=== PATIENT | male | born 1940 | race Caucasian/White ===

== ENCOUNTER 2018-07-01 02:29 | Outpatient (CLI) | payer MEDICARE, SELFPAY ==
[2018-07-01 10:45] LABS: BUN 18 mg/dL (7-18); CREATININE 1.24 mg/dL (0.70-1.30); Calcium 8.6 mg/dL (8.5-10.1); Chloride 108 mmol/L (98-107); Cholesterol 133 mg/dL (50-200); Estimated GFR 56.24 (mL/min/1.73m2); Glucose 90 mg/dL (70-100); HDL Cholesterol 38 mg/dL (40-60); LDL CHOLESTEROL 83 mg/dL (<100); Potassium 4.4 mmol/L (3.5-5.1); Sodium 144 mmol/L (136-145); Triglyceride 96 mg/dL (30-150)
== END 2018-07-01 02:49 ==
PROVIDERS: PCP Family Medicine; Visit Provider Family Medicine
DX: E78.5 Hyperlipidemia, unspecified (principal); I10 Essential (primary) hypertension
CPT/HCPCS: 36415; 80048; 80061; 83721

== ENCOUNTER 2018-12-18 17:07 | Emergency (ER) | payer MEDICARE, SELFPAY ==
--- NOTE | 2018-12-18 17:11 | W.ED.GENAD ---
Discharge Plan Disposition Patient Disposition: HOME Condition: Improving Discharge Details Chief Complaint: RespSymp Clinical Impression: Pneumonia, Influenza A, Constipation Primary Care Provider: Tashi Castillo ED Provider: Dipak Swift Home Meds and New Rx's Prescriptions: New doxycycline hyclate 100 mg capsule 100 mg PO BID 10 Days Qty: 20 RF: 0 docusate sodium [Colace] 100 mg capsule 200 mg PO QHS PRN (Reason: constipation) Qty: 20 RF: 0 Continued oxybutynin chloride 5 mg tablet extended release 24hr 5 mg PO BID Qty: 180 RF: 3 pramipexole [Mirapex] 0.5 mg tablet 0.5 mg PO HS Qty: 90 RF: 4 Colace 50 MG capsule 100 mg PO BID PRNRF: 0 multivitamin 1 EACH capsule 1 ea PO DAILY RF: 0 glucosam-chond [id number]-[id number] ac 1 EACH capsule 1 ea PO DAILY RF: 0 simvastatin 10 MG tablet 0.5 tab PO HS Qty: 45 RF: 4 nabumetone 500 MG tablet 500 mg PO BID Qty: 180 RF: 3 omeprazole 20 mg capsule,delayed release(DR/EC) 20 mg PO DAILY Qty: 90 RF: 3 methylphenidate HCl 10 mg tablet 20 mg PO BID MDD 40 mg Qty: 60 RF: 0 Discharge Instructions Instructions: Constipation (ED), Pneumonia (ED) Additional Instructions: Home to rest this evening. As we discussed to have evidence of a developing pneumonia and influenza. Please take antibiotics as prescribed. Colace at bedtime, as prescribed, as needed for constipation Followup with Dr Castillo if not improved in 3-5 days time. Medical Decision Making 78-year-old male presents from home complaining of 2 concerns. 1: he has had 5 days of constipation which is not unusual for him. 2: he has day5 of cough with mild congestion. No significant fever. has been sick with a respiratory illness. He is afebrile and well-appearing. His exam is benign. He has normal oxygenation, is in no distress, with a soft abdomen. Influenza testing obtained and patient referred for chest x-ray with abdominal flat plate. Patient has positive influenza A. Abdominal x-ray reveals moderate fecal load without evidence of obstruction. Chest x-ray with opacity in the retrocardiac area, concerning for pneumonia. Discussed with the patient that I do not feel Tamiflu is indicated given the length of time since the onset. He does likely have influenza associated pneumonia and I will treat him with a course of doxycycline given strong allergy to penicillins. Additionally, we will treat with Colace for constipation. He stable and appropriate discharged home. He will follow-up with Dr. Castillo if not improving in 3-5 days time. HPI General Mode of arrival: ambulatory. Date/Time Provider Initiated Documentation: 12/18/18 17:07. Limitations to Documentation: no limitations. Information obtained by: patient. History of Present Illness 78 year old M presents to the emergency department with the chief complaint of 78-year-old male complains of cough 4days and constipation x4 days, described as mild and moderate, Quality is described as dull, and is localized to the chest and abdomen. Patient reports no radiation. Patient started experiencing this day(s) and it has been constant. No relieving factors improve symptom(s), No exacerbating factors reported . Patient notes cough; denies fever/chills and nausea/vomiting. Patient did receive the following treatments prior to arrival, none Related Data Home Medications Medication Instructions Recorded Confirmed Colace 100 mg PO BID PRN tab-cap 12/09/12 12/18/18 glucosam-chond [id number] ac 1 ea PO DAILY 12/09/12 12/18/18 multivitamin 1 ea PO DAILY 12/09/12 12/18/18 nabumetone 500 mg PO BID #180 tab-cap 04/10/18 12/18/18 simvastatin 0.5 tab PO HS #45 tab-cap 04/10/18 12/18/18 oxybutynin chloride ER 5 mg 5 mg PO BID #180 tab 06/25/18 12/18/18 tablet,extended release 24 hr pramipexole 0.5 mg tablet 0.5 mg PO HS #90 tab-cap 06/25/18 12/18/18 omeprazole 20 mg capsule,delayed 20 mg PO DAILY #90 tab-cap 10/05/18 12/18/18 release methylphenidate 10 mg tablet 20 mg PO BID #60 tab-cap MDD 40 mg 10/27/18 12/18/18 docusate sodium [Colace] 200 mg PO QHS PRN #20 cap 12/18/18 doxycycline hyclate 100 mg PO BID 10 Days #20 cap 12/18/18 Previous Rx's Medication Instructions Recorded nabumetone 500 mg PO BID #180 tab-cap 04/10/18 simvastatin 0.5 tab PO HS #45 tab-cap 04/10/18 oxybutynin chloride ER 5 mg 5 mg PO BID #180 tab 06/25/18 tablet,extended release 24 hr pramipexole 0.5 mg tablet 0.5 mg PO HS #90 tab-cap 06/25/18 omeprazole 20 mg capsule,delayed 20 mg PO DAILY #90 tab-cap 10/05/18 release methylphenidate 10 mg tablet 20 mg PO BID #60 tab-cap MDD 40 mg 10/27/18 docusate sodium [Colace] 200 mg PO QHS PRN #20 cap 12/18/18 doxycycline hyclate 100 mg PO BID 10 Days #20 cap 12/18/18 Allergies Allergy/AdvReac Type Severity Reaction Status Date / Time celecoxib Allergy GI Bleeding Unverified 12/18/18 18:21 Penicillins Allergy Skin Rash Unverified 12/18/18 18:21 Review of Systems Review of Systems Denies fever, chills. States his has been sick with a viral type illness. He often has constipation. Last normal bowel movement was Friday. No chest pain or shortness of breath. 6 systems reviewed and otherwise negative [facility] Surgical History HERNIA REPAIR (~05/2009) KNEE REPAIR Laminectomy? 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 Paternal Grandmother No problems noted. Son No problems noted. Son Diabetes Social History Smoking/Tobacco Use Status: Never Alcohol Intake: never Drug use: Never Substance use type: does not use Household members: spouse Pets and animals: Yes Pets and animals: dog(s) Duration: 60-90 minutes/day Frequency: 3-4 times per week Rafaela/Yazidi: Amish Special rafaela needs: No Do you feel safe at home: Yes Do you feel safe in your relationship?: Yes Exam Narrative Exam Narrative: GEN: awake, alert, oriented 3. Pleasant, well groomed, interactive. HEAD: Normocephalic, atraumatic ENT: Mucous membranes moist, oropharynx unremarkable, External ear exam unremarkable EYES: PERRL, EOMI NECK: Full ROM, no LAKESHA, no menigismus CHEST/RESP: Nontender, clear to auscultation bilateral, left base rhonchi CARDIOVASCULAR: RRR, no murmur, rub moises. 2+ Rad pulse bilateral ABDOMEN: Soft, nontender, no mass. +Bowel sounds EXT: Full ROM, no edema, no rash Neuro: Grossly normal neurologic exam, conversant, interactive. Psych: Speech fluent, thoughts congruent, affect normal
[2018-12-18 17:14] VITALS: BP 154/85; PULSE 76; RESP 15; TEMP 37; O2SAT 94
--- NOTE | 2018-12-18 17:28 | ED.GENADUL_ITS ---
Discharge Plan Disposition Patient Disposition: HOME Condition: Improving Discharge Details Chief Complaint: RespSymp Clinical Impression: Pneumonia, Influenza A, Constipation Primary Care Provider: Tashi Castillo ED Provider: Dipak Swift Home Meds and New Rx's Prescriptions: New doxycycline hyclate 100 mg capsule 100 mg PO BID 10 Days Qty: 20 RF: 0 docusate sodium [Colace] 100 mg capsule 200 mg PO QHS PRN (Reason: constipation) Qty: 20 RF: 0 Continued oxybutynin chloride 5 mg tablet extended release 24hr 5 mg PO BID Qty: 180 RF: 3 pramipexole [Mirapex] 0.5 mg tablet 0.5 mg PO HS Qty: 90 RF: 4 Colace 50 MG capsule 100 mg PO BID PRNRF: 0 multivitamin 1 EACH capsule 1 ea PO DAILY RF: 0 glucosam-chond [id number]-[id number] ac 1 EACH capsule 1 ea PO DAILY RF: 0 simvastatin 10 MG tablet 0.5 tab PO HS Qty: 45 RF: 4 nabumetone 500 MG tablet 500 mg PO BID Qty: 180 RF: 3 omeprazole 20 mg capsule,delayed release(DR/EC) 20 mg PO DAILY Qty: 90 RF: 3 methylphenidate HCl 10 mg tablet 20 mg PO BID MDD 40 mg Qty: 60 RF: 0 Discharge Instructions Instructions: Constipation (ED), Pneumonia (ED) Additional Instructions: Home to rest this evening. As we discussed to have evidence of a developing pneumonia and influenza. Please take antibiotics as prescribed. Colace at bedtime, as prescribed, as needed for constipation Followup with Dr Castillo if not improved in 3-5 days time. Medical Decision Making 78-year-old male presents from home complaining of 2 concerns. 1: he has had 5 days of constipation which is not unusual for him. 2: he has day5 of cough with mild congestion. No significant fever. has been sick with a respiratory illness. He is afebrile and well-appearing. His exam is benign. He has normal oxygenation, is in no distress, with a soft abdomen. Influenza testing obtained and patient referred for chest x-ray with abdominal flat plate. Patient has positive influenza A. Abdominal x-ray reveals moderate fecal load without evidence of obstruction. Chest x-ray with opacity in the retrocardiac area, concerning for pneumonia. Discussed with the patient that I do not feel Tamiflu is indicated given the length of time since the onset. He does likely have influenza associated pneumonia and I will treat him with a course of doxycycline given strong allergy to penicillins. Additionally, we will treat with Colace for constipation. He stable and appropriate discharged home. He will follow-up with Dr. Castillo if not improving in 3-5 days time. HPI General Mode of arrival: ambulatory . Date/Time Provider Initiated Documentation: 12/18/18 17:07 . Limitations to Documentation: no limitations . Information obtained by: patient . History of Present Illness 78 year old M presents to the emergency department with the chief complaint of 78-year-old male complains of cough 4days and constipation x4 days, described as mild and moderate, Quality is described as dull, and is localized to the chest and abdomen. Patient reports no radiation. Patient started experiencing this day(s) and it has been constant. No relieving factors improve symptom(s), No exacerbating factors reported . Patient notes cough; denies fever/chills and nausea/vomiting. Patient did receive the following treatments prior to arrival, none Related Data Home Medications Medication Instructions Recorded Confirmed Colace 100 mg PO BID PRN tab-cap 12/09/12 12/18/18 glucosam-chond [id number]-[id number] ac 1 ea PO DAILY 12/09/12 12/18/18 multivitamin 1 ea PO DAILY 12/09/12 12/18/18 nabumetone 500 mg PO BID #180 tab-cap 04/10/18 12/18/18 simvastatin 0.5 tab PO HS #45 tab-cap 04/10/18 12/18/18 oxybutynin chloride ER 5 mg 5 mg PO BID #180 tab 06/25/18 12/18/18 tablet,extended release 24 hr pramipexole 0.5 mg tablet 0.5 mg PO HS #90 tab-cap 06/25/18 12/18/18 omeprazole 20 mg capsule,delayed 20 mg PO DAILY #90 tab-cap 10/05/18 12/18/18 release methylphenidate 10 mg tablet 20 mg PO BID #60 tab-cap MDD 40 mg 10/27/18 12/18/18 docusate sodium [Colace] 200 mg PO QHS PRN #20 cap 12/18/18 doxycycline hyclate 100 mg PO BID 10 Days #20 cap 12/18/18 Previous Rx's Medication Instructions Recorded nabumetone 500 mg PO BID #180 tab-cap 04/10/18 simvastatin 0.5 tab PO HS #45 tab-cap 04/10/18 oxybutynin chloride ER 5 mg 5 mg PO BID #180 tab 06/25/18 tablet,extended release 24 hr pramipexole 0.5 mg tablet 0.5 mg PO HS #90 tab-cap 06/25/18 omeprazole 20 mg capsule,delayed 20 mg PO DAILY #90 tab-cap 10/05/18 release methylphenidate 10 mg tablet 20 mg PO BID #60 tab-cap MDD 40 mg 10/27/18 docusate sodium [Colace] 200 mg PO QHS PRN #20 cap 12/18/18 doxycycline hyclate 100 mg PO BID 10 Days #20 cap 12/18/18 Allergies Allergy/AdvReac Type Severity Reaction Status Date / Time celecoxib Allergy GI Bleeding Unverified 12/18/18 18:21 Penicillins Allergy Skin Rash Unverified 12/18/18 18:21 Review of Systems Review of Systems Denies fever, chills. States his has been sick with a viral type illness. He often has constipation. Last normal bowel movement was Friday. No chest pain or shortness of breath. 6 systems reviewed and otherwise negative [facility] Surgical History HERNIA REPAIR (~05/2009) KNEE REPAIR Laminectomy? 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 Paternal Grandmother No problems noted. Son No problems noted. Son Diabetes Social History Smoking/Tobacco Use Status: Never Alcohol Intake: never Drug use: Never Substance use type: does not use Household members: spouse Pets and animals: Yes Pets and animals: dog(s) Duration: 60-90 minutes/day Frequency: 3-4 times per week Rafaela/Zoroastrianism: Yarsanism Special rafaela needs: No Do you feel safe at home: Yes Do you feel safe in your relationship?: Yes Exam Narrative Exam Narrative: GEN: awake, alert, oriented 3. Pleasant, well groomed, interactive. HEAD: Normocephalic, atraumatic ENT: Mucous membranes moist, oropharynx unremarkable, External ear exam unremarkable EYES: PERRL, EOMI NECK: Full ROM, no LAKESHA, no menigismus CHEST/RESP: Nontender, clear to auscultation bilateral, left base rhonchi CARDIOVASCULAR: RRR, no murmur, rub moises. 2+ Rad pulse bilateral ABDOMEN: Soft, nontender, no mass. +Bowel sounds EXT: Full ROM, no edema, no rash Neuro: Grossly normal neurologic exam, conversant, interactive. Psych: Speech fluent, thoughts congruent, affect normal
[2018-12-18 17:36] VITALS: BP 149/87; PULSE 70; RESP 14; O2SAT 93
--- NOTE | 2018-12-18 17:52 | DI.RAD_ITS ---
SYMPTOM/DIAGNOSIS: CONSTIPATION, COUGH, LT BASE RHONCHI FRONTAL AND LATERAL CHEST: Comparison is made with 07/06/12. Heart size and pulmonary vasculature appear stable and within normal limits. The lungs appear hyperinflated with flattened diaphragms suggesting underlying COPD. There are increased lung markings in the retrocardiac region of the lung, probably on the left. No effusions or pneumothoraces are identified. The bones appear intact. IMPRESSION: Retrocardiac opacity/infiltrate. This may represent atelectasis or pneumonia. FPA: There is a large amount of stool seen in the colon involving the ascending, transverse descending colon consistent with constipation. No evidence of bowel obstruction is seen. No organomegaly is present. Moderately severe degenerative changes are seen in the spine. IMPRESSION: Findings consistent with constipation.
--- NOTE | 2018-12-18 18:08 | NUR.NOTE ---
Mr. Givens return to ER from Radiology; chest and abdominal films obtained.Nursing Note:
[2018-12-18 18:22] VITALS: BP 138/73; PULSE 68; RESP 15; TEMP 37.3; O2SAT 94
--- NOTE | 2018-12-18 18:29 | DI.VRAD_ITS ---
EXAM: XR Chest, 2 Views EXAM DATE/TIME: 12/18/2018 5:26 PM CLINICAL HISTORY: 78 years old, male; Signs and symptoms; Cough; Patient HX: Cough, l base rhonchi TECHNIQUE: XR of the chest, 2 views. COMPARISON: CR CHEST 2 VIEWS PA,LAT 07/06/2012 12:34 PM FINDINGS: Lungs: Hyperexpanded lung larry consistent with COPD . Increasing opacity in the retrocardiac area Pleural space: Unremarkable. No pleural effusion. No pneumothorax. Heart/Mediastinum: Stable cardiac silhouette Bones/joints: Unremarkable. IMPRESSION: Increasing opacity in the retrocardiac area may represent mild atelectasis or pneumonia. Dictated and Authenticated by: Hema Ko MD. Ordering:XIMENA Quesada MD
--- NOTE | 2018-12-18 18:31 | DI.VRAD_ITS ---
EXAM: XR Abdomen, 1 View EXAM DATE/TIME: 12/18/2018 5:26 PM CLINICAL HISTORY: 78 years old, male; Signs and symptoms; Constipation TECHNIQUE: Frontal supine view of the abdomen/pelvis. COMPARISON: No relevant prior studies available. FINDINGS: Gastrointestinal tract: Findings consistent with constipation in the right colon and left colon. Bones/joints: Degenerative changes in the lumbar spine IMPRESSION: Findings consistent with constipation in the right colon and left colon. Dictated and Authenticated by: Hema Ko MD. Ordering:XIMENA Quesada MD
[2018-12-18] MEDS: Docusate Sodium 100 MG CAP 200 MG PO (18:51)
[2018-12-18] MEDS: Doxycycline Hyclate 100 MG CAP PO ×2 (18:52)
[2018-12-18 19:07] VITALS: BP 147/80; PULSE 73; RESP 16; TEMP 37.1; O2SAT 94
== END 2018-12-18 19:05 | disposition home or self-care (01) ==
PROVIDERS: Emergency Provider Emergency Medicine; PCP Family Medicine
DX: J10.00 Influenza due to other identified influenza virus with unspecified type of pneumonia (principal); J18.9 Pneumonia, unspecified organism; K59.00 Constipation, unspecified
CPT/HCPCS: 87449; 99283; 71046; 74018

== ENCOUNTER 2019-04-26 09:58 | Outpatient (CLI) | payer MEDICARE, SELFPAY ==
[2019-04-26 10:59] LABS: Abs Immature Grans 0.01 k/cumm (0.0-0.09); Absolute Basophil Count 0.03 k/cumm (0.0-0.2); Absolute Eosinophil Count 0.16 k/cumm (0.0-0.7); Absolute Lymphocyte Count 0.96 k/cumm (1.2-3.4); Absolute Monocyte Count 0.85 k/cumm (0.11-0.7); Absolute Neutrophil Count 4.07 k/cumm (1.2-6.7); Basophils % 0.5; Eosinophils % 2.6; HCT 39.8 % (40.0-50.0); Immature Grans % 0.2; Lymphocytes % 15.8; Mean Corp. HGB Concentration 32.7 g/dL (32.0-36.0); Mean Corpuscular Hemoglobin 31.3 pg (27.0-33.0); Mean Corpuscular Volume 95.7 fL (80-95); Mean Platelet Volume 9.7 fL (8.0-11.0); Neutrophils % 66.9; Platelet Count 248 x1000/uL (130-400); RBC 4.16 m/cumm (4.50-6.00); RBC Distribution Width 13.4 % (11.8-14.1); White Blood Cell Count 6.08 k/cumm (4.4-10.8)
[2019-04-26 11:30] LABS: ALT 39 U/L (12-78); AST 28 U/L (15-37); Albumin 3.6 g/dL (3.4-5.0); Alkaline Phosphatase 93 U/L (46-116); Anion Gap 10.1 mmol/L (3-11); BUN 24 mg/dL (7-18); Bilirubin, Total 0.7 mg/dL (0.2-1.0); CO2 24.9 mmol/L (21.0-32.0); CREATININE 1.22 mg/dL (0.70-1.30); Calcium 9.2 mg/dL (8.5-10.1); Chloride 107 mmol/L (98-107); Estimated GFR 57.15 (mL/min/1.73m2); Glucose 107 mg/dL (70-100); Potassium 4.2 mmol/L (3.5-5.1); Sodium 142 mmol/L (136-145); TSH (W/Ref FT4) 2.12 uIU/mL (0.36-3.74); Total Protein 7.1 g/dL (6.4-8.2)
== END 2019-04-26 10:18 ==
PROVIDERS: Internal Medicine; PCP Family Medicine; Visit Provider Family Medicine
DX: R00.1 Bradycardia, unspecified (principal); Z01.818 Encounter for other preprocedural examination; I49.1 Atrial premature depolarization; I47.1 Supraventricular tachycardia
CPT/HCPCS: 36415; 80053; 84443; 85025; 93225

== ENCOUNTER 2019-04-28 11:12 | Outpatient (CLI) | payer MEDICARE, SELFPAY ==
--- NOTE | 2019-04-29 07:20 | HOLTER_ITS ---
HOLTER MONITOR DATE OF DICTATION April 28, 2019 STUDY INDICATIONS Bradycardia. REQUESTING PROVIDER Not available. FINDINGS The patient was monitored for two days. The baseline rhythm was sinus rhythm. The average heart rate was 71 beats per minute, range 44 to 127 beats per minute. Very frequent PACs,, 16%. 11 episodes of supraventricular tachycardia, longest 12 beats, fastest 153 beats per minute. Rare PVCs, less than 1%. Four episodes of ventricular tachycardia, longest 12 beats, fastest 160 beats per minute. These runs most likely resemble SVT with aberrancy. There were blocked PACs. There were no pauses greater than 3 seconds. There was no high degree heart block. There were no patient events. FINAL INTERPRETATION Very frequent PACs and bursts of supraventricular tachycardia, asymptomatic. Robert Schultz M.D. PALOMO/oumar T - 04/29/2019
== END 2019-04-28 11:32 ==
PROVIDERS: PCP Family Medicine; Visit Provider Family Medicine
DX: R00.1 Bradycardia, unspecified (principal); I49.1 Atrial premature depolarization; I47.1 Supraventricular tachycardia
CPT/HCPCS: 93227; 93226

== ENCOUNTER 2019-05-29 16:41 | Emergency (ER) | payer MEDICARE, SELFPAY ==
[2019-05-29 16:44] VITALS: BP 136/79; PULSE 77; RESP 18; TEMP 36.7; O2SAT 96
--- NOTE | 2019-05-29 16:47 | W.ED.GENAD ---
Discharge Plan Disposition Patient Disposition: HOME Condition: Stable Discharge Details Chief Complaint: EyeProblem Clinical Impression: Corneal irritation of left eye Primary Care Provider: Tashi Castillo ED Provider: Maura Herrera Home Meds and New Rx's Prescriptions: Continued pramipexole [Mirapex] 0.5 mg tablet 0.5 mg PO HS Qty: 90 RF: 4 methylphenidate HCl 20 mg tablet 20 mg PO BID MDD 40 mg Qty: 60 RF: 0 oxybutynin chloride 10 mg tablet extended release 24hr 10 mg PO BID RF: 0 multivitamin 1 EACH capsule 1 ea PO DAILY RF: 0 glucosam-chond cl-caqsrd-ws ac 1 EACH capsule 1 ea PO DAILY RF: 0 simvastatin 10 MG tablet 0.5 tab PO HS Qty: 45 RF: 4 omeprazole 20 mg capsule,delayed release(DR/EC) 20 mg PO DAILY Qty: 90 RF: 3 nabumetone 500 mg tablet 500 mg PO BID Qty: 180 RF: 4 docusate sodium [Colace] 100 mg capsule 200 mg PO QHS PRN (Reason: constipation) Qty: 20 RF: 0 Discharge Instructions Additional Instructions: You are leaving against medical advice. There remains concern about the finding in your eye, still awaiting [facility] from [facility]. Please continue with drops as previously prescribed, please call Friday to schedule follow up as soon as possible with [facility]. If you develop fevers/chills, pain in the eye, visual changes or other new/worsneing symptoms please seek care urgently once again. You may return at any time for continued care. Referrals: Anthony Wilhelm MD [ [facility] STAFF PHYSICIAN] - Medical Decision Making Patient presents today postop day 3 for evaluation of injection area on the inferior border of the left eye. On exam, is a 3 mm circular area of injection with a central mildly raised area that appears to be 1 mm blister. Patient is not having any pain. No visual changes. No fevers. No discharge. This has not been spreading. Most consistent with rubbing from the retractor or injection from the time of surgery. However, we will contacted Dr. Wilhelm in consult. Attempted to page Dr. Wilhelm x 3 with 20 minute intervals in between, unable to reach provider. Patient and his are getting very upset and are requesting discharge. At this time, I see no evidence of acute eye threatening pathology. He has what appears to be ulcerative change to the inferior aspect of the eye, he is already on steroid and abx drops in the postoperative period. Patient is leaving AMA. Understands the risks, I will continue to attempt to reach them. While the patient was being discharged, Dr. Wilhelm to called back. Reported that this is typical in a postoperative patient from the injection site. They do not feel that intervention at this time is warranted. They will see patient this week for reassessment. I discussed these recommendations with the patient. As they are wanting to leave at this time and will not wait further, the same paperwork indicating AMA status was given. Patient truly is not AMA at this point as they are feeling much improved after being reassured by their press tender smoke signal. They will call Friday morning for appointment. They were given return precautions. Will continue with drops as previously prescribed. All of their quesitons and concerns were addressed, they are in agreement with this plan. HPI General Mode of arrival: ambulatory. Date/Time Provider Initiated Documentation: 05/29/19 16:46. Limitations to Documentation: no limitations. Information obtained by: patient and RN notes reviewed. HPI Narrative: Patient is 78 year old male, accompanied by , with c/c of small raised area to left eye. Patient underwent cataract surgery 3 days ago. Had been doing well postop day 1 but reports that she noted the raised area along the inferior aspect of the eye last night. He denies any pain but does have a very mild FB sensation to the inferior aspect of the eye. No fevers/chills. No tearing or discharge. Related Data Home Medications Medication Instructions Recorded Confirmed glucosam-chond fl-noepsd-kl ac 1 ea PO DAILY 12/09/12 05/29/19 multivitamin 1 ea PO DAILY 12/09/12 05/29/19 simvastatin 0.5 tab PO HS #45 tab-cap 04/10/18 05/29/19 pramipexole 0.5 mg tablet 0.5 mg PO HS #90 tab-cap 06/25/18 05/29/19 omeprazole 20 mg capsule,delayed 20 mg PO DAILY #90 tab-cap 10/05/18 05/29/19 release docusate sodium [Colace] 200 mg PO QHS PRN #20 cap 12/18/18 05/29/19 methylphenidate HCl 20 mg tablet 20 mg PO BID #60 tab-cap MDD 40 mg 04/01/19 05/29/19 oxybutynin chloride 10 mg 10 mg PO BID tab 04/30/19 05/29/19 tablet,extended release 24 hr nabumetone 500 mg tablet 500 mg PO BID #180 tab-cap 05/08/19 05/29/19 Previous Rx's Medication Instructions Recorded simvastatin 0.5 tab PO HS #45 tab-cap 04/10/18 pramipexole 0.5 mg tablet 0.5 mg PO HS #90 tab-cap 06/25/18 omeprazole 20 mg capsule,delayed 20 mg PO DAILY #90 tab-cap 10/05/18 release docusate sodium [Colace] 200 mg PO QHS PRN #20 cap 12/18/18 methylphenidate HCl 20 mg tablet 20 mg PO BID #60 tab-cap MDD 40 mg 04/01/19 nabumetone 500 mg tablet 500 mg PO BID #180 tab-cap 05/08/19 Allergies Allergy/AdvReac Type Severity Reaction Status Date / Time celecoxib Allergy GI Bleeding Unverified 05/29/19 16:50 Penicillins Allergy Skin Rash Unverified 05/29/19 16:50 General ASH: 3 Review of Systems Constitutional Reports as per HPI, Denies chills, Denies fatigue, Denies fever(s) and Denies headache(s) Eyes Reports as per HPI ENT Denies headache(s) Cardiovascular Reports as per HPI, Denies chest pain and Denies lightheadedness Respiratory Denies cough Integumentary/Breasts Reports as per HPI, Denies rash, Denies skin pain and Denies skin swelling Neurologic Denies headache(s) and Denies radicular pain Endocrine Denies fatigue [facility] Surgical History HERNIA REPAIR (~05/2009) KNEE REPAIR Laminectomy? 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) Social History (Reviewed 05/29/19 @ 17:03 by SERGIO Hutchinson Smoking/Tobacco Use Status: Never Alcohol Intake: never Drug use: Never Substance use type: does not use Household members: spouse Pets and animals: Yes Pets and animals: dog(s) What type of physical activity do you participate in: walking Duration: 60-90 minutes/day Frequency: 3-4 times per week Rafaela/Samaritan: Taoist Special rafaela needs: No Do you feel safe at home: Yes Do you feel safe in your relationship?: Yes Exam Const General: cooperative, healthy appearing, comfortable, no acute distress, well developed and well groomed Nutritional Appearance: average body habitus and well nourished Orientation: alert, awake and oriented x3 HENMT Head: normal to inspection, normocephalic and atraumatic Ears: hearing grossly normal bilaterally and external ears normal General nose exam: external nose normal and nares normal Face and sinus: normal facial exam and face symmetric Mouth: oral mucosae normal, lip normal and moist mucous membranes Eyes Visual Santos: normal visual santos by confrontation Alignment and Position: alignment normal and position normal Periorbital: periorbital findings normal Eyelids: eyelids normal Conjunctivae: conjunctival abnormality left conjunctival injection (3mm with 1mm raised clear blister); without discharge Pupils: PERRL EOM: EOM intact bilaterally Direct ophthalmoscopy: normal light reflex Resp Effort & Inspection: normal respiratory effort, able to speak in complete sentences and no respiratory distress Skin General skin exam: no rashes or lesions noted Neuro General: alert, awake and oriented x3 Cranial Nerves: CN's II-XI intact bilaterally Cognition: normal cognition Speech: speech normal Gait: normal gait Psych Appearance: grossly normal and well kempt Mental Status: mental status grossly normal Speech and Movement: speech and movement normal
== END 2019-05-29 18:25 | disposition home or self-care (01) ==
PROVIDERS: Emergency Provider Physician Assistant; PCP Family Medicine
DX: H57.89 Other specified disorders of eye and adnexa (principal); Z98.42 Cataract extraction status, left eye; Z53.29 Procedure and treatment not carried out because of patient's decision for other reasons; I10 Essential (primary) hypertension
CPT/HCPCS: 99282

== ENCOUNTER 2019-07-16 11:07 | Outpatient (CLI) | payer MEDICARE, SELFPAY ==
--- NOTE | 2019-07-16 10:45 | DI.RAD_ITS ---
EXAM: XR LUMBAR SPINE COMPLETE INDICATION: Low back pain, M54.5. COMPARISON: No exams were available for comparison TECHNIQUE: 2D digital imaging was performed. FINDINGS: Severe degenerative changes are demonstrated in the lumbar spine. There is multilevel disc space shyam rowing and a vacuum phenomenon is noted at L3-4. Endplate sclerosis and hypertrophic spurring identi fied throughout. Severe facet joint DJD is noted throughout the lumbar spine. The pedicles, spinous and transverse processes as visualized appear unremarkable. The sacrum and sacroiliac joints appear intact. 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 Please see the above discussi on.
== END 2019-07-16 11:27 ==
PROVIDERS: PCP Family Medicine; Visit Provider Family Medicine
DX: M54.5 Low back pain (principal); M51.36 Other intervertebral disc degeneration, lumbar region; M47.816 Spondylosis without myelopathy or radiculopathy, lumbar region
CPT/HCPCS: 72110

== ENCOUNTER 2019-08-23 14:53 | Outpatient (CLI) | payer MEDICARE, SELFPAY ==
[2019-08-23 16:19] LABS: ALT 39 U/L (16-63); AST 36 U/L (15-37); Albumin 3.4 g/dL (3.4-5.0); Alkaline Phosphatase 92 U/L (46-116); Anion Gap 10.7 mmol/L (3-11); BUN 20 mg/dL (7-18); Bilirubin, Total 0.7 mg/dL (0.2-1.0); CO2 23.3 mmol/L (21.0-32.0); CREATININE 1.57 mg/dL (0.70-1.30); Calcium 8.7 mg/dL (8.5-10.1); Chloride 109 mmol/L (98-107); Estimated GFR 42.72 (mL/min/1.73m2); Glucose 109 mg/dL (70-100); NT-proBNP 1986 pg/mL; Sodium 143 mmol/L (136-145); Total Protein 6.8 g/dL (6.4-8.2)
== END 2019-08-23 15:13 ==
PROVIDERS: PCP Family Medicine; Visit Provider Internal Medicine
DX: R00.1 Bradycardia, unspecified (principal); R06.02 Shortness of breath; M25.473 Effusion, unspecified ankle; M79.673 Pain in unspecified foot
CPT/HCPCS: 36415; 80053; 83880

== ENCOUNTER 2019-09-08 01:15 | Outpatient (CLI) | payer MEDICARE, SELFPAY ==
--- NOTE | 2019-09-08 10:10 | DI.US_ITS ---
APPROVED REPORT EXAM: Comprehensive 2D, Doppler, and color-flow Echocardiogram Patient Location: Out-Patient [employer] Teacher: ABIGAIL Raman (AE) Rhythm: NSR Indications: CHF COPELAND R06.09 Conclusion Left Ventricle : The left ventricle is normal size. Moderate concentric left ventricular hypertrophy. Left ventricular systolic function is borderline. There is normal LV segmental wall motion. LVEF is estimated to be 50-55%. There is grade 2 diastolic dysfunction Right Ventricle : The right ventricle is normal in size. The right ventricular systolic function appe ars normal. Atria : Left atrium is severely dilated. Right atrium is moderately dilated. Aortic Valve : Aortic valve is trileaflet. Mild aortic regurgitation. There is no aortic valvular jin nosis. Mitral Valve : Mitral valve leaflets appear myxomatous. The mitral valve is moderately thickened. No evidence of mitral valve stenosis. Moderate mitral regurgitation (RF 49%, Rvol 54ml) Tricuspid Valve : Tricuspid valve is not well visualized. Mild tricuspid regurgitation. Great Vessels : IVC is normal in size and collapses >50% with inspiration. Mid RVSP is 32-35 mmHg. Given the degree of left ventricular hypertrophy, I would consider an infiltrative process such as am yloidosis versus long-standing hypertension as the patient does not have any evidence of aortic steno sis. There is no prior echocardiogram available for comparison. Wall motion Left Ventricle The left ventricle is normal size. Left ventricular systolic function is borderline. Moderate concent tonja left ventricular hypertrophy. There is normal LV segmental wall motion. There is grade 2 diastoli c dysfunction LVEF is estimated to be 50-55%. Right Ventricle The right ventricle is normal in size The right ventricular systolic function appears normal. Atria Left atrium is severely dilated. Right atrium is moderately dilated. Aortic Valve Aortic valve is trileaflet. There is no aortic valvular stenosis. Mild aortic regurgitation. Mitral Valve Mitral valve leaflets appear myxomatous. The mitral valve is moderately thickened. No evidence of karlos ral valve stenosis. Moderate mitral regurgitation (RF 49%, Rvol 54ml) Tricuspid Valve Tricuspid valve is not well visualized. Mild tricuspid regurgitation. Pulmonic Valve Pulmonic valve is not well visualized. Great Vessels The aortic root is normal in size. IVC is normal in size and collapses >50% with inspiration. Mid RVS P is 32-35 mmHg. Pericardium There is no pericardial effusion. 2D Dimensions IVSd 1.65 cm M: 0.6-1.2 LV EDV A2C 64.60 mL PWd 1.35 cm M: 0.6 - 1.2 LV EDV A4C 80.90 mL LVDd 4.45 cm M: 4.2 - 5.8 LA Volume Index A2C 34.57 mL/m2 LVDs 3.00 cm M: 2.5 - 4.0 LA Volume Index A4C 59.30 mL/m2 Aortic Root 3.24 cm M: 3.1 - 3.7 LA Volume Index Biplane 47.48 mL/m2 RVID Base (AP4) 3.70 cm (M/F) 2.5-4.1 LA Area A4C 28.34 cm2 RA Area A4C 18.67 cm2 LA Area A2C 20.63 cm2 LVOT 1.90 cm (M/F) 1.5-2.5 EF AP4 53.77 % Ascending Aorta 3.48 cm M: 2.6 - 3.4 EF AP2 49.23 % LVEF (Teich) 60.76 % EF BP 52.60 % LVEF (Pimentel's) 52.60 % M: 52 - 72 LV Volume 58.03 mL M: 62 - 150 LV Volume Index 29.60 mL/m2 M: 34 - 74 FS 32.30 % LV Diastology E/A Ratio 1.0 MED E' 0.04 (>0.07 m/s) LV E/e MED 18.60 (<14) LAT E' 0.04 (>0.1 m/s) LV E/e LAT 20.85 (<14) Aortic Valve LVOT Area 2.84 cm2 LVOT Peak Robin. 0.95 m/s LVOT Mean Robin. 0.73 m/s LVOT Peak Gr. 3.95 mmHg DEEPIKA Vmax Index 1.14 cm2/m2 LVOT Mean Gr. 2.35 mmHg LVOT VTI 0.15 m DEEPIKA Mean Robin. Index 1.13 cm2/m2 AoV Peak Robin. 1.27 (0.5-1.3 m/s) AoV Mean Robin. 0.93 m/s AO Peak GR. 6.46 mmHg AO Mean GR. 3.71 (<5 mmHg) AO VTI 0.23 (0.18-0.25 m) VTI Ratio 0.85 DEEPIKA (VTI) 2.40 (2.5-4.5 cm2) DEEPIKA (VTI) Index 1.22 cm/m2 Mitral Valve MV E Max Robin. 0.76 (0.4-1.3 m/s) MV A Velocity 0.75 (0.4-1.3 m/s) E/A Ratio 0.99 MV Decel. Time 231.95 (160-240 msec) MV Regurg Volume 54.01 mL MV PHT 67.27 msec MV RF 49.79 % MVA PHT 3.25 cm2 Pulmonary Valve PV Peak Velocity 1.07 (0.5-1.5 m/s) Tricuspid Valve TR P. Velocity 2.84 m/s TV Regurg Vmax 2.84 m/s TR P. Gradient 32.15 mmHg
[2019-09-08 11:53] LABS: Abs Immature Grans 0.03 k/cumm (0.0-0.09); Absolute Basophil Count 0.03 k/cumm (0.0-0.2); Absolute Eosinophil Count 0.15 k/cumm (0.0-0.7); Absolute Lymphocyte Count 1.32 k/cumm (1.2-3.4); Absolute Monocyte Count 0.84 k/cumm (0.11-0.7); Absolute Neutrophil Count 6.49 k/cumm (1.2-6.7); Basophils % 0.3; Eosinophils % 1.7; HGB 14.5 g/dL (13.5-17.5); Immature Grans % 0.3; Lymphocytes % 14.9; Mean Corpuscular Hemoglobin 30.8 pg (27.0-33.0); Mean Corpuscular Volume 93.4 fL (80-95); Mean Platelet Volume 8.6 fL (8.0-11.0); Monocytes % 9.5; Neutrophils % 73.3; Platelet Count 376 x1000/uL (130-400); RBC 4.71 m/cumm (4.50-6.00); RBC Distribution Width 13.5 % (11.8-14.1); White Blood Cell Count 8.86 k/cumm (4.4-10.8)
[2019-09-08 12:28] LABS: ALT 39 U/L (16-63); AST 43 U/L (15-37); Albumin 3.8 g/dL (3.4-5.0); Alkaline Phosphatase 104 U/L (46-116); Anion Gap 9.7 mmol/L (3-11); BUN 22 mg/dL (7-18); Bilirubin, Total 0.7 mg/dL (0.2-1.0); CO2 26.3 mmol/L (21.0-32.0); CREATININE 1.26 mg/dL (0.70-1.30); Calcium 9.5 mg/dL (8.5-10.1); Chloride 106 mmol/L (98-107); Estimated GFR 55.07 (mL/min/1.73m2); Glucose 92 mg/dL (74-106); NT-proBNP 735 pg/mL (<300); Potassium 4.2 mmol/L (3.5-5.1); Sodium 142 mmol/L (136-145); Total Protein 7.5 g/dL (6.4-8.2)
== END 2019-09-08 01:35 ==
PROVIDERS: PCP Family Medicine; Visit Provider Internal Medicine
DX: R06.09 Other forms of dyspnea (principal); I50.9 Heart failure, unspecified; R50.9 Fever, unspecified; I51.7 Cardiomegaly; I10 Essential (primary) hypertension
CPT/HCPCS: 36415; 80053; 93306; 83880; 85025

== ENCOUNTER 2019-11-05 08:07 | Outpatient (CLI) | payer MEDICARE, SELFPAY | END 2019-11-05 08:27 | PROVIDERS: PCP Family Medicine; Visit Provider Internal Medicine Cardiovascular Disease | DX: I47.1 Supraventricular tachycardia (principal); I50.32 Chronic diastolic (congestive) heart failure; E78.5 Hyperlipidemia, unspecified; I11.0 Hypertensive heart disease with heart failure; I49.8 Other specified cardiac arrhythmias | CPT/HCPCS: 36415; 99204; 99215; 83883; 84153; 84165; 93005; 93010 ==

== ENCOUNTER 2019-11-05 12:15 | Outpatient (CLI) | payer MEDICARE, SELFPAY ==
[2019-11-08 10:28] LABS: PSA, Diagnostic 7.4 ng/mL (0.0-6.5)
[2019-11-08 12:02] LABS: Kappa Free Light Chain 4.72 mg/dL (0.33-1.94); Lambda Free Light Chain 2.76 mg/dL (0.57-2.63)
[2019-11-08 14:20] LABS: Albumin 52.1 % (55.8-66.1); Total Protein 6.7 g/dL (6.3-8.2)
== END 2019-11-05 12:35 ==
PROVIDERS: PCP Family Medicine; Visit Provider Internal Medicine Cardiovascular Disease
DX: I50.32 Chronic diastolic (congestive) heart failure; I43 Cardiomyopathy in diseases classified elsewhere; C61 Malignant neoplasm of prostate; E85.3 Secondary systemic amyloidosis; G56.23 Lesion of ulnar nerve, bilateral upper limbs; I10 Essential (primary) hypertension
CPT/HCPCS: 36415; 83883; 84153; 84165

== ENCOUNTER → 2019-11-08 09:32 | Outpatient (BNVA) | payer MEDICARE, SELFPAY | PROVIDERS: PCP Family Medicine; Referring Provider Family Medicine; Visit Provider Nurse Practitioner Adult Health | DX: G56.03 Carpal tunnel syndrome, bilateral upper limbs (principal); G56.23 Lesion of ulnar nerve, bilateral upper limbs | CPT/HCPCS: 95911; 99203; 99214 ==

== ENCOUNTER 2019-11-16 08:00 | Outpatient (REF) | payer MEDICARE, SELFPAY ==
[2019-11-18 09:40] LABS: Total Protein Urine 14 mg/dL
[2019-11-18 09:42] LABS: Total Protein, Urine 24hrs 270 mg/24hrs (<150)
[2019-11-18 09:46] LABS: Urine Volume 1925 mL
== END 2019-11-16 08:20 ==
LOC: LBN 08:00
PROVIDERS: PCP Family Medicine; Visit Provider Internal Medicine Cardiovascular Disease
DX: E78.5 Hyperlipidemia, unspecified; I10 Essential (primary) hypertension; I50.9 Heart failure, unspecified
CPT/HCPCS: 84156; 84166; 86335; 81050

== ENCOUNTER → 2019-11-22 10:37 | Outpatient (BNVA) | payer MEDICARE, SELFPAY | PROVIDERS: PCP Family Medicine; Referring Provider Family Medicine; Visit Provider Nurse Practitioner Gerontology | DX: N40.1 Benign prostatic hyperplasia with lower urinary tract symptoms (principal); R35.0 Frequency of micturition; N32.81 Overactive bladder; I11.0 Hypertensive heart disease with heart failure; I50.9 Heart failure, unspecified | CPT/HCPCS: 81003; 99204; 99215 ==

== ENCOUNTER → 2019-12-02 08:14 | Outpatient (BNVA) | payer MEDICARE, SELFPAY | PROVIDERS: PCP Family Medicine; Referring Provider Family Medicine; Visit Provider Student in an Organized Health Care Education/Training Program | DX: G56.21 Lesion of ulnar nerve, right upper limb (principal); G56.22 Lesion of ulnar nerve, left upper limb; G56.01 Carpal tunnel syndrome, right upper limb; G56.02 Carpal tunnel syndrome, left upper limb; I10 Essential (primary) hypertension | CPT/HCPCS: 99203; 99214; L3908 ==

== ENCOUNTER → 2020-02-07 13:54 | Outpatient (BNVA) | payer MEDICARE, SELFPAY | PROVIDERS: PCP Family Medicine; Referring Provider Family Medicine; Visit Provider Nurse Practitioner Gerontology | DX: N32.81 Overactive bladder (principal); N40.0 Benign prostatic hyperplasia without lower urinary tract symptoms; I10 Essential (primary) hypertension | CPT/HCPCS: 99213; 99442 ==

== ENCOUNTER → 2020-03-20 10:49 | Outpatient (BNVA) | payer MEDICARE, SELFPAY | PROVIDERS: PCP Family Medicine; Referring Provider Family Medicine; Visit Provider Internal Medicine Cardiovascular Disease | DX: I50.32 Chronic diastolic (congestive) heart failure (principal); R00.1 Bradycardia, unspecified; I11.0 Hypertensive heart disease with heart failure | CPT/HCPCS: 99214 ==

== ENCOUNTER → 2020-05-10 10:09 | Outpatient (BNVA) | payer MEDICARE, SELFPAY | PROVIDERS: PCP Family Medicine; Referring Provider Family Medicine; Visit Provider Nurse Practitioner Gerontology | DX: N32.81 Overactive bladder (principal); I11.0 Hypertensive heart disease with heart failure; I50.89 Other heart failure | CPT/HCPCS: 99213 ==

== ENCOUNTER → 2020-07-27 12:49 | Outpatient (BNVA) | payer MEDICARE, SELFPAY | PROVIDERS: PCP Family Medicine; Referring Provider Family Medicine; Visit Provider Internal Medicine Cardiovascular Disease | DX: I50.32 Chronic diastolic (congestive) heart failure (principal); E85.4 Organ-limited amyloidosis; I43 Cardiomyopathy in diseases classified elsewhere; R00.1 Bradycardia, unspecified; I10 Essential (primary) hypertension | CPT/HCPCS: 99214 ==

== ENCOUNTER 2020-07-27 13:36 | Outpatient (REF) | payer MEDICARE, SELFPAY ==
[2020-07-27 16:29] LABS: Anion Gap 10.7 mmol/L (3-11); BUN 27 mg/dL (7-18); CO2 22.3 mmol/L (21.0-32.0); CREATININE 1.55 mg/dL (0.70-1.30); Calcium 8.7 mg/dL (8.5-10.1); Chloride 107 mmol/L (98-107); Estimated GFR 43.25 (mL/min/1.73m2); Glucose 156 mg/dL (74-106); Magnesium 1.9 mg/dL (1.8-2.4); NT-proBNP 2260 pg/mL (<300); Potassium 3.9 mmol/L (3.5-5.1); Sodium 140 mmol/L (136-145)
== END 2020-07-27 13:56 ==
LOC: LBN 13:36
PROVIDERS: PCP Family Medicine; Visit Provider Internal Medicine Cardiovascular Disease
DX: I50.32 Chronic diastolic (congestive) heart failure (principal); I43 Cardiomyopathy in diseases classified elsewhere; E85.4 Organ-limited amyloidosis
CPT/HCPCS: 80048; 83735; 83880

== ENCOUNTER → 2020-08-07 08:52 | Outpatient (BNVA) | payer MEDICARE, SELFPAY | PROVIDERS: PCP Family Medicine; Referring Provider Family Medicine; Visit Provider Nurse Practitioner Gerontology | DX: N32.81 Overactive bladder (principal); I10 Essential (primary) hypertension | CPT/HCPCS: 99213 ==

== ENCOUNTER → 2020-11-02 13:48 | Outpatient (BNVA) | payer MEDICARE, SELFPAY | PROVIDERS: PCP Family Medicine; Referring Provider Family Medicine; Visit Provider Internal Medicine Cardiovascular Disease | DX: E85.4 Organ-limited amyloidosis (principal); I43 Cardiomyopathy in diseases classified elsewhere; I10 Essential (primary) hypertension; I50.32 Chronic diastolic (congestive) heart failure | CPT/HCPCS: 99214; 99442 ==

== ENCOUNTER 2020-11-09 04:00 | Outpatient (CLI) | payer MEDICARE, SELFPAY ==
[2020-11-09 18:58] LABS: PSA, Screening 7.1 ng/mL (0.0-6.5)
== END 2020-11-09 04:01 | disposition home or self-care (01) ==
LOC: LBO 04:00
PROVIDERS: PCP Family Medicine; Visit Provider Nurse Practitioner Gerontology
DX: R97.20 Elevated prostate specific antigen [PSA] (principal); Z12.5 Encounter for screening for malignant neoplasm of prostate
CPT/HCPCS: 36415; 84153

== ENCOUNTER → 2020-11-16 14:02 | Outpatient (BNVA) | payer MEDICARE, SELFPAY | PROVIDERS: PCP Family Medicine; Referring Provider Family Medicine; Visit Provider Nurse Practitioner Gerontology | DX: N40.0 Benign prostatic hyperplasia without lower urinary tract symptoms (principal) | CPT/HCPCS: 99215 ==

== ENCOUNTER 2021-01-05 09:35 | Outpatient (CLI) | payer MEDICARE, SELFPAY ==
--- NOTE | 2021-01-05 09:21 | DI.RAD_ITS ---
EXAM: XR SHOULDER RT COMPLETE 2+V CLINICAL HISTORY: r shoulder pain TECHNIQUE: COMPARISON: CR RIGHT SHOULDER COMPLETE from 03/19/2010 FINDINGS: Three views were obtained. The cartilaginous joint space of the glenohumeral joint appears fairly we ll maintained. The humeral head is superiorly subluxed and appears to abut the inferior surface of t he acromion, suggestive significant superior rotator cuff thinning or tear. There are moderate jesús nal osteophytes of the glenohumeral joint and acromioclavicular joint. IMPRESSION: Degenerative changes as described above. Presumed superior rotator cuff thinning or tear. RADIATION DOSE DELIVERED: Total DLP
== END 2021-01-05 09:36 | disposition home or self-care (01) ==
LOC: DIORS 09:35
PROVIDERS: PCP Family Medicine; Referring Provider Family Medicine; Visit Provider Student in an Organized Health Care Education/Training Program
DX: M25.511 Pain in right shoulder (principal); M19.011 Primary osteoarthritis, right shoulder; S46.011A Strain of muscle(s) and tendon(s) of the rotator cuff of right shoulder, initial encounter; W19.XXXA Unspecified fall, initial encounter; G89.29 Other chronic pain
CPT/HCPCS: 99213; 73030

== ENCOUNTER 2021-01-18 02:06 | Outpatient (CLI) | payer MEDICARE, SELFPAY ==
--- NOTE | 2021-01-18 08:45 | DI.MRI_ITS ---
EXAM: MR UPPER JOINT RT WO CLINICAL HISTORY: RT ROTATOR CUFF TEAR, RT SHOULDER PAIN, M25.511,G89.29,M75.101 TECHNIQUE: Multiplanar multisequence MRI of the shoulder was performed. COMPARISON: Recent x-rays 01/05/2021 were reviewed FINDINGS: MARROW:There is no evidence of fracture, Hill-Sachs deformity, nor ominous osseous lesions. ROTATOR CUFF MECHANISM: AC JOINT/ACROMIUM: There is significant degenerative changes at the AC joint including hypertrophy ti ssue + down pointing osteophyte on the clavicular side of this joint causing significant impingement. . There is laxity of the coracoacromial ligament which appears partially torn. There is no evidence of os acromiale. As seen on the recent plain films, this MRI also reveals significant upriding of the humeral head in the glenoid fossa with almost complete elimination of the subacromial space; this plain film finding usually implying chronic full-thickness rotator cuff tear. Indeed this is the case here. MRI reveal s... Supraspinatus: Complete high-grade tear with retraction musculotendinous junction to the osseous adam oid level. There is significant supraspinatus fatty atrophy. Infraspinatus: Also complete high-grade tear with is advanced retraction musculotendinous junction. Also atrophy of the muscle belly. Teres Minor: Intact. No evidence of tear nor muscle atrophy. Subscapularis/anterior cuff: Partial tearing. Redundant appearance on the axial images which is tamara rectly related to the full-thickness tear of the remainder of the rotator cuff mechanism. Neverthele ss, the multi pen 8 insertional fibers are not completely detached from the lesser tuberosity. BICEPS TENDON: Biceps tendon is torn-attenuated. Also medially displaced. LABRUM: There is tearing of the superior labrum. Posterior labrum appears intact. Inferior labrum e xhibits some abnormal signal. Anterior labrum exhibits tearing. There is no evidence of paralabral cyst. GLENOHUMERAL JOINT: There is a moderate-sized glenohumeral joint effusion and this is continuous with the subacromial space. There is thinning of the [place] cartilage of the glenohumeral joint. Ther e is a degenerative subarticular cyst in the superior aspect of the osseous glenoid, posteriorly. Th is subarticular cyst measures 7 x 6 by 8 millimeters. There are smaller degenerative subarticular cy sts seen in the most anterior aspect of the osseous glenoid. There are no degenerative subarticular cysts in the humeral head. There is no prominent osteophyte on the inferior articular surface of the humeral head. The inferior glenohumeral ligament is intact. QUADRILATERAL SPACE: No evidence of mass in the region of the axillary nerve and dorsal circumflex hu meral vessels. Visualized triceps muscle at this level appears unremarkable. IMPRESSION: 1. 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 Musculotendinous junctions of these structures are retracted to the osseous glenoid level. The teres minor remains intact. There is some irregularity partial tearing but no full thic kness tear of the multpennate insertional fibers of the anterior cuff-subscapularis. 2. Labral tearing as described above. Biceps tendon is also attenuated-torn and displaced medially. 3. 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 No large osteophytes. No significant bone edema in the humeral head. Degenerative subarticular cysts are noted in the osseou s glenoid. 4. Significant degenerative changes in the AC joint and fluid in the subacromial space due to the co ntinuity between the glenohumeral joint space and the subacromial-subdeltoid bursa space. DATA REPOSITORY:
== END 2021-01-18 02:26 ==
PROVIDERS: PCP Family Medicine; Visit Provider Student in an Organized Health Care Education/Training Program
DX: M25.511 Pain in right shoulder (principal); M75.101 Unspecified rotator cuff tear or rupture of right shoulder, not specified as traumatic; M19.011 Primary osteoarthritis, right shoulder; S46.211A Strain of muscle, fascia and tendon of other parts of biceps, right arm, initial encounter
CPT/HCPCS: 73221

== ENCOUNTER → 2021-01-29 13:39 | Outpatient (BNVA) | payer MEDICARE, SELFPAY | PROVIDERS: PCP Family Medicine; Referring Provider Family Medicine; Visit Provider Internal Medicine Cardiovascular Disease | DX: I50.32 Chronic diastolic (congestive) heart failure (principal); I47.1 Supraventricular tachycardia; I11.0 Hypertensive heart disease with heart failure; Z79.899 Other long term (current) drug therapy | CPT/HCPCS: 99214; 99213 ==

== ENCOUNTER 2021-01-31 03:36 | Outpatient (CLI) | payer MEDICARE, SELFPAY ==
[2021-01-31 09:51] LABS: Anion Gap 5.9 mmol/L (3-11); BUN 23 mg/dL (7-18); CO2 30.1 mmol/L (21.0-32.0); CREATININE 1.5 mg/dL (0.70-1.30); Chloride 95 mmol/L (98-107); Estimated GFR 44.81 (mL/min/1.73m2); Glucose 90 mg/dL (74-106); NT-proBNP 3000 pg/mL (<300); Potassium 4.5 mmol/L (3.5-5.1); Sodium 131 mmol/L (136-145)
[2021-01-31 10:04] LABS: Calculated LDL 59 mg/dL (<100); Cholesterol 122 mg/dL (<200); HDL Cholesterol 50 mg/dL (40-60); Triglyceride 66 mg/dL (<150)
[2021-02-01 14:51] LABS: Free PSA/PSA Ratio 0.39 ratio
== END 2021-01-31 03:37 | disposition home or self-care (01) ==
LOC: LBO 03:36
PROVIDERS: Internal Medicine Cardiovascular Disease; PCP Family Medicine; Visit Provider Nurse Practitioner Gerontology
DX: E78.2 Mixed hyperlipidemia (principal); I50.32 Chronic diastolic (congestive) heart failure; N40.0 Benign prostatic hyperplasia without lower urinary tract symptoms
CPT/HCPCS: 36415; 80048; 80061; 83880; 84154

== ENCOUNTER → 2021-02-21 14:00 | Outpatient (BNVA) | payer MEDICARE, SELFPAY | PROVIDERS: PCP Nurse Practitioner Family; Visit Provider Nurse Practitioner Gerontology | DX: N40.0 Benign prostatic hyperplasia without lower urinary tract symptoms (principal); I50.30 Unspecified diastolic (congestive) heart failure | CPT/HCPCS: 99215 ==

== ENCOUNTER → 2021-02-27 12:06 | Outpatient (BNVA) | payer MEDICARE, SELFPAY | PROVIDERS: PCP Nurse Practitioner Family; Referring Provider Nurse Practitioner Family; Visit Provider Nurse Practitioner Gerontology | DX: N40.1 Benign prostatic hyperplasia with lower urinary tract symptoms (principal); R33.8 Other retention of urine | CPT/HCPCS: 99213; 99214 ==

== ENCOUNTER → 2021-02-27 12:37 | Outpatient (BNVA) | payer MEDICARE, SELFPAY | PROVIDERS: PCP Nurse Practitioner Family; Referring Provider Family Medicine; Visit Provider Internal Medicine Cardiovascular Disease | DX: R00.1 Bradycardia, unspecified (principal); I10 Essential (primary) hypertension; E85.4 Organ-limited amyloidosis; I43 Cardiomyopathy in diseases classified elsewhere | CPT/HCPCS: 99214; 99213 ==

== ENCOUNTER → 2021-02-28 08:42 | Outpatient (BNVA) | payer MEDICARE, SELFPAY | PROVIDERS: PCP Nurse Practitioner Family; Referring Provider Family Medicine; Visit Provider Student in an Organized Health Care Education/Training Program | DX: S46.011A Strain of muscle(s) and tendon(s) of the rotator cuff of right shoulder, initial encounter (principal); X58.XXXA Exposure to other specified factors, initial encounter; G56.03 Carpal tunnel syndrome, bilateral upper limbs; G56.23 Lesion of ulnar nerve, bilateral upper limbs; M12.811 Other specific arthropathies, not elsewhere classified, right shoulder; I11.0 Hypertensive heart disease with heart failure; I50.9 Heart failure, unspecified | CPT/HCPCS: 99214 ==

== ENCOUNTER 2021-03-11 09:08 | Emergency (ER) | payer MEDICARE, SELFPAY ==
[2021-03-11 09:18] VITALS: BP 147/80; PULSE 63; RESP 18; TEMP 36.1; O2SAT 97
--- NOTE | 2021-03-11 09:22 | ED.GENADUL_ITS ---
Discharge Plan Disposition Patient Disposition: HOME Condition: Stable Discharge Details Clinical Impression: Hand swelling, Wrist swelling, Arthralgia, Arthritis Primary Care Provider: Benny Torrez ED Provider: Marge Ambrose Home Meds and New Rx's Prescriptions: New clindamycin HCl 150 mg capsule 450 mg PO TID 7 Days Qty: 63 RF: 0 prednisone 20 mg tablet See Rx Instructions .ROUTE .COMPLEX Qty: 12 RF: 0 Continued allopurinol 100 mg tablet 100 mg PO DAILY Qty: 90 RF: 4 pramipexole 1 mg tablet 1 mg PO HS Qty: 90 RF: 4 metoprolol succinate 25 mg tablet extended release 24 hr 25 mg PO DAILY Qty: 90 RF: 6 methylphenidate HCl 20 mg tablet 20 mg PO BID MDD 40 mg Qty: 60 RF: 0 furosemide 40 mg tablet 40 mg PO DAILY Qty: 60 RF: 2 spironolactone 25 mg tablet 12.5 mg PO DAILY Qty: 60 RF: 2 flaxseed oil 1,000 mg capsule 1,000 mg PO DAILY RF: 0 Metamucil (sugar) Powder 2 tsp PO ONCE PRNRF: 0 tamsulosin [Flomax] 0.4 mg capsule 0.4 mg PO DAILY Qty: 90 RF: 3 multivitamin 1 EACH capsule 1 ea PO DAILY RF: 0 glucosam-chond [id number] ac 1 EACH capsule 1 ea PO DAILY RF: 0 simvastatin 10 mg tablet 5 mg PO HS Qty: 45 RF: 4 omeprazole 20 mg capsule,delayed release(DR/EC) 20 mg PO DAILY Qty: 90 RF: 3 Vyndaqel 20 mg capsule 80 mg PO DAILY Qty: 240 RF: 6 nabumetone 500 mg tablet 500 mg PO BID Qty: 180 RF: 4 docusate sodium [Colace] 100 mg capsule 200 mg PO QHS PRN (Reason: constipation) Qty: 20 RF: 0 Discharge Instructions Instructions: Cellulitis (ED), Swollen Joint (ED) Additional Instructions: The pain and swelling in your hands is possibly due to gout, carpal tunnel, arthritis, or potentially a developing infection. The results of your tick and Lyme titer are still pending and you should follow- up with your primary care doctor later this week for reevaluation of your hand and wrist swelling and for results of the tick and Lyme panel test. Apply ice to the affected area several times daily for 20 minutes at a time. Continue to take your regular medications as directed. Take the oxycodone for pain not relieved with Tylenol or your nabumetone. Your prescriptions have been sent electronically to your pharmacy. Call the pharmacy to make sure your prescriptions are ready before pickup. Take the prescriptions as directed. Return immediately to the emergency department if you develop any worsening or new concerning symptoms such as fever, increased pain, redness or swelling. Discharge Data Discharge Date/Time-TO BE ENTERED AT DEPARTURE: 03/11/21 12:14 Discharge Physician: Marge Ambrose Medical Decision Making 80-year-old male with a history of anxiety, hypertension, hyperlipidemia, CHF, gout presents for right hand and wrist swelling and pain since last night, worse this morning. He has chronic bilateral carpal tunnel syndrome which he states was treated with carpal tunnel release several years ago but pain has been returning for several months. He admits to pain more significant overnight but swelling more significant this morning. Denies fever and he appears nontoxic. He has moderate edema to the right dorsal and volar hand as well as third fourth and fifth fingers. It is minimally pitting. He is otherwise neurovascularly intact without deformity, cellulitis or trauma. Do not suspect acute infection or gout as it is not warm or hot to touch and without erythema. Suspect most likely joint swelling related to arthralgia. Considering patient's age and complaints of chronic fatigue, will obtain CBC, CMP, CRP, ESR, uric acid and tick and Lyme panel and hand and wrist xrays and give a dose of prednisone and tramadol. He does admit to fatigue that has been chronic for months. He takes Ritalin for a history of daytime sleepiness and possible narcolepsy. He states chronically he does not sleep well throughout the night. Labs and imaging reviewed. Normal white blood cell count. Hemoglobin 11. Uric acid minimally elevated at 7.3. ESR minimally elevated at 26. CRP significan tly elevated at 2.48. Wrist and hand x-rays no degenerative changes but no other acute findings. Patient reassessed and he denies any significant change in pain. Will give a dose of oxycodone. He otherwise feels good to go home. Will cover with antibiotics due to elevated CRP. He has an allergy to penicillin. A dose of clindamycin given here. Prescriptions for oral steroids for potential joint swelling, and antibiotics for potential developing cellulitis sent electronically to his pharmacy. Patient placed on care management list to help arrange for follow-up appoint with his primary care doctor this week for reevaluation. Insert return Medical Records Medical records reviewed: Yes I reviewed the patient's medical records. Imaging Data Radiologic Study: Radiologist's impression: XR Right Wrist Exam date and time: 03/11/2021 9:46 AM Age: 80 years old Clinical indication: Patient HX: Right wrist/hand pain, no known injury. Limited range of motion TECHNIQUE: Imaging protocol: XR Right wrist. Views: 3 or more views. COMPARISON: CR XR HAND RT COMPLETE 03/11/2021 10:43 AM FINDINGS: Bones/joints: There is a benign bone cyst in the radial styloid. No fracture or other acute abnormalities are seen. Chronic degenerative changes are present in the radiocarpal and ulnar carpal joints with joint space narrowing and sclerosis. There is no bony destruction. Soft tissues: Normal. Vasculature: Prominent atherosclerotic calcifications are present in the wrist. IMPRESSION: Chronic degenerative changes in the radiocarpal and ulnar carpal joints. No acute abnormality. XR Right Hand Exam date and time: 03/11/2021 10:44 AM Age: 80 years old Clinical indication: Patient HX: Right hand/wrist pain, limited range of motion. No known injury TECHNIQUE: Imaging protocol: XR Right hand. Views: 3 or more views. COMPARISON: No relevant prior studies available. FINDINGS: Bones/joints: There is an 8 mm benign bone cyst in the radial styloid. No fracture or other acute bony abnormalities are seen. Chronic degenerative changes are present with joint space narrowing sclerosis and osteophyte formation most prominently in the 1st metacarpophalangeal joint. Milder degenerative changes are present in the interphalangeal joint of the thumb and the DIP joints. There are no destructive changes. Soft tissues: Normal. Vasculature: Prominent atherosclerotic calcifications are present in the wrist. IMPRESSION: 1. No acute bony abnormality. 2. 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 Lab Data Lab results reviewed: Yes I reviewed the patient's lab results. Labs: Laboratory Tests Range/Units 03/11/21 03/11/21 03/11/21 09:50 09:50 09:50 WBC (4.4-10.8) 10^3/uL 9.34 RBC (4.36-5.78) 10^6/uL 3.42 L Hgb (13.5-17.5) g/dL 11.2 L Hct (40.0-50.0) % 32.9 L MCV (80-95) fL 96.2 H MCH (27.0-33.0) pg 32.7 MCHC (32.0-36.0) % 34.0 RDW (11.8-14.1) % 12.8 Plt Count (130-400) 10^3/uL 242 MPV (8.0-11.0) fL 9.1 Immature Gran % 0.6 Neutrophils % 76.5 Lymphocytes % 9.0 Monocytes % 11.7 Eosinophils % 1.8 Basophils % 0.4 Nucleated RBC % % 0 Absolute Neutrophils (1.2-6.7) 10^3/uL 7.14 H Absolute Lymphocytes (1.2-3.4) 10^3/uL 0.84 L Absolute Monocytes (0.1-0.8) 10^3/uL 1.09 H Absolute Eosinophils (0.0-0.7) 10^3/uL 0.17 Absolute Basophils (0.0-0.2) 10^3/uL 0.04 ESR (0-20) mm/hr 26 H Sodium (136-145) mmol/L 135 L Potassium (3.5-5.1) mmol/L 3.7 Chloride (98-107) mmol/L 101 Carbon Dioxide (21.0-32.0) mmol/L 24.0 Anion Gap (3-11) mmol/L 10.0 BUN (7-18) mg/dL 24 H Creatinine (0.70-1.30) mg/dL 1.7 H Estimated GFR/1.73 m2 (mL/min/1.73m2) 38.78 Glucose (74-106) mg/dL 177 H Uric Acid (3.5-7.2) mg/dL 7.3 H Calcium (8.5-10.1) mg/dL 8.5 Total Bilirubin (0.2-1.0) mg/dL 0.7 AST (15-37) U/L 40 H ALT (16-63) U/L 46 Alkaline Phosphatase (46-116) U/L 175 H C-Reactive Protein (0.0-0.3) mg/dL 2.49 H Total Protein (6.4-8.2) g/dL 6.9 Albumin (3.4-5.0) g/dL 2.8 L HPI General Mode of arrival: ambulatory . Date/Time Provider Initiated Documentation: 03/11/21 09:09 . Limitations to Documentation: no limitations . Information obtained by: patient . HPI Narrative: Patient is an 80-year-old male with a history of anxiety, hyperlipidemia, hypertension, CHF, gout who presents with right hand and wrist swelling since this morning. Patient states he has carpal tunnel in both wrists and hands and had increased pain in his right wrist and hand last night before sleep which kept him up through the night. He states he took a Tylenol and nabumetone this morning for his pain without relief. Patient denies any known injury, fever or fall. Related Data Home Medications Medication Instructions Recorded Confirmed glucosam-chond [id number] ac 1 ea PO DAILY 12/09/12 03/11/21 multivitamin 1 ea PO DAILY 12/09/12 03/11/21 docusate sodium [Colace] 200 mg PO QHS PRN #20 cap 12/18/18 03/11/21 simvastatin 10 mg tablet 5 mg PO HS #45 tab-cap 07/25/20 03/11/21 omeprazole 20 mg capsule,delayed 20 mg PO DAILY #90 tab-cap 09/04/20 03/11/21 release tafamidis meglumine 20 mg capsule 80 mg PO DAILY #240 cap 10/12/20 03/11/21 nabumetone 500 mg tablet 500 mg PO BID #180 tab-cap 12/07/20 03/11/21 allopurinol 100 mg tablet 100 mg PO DAILY #90 tab 01/22/21 03/11/21 methylphenidate HCl 20 mg tablet 20 mg PO BID #60 tab-cap MDD 40 mg 01/22/21 03/11/21 metoprolol succinate 25 mg 25 mg PO DAILY #90 tab 01/22/21 03/11/21 tablet,extended release 24 hr pramipexole 1 mg tablet 1 mg PO HS #90 tab-cap 01/22/21 03/11/21 furosemide 40 mg tablet 40 mg PO DAILY #60 tab 01/29/21 03/11/21 spironolactone 25 mg tablet 12.5 mg PO DAILY #60 tab 01/29/21 03/11/21 flaxseed oil 1,000 mg capsule 1,000 mg PO DAILY 02/27/21 03/11/21 psyllium seed (sugar) oral powder 2 tsp PO ONCE PRN 02/27/21 03/11/21 tamsulosin 0.4 mg capsule 0.4 mg PO DAILY #90 cap 02/27/21 03/11/21 clindamycin HCl 450 mg PO TID 7 Days #63 cap 03/11/21 prednisone See Rx Instructions .ROUTE 03/11/21 .COMPLEX #12 tab Previous Rx's Medication Instructions Recorded docusate sodium [Colace] 200 mg PO QHS PRN #20 cap 12/18/18 simvastatin 10 mg tablet 5 mg PO HS #45 tab-cap 07/25/20 omeprazole 20 mg capsule,delayed 20 mg PO DAILY #90 tab-cap 09/04/20 release tafamidis meglumine 20 mg capsule 80 mg PO DAILY #240 cap 10/12/20 nabumetone 500 mg tablet 500 mg PO BID #180 tab-cap 12/07/20 allopurinol 100 mg tablet 100 mg PO DAILY #90 tab 01/22/21 methylphenidate HCl 20 mg tablet 20 mg PO BID #60 tab-cap MDD 40 mg 01/22/21 metoprolol succinate 25 mg 25 mg PO DAILY #90 tab 01/22/21 tablet,extended release 24 hr pramipexole 1 mg tablet 1 mg PO HS #90 tab-cap 01/22/21 furosemide 40 mg tablet 40 mg PO DAILY #60 tab 01/29/21 spironolactone 25 mg tablet 12.5 mg PO DAILY #60 tab 01/29/21 tamsulosin 0.4 mg capsule 0.4 mg PO DAILY #90 cap 02/27/21 clindamycin HCl 450 mg PO TID 7 Days #63 cap 03/11/21 prednisone See Rx Instructions .ROUTE 03/11/21 .COMPLEX #12 tab Allergies Allergy/AdvReac Type Severity Reaction Status Date / Time Penicillins Allergy Skin Rash Verified 03/11/21 09:21 celecoxib AdvReac GI Bleeding Verified 03/11/21 09:21 General Stated Complaint: Orthopedic ASH: 4 Review of Systems All systems reviewed & are unremarkable except as noted in HPI and below Constitutional Constitutional: Reports as per HPI, Denies chills and Denies fever(s) Eyes Eyes: Denies blurry vision ENT Ears, Nose, Mouth, and Throat: Denies dizziness, Denies sore throat and Denies throat swelling Cardiovascular Cardiovascular: Denies chest pain and Denies dyspnea Respiratory Respiratory: Denies cough and Denies dyspnea Gastrointestinal Gastrointestinal: Denies abdominal pain, Denies diarrhea and Denies vomiting Genitourinary Genitourinary: Denies hematuria and Denies dysuria Musculoskeletal Musculoskeletal: Denies back pain and Denies numbness Integumentary/Breasts Skin/Breast: Denies lesions and Denies rash Neurologic Neurologic: Denies dizziness, Denies localized weakness and Denies numbness Allergic/Immunologic Allergic/Immunologic: Denies throat swelling FOR[facility], [facility] Medical History Anxiety Benign prostatic hyperplasia (06/03/13) Elevated PSA; bx neg. in 1992; bx neg. in 1998; neg. bx 2006; neg bx 2008 Bilateral carpal tunnel syndrome Chronic pain syndrome (05/21/12) Cubital tunnel syndrome, bilateral Diastolic heart failure Essential hypertension Hyperlipidemia (06/22/13) Ingrown toenail Memory impairment Narcolepsy Spinal stenosis at L4-L5 level (08/24/15) Surgical History HERNIA REPAIR (~05/2009) KNEE REPAIR torn knee cartiledge 03/1971 /fuision Laminectomy? 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 Paternal Grandmother No problems noted. Son No problems noted. Son Diabetes Father , age 94 No problems noted. Sister No problems noted. Social History Smoking/Tobacco Use Status: Never Second Hand Exposure: Yes Smoking risk assessment performed?: Yes Alcohol Intake: former Counseling given: No Drug use: Never Substance use type: does not use Caregiver/Support person: No Household members: spouse Housing: house Communication Needs: Hard of Hearing and Corrective Lenses Do you need help understanding health information?: Rarely Pets and animals: Yes Pets and animals: dog(s) Sexually active: No Do you think of yourself as: straight/heterosexual Current gender identity: male What is your relationship status?: How often do you talk on the phone with friends or family?: twice per week How often do you get together with friends or relatives?: once per week How often do you attend jainism or congregational services?: decline to answer Do you belong to any clubs or organized social groups?: no Panel score (0-1 are the most socially isolated patients): 2 What type of physical activity do you participate in: additional Details: Home work ([employer], garden, etc.); doing PT for shoulder Rafaela/Holiness: Voodoo Special rafaela needs: No Seatbelt use: always Helmet use: No Drive intox or ride w/intox race car driver: No Do you feel safe at home: Yes Do you feel safe in your relationship?: Yes Exam Const General: cooperative and no acute distress HENMT Head: normal to inspection Face and sinus: normal facial exam Eyes General: appearance normal, both eyes and all related structures Pupils: PERRL EOM: EOM intact bilaterally Neck Neck: normal visual inspection and No submandibular swelling Lymphatic: no lymphadenopathy noted Chest Chest: normal inspection of the chest and no tenderness Resp Effort & Inspection: normal respiratory effort and able to speak in complete sentences Auscultation: clear to auscultation bilaterally Cardio Rate: regular rate Rhythm: regular rhythm GI Inspection: normal to inspection Palpation: soft, not firm, not rigid and nontender Auscultation: normal bowel sounds Skin General skin exam: no rashes or lesions noted Neuro General: patient alert, patient awake and patient oriented x3 Cognition: normal cognition Speech: speech normal Motor: muscle tone normal throughout Sensory Exam: no sensory deficits noted Extrem Other: Right upper extremity: Moderate edema of right dorsal and volar hand extending into third, some of fourth and fifth fingers. There is no obvious erythema, ecchymosis, crepitus, abrasions or lacerations. There is no area of induration or fluctuance. Right radial and ulnar pulses intact. Normal range of motion at right shoulder and elbow without deformity or significant pain. No significant pain in right wrist or hand with range of motion. Motor/sensory grossly intact. Psych Appearance: grossly normal Mental Status: mental status grossly normal Speech and Movement: speech and movement normal Affect: normal affect Course Vital Signs Vital signs: Vital Signs Temperature 97.0 F L 03/11/21 09:18 Pulse 63 03/11/21 09:18 Respiratory Rate 18 03/11/21 09:18 Blood Pressure 147/80 H 03/11/21 09:18 Pulse Oximetry 97 03/11/21 09:18 Temperature 97.0 F L 03/11/21 09:18 Temperature Source Skin 03/11/21 09:18 Pulse 63 03/11/21 09:18 Respiratory Rate 18 03/11/21 09:18 Respiratory Effort Non-Labored 03/11/21 09:20 Blood Pressure 147/80 H 03/11/21 09:18 Blood Pressure Position Sitting 03/11/21 09:18 Pulse Oximetry 97 03/11/21 09:18 Oxygen Delivery Method Room Air 03/11/21 09:18 Oxygen Flow Rate 0 03/11/21 09:18 Pain Level 3 03/11/21 09:18
--- NOTE | 2021-03-11 09:30 | DI.RAD_ITS ---
Exam(s) XR HAND RT COMPLETE XR WRIST RT COMPLETE EXAM: XR HAND RT COMPLETE CLINICAL HISTORY: R hand swelling, r/o fx TECHNIQUE: COMPARISON: CR,XR XR WRIST RT COMPLETE from 03/11/2021 FINDINGS: Three views of the wrist and four views of the hand were obtained. There are very prominent degenera tive changes involving the 1st MCP joint. There are degenerative changes of multiple carpal joints. There is wide separation at the navicular lunate joint consistent with chronic ligamentous tear. Th ere is an apparent degenerative cyst of the radial styloid. There are moderate degenerative changes of the IP joints. There is no evidence of acute fracture of the hand or wrist. IMPRESSION: RADIATION DOSE DELIVERED: Total DLP
[2021-03-11 10:04] LABS: Abs Immature Grans 0.06 10^3/uL (0.0-0.06); Absolute Basophil Count 0.04 10^3/uL (0.0-0.2); Absolute Eosinophil Count 0.17 10^3/uL (0.0-0.7); Absolute Lymphocyte Count 0.84 10^3/uL (1.2-3.4); Absolute Monocyte Count 1.09 10^3/uL (0.1-0.8); Absolute Neutrophil Count 7.14 10^3/uL (1.2-6.7); Basophils % 0.4; Eosinophils % 1.8; HCT 32.9 % (40.0-50.0); HGB 11.2 g/dL (13.5-17.5); Immature Grans % 0.6; MCH 32.7 pg (27.0-33.0); MCV 96.2 fL (80-95); MPV 9.1 fL (8.0-11.0); Monocytes % 11.7; Neutrophils % 76.5; Nucleated RBC 0 %; Platelet Count 242 10^3/uL (130-400); RBC 3.42 10^6/uL (4.36-5.78); RDW 12.8 % (11.8-14.1); RDW-SD 44.9 fL; WBC 9.34 10^3/uL (4.4-10.8)
[2021-03-11 10:06] LABS: ESR 26 mm/hr (0-20)
[2021-03-11] MEDS: traMADol 50 MG TAB PO (10:15)
[2021-03-11] MEDS: predniSONE 20 MG TAB 60 MG PO (10:15)
[2021-03-11 10:21] LABS: ALT 46 U/L (16-63); AST 40 U/L (15-37); Albumin 2.8 g/dL (3.4-5.0); Alkaline Phosphatase 175 U/L (46-116); BUN 24 mg/dL (7-18); Bilirubin, Total 0.7 mg/dL (0.2-1.0); C-Reactive Protein 2.49 mg/dL (0.0-0.3); CREATININE 1.7 mg/dL (0.70-1.30); Calcium 8.5 mg/dL (8.5-10.1); Chloride 101 mmol/L (98-107); Estimated GFR 38.78 (mL/min/1.73m2); Glucose 177 mg/dL (74-106); Potassium 3.7 mmol/L (3.5-5.1); Sodium 135 mmol/L (136-145); Total Protein 6.9 g/dL (6.4-8.2); Uric Acid 7.3 mg/dL (3.5-7.2)
--- NOTE | 2021-03-11 11:25 | DI.VRAD_ITS ---
PROCEDURE INFORMATION: Exam: XR Right Hand Exam date and time: 03/11/2021 10:44 AM Age: 80 years old Clinical indication: Patient HX: Right hand/wrist pain, limited range of motion. No known injury TECHNIQUE: Imaging protocol: XR Right hand. Views: 3 or more views. COMPARISON: No relevant prior studies available. FINDINGS: Bones/joints: There is an 8 mm benign bone cyst in the radial styloid. No fracture or other acute bony abnormalities are seen. Chronic degenerative changes are present with joint space narrowing sclerosis and osteophyte formation most prominently in the 1st metacarpophalangeal joint. Milder degenerative changes are present in the interphalangeal joint of the thumb and the DIP joints. There are no destructive changes. Soft tissues: Normal. Vasculature: Prominent atherosclerotic calcifications are present in the wrist. IMPRESSION: 1. No acute bony abnormality. 2. 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 Dictated and Authenticated by: Temo Reina MD. Ordering:YARA Bird MD
--- NOTE | 2021-03-11 11:26 | DI.VRAD_ITS ---
PROCEDURE INFORMATION: Exam: XR Right Wrist Exam date and time: 03/11/2021 9:46 AM Age: 80 years old Clinical indication: Patient HX: Right wrist/hand pain, no known injury. Limited range of motion TECHNIQUE: Imaging protocol: XR Right wrist. Views: 3 or more views. COMPARISON: CR XR HAND RT COMPLETE 03/11/2021 10:43 AM FINDINGS: Bones/joints: There is a benign bone cyst in the radial styloid. No fracture or other acute abnormalities are seen. Chronic degenerative changes are present in the radiocarpal and ulnar carpal joints with joint space narrowing and sclerosis. There is no bony destruction. Soft tissues: Normal. Vasculature: Prominent atherosclerotic calcifications are present in the wrist. IMPRESSION: Chronic degenerative changes in the radiocarpal and ulnar carpal joints. No acute abnormality. Dictated and Authenticated by: Temo Reina MD. Ordering:YARA Bird MD
--- NOTE | 2021-03-11 12:00 | NUR.NOTE ---
Nursing Note: Referral faxed to PCP for follow up this week for hand and wrist swelling. Ashley Aguilar
[2021-03-11] MEDS: Clindamycin 150 MG CAP 450 MG PO (12:01)
[2021-03-11] MEDS: oxyCODONE 5 MG TAB PO (12:01)
[2021-03-11 12:15] VITALS: BP 124/74; PULSE 90; TEMP 36.6; O2SAT 96
[2021-03-13 11:09] LABS: Lyme Ab w Rflx to Lyme Confirm Negative (Negative)
[2021-03-14 03:22] LABS: Anaplasma phagocytophilum Negative (Negative); B. miyamotoi PCR Negative (Negative); Babesia divergens/MO-1 Negative (Negative); Babesia duncani Negative (Negative); Babesia microti Negative (Negative); Ehrlichia chaffeensis Negative (Negative); Ehrlichia ewingii/canis Negative (Negative); Ehrlichia muris eauclairensis Negative (Negative)
== END 2021-03-11 12:14 | disposition home or self-care (01) ==
PROVIDERS: Emergency Provider Physician Assistant; PCP Nurse Practitioner Family
DX: M79.89 Other specified soft tissue disorders (principal); M25.431 Effusion, right wrist; M25.432 Effusion, left wrist; R79.82 Elevated C-reactive protein (CRP); M19.031 Primary osteoarthritis, right wrist; M19.032 Primary osteoarthritis, left wrist
CPT/HCPCS: 36415; 36416; 80053; 82962; 85652; 87798; 99284; 73110; 73130; 84550; 85025; 86140; 86618; J7512

== ENCOUNTER 2021-04-01 03:23 | Emergency (ER) | payer MEDICARE, SELFPAY ==
[2021-04-01 03:27] VITALS: BP 137/72; PULSE 95; RESP 16; TEMP 37.3; O2SAT 95
--- NOTE | 2021-04-01 03:30 | DI.CT_ITS ---
Exam(s) CT ABDOMEN PELVIS W EXAM: CT ABDOMEN PELVIS W CLINICAL HISTORY: sharp mid abdomen pain. TECHNIQUE: Imaging Protocol: Axial computed tomography images with coronal and sagittal reformatted images were created and reviewed CONTRAST MATERIAL: Intravenous: Omnipaque 100cc Oral: None COMPARISON: No exams were available for comparison FINDINGS: VISUALIZED LUNG BASES: No nodules nor pleural effusions evident. ABDOMEN: There is no ascites. LIVER: There are no focal hepatic lesions evident . GALLBLADDER/BILIARY: Gallbladder wall appears mildly edematous. There appear to be layering small ga llstones or hyperdense sludge in the fundus and a few subtle densities in the gallbladder neck region . Suspect possible acute cholecystitis. The CBD is not dilated. PANCREAS: No evidence of pancreatic mass nor dilatation of the pancreatic duct. SPLEEN: Spleen is not enlarged. No obvious intrasplenic lesions. Splenic and portal veins are paten t. ADRENALS: There are no significant adrenal masses. KIDNEYS:There is a benign cyst in the posterior cortex of the left kidney which measures 1.5 x 1.5 cm . A tiny 4 millimeter cyst in the most inferior pole of the left kidney is noted. There is a small 1 cm cyst in the lower pole of the right kidney. No calculi nor hydronephrosis. No hydroureter. No solid renal masses. No calculi nor hydronephrosis.. ABDOMINAL AORTA: Abdominal aorta is not enlarged. LYMPH NODES:There is no retroperitineal nor paraaortic adenopathy. ABDOMINAL WALL: Has anterior wall fat containing umbilical hernia. Does not contain bowel loops. GI: There is no evidence of bowel obstruction, free air, nor abscess. PELVIS: GI: No evidence of appendicitis.Redundant sigmoid. There are sigmoid diverticuli but no evidence of obvious acute diverticulitis. LYMPH NODES: There is no intrapelvic nor inguinal adenopathy. REPRODUCTIVE: The prostate gland is grossly enlarged and lobulated extends into the bladder significa nt distance URINARY BLADDER: No calculi nor obvious masses evident OSSEOUS: Multilevel degenerative changes. No lytic lesions identified. IMPRESSION: 1. No gallbladder appears abnormal, suspicious for acute cholecystitis. Gallbladder ultrasound recom mended. The CBD is not dilated. 2. Small benign cysts in both kidneys. No solid renal masses seen. 3. Fat containing anterior abdominal wall umbilical hernia. No bowel loops contained within the francisca ia sac. There is no bowel obstruction. 4. Grossly enlarged prostate gland which significantly involves urinary bladder. Urology consultatio n is recommended. Sigmoid diverticuli but no obvious acute diverticulitis. RADIATION DOSE DELIVERED: 664.79mGy.cm Total DLP DATA REPOSITORY: All CT scans at this facility are submitted to the National Radiology Data Registry (NRDR) Dose Index Registry (DIR) with the [employer] (A[employer]). RADIATION OPTIMIZATION: All CT scans at this facility use at least one of these dose optimization te chniques: automated exposure control; mA and/or kV adjustment per patient size (includes targeted exa ms where dose is matched to clinical indication); or iterative reconstruction.
--- NOTE | 2021-04-01 03:42 | ED.GENADUL_ITS ---
Discharge Plan Disposition Patient Disposition: [facility] Condition: Stable Discharge Details Chief Complaint: Abd Prob Clinical Impression: Cholecystitis Primary Care Provider: Benny Torrez ED Provider: Desmond Cutler Morrill Meds and New Rx's Prescriptions: No Action allopurinol 100 mg tablet 100 mg PO DAILY Qty: 90 RF: 4 pramipexole 1 mg tablet 1 mg PO HS Qty: 90 RF: 4 metoprolol succinate 25 mg tablet extended release 24 hr 25 mg PO DAILY Qty: 90 RF: 6 sennosides 15 mg tablet 15 mg PO DAILY PRN (Reason: constipation) Qty: 30 RF: 0 methylphenidate HCl 20 mg tablet 20 mg PO BID MDD 40 mg Qty: 60 RF: 0 furosemide 40 mg tablet 40 mg PO DAILY Qty: 60 RF: 2 spironolactone 25 mg tablet 12.5 mg PO DAILY Qty: 60 RF: 2 flaxseed oil 1,000 mg capsule 1,000 mg PO DAILY RF: 0 Metamucil (sugar) Powder 2 tsp PO ONCE PRNRF: 0 tamsulosin [Flomax] 0.4 mg capsule 0.4 mg PO DAILY Qty: 90 RF: 3 meloxicam 15 mg tablet 15 mg PO DAILY Qty: 90 RF: 4 multivitamin 1 EACH capsule 1 ea PO DAILY RF: 0 glucosam-chond dj-ieodqt-qj ac 1 EACH capsule 1 ea PO DAILY RF: 0 simvastatin 10 mg tablet 5 mg PO HS Qty: 45 RF: 4 omeprazole 20 mg capsule,delayed release(DR/EC) 20 mg PO DAILY Qty: 90 RF: 3 Vyndaqel 20 mg capsule 80 mg PO DAILY Qty: 240 RF: 6 nabumetone 500 mg tablet 500 mg PO BID Qty: 180 RF: 4 docusate sodium [Colace] 100 mg capsule 200 mg PO QHS PRN (Reason: constipation) Qty: 20 RF: 0 prednisone 20 mg tablet See Rx Instructions .ROUTE .COMPLEX Qty: 12 RF: 0 Vyndaqel 20 mg Capsule 80 mg PO RF: 0 Medical Decision Making 80 yo male with hx of HFpEF, gout, htn, hld, who comes in with complaints of abdomen pain that started aroud 2pm while at work at [employer]. Denies any trauma and has never had pain like this before. He has had a prior h ernia surgery otherwise no abdomen surgeries per patient. He denies chest pain, dyspnea, nausea/vomit. He localizes the pain to the right upper and mid abdomen and is tender in both areas, no distention or guarding. Concern for cholecystitis vs pancreatitis, will obtain labs and ct and reassess. ct shows likely cholecystitis which fits with his exam, he remains stable. Will start antibiotics. We do not have beds here so will reach out to outside hospitals about transfer. spoke with Dr. hernandez surgeon at [facility] who accepts to his service, pt updated and agrees with plan Differential Diagnosis Differential Diagnosis: cholecystitis, appendicitis, pancreatitis Medical Records Medical records reviewed: Yes I reviewed the patient's medical records. Imaging Data Radiologic Study: Attestation: I personally reviewed and interpreted this imaging study as follows: Imaging: CT Scan Radiologist's impression: Cholelithiasis with trace pericholecystic stranding, recommend clinical exclusion of cholecystitis with sonogram for further evaluation as clinically warranted. Lab Data Lab results reviewed: Yes I reviewed the patient's lab results. HPI General Date/Time Provider Initiated Documentation: 04/01/21 03:25 . Limitations to Documentation: no limitations . Information obtained by: patient . History of Present Illness 80 year old M presents to the emergency department with the chief complaint of abdomen pain, described as moderate, Patient abdomen. Patient started experiencing this hour(s) (12) and it has been constant. No relieving factors improve symptom(s), No exacerbating factors reported . Patient notes no other symptoms.. Patient did receive the following treatments prior to arrival, none Related Data Home Medications Medication Instructions Recorded Confirmed glucosam-chond is-zwqxhs-yo ac 1 ea PO DAILY 12/09/12 04/01/21 multivitamin 1 ea PO DAILY 12/09/12 04/01/21 docusate sodium [Colace] 200 mg PO QHS PRN #20 cap 12/18/18 03/28/21 simvastatin 10 mg tablet 5 mg PO HS #45 tab-cap 07/25/20 04/01/21 omeprazole 20 mg capsule,delayed 20 mg PO DAILY #90 tab-cap 09/04/20 04/01/21 release tafamidis meglumine 20 mg capsule 80 mg PO DAILY #240 cap 10/12/20 04/01/21 nabumetone 500 mg tablet 500 mg PO BID #180 tab-cap 12/07/20 04/01/21 allopurinol 100 mg tablet 100 mg PO DAILY #90 tab 01/22/21 04/01/21 metoprolol succinate 25 mg 25 mg PO DAILY #90 tab 01/22/21 04/01/21 tablet,extended release 24 hr pramipexole 1 mg tablet 1 mg PO HS #90 tab-cap 01/22/21 04/01/21 furosemide 40 mg tablet 40 mg PO DAILY #60 tab 01/29/21 04/01/21 spironolactone 25 mg tablet 12.5 mg PO DAILY #60 tab 01/29/21 04/01/21 flaxseed oil 1,000 mg capsule 1,000 mg PO DAILY 02/27/21 04/01/21 psyllium seed (sugar) oral powder 2 tsp PO ONCE PRN 02/27/21 04/01/21 tamsulosin 0.4 mg capsule 0.4 mg PO DAILY #90 cap 02/27/21 04/01/21 prednisone See Rx Instructions .ROUTE 03/11/21 03/28/21 .COMPLEX #12 tab meloxicam 15 mg tablet 15 mg PO DAILY #90 tab 03/14/21 04/01/21 sennosides 15 mg tablet 15 mg PO DAILY PRN #30 tab 03/21/21 03/28/21 methylphenidate HCl 20 mg tablet 20 mg PO BID #60 tab-cap MDD 40 mg 03/28/21 tafamidis meglumine [Vyndaqel] 80 mg PO 04/01/21 Previous Rx's Medication Instructions Recorded docusate sodium [Colace] 200 mg PO QHS PRN #20 cap 12/18/18 simvastatin 10 mg tablet 5 mg PO HS #45 tab-cap 07/25/20 omeprazole 20 mg capsule,delayed 20 mg PO DAILY #90 tab-cap 09/04/20 release tafamidis meglumine 20 mg capsule 80 mg PO DAILY #240 cap 10/12/20 nabumetone 500 mg tablet 500 mg PO BID #180 tab-cap 12/07/20 allopurinol 100 mg tablet 100 mg PO DAILY #90 tab 01/22/21 metoprolol succinate 25 mg 25 mg PO DAILY #90 tab 01/22/21 tablet,extended release 24 hr pramipexole 1 mg tablet 1 mg PO HS #90 tab-cap 01/22/21 furosemide 40 mg tablet 40 mg PO DAILY #60 tab 01/29/21 spironolactone 25 mg tablet 12.5 mg PO DAILY #60 tab 01/29/21 tamsulosin 0.4 mg capsule 0.4 mg PO DAILY #90 cap 02/27/21 prednisone See Rx Instructions .ROUTE 03/11/21 .COMPLEX #12 tab meloxicam 15 mg tablet 15 mg PO DAILY #90 tab 03/14/21 sennosides 15 mg tablet 15 mg PO DAILY PRN #30 tab 03/21/21 methylphenidate HCl 20 mg tablet 20 mg PO BID #60 tab-cap MDD 40 mg 03/28/21 Allergies Allergy/AdvReac Type Severity Reaction Status Date / Time Penicillins Allergy Skin Rash Verified 04/01/21 03:33 celecoxib AdvReac GI Bleeding Verified 04/01/21 03:33 General Stated Complaint: Abd Prob ASH: 3 Review of Systems All systems reviewed & are unremarkable except as noted in HPI and below Constitutional Constitutional: Denies chills, Denies fever(s) and Denies weakness Cardiovascular Cardiovascular: Denies chest pain and Denies dyspnea Respiratory Respiratory: Denies cough and Denies dyspnea Gastrointestinal Gastrointestinal: Denies nausea and Denies vomiting Neurologic Neurologic: Denies weakness [facility] Medical History Anxiety Benign prostatic hyperplasia (06/03/13) Elevated PSA; bx neg. in 1992; bx neg. in 1998; neg. bx 2006; neg bx 2008 Bilateral carpal tunnel syndrome Chronic pain syndrome (05/21/12) Cubital tunnel syndrome, bilateral Diastolic heart failure Essential hypertension Hyperlipidemia (06/22/13) Ingrown toenail Memory impairment Narcolepsy Spinal stenosis at L4-L5 level (08/24/15) Surgical History HERNIA REPAIR (~05/2009) KNEE REPAIR torn knee cartiledge 03/1971 /fuision Laminectomy? 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 Paternal Grandmother No problems noted. Son No problems noted. Son Diabetes Father , age 94 No problems noted. Sister No problems noted. Social History Smoking/Tobacco Use Status: Never Second Hand Exposure: Yes Smoking risk assessment performed?: Yes Alcohol Intake: former Counseling given: No Drug use: Never Substance use type: does not use Caregiver/Support person: No Household members: spouse Housing: house Communication Needs: Hard of Hearing and Corrective Lenses Do you need help understanding health information?: Rarely Pets and animals: Yes Pets and animals: dog(s) Sexually active: No Do you think of yourself as: straight/heterosexual Current gender identity: male What is your relationship status?: How often do you talk on the phone with friends or family?: twice per week How often do you get together with friends or relatives?: once per week How often do you attend sikhism or sabianist services?: decline to answer Do you belong to any clubs or organized social groups?: no Panel score (0-1 are the most socially isolated patients): 2 What type of physical activity do you participate in: additional Details: Home work ([employer], garden, etc.); doing PT for shoulder Rafaela/Denominational: Orthodox Special rafaela needs: No Seatbelt use: always Helmet use: No Drive intox or ride w/intox helper/driver: No Do you feel safe at home: Yes Do you feel safe in your relationship?: Yes Exam Const General: no acute distress Orientation: alert HENMT Head: normal to inspection Ears: external ears normal General nose exam: external nose normal Mouth: moist mucous membranes Eyes General: appearance normal, both eyes and all related structures Neck Neck: normal visual inspection Resp Effort & Inspection: normal respiratory effort and able to speak in complete sentences Cardio Rate: regular rate GI Palpation: soft and tender Skin General skin exam: no rashes or lesions noted Neuro General: patient alert and patient oriented x3 Extrem General: normal to inspection Psych Mental Status: mental status grossly normal Course Vital Signs Vital signs: Vital Signs Temperature 37.3 C 04/01/21 03:27 Pulse 95 H 04/01/21 03:27 Respiratory Rate 16 04/01/21 03:27 Blood Pressure 137/72 04/01/21 03:27 Pulse Oximetry 95 04/01/21 03:27 Temperature 37.3 C 04/01/21 03:27 Temperature Source Temporal Artery Scan 04/01/21 03:27 Pulse 95 H 04/01/21 03:27 Respiratory Rate 16 04/01/21 03:27 Respiratory Effort Non-Labored 04/01/21 03:30 Blood Pressure 137/72 04/01/21 03:27 Pulse Oximetry 95 04/01/21 03:27 Oxygen Delivery Method Room Air 04/01/21 03:27 Oxygen Flow Rate 0 04/01/21 03:27 Pain Level 6 04/01/21 03:31
[2021-04-01 03:44] LABS: Abs Immature Grans 0.06 10^3/uL (0.0-0.06); Absolute Basophil Count 0.04 10^3/uL (0.0-0.2); Absolute Monocyte Count 1.11 10^3/uL (0.1-0.8); Absolute Neutrophil Count 9.95 10^3/uL (1.2-6.7); Basophils % 0.3; Eosinophils % 0.3; HCT 37.2 % (40.0-50.0); HGB 12.3 g/dL (13.5-17.5); Immature Grans % 0.5; Lymphocytes % 4.3; MCH 32.7 pg (27.0-33.0); MCHC 33.1 % (32.0-36.0); MCV 98.9 fL (80-95); Monocytes % 9.5; Neutrophils % 85.1; Nucleated RBC 0 %; Platelet Count 236 10^3/uL (130-400); RBC 3.76 10^6/uL (4.36-5.78); RDW 13.5 % (11.8-14.1); RDW-SD 49.6 fL; WBC 11.69 10^3/uL (4.4-10.8)
[2021-04-01] MEDS: fentaNYL 100 MCG/2 ML VIAL 50 MCG IVP (03:45)
[2021-04-01 03:55] LABS: Absolute Eosinophil Count 0.04 10^3/uL (0.0-0.7)
[2021-04-01 03:57] LABS: ALT 41 U/L (16-63); AST 44 U/L (15-37); Albumin 3.2 g/dL (3.4-5.0); Alkaline Phosphatase 173 U/L (46-116); Anion Gap 10.8 mmol/L (3-11); BUN 28 mg/dL (7-18); Bilirubin, Direct 0.4 mg/dL (0.0-0.2); Bilirubin, Total 1.4 mg/dL (0.2-1.0); CO2 25.2 mmol/L (21.0-32.0); CREATININE 1.3 mg/dL (0.70-1.30); Calcium 9.2 mg/dL (8.5-10.1); Chloride 106 mmol/L (98-107); Estimated GFR 52.85 (mL/min/1.73m2); Glucose 99 mg/dL (74-106); Lipase 94 U/L (73-393); Potassium 4.7 mmol/L (3.5-5.1); Sodium 142 mmol/L (136-145); Total Protein 7.5 g/dL (6.4-8.2)
[2021-04-01] MEDS: Omnipaque 350 MG/ML 100 ML BTL IJ (04:10)
[2021-04-01] MEDS: Normal Saline - Diluent 50 ML VIAL IV (04:11)
[2021-04-01 04:15] VITALS: BP 94/57; PULSE 76; RESP 19; O2SAT 93
--- NOTE | 2021-04-01 04:29 | DI.VRAD_ITS ---
PROCEDURE INFORMATION: Exam: CT Abdomen And Pelvis With Contrast Exam date and time: 04/01/2021 3:39 AM Age: 80 years old Clinical indication: Abdominal pain; Localized; Other: Middle; Patient HX: Sharp mid abdomen pain TECHNIQUE: Imaging protocol: Computed tomography of the abdomen and pelvis with contrast. COMPARISON: CR XR ABDOMEN FLAT PLATE 12/18/2018 5:47 PM FINDINGS: Liver: Hepatic steatosis. Gallbladder and bile ducts: Cholelithiasis with trace pericholecystic stranding, recommend clinical exclusion of cholecystitis with sonogram for further evaluation as clinically warranted. Pancreas: Normal. No ductal dilation. Spleen: Normal. No splenomegaly. Adrenal glands: Normal. No mass. Kidneys and ureters: Normal. No hydronephrosis. Stomach and bowel: Colonic diverticula. Appendix: No evidence of appendicitis. Intraperitoneal space: Unremarkable. No free air. No significant fluid collection. Vasculature: Unremarkable. No abdominal aortic aneurysm. Lymph nodes: Unremarkable. No enlarged lymph nodes. Urinary bladder: Unremarkable as visualized. Reproductive: Prostate hypertrophy. Bones/joints: Unremarkable. No acute fracture. Soft tissues: Unremarkable. IMPRESSION: Cholelithiasis with trace pericholecystic stranding, recommend clinical exclusion of cholecystitis with sonogram for further evaluation as clinically warranted. Dictated and Authenticated by: Desmond Valladares MD. Ordering:TIMOTHY Logan MD
[2021-04-01] MEDS: CIPROFLOXACIN 400 MG/200 ML BAG 200 MG IVPB (04:49)
[2021-04-01 05:00] VITALS: BP 101/47; PULSE 65; RESP 18
[2021-04-01] MEDS: Normal Saline 1,000 ML 75 ML IV (05:17)
[2021-04-01] MEDS: metroNIDAZOLE 500 MG/100 ML BAG 100 MG IVPB (05:45)
[2021-04-01 05:46] LABS: Bilirubin Negative (Negative); Blood Negative (Negative); Clarity Clear (Clear); Glucose Negative (Negative); Ketones 15 mg/dL (Negative); Leukocyte Esterase Negative (Negative); Nitrite Negative (Negative); Urobilinogen 0.2 EU/dL (Up TO 0.2); pH 6.5 (5-8)
== END 2021-04-01 05:40 | disposition short-term general hospital (02) ==
PROVIDERS: Emergency Provider Emergency Medicine; PCP Nurse Practitioner Family
DX: K81.0 Acute cholecystitis (principal); R10.11 Right upper quadrant pain
CPT/HCPCS: 36415; 80053; 83690; 96365; 96375; 99285; 74177; 81003; 82248; 83735; 85025; 99284; J0744; J3010; J3490

== ENCOUNTER → 2021-04-30 13:09 | Outpatient (BNVA) | payer MEDICARE, SELFPAY | PROVIDERS: PCP Nurse Practitioner Family; Referring Provider Nurse Practitioner Family; Visit Provider Student in an Organized Health Care Education/Training Program | DX: G56.23 Lesion of ulnar nerve, bilateral upper limbs (principal); G56.03 Carpal tunnel syndrome, bilateral upper limbs; M79.89 Other specified soft tissue disorders ==

== ENCOUNTER 2021-04-30 16:06 | Outpatient (CLI) | payer MEDICARE, SELFPAY ==
[2021-04-30 15:54] LABS: ALT 38 U/L (16-63); AST 35 U/L (15-37); Albumin 3.1 g/dL (3.4-5.0); Alkaline Phosphatase 203 U/L (46-116); Anion Gap 10.2 mmol/L (3-11); BUN 34 mg/dL (7-18); Bilirubin, Total 0.5 mg/dL (0.2-1.0); CO2 24.8 mmol/L (21.0-32.0); CREATININE 1.4 mg/dL (0.70-1.30); Calcium 8.8 mg/dL (8.5-10.1); Chloride 103 mmol/L (98-107); Estimated GFR 48.52 (mL/min/1.73m2); Glucose 135 mg/dL (74-106); NT-proBNP 2549 pg/mL (<300); Potassium 4.5 mmol/L (3.5-5.1); Sodium 138 mmol/L (136-145); Total Protein 6.8 g/dL (6.4-8.2)
== END 2021-04-30 16:07 | disposition home or self-care (01) ==
LOC: LBO 16:07
PROVIDERS: Physician Assistant Surgical; PCP Nurse Practitioner Family; Visit Provider Student in an Organized Health Care Education/Training Program
DX: I50.32 Chronic diastolic (congestive) heart failure (principal); E85.4 Organ-limited amyloidosis; I43 Cardiomyopathy in diseases classified elsewhere; G56.23 Lesion of ulnar nerve, bilateral upper limbs; G56.03 Carpal tunnel syndrome, bilateral upper limbs; M79.89 Other specified soft tissue disorders
CPT/HCPCS: 36415; 80053; 99214; 83880

== ENCOUNTER → 2021-05-03 11:15 | Outpatient (BNVA) | payer MEDICARE, SELFPAY | PROVIDERS: PCP Nurse Practitioner Family; Referring Provider Family Medicine; Visit Provider Internal Medicine Cardiovascular Disease | DX: M79.89 Other specified soft tissue disorders (principal); R00.1 Bradycardia, unspecified; E85.4 Organ-limited amyloidosis; I43 Cardiomyopathy in diseases classified elsewhere; I11.0 Hypertensive heart disease with heart failure; I50.32 Chronic diastolic (congestive) heart failure; Z79.899 Other long term (current) drug therapy | CPT/HCPCS: 99214 ==

== ENCOUNTER 2021-05-04 07:58 | Emergency (ER) | payer MEDICARE, SELFPAY ==
[2021-05-04 08:03] VITALS: BP 118/72; PULSE 65; RESP 14; TEMP 36.4; O2SAT 98
--- NOTE | 2021-05-04 08:20 | ED.GENADUL_ITS ---
Discharge Plan Disposition Patient Disposition: HOME Condition: Stable Discharge Details Clinical Impression: Edema, peripheral, Bilateral hand swelling Primary Care Provider: Benny Torrez ED Provider: Marianela Key Home Meds and New Rx's Prescriptions: Continued allopurinol 100 mg tablet 100 mg PO DAILY Qty: 90 RF: 4 pramipexole 1 mg tablet 1 mg PO HS Qty: 90 RF: 4 metoprolol succinate 25 mg tablet extended release 24 hr 25 mg PO DAILY Qty: 90 RF: 6 Vyndaqel 20 mg capsule 80 mg PO DAILY RF: 0 methylphenidate HCl 20 mg tablet 20 mg PO BID MDD 40 mg Qty: 60 RF: 0 furosemide 40 mg tablet 40 mg PO DAILY Qty: 60 RF: 2 spironolactone 25 mg tablet 12.5 mg PO DAILY Qty: 60 RF: 2 flaxseed oil 1,000 mg capsule 1,000 mg PO DAILY RF: 0 Metamucil (sugar) Powder 2 tsp PO ONCE PRNRF: 0 tamsulosin [Flomax] 0.4 mg capsule 0.4 mg PO DAILY Qty: 90 RF: 3 multivitamin 1 EACH capsule 1 ea PO DAILY RF: 0 glucosam-chond as-qmlpow-le ac 1 EACH capsule 1 ea PO DAILY RF: 0 simvastatin 10 mg tablet 5 mg PO HS Qty: 45 RF: 4 omeprazole 20 mg capsule,delayed release(DR/EC) 20 mg PO DAILY Qty: 90 RF: 3 nabumetone 500 mg tablet 500 mg PO BID Qty: 180 RF: 4 sennosides 8.6 mg tablet 8.6 mg PO DAILY PRN (Reason: constipation) Qty: 90 RF: 0 docusate sodium [Colace] 100 mg capsule 200 mg PO QHS PRN (Reason: constipation) Qty: 20 RF: 0 Discharge Instructions Additional Instructions: The ring has been removed from your hand, please do not replace it Follow-up with your doctors as scheduled Please return earlier should you have new or worsening complaints including shortness of breath, redness or worsening pain to the affected area Medical Decision Making Patient appears well, feeling symptomatically improved after having his a ring removed No evidence of cellulitis, no overt additional evidence of CHF patient appears to be relatively well controlled Have scheduled follow-up with primary care physician Neurovascularly intact Ring was appropriately removed from left hand by MIKA Cruz without incident We'll follow tomorrow Return precautions discussed and patient expressed understanding, all discussions have been with patient and his , all questions answered to the best my ability Ambulatory with steady gait, stable vitals Medical Records Medical records reviewed: Yes I reviewed the patient's medical records. HPI General Mode of arrival: ambulatory . Date/Time Provider Initiated Documentation: 05/04/21 08:13 . Limitations to Documentation: no limitations . Information obtained by: patient . HPI Narrative: This 80-year-old gentleman with history of ambulatory status, peripheral edema, arthritis, hypertension, hyperlipidemia, CHF presents with bilateral hand swelling for the past several months. Specifically the reason he came to the emergency room after being evaluated yesterday by his PCP was to remove his left ring. He states this unable to remove the ring secondary to the edema in his hands. He states this is not new or necessarily worsening and he has outpatient scheduled intervention He denies chest pain, shortness of breath, fever, chills, or any additional complaints at this time Related Data Home Medications Medication Instructions Recorded Confirmed glucosam-chond ur-oxmvea-vb ac 1 ea PO DAILY 12/09/12 05/03/21 multivitamin 1 ea PO DAILY 12/09/12 05/03/21 docusate sodium [Colace] 200 mg PO QHS PRN #20 cap 12/18/18 05/03/21 simvastatin 10 mg tablet 5 mg PO HS #45 tab-cap 07/25/20 05/03/21 omeprazole 20 mg capsule,delayed 20 mg PO DAILY #90 tab-cap 09/04/20 05/03/21 release nabumetone 500 mg tablet 500 mg PO BID #180 tab-cap 12/07/20 05/03/21 allopurinol 100 mg tablet 100 mg PO DAILY #90 tab 01/22/21 05/03/21 metoprolol succinate 25 mg 25 mg PO DAILY #90 tab 01/22/21 05/03/21 tablet,extended release 24 hr pramipexole 1 mg tablet 1 mg PO HS #90 tab-cap 01/22/21 05/03/21 furosemide 40 mg tablet 40 mg PO DAILY #60 tab 01/29/21 05/03/21 spironolactone 25 mg tablet 12.5 mg PO DAILY #60 tab 01/29/21 05/03/21 flaxseed oil 1,000 mg capsule 1,000 mg PO DAILY 02/27/21 05/03/21 psyllium seed (sugar) oral powder 2 tsp PO ONCE PRN 02/27/21 05/03/21 tamsulosin 0.4 mg capsule 0.4 mg PO DAILY #90 cap 02/27/21 05/03/21 methylphenidate HCl 20 mg tablet 20 mg PO BID #60 tab-cap MDD 40 mg 03/28/21 05/03/21 sennosides 8.6 mg tablet 8.6 mg PO DAILY PRN #90 tab 04/04/21 05/03/21 tafamidis meglumine 20 mg capsule 80 mg PO DAILY cap 05/03/21 05/03/21 Previous Rx's Medication Instructions Recorded docusate sodium [Colace] 200 mg PO QHS PRN #20 cap 12/18/18 simvastatin 10 mg tablet 5 mg PO HS #45 tab-cap 07/25/ omeprazole 20 mg capsule,delayed 20 mg PO DAILY #90 tab-cap 09/04/20 release nabumetone 500 mg tablet 500 mg PO BID #180 tab-cap 12/07/20 allopurinol 100 mg tablet 100 mg PO DAILY #90 tab 01/22/21 metoprolol succinate 25 mg 25 mg PO DAILY #90 tab 01/22/21 tablet,extended release 24 hr pramipexole 1 mg tablet 1 mg PO HS #90 tab-cap 01/22/21 furosemide 40 mg tablet 40 mg PO DAILY #60 tab 01/29/21 spironolactone 25 mg tablet 12.5 mg PO DAILY #60 tab 01/29/21 tamsulosin 0.4 mg capsule 0.4 mg PO DAILY #90 cap 02/27/21 methylphenidate HCl 20 mg tablet 20 mg PO BID #60 tab-cap MDD 40 mg 03/28/21 sennosides 8.6 mg tablet 8.6 mg PO DAILY PRN #90 tab 04/04/21 Allergies Allergy/AdvReac Type Severity Reaction Status Date / Time Penicillins Allergy Skin Rash Verified 05/04/21 08:07 celecoxib AdvReac GI Bleeding Verified 05/04/21 08:07 General Stated Complaint: GenMedical ASH: 4 Review of Systems All systems reviewed & are unremarkable except as noted in HPI and below PFSH Medical History Anxiety Benign prostatic hyperplasia (06/03/13) Elevated PSA; bx neg. in 1992; bx neg. in 1998; neg. bx 2006; neg bx 2008 Bilateral carpal tunnel syndrome Chronic pain syndrome (05/21/12) Cubital tunnel syndrome, bilateral Diastolic heart failure Essential hypertension Hyperlipidemia (06/22/13) Ingrown toenail Memory impairment Narcolepsy Spinal stenosis at L4-L5 level (08/24/15) Surgical History HERNIA REPAIR (~05/2009) KNEE REPAIR torn knee cartiledge 03/1971 /fuision Laminectomy? 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 Paternal Grandmother No problems noted. Son No problems noted. Son Diabetes Father , age 94 No problems noted. Sister No problems noted. Social History Smoking/Tobacco Use Status: Never Second Hand Exposure: Yes Smoking risk assessment performed?: Yes Alcohol Intake: former Counseling given: No Drug use: Never Substance use type: does not use Caregiver/Support person: No Household members: spouse Housing: house Communication Needs: Hard of Hearing and Corrective Lenses Do you need help understanding health information?: Rarely Pets and animals: Yes Pets and animals: dog(s) Sexually active: No Do you think of yourself as: straight/heterosexual Current gender identity: male What is your relationship status?: How often do you talk on the phone with friends or family?: twice per week How often do you get together with friends or relatives?: once per week How often do you attend synagogue or baptist services?: decline to answer Do you belong to any clubs or organized social groups?: no Panel score (0-1 are the most socially isolated patients): 2 What type of physical activity do you participate in: additional Details: Home work ([employer] wood, garden, etc.); doing PT for shoulder Rafaela/Cheondoism: Jewish Special rafaela needs: No Seatbelt use: always Helmet use: No Drive intox or ride w/intox food service driver: No Do you feel safe at home: Yes Do you feel safe in your relationship?: Yes Exam Const General: cooperative and comfortable Resp Effort & Inspection: normal respiratory effort Cardio Rate: regular rate Skin General skin exam: no rashes or lesions noted Neuro General: patient alert and patient oriented x3 Extrem Other: Bilateral hand swelling, nontender, left ring finger with ring in place neurovascularly intact No cellulitis, no crepitus, no tenderness, brisk capillary refill Course Vital Signs Vital signs: Vital Signs Temperature 36.4 C L 05/04/21 08:03 Pulse 65 05/04/21 08:03 Respiratory Rate 14 05/04/21 08:03 Blood Pressure 118/72 05/04/21 08:03 Pulse Oximetry 98 05/04/21 08:03 Temperature 36.4 C L 05/04/21 08:03 Temperature Source Skin 05/04/21 08:03 Pulse 65 05/04/21 08:03 Respiratory Rate 14 05/04/21 08:03 Respiratory Effort Non-Labored 05/04/21 08:17 Respiratory Depth Normal 05/04/21 08:17 Respiratory Pattern Normal 05/04/21 08:17 Blood Pressure 118/72 05/04/21 08:03 Blood Pressure Position Sitting 05/04/21 08:03 Pulse Oximetry 98 05/04/21 08:03 Oxygen Delivery Method Room Air 05/04/21 08:03 Oxygen Flow Rate 0 05/04/21 08:03 Pain Level 2 05/04/21 08:03
--- NOTE | 2021-05-04 08:20 | NUR.NOTE ---
Ring removed from left ring finger with gentle manipulation and surgi-lube. Ring placed in specimen bag and given to pt.s . Nursing Note:
== END 2021-05-04 08:31 | disposition home or self-care (01) ==
PROVIDERS: Emergency Provider Physician Assistant; PCP Nurse Practitioner Family
DX: M79.89 Other specified soft tissue disorders (principal); R60.0 Localized edema; W49.04XA Ring or other jewelry causing external constriction, initial encounter
CPT/HCPCS: 99281; 99282

== ENCOUNTER 2021-05-23 11:44 | Day surgery (SDC) | payer MEDICARE, SELFPAY ==
[2021-05-23] VITALS (8 sets, daily range): BP systolic 77–153; BP diastolic 44–87; PULSE 61–86; RESP 13–20; TEMP 36–36.5; O2SAT 95–98; BMI 25.1
[2021-05-23] MEDS: Lactated Ringers 1,000 ML 80 ML IV (12:30)
--- NOTE | 2021-05-23 12:54 | ANES.PREOP_ITS ---
General Info Date of Service Date Performed: 05/23/21 Height: 5 ft 10 in Weight: 79.379 kg Body Mass Index (BMI): 25.1 Surgical Procedure: Operation Date: 05/23/21 12:40 Proposed Procedures Side Surgeon p Wrist ECTR/ CUBITAL TUNNEL RELEASE (R) Right Mahendra Mcgowan MD s cubital tunnel release Right Mahendra Mcgowan MD Meds Allergies and Home Medications Allergies Allergy/AdvReac Type Severity Reaction Status Date / Time Penicillins Allergy Skin Rash Verified 05/23/21 12:05 celecoxib AdvReac GI Bleeding Verified 05/23/21 12:05 Home Medication Medication Instructions Recorded glucosam-chond pb-[id number]-cb ac 1 ea PO DAILY 12/09/12 multivitamin 1 ea PO DAILY 12/09/12 docusate sodium [Colace] 200 mg PO QHS PRN #20 cap 12/18/18 simvastatin 10 mg tablet 5 mg PO HS #45 tab-cap 07/25/20 omeprazole 20 mg capsule,delayed 20 mg PO DAILY #90 tab-cap 09/04/20 release nabumetone 500 mg tablet 500 mg PO BID #180 tab-cap 12/07/20 allopurinol 100 mg tablet 100 mg PO DAILY #90 tab 01/22/21 metoprolol succinate 25 mg 25 mg PO DAILY #90 tab 01/22/21 tablet,extended release 24 hr pramipexole 1 mg tablet 1 mg PO HS #90 tab-cap 01/22/21 furosemide 40 mg tablet 40 mg PO DAILY #60 tab 01/29/21 spironolactone 25 mg tablet 12.5 mg PO DAILY #60 tab 01/29/21 flaxseed oil 1,000 mg capsule 1,000 mg PO DAILY 02/27/21 psyllium seed (sugar) oral powder 2 tsp PO ONCE PRN 02/27/21 tamsulosin 0.4 mg capsule 0.4 mg PO DAILY #90 cap 02/27/21 methylphenidate HCl 20 mg tablet 20 mg PO BID #60 tab-cap MDD 40 mg 03/28/21 sennosides 8.6 mg tablet 8.6 mg PO DAILY PRN #90 tab 04/04/21 tafamidis meglumine 20 mg capsule 80 mg PO DAILY cap 05/03/21 acetaminophen 500 mg PO Q4H PRN #30 cap 05/23/21 hydrocodone-acetaminophen 1 tab PO Q6H PRN #6 tab 05/23/21 Current Visit Medications: Current Medications Generic Name Dose Route Start Last Admin Trade Name Romaine PRN Reason Stop Dose Admin Ringer's Solution 1,000 mls @ 80 mls/hr 05/23/21 06:00 05/23/21 12:30 IV 06/21/21 23:59 80 mls/hr INFUSION THEO Administration Cefazolin Sodium 2,000 mg/ 100 mls @ 200 mls/hr 05/23/21 06:00 Sodium Chloride IVPB 05/23/21 16:00 PREOP THEO IV Miscellaneous Supplies 1 each 05/23/21 06:00 Iv Access IV 06/21/21 23:59 DIRECTED THEO Sodium Chloride 0 ml 05/23/21 06:00 Normal Saline Flush 10 Ml Syr IV 06/21/21 23:59 PRN PRN Sodium Chloride 0 ml 05/23/21 06:00 Normal Saline 10 Ml Vial IJ 06/21/21 23:59 DIRECTED PRN Sterile Water 0 ml 05/23/21 06:00 Water,Injection,Sterile 10 Ml Vial IJ 06/21/21 23:59 DIRECTED PRN PFSH Active Problems Active Problems: Problem Status Onset Code Edema, peripheral R60.9 Bilateral hand swelling M79.89 Cholecystitis K81.9 Constipation K59.00 Hand swelling M79.89 Wrist swelling M25.439 Arthralgia M25.50 Arthritis M19.90 Rotator cuff tear arthropathy of right shoulder M75.101, M12.811 Gout M10.9 Low back pain M54.5 Complete tear of right rotator cuff M75.121 Right shoulder pain M25.511 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, 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 OAB (overactive bladder) N32.81 Cubital tunnel syndrome, bilateral G56.23 Bilateral carpal tunnel syndrome G56.03 Memory impairment R41.3 Spinal stenosis at L4-L5 level 08/24/15 M48.061 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 Benign prostatic hyperplasia 06/03/13 N40.0 Anxiety F41.9 Hyperlipidemia 06/22/13 E78.5 Essential hypertension I10 Diastolic heart failure I50.30 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 Edema R60.9 Bradycardia R00.1 History of prostate surgery Z98.890 History of spinal fusion Z98.1 Indigestion K30 Urgency of urination 06/17/12 R39.15 Retention of urine 06/17/12 R33.9 Restless legs G25.81 Low back pain M54.5 Knee pain 02/11/13 M25.569 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 in 1992; bx neg. in 1998; neg. bx 2006; neg bx 2008 Bilateral carpal tunnel syndrome Chronic pain syndrome (05/21/12) Cubital tunnel syndrome, bilateral Diastolic heart failure Essential hypertension Hyperlipidemia (06/22/13) Ingrown toenail Memory impairment Narcolepsy Spinal stenosis at L4-L5 level (08/24/15) Surgical History Surgical History (Updated 05/23/21 @ 13:05 by PATRICIA Tineo) Cubital tunnel syndrome on right S/P Release: 05/23/2021 HERNIA REPAIR (~05/2009) KNEE REPAIR torn knee cartiledge 03/1971 /fuision Laminectomy? 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) Tobacco Smoking/Tobacco Use Status: Never Passive smoking exposure: Yes Second hand exposure: Yes Alcohol Alcohol Intake: former Counseling given: No Substance Use Substance use: Never Substance use type: does not use Vital Signs and Lab Results Vital Signs Most Recent Vital Signs in EMR: Most Recent Vital Signs Temp Pulse Resp BP Pulse Ox 36.5 C 84 16 134/67 96 05/23/21 12:11 08/18/21 12:11 05/23/21 12:11 05/23/21 12:11 05/23/21 12:11 Lab Results Blood Type / Crossmatch: No Data to Display Complete Blood Count: No Data to Display Complete Metabolic Panel: Sodium Level 138 mmol/L (136-145) 04/30/21 14:28 04/30/21 Potassium Level 4.5 mmol/L (3.5-5.1) 04/30/21 14:28 04/30/21 Chloride Level 103 mmol/L (98-107) 04/30/21 14:28 04/30/21 Carbon Dioxide Level 24.8 mmol/L (21.0-32.0) 04/30/21 14:28 04/30/21 Blood Urea Nitrogen 34 mg/dL (7-18) H 04/30/21 14:28 04/30/21 Creatinine 1.4 mg/dL (0.70-1.30) H 04/30/21 14:28 04/30/21 Estimated GFR/1.73 m2 48.52 (mL/min/1.73m2) 04/30/21 14:28 04/30/21 Calcium Level 8.8 mg/dL (8.5-10.1) 04/30/21 14:28 04/30/21 Albumin 3.1 g/dL (3.4-5.0) L 04/30/21 14:28 04/30/21 Glucose Level 135 mg/dL (74-106) H 04/30/21 14:28 04/30/21 Liver Function Panel: Alanine Aminotransferase (ALT/SGPT) 38 U/L (16-63) 04/30/21 14:28 04/30/21 Aspartate Amino Transf (AST/SGOT) 35 U/L (15-37) 04/30/21 14:28 04/30/21 Coagulation Panel: No Data to Display Cardiac Panel: UR-Joj-S-Type Natriuretic Peptide 2549 pg/mL (<300) H 04/30/21 14:28 04/30/21 Arterial Blood Gas: No Data to Display Venous Blood Gas: No Data to Display Pancreas Panel: No Data to Display Thyroid Panel: No Data to Display Infectious Disease: No Data to Display Blood Cultures: No Data to Display Toxicology Panel: No Data to Display Imaging and Studies Imaging and Studies Echocardiogram Summary: 09/2019: LVEF 50-55%, grade 2 diastolic failure. severe dilation LA, moderate dilation RA. mild AR, Moderate MR. Mild TR. LV hypertrophy ? amyloidosis. Anesthesia Assessment and Plan Anesthesia History Personal History: No History of Anesthesia Complications Family History: No Family History of Anesthesia Complications Exercise Tolerance Exercise Tolerance: Metabolic Equivalents>4 Cardiac & Pulmonary Exam Cardiac Exam: Normal S1/S2 Heart Sounds Pulmonary Exam: Clear Bilateral Breath Sounds Airway Exam Known Difficult Airway: No Mallampati Class: 2 Mouth Opening: Normal (> 3cm) Thyromental Distance: Greater than 3 cm Neck Range of Motion: Limited ROM Neck Circumference: Normal Teeth Condition: Normal Dentition ASA Classification ASA Score: ASA 3 Emergency Case?: No NPO Status NPO Status: NPO Clears >2 hours, Solids >8 hours Anesthesia Plan Resuscitation Status: Full Code Anesthesia Technique: General Anesthesia Airway Planned: Natural Airway Monitors Used: Standard Monitors Preoperative Comments:: `80 yo male for ECTR. PMHx of TTR amyloid (tafamadis), HTN (HCTZ), anxiety. [place] [facility] [place], tristan 2 grade 1.
--- NOTE | 2021-05-23 13:02 | PDOC.DSDIS_ITS ---
Discharge Plan Disposition Patient Disposition: HOME Condition: Good Discharge Details Reason For Visit: R ECTR, R cubital tunnel release Attending Provider: Mahendra Mcgowan Primary Care Provider: Benny Torrez Home Meds and New Rx's Prescriptions: New acetaminophen 500 mg capsule 500 mg PO Q4H PRN (Reason: pain) Qty: 30 RF: 0 hydrocodone-acetaminophen 5-325 mg tablet 1 tab PO Q6H PRN (Reason: pain) Qty: 6 RF: 0 Continued allopurinol 100 mg tablet 100 mg PO DAILY Qty: 90 RF: 4 pramipexole 1 mg tablet 1 mg PO HS Qty: 90 RF: 4 metoprolol succinate 25 mg tablet extended release 24 hr 25 mg PO DAILY Qty: 90 RF: 6 Vyndaqel 20 mg capsule 80 mg PO DAILY RF: 0 methylphenidate HCl 20 mg tablet 20 mg PO BID MDD 40 mg Qty: 60 RF: 0 furosemide 40 mg tablet 40 mg PO DAILY Qty: 60 RF: 2 spironolactone 25 mg tablet 12.5 mg PO DAILY Qty: 60 RF: 2 flaxseed oil 1,000 mg capsule 1,000 mg PO DAILY RF: 0 Metamucil (sugar) Powder 2 tsp PO ONCE PRNRF: 0 tamsulosin [Flomax] 0.4 mg capsule 0.4 mg PO DAILY Qty: 90 RF: 3 multivitamin 1 EACH capsule 1 ea PO DAILY RF: 0 glucosam-chond yn-mzgpfh-yz ac 1 EACH capsule 1 ea PO DAILY RF: 0 simvastatin 10 mg tablet 5 mg PO HS Qty: 45 RF: 4 omeprazole 20 mg capsule,delayed release(DR/EC) 20 mg PO DAILY Qty: 90 RF: 3 nabumetone 500 mg tablet 500 mg PO BID Qty: 180 RF: 4 sennosides 8.6 mg tablet 8.6 mg PO DAILY PRN (Reason: constipation) Qty: 90 RF: 0 docusate sodium [Colace] 100 mg capsule 200 mg PO QHS PRN (Reason: constipation) Qty: 20 RF: 0 Discharge Instructions Additional Instructions: Cubital Tunnel Decompression Discharge Instructions Activity: You should stay in the sling for the first 2 weeks. You may come out of the sling for gentle motion and hygiene but should largely remain in the sling to allow the incision site to heal. Gentle motion of the elbow, hand, wrist, and fingers is okay and encouraged after the first few days, but no repetitive activites nor heavy lifting. You may apply ice. Medications: - You should take Tylenol around the clock. - You have been prescribed Hydrocodone for breakthrough pain. Dressings: - The initial surgical dressing should stay in place for 3 days. It may then be removed and kept clean and dry. You should cover with a light gauze dressing. - You may shower after 3 days and get the wound wet. Follow-up: 10 days Stand Alone Forms: Juan M Masters Tunnel Release Referrals: Mahendra Mcgowan MD [ [facility] STAFF PHYSICIAN] - Equipment/Supplies: Sling Activity:: Elevate Remove Dressings/Wound Care:: 72 hours Shower/Bathe:: 72 hours Diet:: As Tolerated Discharge Orders Discharge Orders: Discharge Order (Routine); Ordered 05/23/21 Ordered By: Albaro Moore DS: Diagnosis Discharge Diagnosis (1) Cubital tunnel syndrome on right: Status: Acute (2) Right carpal tunnel syndrome: Status: Acute
[2021-05-23] MEDS: ceFAZolin 2,000 MG in Normal Saline 100 ML 200 MG IVPB (14:15)
[2021-05-23] MEDS: Sodium Bicarbonate 50 MEQ/50 ML VIAL (14:46)
--- NOTE | 2021-05-23 15:17 | ROE_ITS ---
Date of service: 05/23/21 Time of Service: 15:03 Operative Note Operative Note DATE OF PROCEDURE: 05/23/21 PRE-OP DIAGNOSIS: Right Carpal Tunnel and Right Cubital Tunnel Syndrome POST-OP DIAGNOSIS: same PROCEDURE: Right Endoscopic Carpal Tunnel Release and Right Cubital Tunnel Decompression SURGEON: Mahendra Mcgowan PROCESS IMPROVEMENT MANAGER: Nieves Low ANESTHESIA TYPE: General:No Airway Refer to Anesthesia Record ESTIMATED BLOOD LOSS: 0 PATHOLOGY: none sent TOURNIQUET TIME: 14 COMPLICATIONS: None Patient was transported to: PACU Patient's condition: stable Indications: Temo is a 80 year old who has had symptoms of carpal and cubital tunnel syndrome. Nonoperative treatment options had been trialed. Nerve conduction studies identified the carpal and cubital tunnel as the point of compression. Given failure of nonoperative treatments and persistent symptoms, I offered operative intervention. I reviewed the technical details of a carpal tunnel release and cubital tunnel decompression with possible anterior subcutaneous transposition. I reviewed the risk of the procedure to include bleeding, infection, pain, stiffness, tendon instability, damage to the superficial radial nerve, and complete release. Despite these risks, the patient elected to proceed. Findings: The carpal tunnel was release with a standard endoscopic technique without difficulty and excellent visualization. There was a tightened cubital tunnel. The ulnar nerve was release from the first motor branch distally through the [place] of [place] proximally. Procedure Description: Temo was greeted in the preoperative holding area where the correct side was identified and marked. The consent was reviewed with the patient and signed. The history and physical was updated. All questions were answered. He was taken back to the operating room. The patient was placed into the supine position on the operating room table with the right arm on an arm board. A nonsterile tourniquet was placed high onto the arm, into the axilla. All bony prominences were well padded. Prophylactic antibiotics in the form of Cefazolin were administered. The right arm was then prepped with Chloraprep and draped in a standard fashion with stockinette and extremity drape. A timeout to confirm correct identity, side and site, procedure, allergies, anesthesia, and medical concerns was performed. The surgical site was marked in the volar wrist creases in line with the radial border of the fourth ray. This area was anesthetized with approximately 6cc of 1% Lidocaine. The limb was then exsanguinated with an Esmarch. The skin was incised with a 15 blade, approximately 1cm. The skin only was cut and the deeper tissue was dissected bluntly with a tenotomy scissor, avoiding passing nerve and venous structures. The fascia was penetrated and opened bluntly. A two-prong skin hook was placed under this proximal fascial edge. A series of hamate finders were used to identify and dilate the carpal tunnel. Synovial ronn vator was used to free synovial attachments to the underside of the transverse carpal ligament. My thumb was kept in the palm to sabra the distal extent of the carpal tunnel and correctly position the hand. The Microaire endoscope was inserted without difficulty and without resistance. Excellent visualization showed horizontally running fibers of the transverse carpal ligament (TCL). The distal extent of the TCL was visualized and the end of the scope palpated with the thumb. The blade was elevated and withdrawn from distal to proximal. The TCL was split into two flaps. The endoscope was reinserted to confirm complete release and any remnant ligament was incised. The scope was withdrawn and the proximal aspect of the carpal tunnel was grossly inspected and appeared release with the median nerve visible. The antebrachial fascia at the level of the wrist was then freed from the overlying skin and then the underlying median nerve with blunt dissection. This was transected longitudinally for about 3cm proximal to the wrist incision. The wound was then irrigated with easy flow of irrigant distally and proximally. The incision was closed with a single 4-0 Nylon suture. The wound was dressed with Xeroform, Gauze, Kerlix. Attention was then turned to the elbow. The surgical site was drawn on the skin as was the medial epicondyle borders. The planned surgical field was anesthetized with 1% Lidocaine with epinephrine. The skin was incised only. The deep tissue and subcutaneous fat was dissected with a tenotomy scissors trying to protect any branches of the medial antebrachial cutaneous nerve. Any branches that were identified were retracted out of the way. The ulnar nerve was palpated and identified. A small window into the cubital tunnel, sheath overlying the nerve, was created and the nerve was able to be palpated with the [place]. A Metzenbaum scissor was then used to open up the sheath starting with Baeza's ligament. I then worked distal over the ulnar nerve releasing any constraints against the nerve all the way to the fascia of the FCU muscle belly. This muscle belly was bluntly all the way down to the first motor branch of the ulnar nerve and the overlying fascia was incised. Likewise starting there at the medial epicondyle, I proceeded to work proximally to release any constraints over the ulnar nerve. This was taken all the way to the arcade of [place]. The medial intermuscular septum was also palpated and any sharp edges against the ulnar nerve were resected and released. After fully releasing the nerve it was inspected visually. I was also able to palpate the nerve fully and reach one finger up into the proximal and distal aspects to make sure there were no constraints against the nerve. A freer elevator was also used to slide easily against the ulnar nerve without any points of constriction. The arm was then taken through range of motion. The ulnar nerve did not sublux/dislocate out of its groove behind the lateral epicondyle. Therefore, no transposition was performed. The tourniquet was then deflated. Any areas of bleeding were cauterized with bipolar electrocautery. The wound was thoroughly irrigated. The deep tissue was closed with a 3-0 Vicryl. The skin was closed with a 4-0 nylon. The wound was dressed with Xeroform, 4 x 4's, ABD, Kerlix and an Tal wrap. Temo was placed into a sling. He was transferred back to the PACU in a stable condition.
--- NOTE | 2021-05-23 15:29 | W.ANESPOSTOP ---
Postoperative Evaluation Date, Time and Location Date Performed: 05/23/21 Time Performed: 15:29 Patient Location: PACU Vital Signs Most Recent Imported Vital Signs: Most Recent Vital Signs Temp Pulse Resp BP Pulse Ox 36.2 C L 71 13 108/67 95 05/23/21 15:22 05/23/21 15:22 05/23/21 15:22 05/23/21 15:22 05/23/21 15:22 Pain Score Most Recent Pain Score: Most Recent Pain Score Pain Level 0 05/23/21 15:22 Assessment Mental Status: Awake (Alert & Oriented to Patient Baseline) Airway and Respiratory Function: Patent airway with normal (patient baseline) respiratory exam Cardiovascular Function: Hemodynamically Stable Hydration Status: Adequately Hydrated Nausea & Vomiting: No Nausea or Vomiting Pain: Pt. Denies Any Pain Peripheral Nerve Block: Patient did not receive a nerve block
== END 2021-05-23 17:15 | disposition home or self-care (01) ==
PROVIDERS: PCP Nurse Practitioner Family; Visit Provider Student in an Organized Health Care Education/Training Program
PROC: 01N54ZZ Release Median Nerve, Percutaneous Endoscopic Approach (ICD-10-PCS; CPT 29848; principal; 2021-05-23 12:30)
PROC: (CPT 64718; 2021-05-23 12:30)
DX: G56.21 Lesion of ulnar nerve, right upper limb (principal); G56.01 Carpal tunnel syndrome, right upper limb; I11.0 Hypertensive heart disease with heart failure; E85.4 Organ-limited amyloidosis; I43 Cardiomyopathy in diseases classified elsewhere; I50.30 Unspecified diastolic (congestive) heart failure
CPT/HCPCS: 64718; 29848; 97110; 97162; 97530; J0690; J2001; J2405

== ENCOUNTER → 2021-05-29 09:43 | Outpatient (BNVA) | payer MEDICARE, SELFPAY | PROVIDERS: PCP Nurse Practitioner Family; Referring Provider Nurse Practitioner Family; Visit Provider Nurse Practitioner Gerontology | DX: N32.81 Overactive bladder (principal); N40.0 Benign prostatic hyperplasia without lower urinary tract symptoms; Z79.899 Other long term (current) drug therapy | CPT/HCPCS: 81003; 99214 ==

== ENCOUNTER → 2021-06-01 08:46 | Outpatient (BNVA) | payer MEDICARE, SELFPAY | PROVIDERS: PCP Nurse Practitioner Family; Referring Provider Nurse Practitioner Family | DX: Z47.89 Encounter for other orthopedic aftercare (principal); G56.21 Lesion of ulnar nerve, right upper limb; G56.01 Carpal tunnel syndrome, right upper limb ==

== ENCOUNTER → 2021-06-29 09:01 | Outpatient (BNVA) | payer MEDICARE, SELFPAY | PROVIDERS: PCP Nurse Practitioner Family; Referring Provider Nurse Practitioner Family; Visit Provider Student in an Organized Health Care Education/Training Program | DX: Z47.89 Encounter for other orthopedic aftercare (principal); G56.21 Lesion of ulnar nerve, right upper limb ==

== ENCOUNTER → 2021-08-24 10:14 | Outpatient (BNVA) | payer MEDICARE, SELFPAY | PROVIDERS: PCP Nurse Practitioner Family; Referring Provider Nurse Practitioner Family; Visit Provider Student in an Organized Health Care Education/Training Program | DX: Z47.89 Encounter for other orthopedic aftercare (principal); M62.81 Muscle weakness (generalized) | CPT/HCPCS: 99213 ==

== ENCOUNTER → 2021-09-04 10:18 | Outpatient (BNVA) | payer MEDICARE, SELFPAY | PROVIDERS: PCP Nurse Practitioner Family; Referring Provider Nurse Practitioner Family; Visit Provider Nurse Practitioner Gerontology | DX: N32.81 Overactive bladder (principal); N40.0 Benign prostatic hyperplasia without lower urinary tract symptoms; R33.8 Other retention of urine; Z79.899 Other long term (current) drug therapy | CPT/HCPCS: 99214 ==

== ENCOUNTER 2021-09-12 09:16 | Outpatient (CLI) | payer MEDICARE, SELFPAY ==
[2021-09-12 11:57] LABS: Anion Gap 8.9 mmol/L (3-11); BUN 38 mg/dL (7-18); CO2 29.1 mmol/L (21.0-32.0); CREATININE 1.7 mg/dL (0.70-1.30); Chloride 103 mmol/L (98-107); Estimated GFR 38.78 (mL/min/1.73m2); Glucose 87 mg/dL (74-106); Potassium 4.4 mmol/L (3.5-5.1); Sodium 141 mmol/L (136-145)
== END 2021-09-12 09:17 | disposition home or self-care (01) ==
PROVIDERS: PCP Nurse Practitioner Family
DX: I50.32 Chronic diastolic (congestive) heart failure (principal)
CPT/HCPCS: 36415; 80048

== ENCOUNTER → 2021-12-27 10:16 | Outpatient (BNVA) | payer MEDICARE, SELFPAY | PROVIDERS: PCP Nurse Practitioner Family; Referring Provider Nurse Practitioner Family; Visit Provider Nurse Practitioner Gerontology | DX: N32.81 Overactive bladder (principal); R33.8 Other retention of urine; N40.0 Benign prostatic hyperplasia without lower urinary tract symptoms | CPT/HCPCS: 99214 ==

== ENCOUNTER 2022-01-02 09:54 | Emergency (ER) | payer MEDICARE, SELFPAY ==
[2022-01-02 10:15] VITALS: BP 130/74; PULSE 71; RESP 12; TEMP 36.2; O2SAT 96
--- NOTE | 2022-01-02 10:52 | W.ED.GENAD ---
Discharge Plan Disposition Patient Disposition: HOME Condition: Stable Discharge Details Clinical Impression: Sacroiliac joint pain Primary Care Provider: Benny Torrez ED Provider: Marianela Key Home Meds and New Rx's Prescriptions: New methylprednisolone [Medrol (Darin)] 4 mg tablets,dose pack See Rx Instructions .ROUTE .COMPLEX Qty: 21 0RF Rx Instructions: orally per package directions cyclobenzaprine 5 mg tablet 5 mg PO BID PRNQty: 6 0RF lidocaine [Lidoderm] 5 % adhesive patch,medicated 1 patch topical DAILY Qty: 15 0RF Rx Instructions: leave on most painful area for up to 12 hrs Continued allopurinol 100 mg tablet 100 mg PO DAILY Qty: 90 4RF pramipexole 1 mg tablet 1 mg PO HS Qty: 90 4RF metoprolol succinate 25 mg tablet extended release 24 hr 25 mg PO DAILY Qty: 90 6RF Vyndaqel 20 mg capsule 80 mg PO DAILY 0RF Label Comments: 05/03/21 rx by [facility] [place], tamsulosin [Flomax] 0.4 mg capsule 0.8 mg PO DAILY Qty: 180 3RF spironolactone 25 mg tablet 12.5 mg PO DAILY Qty: 60 2RF flaxseed oil 1,000 mg capsule 1,000 mg PO DAILY 0RF Rx Instructions: administer with a meal Metamucil (sugar) Powder 2 tsp PO ONCE PRN0RF multivitamin 1 EACH capsule 1 ea PO DAILY 0RF glucosam-chond [id number] ac 1 EACH capsule 1 ea PO DAILY 0RF sennosides 8.6 mg tablet 8.6 mg PO DAILY PRN (Reason: constipation) Qty: 90 0RF furosemide 40 mg tablet 40 mg PO DAILY Qty: 90 3RF omeprazole 20 mg capsule,delayed release(DR/EC) 20 mg PO DAILY Qty: 90 3RF simvastatin 10 mg tablet 5 mg PO HS Qty: 45 4RF methylphenidate HCl 20 mg tablet 20 mg PO BID MDD 40 mg Qty: 56 0RF docusate sodium [Colace] 100 mg capsule 200 mg PO QHS PRN (Reason: constipation) Qty: 20 0RF acetaminophen 500 mg capsule 500 mg PO Q4H PRN (Reason: pain) Qty: 30 0RF Discharge Instructions Additional Instructions: He had Lidoderm patch over the area of tenderness, 1-2 patches, 12 hours on, 12 hours off Take Medrol as prescribed, next dose of tomorrow Take Flexeril sparingly, this medication may make you feel unsteady and lightheaded Recommend following up with physical therapy, I have given you a referral Use your walker with any sort of ambulation Return earlier should you have abdominal pain, fever, chills, or with any new or worsening complaints Call to schedule appointment outpatient with your primary care physician tomorrow Stand Alone Forms: Physical Therapy Referral Referrals: Benny Torrez NP [Primary Care Provider] - Discharge Data Discharge Date/Time-TO BE ENTERED AT DEPARTURE: 01/02/22 12:16 Medical Decision Making xray shows evidence of degenerative changes Patient is ambulatory with antalgic gait feels comfortable discharge home Patient placed on Medrol Dosepak, Flexeril, Lidoderm patches We will use his walker Physical therapy referral supplied Return precautions discussed and patient expressed understanding Urinalysis does not show evidence of acute abnormality, no clinical evidence of cauda equina syndrome Medical Records Medical records reviewed: Yes I reviewed the patient's medical records. Lab Data Lab results reviewed: Yes I reviewed the patient's lab results. HPI General Date/Time Provider Initiated Documentation: 01/02/22 10:18. HPI Narrative: This 81-year-old male presents for report of left hip pain. He states that he had the pain for approximately a week and was worsening. He has no pain in the supine position states predominantly when he is ambulatory that the pain is exacerbated. He does have a history of ankylosing spondylolisthesis he states that this pain is different. He denies any radiation of discomfort and states it is predominantly localized in his left sacroiliac region. He denies discomfort, changes in bowel or bladder, history of illicit drug use, fever or chills, he denies any paresthesias. He denies any trauma to the affected area. Denies any associated flank discomfort or hematuria. Related Data Home Medications Medication Instructions Recorded Confirmed [id number]-[id number]-tpcszjon-hyalur 1 ea PO DAILY 12/09/12 01/02/22 ac 375 mg-300 mg-175 mg-2 mg cap multivitamin 1 ea PO DAILY 12/09/12 01/02/22 docusate sodium 100 mg capsule 200 mg PO QHS PRN #20 cap 12/18/18 01/02/22 (Colace) allopurinol 100 mg tablet 100 mg PO DAILY #90 tab 01/22/21 01/02/22 metoprolol succinate 25 mg 25 mg PO DAILY #90 tab 01/22/21 01/02/22 tablet,extended release 24 hr pramipexole 1 mg tablet 1 mg PO HS #90 tab-cap 01/22/21 01/02/22 spironolactone 25 mg tablet 12.5 mg PO DAILY #60 tab 01/29/21 01/02/22 flaxseed oil 1,000 mg capsule 1,000 mg PO DAILY 02/27/21 01/02/22 psyllium seed (sugar) oral powder 2 tsp PO ONCE PRN 02/27/21 01/02/22 (Metamucil (sugar)) sennosides 8.6 mg tablet 8.6 mg PO DAILY PRN #90 tab 04/04/21 01/02/22 tafamidis meglumine 20 mg capsule 80 mg PO DAILY cap 05/03/21 01/02/22 (Vyndaqel) acetaminophen 500 mg capsule 500 mg PO Q4H PRN #30 cap 05/23/21 01/02/22 tamsulosin 0.4 mg capsule (Flomax) 0.8 mg PO DAILY #180 cap 05/29/21 01/02/22 furosemide 40 mg tablet 40 mg PO DAILY #90 tab 07/10/21 01/02/22 omeprazole 20 mg capsule,delayed 20 mg PO DAILY #90 tab-cap 08/27/21 01/02/22 release simvastatin 10 mg tablet 5 mg PO HS #45 tab-cap 10/09/21 01/02/22 methylphenidate HCl 20 mg tablet 20 mg PO BID #56 tab-cap MDD 40 mg 11/26/21 01/02/22 cyclobenzaprine 5 mg tablet 5 mg PO BID PRN #6 tab 01/02/22 lidocaine 5 % topical patch 1 patch TOPICAL DAILY #15 ea 01/02/22 (Lidoderm) methylprednisolone 4 mg tablets in See Rx Instructions .ROUTE 01/02/22 a dose pack (Medrol (Darin)) .COMPLEX #21 dose pk Previous Rx's Medication Instructions Recorded docusate sodium 100 mg capsule 200 mg PO QHS PRN #20 cap 12/18/18 (Colace) allopurinol 100 mg tablet 100 mg PO DAILY #90 tab 01/22/21 metoprolol succinate 25 mg 25 mg PO DAILY #90 tab 01/22/21 tablet,extended release 24 hr pramipexole 1 mg tablet 1 mg PO HS #90 tab-cap 01/22/21 spironolactone 25 mg tablet 12.5 mg PO DAILY #60 tab 01/29/21 sennosides 8.6 mg tablet 8.6 mg PO DAILY PRN #90 tab 04/04/21 acetaminophen 500 mg capsule 500 mg PO Q4H PRN #30 cap 05/23/21 tamsulosin 0.4 mg capsule (Flomax) 0.8 mg PO DAILY #180 cap 05/29/21 furosemide 40 mg tablet 40 mg PO DAILY #90 tab 07/10/21 omeprazole 20 mg capsule,delayed 20 mg PO DAILY #90 tab-cap 08/27/21 release simvastatin 10 mg tablet 5 mg PO HS #45 tab-cap 10/09/21 methylphenidate HCl 20 mg tablet 20 mg PO BID #56 tab-cap MDD 40 mg 11/26/21 cyclobenzaprine 5 mg tablet 5 mg PO BID PRN #6 tab 01/02/22 lidocaine 5 % topical patch 1 patch TOPICAL DAILY #15 ea 01/02/22 (Lidoderm) methylprednisolone 4 mg tablets in See Rx Instructions .ROUTE 01/02/22 a dose pack (Medrol (Darin)) .COMPLEX #21 dose pk Allergies Allergy/AdvReac Type Severity Reaction Status Date / Time Penicillins Allergy Skin Rash Verified 01/02/22 10:19 celecoxib AdvReac GI Bleeding Verified 01/02/22 10:19 General Stated Complaint: Orthopedic ASH: 4 Review of Systems All systems reviewed & are unremarkable except as noted in HPI and below PFSH All Active Problems (Updated 01/02/22 @ 12:12 by PATRICIA Morrissey) Sacroiliac joint pain (Acute) Heart murmur (Acute) 12/2021-consistent with known mitral regurgitation by echo Chronic kidney disease (Chronic) stage 3 Edema, peripheral (Acute) Bilateral hand swelling (Acute) Cholecystitis (Acute) Constipation (Acute) Hand swelling (Acute) Wrist swelling (Acute) Arthralgia (Acute) Arthritis (Acute) Rotator cuff tear arthropathy of right shoulder (Acute) Gout (Chronic) Low back pain (Acute) Complete tear of right rotator cuff (Acute) Right shoulder pain (Acute) Cardiac amyloidosis (Acute) OAB (overactive bladder) (Acute) Cubital tunnel syndrome, bilateral (Acute) Bilateral carpal tunnel syndrome (Acute) Memory impairment (Acute) Spinal stenosis at L4-L5 level (Chronic 08/24/15) Narcolepsy (Chronic) Benign prostatic hyperplasia (Chronic 06/03/13) Elevated PSA; bx neg. in 1992; bx neg. in 1998; neg. bx 2006; neg bx 2008 Anxiety (Chronic) Hyperlipidemia (Chronic 06/22/13) Essential hypertension (Chronic) Diastolic heart failure (Acute) Atrial bigeminy (Acute) Edema (Acute) Bradycardia (Acute) Will need Holter monitor to assess heart irregularity and bradycardia prior to surgery. Will try to get done this week and he sees Dr. Castillo this Friday who can then hopefully clear him for surgery or put it on hold. Lab also done. History of prostate surgery (Acute) TURP 2012 History of spinal fusion (Acute) Indigestion (Acute) Urgency of urination (Chronic 06/17/12) Retention of urine (Chronic 06/17/12) Restless legs (Chronic) Low back pain (Chronic) DJD; disc and fusion 1964; repeat surgery- 1994; recurrent sxs 07/10 and04/13 Knee pain (Chronic 02/11/13) left; S/P cartilage resection Impotence due to erectile dysfunction (Chronic 03/18/05) History of reactive hypoglycemia (Chronic 06/21/16) Hiatal hernia (Chronic 10/05/08) Diverticulosis of colon without diverticulitis (Chronic) Constipation by delayed colonic transit (Chronic) Bursitis of right shoulder (Chronic 08/24/15) Medical History (Updated 01/02/22 @ 12:12 by PATRICIA Morrissey) Chronic pain syndrome (05/21/12) Ingrown toenail Surgical History (Updated 07/23/21 @ 09:56 by Benny Torrez NP) Cubital tunnel syndrome on right S/P Release: 05/23/2021 HERNIA REPAIR (~05/2009) KNEE REPAIR torn knee cartiledge 03/1971 /fuision Laminectomy? lower spine 10/1995 Open Carpal Tunnel release (~05/2006) B/L PROSTATE SURGERY (~10/2012) [facility] B/L 04/01/16 Right carpal tunnel syndrome S/P ECTR: 05/23/2021 Spinal Fusion 02/14 Status post carpal tunnel release Status post hernia repair Status post total knee replacement, bilateral (06/21/16) Family History Mother , AGE 65 Cancer Brother Diabetes Maternal Grandfather , age 78 Heart disease Stroke Hyperlipidemia Paternal Grandfather Essential hypertension Heart disease Stroke Maternal Grandmother No problems noted. Paternal Grandmother No problems noted. Son No problems noted. Son Diabetes Father , age 94 No problems noted. Sister No problems noted. Social History Smoking/Tobacco Use Status: Never Second Hand Exposure: Yes Smoking risk assessment performed?: Yes Alcohol Intake: former Counseling given: No Drug use: Never Substance use type: does not use Caregiver/Support person: No Household members: spouse Housing: house Communication Needs: Hard of Hearing and Corrective Lenses Do you need help understanding health information?: Rarely Pets and animals: Yes Pets and animals: dog(s) Sexually active: No Do you think of yourself as: straight/heterosexual Current gender identity: male What is your relationship status?: How often do you talk on the phone with friends or family?: twice per week How often do you get together with friends or relatives?: once per week How often do you attend confucianist or latter day services?: decline to answer Do you belong to any clubs or organized social groups?: no Panel score (0-1 are the most socially isolated patients): 2 What type of physical activity do you participate in: additional Details: Home work ([employer] wood, garden, etc.); doing PT for shoulder Duration: 45-60 minutes/day Frequency: 3-4 times per week Rafaela/Restorationist: Spiritism Special rafaela needs: No Seatbelt use: always Helmet use: No Drive intox or ride w/intox funeral car driver: No Do you feel safe at home: Yes Do you feel safe in your relationship?: Yes Exam Const General: cooperative, comfortable and no acute distress Eyes Sclera: sclerae normal Resp Effort & Inspection: normal respiratory effort Auscultation: clear to auscultation bilaterally Cardio Rate: regular rate Rhythm: regular rhythm GI Other: No abdominal bruit or pulsatile mass, no CVA tenderness Back/Spine/Pelvis Other: No midline lumbar or thoracic spine tenderness Back/spine/pelvis image: 1. Tenderness palpation, no rashes or lesions Skin General skin exam: no rashes or lesions noted Neuro General: patient alert and patient oriented x3 Other: DTRs intact bilateral upper and lower extremities, strength and sensation intact distally, negative straight leg raise, negative, ambulatory with antalgic gait Extrem Other: Distal pulses intact bilateral lower extremity Course Vital Signs Vital signs: Vital Signs Temperature 36.2 C L 01/02/22 10:15 Pulse 71 01/02/22 10:15 Respiratory Rate 12 01/02/22 10:15 Blood Pressure 130/74 01/02/22 10:15 Pulse Oximetry 96 01/02/22 10:15 Temperature 36.2 C L 01/02/22 10:15 Temperature Source Temporal Artery Scan 01/02/22 10:15 Pulse 71 01/02/22 10:15 Respiratory Rate 12 01/02/22 10:15 Respiratory Effort Non-Labored 01/02/22 10:18 Blood Pressure 130/74 01/02/22 10:15 Blood Pressure Position Sitting 01/02/22 10:15 Pulse Oximetry 96 01/02/22 10:15 Oxygen Delivery Method Room Air 01/02/22 10:15 Oxygen Flow Rate 0 01/02/22 10:15 Pain Level 4 01/02/22 10:15
--- NOTE | 2022-01-02 11:03 | DI.RAD_ITS ---
Exam(s) XR HIP LT COMPLETE AP PELVIS EXAM: XR HIP LT COMPLETE AP PELVIS CLINICAL HISTORY: left si pain TECHNIQUE: COMPARISON: CR XR LUMBAR SPINE COMPLETE from 07/16/2019 FINDINGS: Two views were obtained. Be the SI joints show mild degenerative changes. There are mild degenerati ve changes of both hips as well. No evidence of fracture or dislocation. IMPRESSION: RADIATION DOSE DELIVERED: Total DLP
[2022-01-02] MEDS: Cyclobenzaprine 10 MG TAB 5 MG PO (11:10)
[2022-01-02] MEDS: Dexamethasone 4 MG TAB PO (11:10)
[2022-01-02] MEDS: Lidocaine 5% Patch 1 PATCH TP (11:15)
[2022-01-02 11:18] LABS: Bilirubin Negative (Negative); Blood Negative (Negative); Clarity Clear (Clear); Glucose Negative (Negative); Ketones Negative (Negative); Leukocyte Esterase Negative (Negative); Nitrite Negative (Negative); Urobilinogen 0.2 EU/dL (Up TO 0.2); pH 5.5 (5-8)
== END 2022-01-02 12:16 | disposition home or self-care (01) ==
PROVIDERS: Emergency Provider Physician Assistant; PCP Nurse Practitioner Family
DX: M25.552 Pain in left hip (principal); M53.3 Sacrococcygeal disorders, not elsewhere classified
CPT/HCPCS: 99283; 73502; 81003; 85025; J8540

== ENCOUNTER 2022-01-15 08:36 | Inpatient (IN) | payer MEDICARE, SELFPAY ==
[2022-01-15] VITALS (42 sets, daily range): BP systolic 102–138; BP diastolic 59–83; PULSE 51–97; RESP 9–72; TEMP 36.1–36.8; O2SAT 93–99
--- NOTE | 2022-01-15 | DI.US_ITS ---
APPROVED REPORT EXAM: Comprehensive 2D, Doppler, and color-flow Echocardiogram Patient Location: In-Patient Room/Bed: 209 Electroencephalograph Technologist: Libby Schroeder RDCS (AE) Indications: CHF Other Information Study Quality: Adequate Conclusion Normal left ventricular chamber size. Mild concentric left ventricular hypertrophy. Ejection fracti on is 55 to 60%. There are no segmental wall motion abnormalities Normal right ventricular size and systolic function The left atrium is moderately dilated. The right atrium is mildly dilated Mildly sclerotic trileaflet aortic valve without stenosis or regurgitation Normal tricuspid valve with mild regurgitation. Estimated right ventricular systolic pressure is 49 mmHg Normal mitral valve with moderate eccentric regurgitation Normal pulmonic valve with trace regurgitation Wall motion Left Ventricle The left ventricle is normal size. The left ventricular systolic function is normal. The left ventric ular ejection fraction is within the normal range. Mild concentric left ventricular hypertrophy. Ther e is normal LV segmental wall motion. There is no ventricular septal defect visualized. LVEF is 55-60 %. Right Ventricle The right ventricle is normal size. The right ventricular systolic function is normal. The RVSP is 49 .4 mmHg. Atria Left atrium is moderately dilated. Right atrium is mildly dilated. The interatrial septum is intact w ith no evidence for an atrial septal defect. Aortic Valve The Aortic valve is mildly sclerotic. Aortic valve is trileaflet. There is no aortic valvular stenosi s. No aortic regurgitation is present. Mitral Valve The mitral valve is normal in structure. No evidence of mitral valve stenosis. Moderate mitral regurg itation. Mitral regurgitation jet is eccentrically directed. Tricuspid Valve The tricuspid valve is normal in structure. There is no tricuspid valve stenosis. Mild tricuspid regu rgitation. Pulmonic Valve The pulmonary valve is normal in structure. There is no pulmonic valvular stenosis. Trace pulmonic re gurgitation. Great Vessels The aortic root is normal in size. The ascending aorta is normal in size. Aortic arch is not well vis ualized. IVC is normal in size and collapses >50% with inspiration. Pericardium There is no pericardial effusion. 2D Dimensions IVSD d PLAX 1.30 cm M: 0.6-1.2 LV Vol A2C d MOD 118.4 mL LVPW d PLAX 1.30 cm M: 0.6 - 1.2 LV Vol A4C d MOD 115.7 mL LVID d PLAX 5.14 cm M: 4.2 - 5.8 LA vol/ BSA A2C s A-L 52.2 mL/m2 LVDs 3.60 cm M: 2.5 - 4.0 LA vol/ BSA A4C s A-L 46.3 mL/m2 Ao Root d 3.00 cm M: 3.1 - 3.7 LA Vol/ BSA Biplane s A-L 49.8 mL/m2 RA Area A4C 26.08 cm2 LA Area A4C s MOD 27.53 cm2 RA Vol/ BSA A4C s A-L 43.9 mL/m2 LA Area A2C s MOD 28.84 cm2 Ao Asc Diam d 3.37 cm M: 2.6 - 3.4 LV EF A4C MOD 55.3 % LV EF Teichholz 56.0 % LV EF A2C MOD 55.1 % LVEF (Pimentel's) 55.21 % M: 52 - 72 LV EF Biplane MOD 55.2 % LV Volume 86.57 mL M: 62 - 150 SV 64.76 mL LV Volume Index 41.22 mL/m2 M: 34 - 74 SV Index 30.83 mL/m2 LV Vol Biplane MOD 117.3 mL FS 29.35 % LV Diastology MV E' medial 0.086 (>0.07 m/s) E/A Ratio 4.2 LV E/e MED 12.10 (<14) MV E Vmax 1.05 (0.4-1.3 m/s) MV E' lateral 0.093 (>0.1 m/s) MV A Vmax 0.25 (0.4-1.3 m/s) LV E/e LAT 11.25 (<14) MV E/A Ratio 3.57 MV E/E' medial 12.13 MV E/E' lateral 11.28 Aortic Valve LVOT Area 3.22 cm2 AoV Area Vmax 2.87 cm2 LVOT Vmax 1.39 m/s AoV Area/ BSA (Vmax) 1.37 cm2/m2 LVOT Mean Robin. 0.93 m/s DEEPIKA Mean Robin. 2.69 cm2 LVOT Peak Grad 7.8 mmHg DEEPIKA Mean Robin. Index 1.28 cm2/m2 LVOT Mean Grad 4.1 mmHg LVOT VTI 0.257 m LVOT Diam s 2.00 cm AoV Vmax 1.56 m/s Velocity Ratio 0.89 AoV Mean Robin. 1.12 m/s AoV Peak Grad 9.8 mmHg LVOT SV 82.74 mL AoV Mean Grad 5.6 mmHg AoV VTI 0.281 m AoV Area VTI 2.95 cm2 AoV Area/ BSA (VTI) 1.40 cm/m2 Mitral Valve MV DT 251 (160-240 msec) MR Vmax 4.95 m/s MV PHT 73 msec MR VTI 1.282 m MV Area PHT 3.03 cm2 MR Peak Grad 98.2 mmHg MV VTI 0.328 m MR Mean Grad 74.7 mmHg MV Area VTI 2.53 (4.0-6.0 cm2) MR PISA Radius 0.79 cm MR EROA 0.28 cm2 MR Aliasing Velocity 0.35 m/s MR PISA 3.94 cm2 Pulmonary Valve PV Vmax 1.08 (0.5-1.5 m/s) RVOT Peak Gr. 2.63 mmHg PV Peak Grad 4.6 mmHg RVOT Mean Gr. 1.40 mmHg PV Mean Grad 2.4 mmHg RVOT VTI 0.174 m PV VTI 0.222 m RVOT Vmax 0.81 m/s Tricuspid Valve TR Peak Grad 46.4 mmHg TR Vmax 3.41 m/s RA Pressure 3.00 mmHg RVSP (TR) 49.4 mmHg
--- NOTE | 2022-01-15 08:50 | W.ED.GENAD ---
Discharge Plan Disposition Patient Disposition: [facility] INPATIENT Condition: Improving Discharge Details Clinical Impression: Acute exacerbation of congestive heart failure, Pain in right shoulder, Elevated troponin Admit Date/Time: 01/15/22 11:10 Admit Provider: Anthony Mendez Attending Provider: Anthony Mendez Primary Care Provider: Benny Torrez ED Provider: Agustin Guillory Discharge Data Discharge Date/Time-TO BE ENTERED AT DEPARTURE: 01/15/22 11:55 Medical Decision Making This is an 81-year-old gentleman with multiple comorbidities, has presented to the ER for pain related issues as well as seen by his primary care provider and referred to physical therapy after being taken off in his Relafen on 12-24-21. He reports acute on chronic right shoulder pain. This clinically appears to be musculoskeletal. No trauma, low suspicion for fracture or dislocation. Of note, he does have history of diastolic heart failure, reports potentially slightly worse swelling of bilateral lower extremities and worsening exertional dyspnea. Will initiate a cardiac work-up including a single troponin and BNP. Reviewing past medical notes, there was concern for potential polypharmacy. I plan to speak with his primary care provider regarding his ongoing pain and need for better control. I was able to speak with Laura Triplett APRN covering for his primary care provider. She feels as though initiating another Medrol Dosepak is reasonable and she will have him follow in the next week through his PCP for medication assessment and pain control. This plan was discussed with both patient and family, he did not like the way the steroids made him feel and declines additional steroids. Laboratory values reveal mild nonspecific leukocytosis of 11.67, chronic and what appears to be near stable anemia of hemoglobin 10.0 hematocrit 30.50, platelet count 203. Electrolytes unremarkable, creatinine 1.5 with a GFR of 44.69 which appears near his baseline. Initial troponin is 85. BNP 5521 which is nearly double his baseline. X-ray of chest unremarkable, x-ray of right shoulder reveals degenerative changes Plan is to provide a full dose aspirin as well as a single sublingual nitro to see if any of the symptoms improved. Case was discussed with Dr. Matrinez who personally evaluated the patient, please see his note. Plan is to contact our hospitalist team to discuss his presentation and need for admission. Likely right sided shoulder pain musculoskeletal in nature; however, appears to have an acute CHF exacerbation with a mildly elevated troponin. Case discussed with Dr. Mendez it was a who is agreeable for admission. Will hold Plavix and heparin until he has evaluated the patient and potentially has a cardiology consultation. 40 IV Lasix to be given. This documentation was generated using [employer] system, please disregard any oddities of phrase or misspellings. Medical Records Medical records reviewed: Yes I reviewed the patient's medical records. Imaging Data Radiologic Study: Attestation: I personally reviewed and interpreted this imaging study as follows: Imaging: X-Ray Radiologist's impression: Exam(s) XR CHEST 2V PA LATERAL EXAM: XR CHEST 2V PA LATERAL CLINICAL HISTORY: bilat leg swelling TECHNIQUE: 2D digital imaging was performed of the chest. Two images were obtained. PA and lateral views were obtained. COMPARISON: CR XR CHEST 2V PA LATERAL from 12/18/2018 FINDINGS: MEDIASTINUM: Normal. HEART: Normal. PULMONARY VASCULATURE: Normal. LUNGS: No focal consolidating infiltrates. Scarring is seen in the lung bases. The lungs are hyperinflated suggesting underlying COPD. PLEURAL SPACE: No pleural effusion or pneumothorax. BONE:Within normal limits for the patient's age. OTHER FINDINGS:Normal. IMPRESSION: No acute pulmonary findings. Radiologic Study #2: Attestation: I personally reviewed and interpreted this imaging study as follows: Imaging: X-Ray Radiologist's impression: Exam(s) XR SHOULDER RT COMPLETE 2+V EXAM: XR SHOULDER RT COMPLETE 2+V CLINICAL HISTORY: pain. TECHNIQUE: 2D digital imaging was performed of the right shoulder. Five images were obtained. AP, Grashey, Y-view and axillary views were obtained. COMPARISON: CR XR SHOULDER RT COMPLETE 2+V from 01/05/2021 FINDINGS: BONES: No acute fracture is present. No bony destructive lesion is seen. JOINTS: No dislocation present. Degenerative changes are seen at the acromioclavicular joint. There is superior subluxation of the humeral head which is unchanged and is consistent with the patient's known chronic rotator cuff tear. Degenerative changes are seen along the undersurface of the acromion and the superior humeral head. SOFT TISSUE: Normal. IMPRESSION: 1. Degenerative changes seen in the right shoulder as described. Findings consistent with a chronic rotator cuff tear. Lab Data Lab results reviewed: Yes I reviewed the patient's lab results. Labs: Laboratory Tests Range/Units 01/15/22 01/15/22 01/15/22 09:25 09:25 09:25 WBC (4.4-10.8) 10^3/uL 11.67 H RBC (4.36-5.78) 10^6/uL 2.93 L Hgb (13.5-17.5) g/dL 10.0 L Hct (40.0-50.0) % 30.5 L MCV (80-95) fL 104.1 H MCH (27.0-33.0) pg 34.1 H MCHC (32.0-36.0) % 32.8 RDW (11.8-14.1) % 14.6 H Plt Count (130-400) 10^3/uL 203 MPV (8.0-11.0) fL 9.4 Immature Gran % 0.6 Neutrophils % 77.8 Lymphocytes % 7.0 Monocytes % 11.0 Eosinophils % 3.3 Basophils % 0.3 Nucleated RBC % % 0 Absolute Neutrophils (1.2-6.7) 10^3/uL 9.08 H Absolute Lymphocytes (1.2-3.4) 10^3/uL 0.82 L Absolute Monocytes (0.1-0.8) 10^3/uL 1.28 H Absolute Eosinophils (0.0-0.7) 10^3/uL 0.39 Absolute Basophils (0.0-0.2) 10^3/uL 0.04 Sodium Cancelled Potassium Cancelled Chloride Cancelled Carbon Dioxide Cancelled Anion Gap Cancelled BUN Cancelled Creatinine Cancelled Estimated GFR/1.73 m2 Cancelled Glucose Cancelled Calcium Cancelled Total Bilirubin Cancelled AST Cancelled ALT Cancelled Alkaline Phosphatase Cancelled Troponin I Cancelled NT-Pro-B Natriuret Pep Cancelled Total Protein Cancelled Albumin Cancelled Range/Units 01/15/22 09:40 WBC (4.4-10.8) 10^3/uL RBC (4.36-5.78) 10^6/uL Hgb (13.5-17.5) g/dL Hct (40.0-50.0) % MCV (80-95) fL MCH (27.0-33.0) pg MCHC (32.0-36.0) % RDW (11.8-14.1) % Plt Count (130-400) 10^3/uL MPV (8.0-11.0) fL Immature Gran % Neutrophils % Lymphocytes % Monocytes % Eosinophils % Basophils % Nucleated RBC % % Absolute Neutrophils (1.2-6.7) 10^3/uL Absolute Lymphocytes (1.2-3.4) 10^3/uL Absolute Monocytes (0.1-0.8) 10^3/uL Absolute Eosinophils (0.0-0.7) 10^3/uL Absolute Basophils (0.0-0.2) 10^3/uL Sodium 139 Potassium 4.5 Chloride 106 Carbon Dioxide 25.3 Anion Gap 7.7 BUN 37 H Creatinine 1.5 H Estimated GFR/1.73 m2 44.69 Glucose 121 H Calcium 8.0 L Total Bilirubin 1.0 AST 42 H ALT 38 Alkaline Phosphatase 191 H Troponin I 85 H* NT-Pro-B Natriuret Pep 5521 H Total Protein 6.6 Albumin 2.7 L ECG Data Attestation: I personally reviewed and interpreted this ECG (s) as follows: Interpretation: Please see official report by Dr. Martinez. Sinus bradycardia, ventricular rate of 59, no STEMI Date: 01/15/22 Time: 11:28 Note: Patient seen, examined, and discussed with PATRICIA Guillory. EKG reviewed and interpreted by me: Please see report, no STEMI, T wave inversions noted inferior lateral, old compared to EKG 2019. I agree with treatment plan as discussed/documented. Suspect musculoskeletal right shoulder pain but worsening dyspnea on exertion over the past few months as well as now bilateral lower extremity edema worsening over the past 10 days despite increase furosemide dosing is concerning for worsening CHF. BNP elevated from baseline with slight elevation opponent. Plan to admit for further diagnostic work-up and treatment. PATRICIA Guillory to speak with hospitalist regarding admission. HPI General Mode of arrival: ambulatory. Date/Time Provider Initiated Documentation: 01/15/22 08:41. Limitations to Documentation: no limitations. Information obtained by: patient and family. HPI Narrative: This is an 81-year-old gentleman, past medical history that includes chronic pain syndrome, diastolic heart failure, hypertension, anxiety, BPH, presenting to the ER reporting that his chronic pain, specifically in his right shoulder is worsening ever since being taken off of his Relafen on 12-24-21 and he also wonders if his bilateral lower extremity peripheral edema is slightly worse than baseline. Patient states that he has been dealing with ongoing low back and hip pain and that has forced him to use a walker and he wonders if this is now exacerbated his right shoulder discomfort. He denies any recent illness or trauma. Denies any numbness, tingling, weakness, radiation of the pain from his right shoulder. Denies fever, headache, chest pain, shortness of breath abdominal pain. Reports the pain is moderate at rest worse with movement. He has been taking [id number] Tylenol with little relief of his symptoms. He states that today his low back-hip pain actually seems to be slightly improved after going to physical therapy. He is right-hand dominant Related Data Home Medications Medication Instructions Recorded Confirmed drrgevzcyg-zbxkerozju-rqspeety-hyalur 1 ea PO DAILY 12/09/12 01/15/22 ac 375 mg-300 mg-175 mg-2 mg cap multivitamin 1 ea PO DAILY 12/09/12 01/15/22 docusate sodium 100 mg capsule 200 mg PO QHS PRN #20 cap 12/18/18 01/15/22 (Colace) allopurinol 100 mg tablet 100 mg PO DAILY #90 tab 01/22/21 01/15/22 metoprolol succinate 25 mg 25 mg PO DAILY #90 tab 01/22/21 01/15/22 tablet,extended release 24 hr pramipexole 1 mg tablet 1 mg PO HS #90 tab-cap 01/22/21 01/15/22 spironolactone 25 mg tablet 12.5 mg PO DAILY #60 tab 01/29/21 01/15/22 flaxseed oil 1,000 mg capsule 1,000 mg PO DAILY 02/27/21 01/15/22 psyllium seed (sugar) oral powder 2 tsp PO ONCE PRN 02/27/21 01/15/22 (Metamucil (sugar)) sennosides 8.6 mg tablet 8.6 mg PO DAILY PRN #90 tab 04/04/21 01/15/22 tafamidis meglumine 20 mg capsule 80 mg PO DAILY cap 05/03/21 01/15/22 (Vyndaqel) acetaminophen 500 mg capsule 500 mg PO Q4H PRN #30 cap 05/23/21 01/15/22 tamsulosin 0.4 mg capsule (Flomax) 0.8 mg PO DAILY #180 cap 05/29/21 01/15/22 furosemide 40 mg tablet 40 mg PO DAILY #90 tab 07/10/21 01/15/22 omeprazole 20 mg capsule,delayed 20 mg PO DAILY #90 tab-cap 08/27/21 01/15/22 release simvastatin 10 mg tablet 5 mg PO HS #45 tab-cap 10/09/21 01/15/22 cyclobenzaprine 5 mg tablet 5 mg PO BID PRN #6 tab 01/02/22 01/15/22 lidocaine 5 % topical patch 1 patch TOPICAL DAILY #15 ea 01/02/22 01/15/22 (Lidoderm) Previous Rx's Medication Instructions Recorded docusate sodium 100 mg capsule 200 mg PO QHS PRN #20 cap 12/18/18 (Colace) allopurinol 100 mg tablet 100 mg PO DAILY #90 tab 01/22/21 metoprolol succinate 25 mg 25 mg PO DAILY #90 tab 01/22/21 tablet,extended release 24 hr pramipexole 1 mg tablet 1 mg PO HS #90 tab-cap 01/22/21 spironolactone 25 mg tablet 12.5 mg PO DAILY #60 tab 01/29/21 sennosides 8.6 mg tablet 8.6 mg PO DAILY PRN #90 tab 04/04/21 acetaminophen 500 mg capsule 500 mg PO Q4H PRN #30 cap 05/23/21 tamsulosin 0.4 mg capsule (Flomax) 0.8 mg PO DAILY #180 cap 05/29/21 furosemide 40 mg tablet 40 mg PO DAILY #90 tab 07/10/21 omeprazole 20 mg capsule,delayed 20 mg PO DAILY #90 tab-cap 08/27/21 release simvastatin 10 mg tablet 5 mg PO HS #45 tab-cap 10/09/21 cyclobenzaprine 5 mg tablet 5 mg PO BID PRN #6 tab 01/02/22 lidocaine 5 % topical patch 1 patch TOPICAL DAILY #15 ea 01/02/22 (Lidoderm) Allergies Allergy/AdvReac Type Severity Reaction Status Date / Time Penicillins Allergy Skin Rash Verified 01/15/22 08:48 celecoxib AdvReac GI Bleeding Verified 01/15/22 08:48 General Stated Complaint: GenMedical ASH: 3 Review of Systems Constitutional Constitutional: Denies fever(s), Denies headache(s) and Denies weakness ENT Ears, Nose, Mouth, and Throat: Denies headache(s) and Denies neck pain Cardiovascular Cardiovascular: Denies chest pain and Denies dyspnea Respiratory Respiratory: Denies cough and Denies dyspnea Gastrointestinal Gastrointestinal: Denies abdominal pain, Denies nausea and Denies vomiting Musculoskeletal Musculoskeletal: Reports back pain, Denies neck pain, Denies numbness and Denies tingling Integumentary/Breasts Skin/Breast: Denies rash Neurologic Neurologic: Denies headache(s), Denies numbness, Denies tingling and Denies weakness PFS All Active Problems (Updated 01/17/22 @ 00:06 by HARLEY MEJIA) Ventricular tachycardia (Chronic) Pain in right shoulder (Acute) Sacroiliac joint pain (Acute) Heart murmur (Acute) 12/2021-consistent with known mitral regurgitation by echo Chronic kidney disease (Chronic) stage 3 Edema, peripheral (Acute) Bilateral hand swelling (Acute) Cholecystitis (Acute) Constipation (Acute) Hand swelling (Acute) Wrist swelling (Acute) Arthralgia (Acute) Arthritis (Acute) Rotator cuff tear arthropathy of right shoulder (Acute) Gout (Chronic) Low back pain (Acute) Complete tear of right rotator cuff (Acute) Right shoulder pain (Acute) Cardiac amyloidosis (Acute) OAB (overactive bladder) (Acute) Cubital tunnel syndrome, bilateral (Acute) Bilateral carpal tunnel syndrome (Acute) Memory impairment (Acute) Spinal stenosis at L4-L5 level (Chronic 08/24/15) Narcolepsy (Chronic) Benign prostatic hyperplasia (Chronic 06/03/13) Elevated PSA; bx neg. in 1992; bx neg. in 1998; neg. bx 2006; neg bx 2008 Anxiety (Chronic) Hyperlipidemia (Chronic 06/22/13) Essential hypertension (Chronic) Diastolic heart failure (Acute) Atrial bigeminy (Acute) Edema (Acute) Bradycardia (Acute) Will need Holter monitor to assess heart irregularity and bradycardia prior to surgery. Will try to get done this week and he sees Dr. Castillo this Friday who can then hopefully clear him for surgery or put it on hold. Lab also done. 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; repeat surgery- 1994; recurrent sxs 07/10 and04/13 Knee pain (Chronic 02/11/13) left; S/P cartilage resection Impotence due to erectile dysfunction (Chronic 03/18/05) History of reactive hypoglycemia (Chronic 06/21/16) Hiatal hernia (Chronic 10/05/08) Diverticulosis of colon without diverticulitis (Chronic) Constipation by delayed colonic transit (Chronic) Bursitis of right shoulder (Chronic 08/24/15) Medical History Chronic pain syndrome (05/21/12) Ingrown toenail Surgical History Cubital tunnel syndrome on right S/P Release: 05/23/2021 HERNIA REPAIR (~05/2009) KNEE REPAIR torn knee cartiledge 03/1971 /fuision Laminectomy? lower spine 10/1995 Open Carpal Tunnel release (~05/2006) B/L PROSTATE SURGERY (~10/2012) TURP 2012 - [place] Replacement of total knee joint B/L 04/01/16 Right carpal tunnel syndrome S/P ECTR: 05/23/2021 Spinal Fusion 02/14 Status post carpal tunnel release Status post hernia repair Status post total knee replacement, bilateral (06/21/16) Family History Mother , AGE 65 Cancer Brother Diabetes Maternal Grandfather , age 78 Heart disease Stroke Hyperlipidemia Paternal Grandfather Essential hypertension Heart disease Stroke Maternal Grandmother No problems noted. Paternal Grandmother No problems noted. Son No problems noted. Son Diabetes Father , age 94 No problems noted. Sister No problems noted. Social History Smoking/Tobacco Use Status: Never Second Hand Exposure: Yes Smoking risk assessment performed?: Yes Alcohol Intake: former Counseling given: No Drug use: Never Substance use type: does not use Caregiver/Support person: No Household members: spouse Housing: house Communication Needs: Hard of Hearing and Corrective Lenses Do you need help understanding health information?: Rarely Pets and animals: Yes Pets and animals: dog(s) Sexually active: No Do you think of yourself as: straight/heterosexual Current gender identity: male What is your relationship status?: How often do you talk on the phone with friends or family?: twice per week How often do you get together with friends or relatives?: once per week How often do you attend roman catholic or jehovah's witness services?: decline to answer Do you belong to any clubs or organized social groups?: no Panel score (0-1 are the most socially isolated patients): 2 What type of physical activity do you participate in: additional Details: Home work ([employer], garden, etc.); doing PT for shoulder Duration: 45-60 minutes/day Frequency: 3-4 times per week Rafaela/Roman Catholic: Baptism Special rafaela needs: No Seatbelt use: always Helmet use: No Drive intox or ride w/intox paratransit driver: No Do you feel safe at home: Yes Do you feel safe in your relationship?: Yes Exam Const General: cooperative, healthy appearing, comfortable and no acute distress Orientation: alert, awake and oriented x3 HENMT Head: normal to inspection, normocephalic and atraumatic Face and sinus: normal facial exam Mouth: moist mucous membranes Eyes General: appearance normal, both eyes and all related structures Conjunctivae: conjunctivae normal Neck Neck: normal visual inspection, full ROM, trachea midline, supple and nontender Chest Chest: normal inspection of the chest and normal palpation of entire chest wall Resp Effort & Inspection: normal respiratory effort and able to speak in complete sentences Auscultation: clear to auscultation bilaterally Cardio Rate: regular rate Rhythm: regular rhythm GI Palpation: soft and nontender Back/Spine/Pelvis Back: back tenderness (Diffuse mild lumbar) Skin General skin exam: no rashes or lesions noted Neuro General: patient alert, patient awake, patient oriented x3, moves all extremities and no focal motor deficits Cognition: normal cognition Speech: speech normal Gait: normal gait Sensory Exam: no sensory deficits noted Extrem General: pedal edema bilaterally pitting and 1+ Other: Right shoulder with limited range of motion, patient reports baseline from a previous injury. There is no obvious deformity. Neuro, vascular, tendon intact. There is no bony point tenderness. Radial pulse normal. Capillary refill normal. Diffuse mild discomfort throughout the shoulder. Psych Appearance: grossly normal Mental Status: mental status grossly normal Course Vital Signs Vital signs: Vital Signs Temperature 36.1 C L 01/15/22 08:43 Pulse 71 01/15/22 08:43 Respiratory Rate 16 01/15/22 08:43 Blood Pressure 134/80 01/15/22 08:43 Pulse Oximetry 96 01/15/22 08:43 Temperature 36.1 C L 01/15/22 08:43 Temperature Source Temporal Artery Scan 01/15/22 08:43 Pulse 71 01/15/22 08:43 Respiratory Rate 16 01/15/22 08:43 Respiratory Effort 01/15/22 08:43 Blood Pressure 134/80 01/15/22 08:43 Pulse Oximetry 96 01/15/22 08:43 Pain Level 2 01/15/22 08:43 Critical Care Time Critical Care Time Critical Care Time: Yes Total Critical Care Time: 35 Attestation: Upon my evaluation, this patient had a high probability of clinically significant, life-threatening deterioration due to their current medical conditions, which required my direct attention, intervention, and personal management. I have personally provided greater than 30 minutes of critical care time exclusive of the time spend on separately billable procedures. Time includes obtaining a history, examining the patient, pulse oximetry, review of laboratory data, radiology results, discussion with consultants, arranging urgent treatment with development of a management plan, evaluation of patient's response to treatment, and monitoring for potential decompensation. Interventions were performed as documented above.
--- NOTE | 2022-01-15 09:00 | DI.RAD_ITS ---
Exam(s) XR CHEST 2V PA LATERAL EXAM: XR CHEST 2V PA LATERAL CLINICAL HISTORY: bilat leg swelling TECHNIQUE: 2D digital imaging was performed of the chest. Two images were obtained. PA and lateral views were obtained. COMPARISON: CR XR CHEST 2V PA LATERAL from 12/18/2018 FINDINGS: MEDIASTINUM: Normal. HEART: Normal. PULMONARY VASCULATURE: Normal. LUNGS: No focal consolidating infiltrates. Scarring is seen in the lung bases. The lungs are hyperi nflated suggesting underlying COPD. PLEURAL SPACE: No pleural effusion or pneumothorax. BONE:Within normal limits for the patient's age. OTHER FINDINGS:Normal. IMPRESSION: No acute pulmonary findings. DATA REPOSITORY: RADIATION DOSE DELIVERED:
--- NOTE | 2022-01-15 09:00 | DI.RAD_ITS ---
Exam(s) XR SHOULDER RT COMPLETE 2+V EXAM: XR SHOULDER RT COMPLETE 2+V CLINICAL HISTORY: pain. TECHNIQUE: 2D digital imaging was performed of the right shoulder. Five images were obtained. AP, Grashey, Y-view and axillary views were obtained. COMPARISON: CR XR SHOULDER RT COMPLETE 2+V from 01/05/2021 FINDINGS: BONES: No acute fracture is present. No bony destructive lesion is seen. JOINTS: No dislocation present. Degenerative changes are seen at the acromioclavicular joint. There is superior subluxation of the humeral head which is unchanged and is consistent with the patient's k nown chronic rotator cuff tear. Degenerative changes are seen along the undersurface of the acromion and the superior humeral head. SOFT TISSUE: Normal. IMPRESSION: 1. Degenerative changes seen in the right shoulder as described. Findings consistent with a chronic rotator cuff tear. DATA REPOSITORY: RADIATION DOSE DELIVERED:
--- NOTE | 2022-01-15 09:00 | RT.EKG_ITS ---
APPROVED REPORT Exam: Resting ECG Reason for Exam: bilat leg swelling Patient Location: E HR:59 bpm ECG Measurements Heart Rate 59 AXIS MA 205 P 76 QRSd 99 QRS 100 QT 438 T -78 QTc 416 Conclusion Sinus bradycardia...rate< 60 Atrial premature complexes...SV complexes w/ short R-R intvls Right axis deviation...QRS axis ( 91,269) Consider anterolateral infarct...Q >30mS, I aVL V3-V6,I,aVL twave inversions present on prior ekg
[2022-01-15 09:33] LABS: Abs Immature Grans 0.07 10^3/uL (0.0-0.06); Absolute Eosinophil Count 0.39 10^3/uL (0.0-0.7); Absolute Lymphocyte Count 0.82 10^3/uL (1.2-3.4); Absolute Monocyte Count 1.28 10^3/uL (0.1-0.8); Absolute Neutrophil Count 9.08 10^3/uL (1.2-6.7); Basophils % 0.3; Eosinophils % 3.3; HCT 30.5 % (40.0-50.0); Immature Grans % 0.6; MCH 34.1 pg (27.0-33.0); MCHC 32.8 % (32.0-36.0); MCV 104.1 fL (80-95); MPV 9.4 fL (8.0-11.0); Neutrophils % 77.8; Nucleated RBC 0 %; Platelet Count 203 10^3/uL (130-400); RBC 2.93 10^6/uL (4.36-5.78); RDW 14.6 % (11.8-14.1); RDW-SD 54.6 fL; WBC 11.67 10^3/uL (4.4-10.8)
[2022-01-15 09:35] LABS: Absolute Basophil Count 0.04 10^3/uL (0.0-0.2)
[2022-01-15 10:21] LABS: ALT 38 U/L (16-63); AST 42 U/L (15-37); Albumin 2.7 g/dL (3.4-5.0); Alkaline Phosphatase 191 U/L (46-116); Anion Gap 7.7 mmol/L (3-11); BUN 37 mg/dL (7-18); CO2 25.3 mmol/L (21.0-32.0); CREATININE 1.5 mg/dL (0.70-1.30); Chloride 106 mmol/L (98-107); Estimated GFR 44.69 (mL/min/1.73m2); Glucose 121 mg/dL (74-106); NT-proBNP 5521 pg/mL (<300); Potassium 4.5 mmol/L (3.5-5.1); Sodium 139 mmol/L (136-145); Total Protein 6.6 g/dL (6.4-8.2)
[2022-01-15 10:29] LABS: Troponin I 85 ng/L (<or=60)
[2022-01-15] MEDS: Aspirin 81 MG CHEW 324 MG CH (11:03)
[2022-01-15] MEDS: Furosemide 40 MG/4 ML VIAL IVP (11:32)
--- NOTE | 2022-01-15 11:35 | NUR.NOTE ---
Nursing Note:Pt resting on stretcher, denies pain, Request & receive crackers d/t needing to eat every few hours after provider agreed. Medicated IV lasix as ordered, bp 112/69, urinal at bedside, cont. to monitor.
[2022-01-15 11:47] LABS: Source Nasal/Nares
[2022-01-15] MEDS: Heparin 5,000 UNITS/ML VIAL 5000 UNITS SC ×2 (12:38→20:25)
[2022-01-15 13:01] LABS: COVID-19 PCR Negative (Negative)
[2022-01-15 13:38] LABS: Troponin I 91 ng/L (<or=60)
--- NOTE | 2022-01-15 15:23 | NUR.NOTE ---
Talked to Franchesca BRENNAN, Med/Sug coordinator about pt having a run of 4 beat V-tach at 1403 and a 7 run beat at 1511. Strips printed and brought to her.
--- NOTE | 2022-01-15 16:10 | NUR.NOTE ---
Patient transferred to ICU room #220 at 1558. ENMANUEL Wright
--- NOTE | 2022-01-15 16:51 | HPE_ITS ---
Date of service: 01/15/22 Time of Service: 16:52 Assessment and Plan Assessment and plan (1) Acute exacerbation of congestive heart failure: Status: Acute Assessment and plan: Echocardiogram: Normal left ventricular chamber size.? Mild concentric left ventricular hypertrophy.? Ejection fraction is 55 to 60%.? There are no segmental wall motion abnormalities. Pedal edema may or may not be related to diastolic CHF. Edema could be related, as well, to the recent steroid use and venous insufficiency. Given Lasix 40mg IV in ED. Eval and consider further lasix in AM. Cont spironolactone. Low Na diet. Has first cardiology appt with Dr Mathur next week. (2) Elevated troponin: Status: Acute Assessment and plan: No wall motion abnormalities on Echo. Trop 85 > 91 > pending. No CP. (3) Chronic kidney disease: Status: Chronic Assessment and plan: Creatinine of 1.5; baseline. (4) Edema, peripheral: Status: Acute Assessment and plan: See above (5) Rotator cuff tear arthropathy of right shoulder: Status: Acute Assessment and plan: Cont prn acetaminophen. Initiate Voltaren gel to R shoulder. (6) Ventricular tachycardia: Status: Chronic Assessment and plan: On telemetry noted to have several short (4-5 beat) runs of asymptomatic V tach. Cont metoprolol; home dose. Cont telemetry. History of Present Illness History of Present Illness Chief Complaint: Right shoulder pain, pedal edema. Narrative: This is an 81 yo male with a PMH of Chronic shoulder and sacroiliac pain / arthritis/rotator cuff tear, spinal stenosis, diastolic CHF, CKD, gout, atrial bigeminy, urinary retention, RLS, constipation. He presented to the ED with main c/o increased right shoulder pain on chronic pain. He was taken off Relafen on 12/24/21 and since that time has been using acetaminophen 500mg tabs 2-8 tabs daily with some reliief. He has also recently completed a medrol dose darin for his arthritis and shoulder pain. No recent trauma. He did also mention to the ED physician that he has noted increased pedal edema and dyspnea on exertion (mild) recently. No CP/palpitations. No F/C, cough, N/V/diarrhea. Of note, he has his first appt with Dr Mathur, Cardiology, scheduled for next week. In the ED his CXR was negative, WBC count of 11.67, Hgb 10.0, platelets 203. Creatinine 1.5. initial torponin was 85. BNP 5521. R shoulder xray showed degenerative changes consistent with chronic rotator cuff tear. Lasix 20mg IV given. Admitted for further evaluation / monitoring. Review of Systems All systems reviewed & are unremarkable except as noted in HPI and below PFSH All Active Problems (Updated 01/15/22 @ 17:18 by Anthony Mendez MD) Ventricular tachycardia (Chronic) Acute exacerbation of congestive heart failure (Acute) Pain in right shoulder (Acute) Elevated troponin (Acute) Sacroiliac joint pain (Acute) Heart murmur (Acute) 12/2021-consistent with known mitral regurgitation by echo Chronic kidney disease (Chronic) stage 3 Edema, peripheral (Acute) Bilateral hand swelling (Acute) Cholecystitis (Acute) Constipation (Acute) Hand swelling (Acute) Wrist swelling (Acute) Arthralgia (Acute) Arthritis (Acute) Rotator cuff tear arthropathy of right shoulder (Acute) Gout (Chronic) Low back pain (Acute) Complete tear of right rotator cuff (Acute) Right shoulder pain (Acute) Cardiac amyloidosis (Acute) OAB (overactive bladder) (Acute) Cubital tunnel syndrome, bilateral (Acute) Bilateral carpal tunnel syndrome (Acute) Memory impairment (Acute) Spinal stenosis at L4-L5 level (Chronic 08/24/15) Narcolepsy (Chronic) Benign prostatic hyperplasia (Chronic 06/03/13) Elevated PSA; bx neg. in 1992; bx neg. in 1998; neg. bx 2006; neg bx 2008 Anxiety (Chronic) Hyperlipidemia (Chronic 06/22/13) Essential hypertension (Chronic) Diastolic heart failure (Acute) Atrial bigeminy (Acute) Edema (Acute) Bradycardia (Acute) Will need Holter monitor to assess heart irregularity and bradycardia prior to surgery. Will try to get done this week and he sees Dr. Castillo this Friday who can then hopefully clear him for surgery or put it on hold. Lab also done. History of prostate surgery (Acute) TURP 2012 History of spinal fusion (Acute) Indigestion (Acute) Urgency of urination (Chronic 06/17/12) Retention of urine (Chronic 06/17/12) Restless legs (Chronic) Low back pain (Chronic) DJD; disc and fusion 1964; repeat surgery- 1994; recurrent sxs 07/10 and04/13 Knee pain (Chronic 02/11/13) left; S/P cartilage resection Impotence due to erectile dysfunction (Chronic 03/18/05) History of reactive hypoglycemia (Chronic 06/21/16) Hiatal hernia (Chronic 10/05/08) Diverticulosis of colon without diverticulitis (Chronic) Constipation by delayed colonic transit (Chronic) Bursitis of right shoulder (Chronic 08/24/15) Medical History Chronic pain syndrome (05/21/12) Ingrown toenail Surgical History Cubital tunnel syndrome on right S/P Release: 05/23/2021 HERNIA REPAIR (~05/2009) KNEE REPAIR torn knee cartiledge 03/1971 /fuision Laminectomy? 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) Family History Mother , AGE 65 Cancer Brother Diabetes Maternal Grandfather , age 78 Heart disease Stroke Hyperlipidemia Paternal Grandfather Essential hypertension Heart disease Stroke Maternal Grandmother No problems noted. Paternal Grandmother No problems noted. Son No problems noted. Son Diabetes Father , age 94 No problems noted. Sister No problems noted. Social History Smoking/Tobacco Use Status: Never Second Hand Exposure: Yes Smoking risk assessment performed?: Yes Alcohol Intake: former Counseling given: No Drug use: Never Substance use type: does not use Caregiver/Support person: No Household members: spouse Housing: house Communication Needs: Hard of Hearing and Corrective Lenses Do you need help understanding health information?: Rarely Pets and animals: Yes Pets and animals: dog(s) Sexually active: No Do you think of yourself as: straight/heterosexual Current gender identity: male What is your relationship status?: How often do you talk on the phone with friends or family?: twice per week How often do you get together with friends or relatives?: once per week How often do you attend denominational or gnosticism services?: decline to answer Do you belong to any clubs or organized social groups?: no Panel score (0-1 are the most socially isolated patients): 2 What type of physical activity do you participate in: additional Details: Home work ([employer], [employer], etc.); doing PT for shoulder Duration: 45-60 minutes/day Frequency: 3-4 times per week Rafaela/Mu-Ism: Mandaen Special rafaela needs: No Seatbelt use: always Helmet use: No Drive intox or ride w/intox reach lift truck 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: No Do you feel safe at home: Yes Do you feel safe in your relationship?: Yes Meds Allergies and Home Medications Allergies Allergy/AdvReac Type Severity Reaction Status Date / Time Penicillins Allergy Skin Rash Verified 01/15/22 08:48 celecoxib AdvReac GI Bleeding Verified 01/15/22 08:48 Home Medications Medication Instructions Recorded Confirmed Type [id number] 1 ea PO DAILY 12/09/12 01/15/22 History ac 375 mg-300 mg-175 mg-2 mg cap multivitamin 1 ea PO DAILY 12/09/12 01/15/22 History docusate sodium 100 mg capsule 200 mg PO QHS PRN #20 cap 12/18/18 01/15/22 Rx (Colace) allopurinol 100 mg tablet 100 mg PO DAILY #90 tab 01/22/21 01/15/22 Rx metoprolol succinate 25 mg 25 mg PO DAILY #90 tab 01/22/21 01/15/22 Rx tablet,extended release 24 hr pramipexole 1 mg tablet 1 mg PO HS #90 tab-cap 01/22/21 01/15/22 Rx spironolactone 25 mg tablet 12.5 mg PO DAILY #60 tab 01/29/21 01/15/22 Rx flaxseed oil 1,000 mg capsule 1,000 mg PO DAILY 02/27/21 01/15/22 History psyllium seed (sugar) oral powder 2 tsp PO ONCE PRN 02/27/21 01/15/22 History (Metamucil (sugar)) sennosides 8.6 mg tablet 8.6 mg PO DAILY PRN #90 tab 04/04/21 01/15/22 Rx tafamidis meglumine 20 mg capsule 80 mg PO DAILY cap 05/03/21 01/15/22 History (Vyndaqel) acetaminophen 500 mg capsule 500 mg PO Q4H PRN #30 cap 05/23/21 01/15/22 Rx tamsulosin 0.4 mg capsule (Flomax) 0.8 mg PO DAILY #180 cap 05/29/21 01/15/22 Rx furosemide 40 mg tablet 40 mg PO DAILY #90 tab 07/10/21 01/15/22 Rx omeprazole 20 mg capsule,delayed 20 mg PO DAILY #90 tab-cap 08/27/21 01/15/22 Rx release simvastatin 10 mg tablet 5 mg PO HS #45 tab-cap 10/09/21 01/15/22 Rx cyclobenzaprine 5 mg tablet 5 mg PO BID PRN #6 tab 01/02/22 01/15/22 Rx lidocaine 5 % topical patch 1 patch TOPICAL DAILY #15 ea 01/02/22 01/15/22 Rx (Lidoderm) methylprednisolone 4 mg tablets in See Rx Instructions .ROUTE 01/02/22 01/15/22 Rx a dose pack (Medrol (Darin)) .COMPLEX #21 dose pk Exam Narrative Exam Narrative: Pleasant conversant male lying nearly supine in bed. Const General: cooperative Nutritional Appearance: average body habitus HENMN Head: atraumatic Mouth: oral mucosae normal Eyes General: appearance normal, both eyes and all related structures Sclera: sclerae normal Neck Neck: normal visual inspection and no JVD Resp Effort & Inspection: normal respiratory effort Auscultation: clear to auscultation bilaterally Cardio Rate: regular rate Rhythm: regular rhythm Heart Sounds: S1 normal and S2 normal GI Palpation: soft and nontender Auscultation: normal bowel sounds Skin General skin exam: no rashes or lesions noted Extrem General: no calf tenderness and edema Laterality: bilateral (1-2 +) Psych Appearance: grossly normal Speech and Movement: speech and movement normal Affect: normal affect Results Labs Result diagrams: 01/15/22 09:25 01/15/22 09:40 Labs: Laboratory Results - last 24 hr 01/15/22 01/15/22 01/15/22 09:25 09:25 09:25 WBC 11.67 H RBC 2.93 L Hgb 10.0 L Hct 30.5 L MCV 104.1 H MCH 34.1 H MCHC 32.8 RDW 14.6 H Plt Count 203 MPV 9.4 Immature Gran % 0.6 Neutrophils % 77.8 Lymphocytes % 7.0 Monocytes % 11.0 Eosinophils % 3.3 Basophils % 0.3 Nucleated RBC % 0 Absolute Neutrophils 9.08 H Absolute Lymphocytes 0.82 L Absolute Monocytes 1.28 H Absolute Eosinophils 0.39 Absolute Basophils 0.04 Sodium Cancelled Potassium Cancelled Chloride Cancelled Carbon Dioxide Cancelled Anion Gap Cancelled BUN Cancelled Creatinine Cancelled Estimated GFR/1.73 m2 Cancelled Glucose Cancelled Calcium Cancelled Total Bilirubin Cancelled AST Cancelled ALT Cancelled Alkaline Phosphatase Cancelled Troponin I Cancelled NT-Pro-B Natriuret Pep Cancelled Total Protein Cancelled Albumin Cancelled COVID-19 Source SARS-CoV-2 (PCR) 01/15/22 01/15/22 01/15/22 09:40 11:35 13:07 WBC RBC Hgb Hct MCV MCH MCHC RDW Plt Count MPV Immature Gran % Neutrophils % Lymphocytes % Monocytes % Eosinophils % Basophils % Nucleated RBC % Absolute Neutrophils Absolute Lymphocytes Absolute Monocytes Absolute Eosinophils Absolute Basophils Sodium 139 Potassium 4.5 Chloride 106 Carbon Dioxide 25.3 Anion Gap 7.7 BUN 37 H Creatinine 1.5 H Estimated GFR/1.73 m2 44.69 Glucose 121 H Calcium 8.0 L Total Bilirubin 1.0 AST 42 H ALT 38 Alkaline Phosphatase 191 H Troponin I 85 H* 91 H* NT-Pro-B Natriuret Pep 5521 H Total Protein 6.6 Albumin 2.7 L COVID-19 Source Nasal/Nares SARS-CoV-2 (PCR) Negative Last Vital Signs Temp 36.8 C 01/15/22 15:55 Pulse 51 L 01/15/22 16:03 Resp 9 L 01/15/22 16:03 BP 118/64 01/15/22 16:03 Pulse Ox 99 01/15/22 15:55
[2022-01-15 18:07] LABS: Troponin I 100 ng/L (<or=60)
[2022-01-15] MEDS: Metoprolol CR 25 MG TABCR PO (20:25)
[2022-01-15] MEDS: Simvastatin 10 MG TAB 5 MG PO (20:54)
[2022-01-15] MEDS: Pramipexole 0.5 MG TAB 1 MG PO (21:00)
[2022-01-15 21:24] LABS: Troponin I 89 ng/L (<or=60)
[2022-01-16] VITALS (14 sets, daily range): BP systolic 106–118; BP diastolic 53–65; PULSE 52–75; RESP 15–27; TEMP 36.2–36.6; O2SAT 93–97
[2022-01-16] MEDS: Acetaminophen 325 MG TAB PO ×2 (00:02→07:25)
[2022-01-16 05:52] LABS: Abs Immature Grans 0.04 10^3/uL (0.0-0.06); Absolute Basophil Count 0.05 10^3/uL (0.0-0.2); Absolute Lymphocyte Count 1.04 10^3/uL (1.2-3.4); Absolute Monocyte Count 1.16 10^3/uL (0.1-0.8); Absolute Neutrophil Count 8.01 10^3/uL (1.2-6.7); Basophils % 0.5; Eosinophils % 4.6; HCT 31.6 % (40.0-50.0); HGB 10.1 g/dL (13.5-17.5); Immature Grans % 0.4; Lymphocytes % 9.6; MCH 32.6 pg (27.0-33.0); MCV 101.9 fL (80-95); MPV 9.3 fL (8.0-11.0); Monocytes % 10.7; Neutrophils % 74.2; Nucleated RBC 0 %; Platelet Count 222 10^3/uL (130-400); RDW-SD 51.8 fL
[2022-01-16 05:58] LABS: Anion Gap 9.7 mmol/L (3-11); BUN 38 mg/dL (7-18); CO2 26.3 mmol/L (21.0-32.0); CREATININE 1.5 mg/dL (0.70-1.30); Calcium 8.5 mg/dL (8.5-10.1); Chloride 103 mmol/L (98-107); Estimated GFR 44.69 (mL/min/1.73m2); Glucose 104 mg/dL (74-106); Magnesium 1.9 mg/dL (1.8-2.4); Potassium 3.2 mmol/L (3.5-5.1); Sodium 139 mmol/L (136-145)
[2022-01-16] MEDS: Heparin 5,000 UNITS/ML VIAL 5000 UNITS SC (06:01)
[2022-01-16] MEDS: Lidocaine 5% Patch 1 PATCH TP (07:52)
[2022-01-16] MEDS: Omeprazole 20 MG CAPCR PO (07:52)
[2022-01-16] MEDS: Tamsulosin 0.4 MG CAPCR 0.8 MG PO (07:53)
[2022-01-16] MEDS: Spironolactone 25 MG TAB 12.5 MG PO (07:53)
[2022-01-16] MEDS: Multivitamin TAB 1 TAB PO (07:53)
[2022-01-16] MEDS: Allopurinol 100 MG TAB PO (07:54)
[2022-01-16] MEDS: Metoprolol CR 25 MG TABCR PO (07:57)
--- NOTE | 2022-01-16 08:34 | DSE_ITS ---
Date of service: 01/16/22 Time of Service: 08:39 DS: Diagnosis Discharge Diagnosis (1) Acute exacerbation of congestive heart failure: Status: Acute (2) Elevated troponin: Status: Acute (3) Chronic kidney disease: Status: Chronic (4) Edema, peripheral: Status: Acute (5) Rotator cuff tear arthropathy of right shoulder: Status: Acute (6) Ventricular tachycardia: Status: Chronic Discharge Plan Disposition Patient Disposition: HOME Condition: Improving Discharge Details Reason For Visit: Acute on Chronic Diastolic CHF Admit Date/Time: 01/15/22 11:10 Admit Provider: Anthony Mendez Attending Provider: Anthony Mendez Primary Care Provider: Benny Torrez Hospital Course Hospital Course: This is an 81 yo male with a PMH of Chronic shoulder and sacroiliac pain / arthritis/rotator cuff tear,? spinal stenosis, diastolic CHF,? CKD, gout, atrial bigeminy, urinary retention, RLS, constipation.? He presented to the ED with main c/o increased right shoulder pain on chronic pain.? He was taken off Relafen on 12/24/21 and since that time has been using acetaminophen 500mg tabs 2-8 tabs daily with some relief.? He has also recently completed a medrol dose darin for his arthritis and shoulder pain. No recent trauma.? He did also mention to the ED physician that he has noted increased pedal edema and dyspnea on exertion (mild) recently. No CP/palpitations.? No F/C, cough, N/V/diarrhea.? Of note, he has his first appt with Dr Mathur, Cardiology, scheduled for next week. In the ED his CXR was negative, WBC count of 11.67, Hgb 10.0, platelets 203.? Creatinine 1.5.? initial torponin was 85.? BNP 5521.? R shoulder xray showed degenerative changes consistent with chronic rotator cuff tear. Lasix 20mg IV given. Admitted for further evaluation / monitoring. Overnight he diuresed 2+ liters of urine. His pedal improved but did not resolve. He was noted to have premature atrial contractions and several short runs of asy mptomatic vtach on monitoring. Echocardiogram results: Normal left ventricular chamber size.? Mild concentric left ventricular hypertrophy.? Ejection fraction is 55 to 60%.? There are no seg mental wall motion abnormalities Normal right ventricular size and systolic function The left atrium is moderately dilated.? The right atrium is mildly dilated Mildly sclerotic trileaflet aortic valve without stenosis or regurgitation Normal tricuspid valve with mild regurgitation.? Estimated right ventricular systolic pressure is 49 mmHg Normal mitral valve with moderate eccentric regurgitation Normal pulmonic valve with trace regurgitation Regarding his chronic shoulder pain, he did not want to repeat a medrol dose darin but will start using a lidoderm patch on the right shoulder. He will keep his cardiology appt with Dr Mathur next week. Low Na diet encouraged. Elevation of feet above heart level when at rest / frequently throughout the day. PCP f/u in 1-2 weeks. Home Meds and New Rx's Prescriptions: Continued allopurinol 100 mg tablet 100 mg PO DAILY Qty: 90 4RF pramipexole 1 mg tablet 1 mg PO HS Qty: 90 4RF metoprolol succinate 25 mg tablet extended release 24 hr 25 mg PO DAILY Qty: 90 6RF Vyndaqel 20 mg capsule 80 mg PO DAILY 0RF Label Comments: 05/03/21 [place] by [facility] [place] [facility] [place], tamsulosin [Flomax] 0.4 mg capsule 0.8 mg PO DAILY Qty: 180 3RF spironolactone 25 mg tablet 12.5 mg PO DAILY Qty: 60 2RF flaxseed oil 1,000 mg capsule 1,000 mg PO DAILY 0RF Rx Instructions: administer with a meal Metamucil (sugar) Powder 2 tsp PO ONCE PRN0RF multivitamin 1 EACH capsule 1 ea PO DAILY 0RF glucosam-chond zi-ggfmyq-dr ac 1 EACH capsule 1 ea PO DAILY 0RF sennosides 8.6 mg tablet 8.6 mg PO DAILY PRN (Reason: constipation) Qty: 90 0RF furosemide 40 mg tablet 40 mg PO DAILY Qty: 90 3RF simvastatin 10 mg tablet 5 mg PO HS Qty: 45 4RF docusate sodium [Colace] 100 mg capsule 200 mg PO QHS PRN (Reason: constipation) Qty: 20 0RF acetaminophen 500 mg capsule 500 mg PO Q4H PRN (Reason: pain) Qty: 30 0RF cyclobenzaprine 5 mg tablet 5 mg PO BID PRNQty: 6 0RF lidocaine [Lidoderm] 5 % adhesive patch,medicated 1 patch topical DAILY Qty: 15 0RF Rx Instructions: leave on most painful area for up to 12 hrs Discontinued methylprednisolone [Medrol (Darin)] 4 mg tablets,dose pack See Rx Instructions .ROUTE .COMPLEX Qty: 21 0RF Rx Instructions: orally per package directions No Action omeprazole 20 mg capsule,delayed release(DR/EC) 20 mg PO DAILY Qty: 90 3RF Discharge Instructions Instructions: Hypokalemia (DC) Activity:: Activity as Tolerated Equipment/Supplies:: No Equipment Needed Diet:: Resume usual diet Discharge Orders Discharge Orders: Discharge Order (Routine); Ordered 01/16/22 Ordered By: Anthony Mendez Discharge Data Discharge Date/Time-TO BE ENTERED AT DEPARTURE: 01/16/22 10:10 DS: Summary Time Spent with Patient providing and/or coordinating discharge services: Greater than 30 minutes Status at Discharge Functional status at discharge: independent ambulation Overall status at discharge: patient is progressing back to baseline Mental Status: mental status grossly normal Speech and Movement: speech and movement normal Mood: congruent mood Affect: normal affect Exam Narrative Exam Narrative: Pleasant conversant male lying nearly supine in bed. Const General: cooperative Nutritional Appearance: average body habitus HENMT Head: atraumatic Mouth: oral mucosae normal Eyes General: appearance normal, both eyes and all related structures Sclera: sclerae normal Neck Neck: normal visual inspection and no JVD Resp Effort & Inspection: normal respiratory effort Auscultation: clear to auscultation bilaterally Cardio Rate: regular rate Rhythm: regular rhythm Heart Sounds: S1 normal and S2 normal GI Palpation: soft and nontender Auscultation: normal bowel sounds Skin General skin exam: no rashes or lesions noted Extrem General: no calf tenderness and edema Laterality: bilateral (Improved; 1+) Psych Appearance: grossly normal Mental Status: mental status grossly normal Speech and Movement: speech and movement normal Mood: congruent mood Affect: normal affect DS: Data Vitals/I&O Vitals and I&O: Vital Signs Temperature 36.6 C 01/16/22 04:01 Temperature Source Temporal Artery Scan 01/16/22 04:01 Pulse 58 L 01/16/22 04:01 Pulse Rhythm Regular 01/15/22 12:10 Pulse 56 L 01/16/22 06:00 Respiratory Rate 17 01/16/22 06:00 Respiratory Effort 01/16/22 04:01 Respiratory Depth Normal 01/16/22 04:01 Respiratory Pattern Normal 01/16/22 04:01 Blood Pressure 106/56 L 01/16/22 04:01 Blood Pressure Mean 72 01/16/22 04:01 Blood Pressure Position Left Lateral 01/16/22 04:01 Pulse Oximetry 95 01/16/22 04:01 Oxygen Delivery Method Room Air 01/16/22 04:01 Oxygen Flow Rate 0 01/16/22 04:01 Pain Level 4 01/16/22 07:27 Intake & Output 01/15/22 01/15/22 01/16/22 11:59 23:59 11:59 Intake Total 240 / 240 Output Total 2175 / 2175 500 / 500 Balance -2175 / -2175 -260 / -260 Weight 92.1 kg 88.4 kg 87.8 kg Intake: Oral 240 / 240 Output: Urine 2175 / 2175 500 / 500 Other: Urine Color Yellow Light Clara Urine Appearance Clear Clear Urine Odor None None Comment vds in urinal without problems Voiding Methods Urinal Urinal Data Completed and Pending Labs on day of discharge: Labs from last 24 hours 01/16/22 01/16/22 01/15/22 05:20 05:20 21:00 WBC 10.80 RBC 3.10 L Hgb 10.1 L Hct 31.6 L MCV 101.9 H MCH 32.6 MCHC 32.0 RDW 14.0 Plt Count 222 MPV 9.3 Immature Gran % 0.4 Neutrophils % 74.2 Lymphocytes % 9.6 Monocytes % 10.7 Eosinophils % 4.6 Basophils % 0.5 Nucleated RBC % 0 Absolute Neutrophils 8.01 H Absolute Lymphocytes 1.04 L Absolute Monocytes 1.16 H Absolute Eosinophils 0.50 Absolute Basophils 0.05 Sodium 139 Potassium 3.2 L D Chloride 103 Carbon Dioxide 26.3 Anion Gap 9.7 BUN 38 H Creatinine 1.5 H Estimated GFR/1.73 m2 44.69 Glucose 104 Calcium 8.5 Magnesium 1.9 Total Bilirubin AST ALT Alkaline Phosphatase Troponin I 89 H* NT-Pro-B Natriuret Pep Total Protein Albumin COVID-19 Source SARS-CoV-2 (PCR) 01/15/22 01/15/22 01/15/22 17:28 13:07 11:35 WBC RBC Hgb Hct MCV MCH MCHC RDW Plt Count MPV Immature Gran % Neutrophils % Lymphocytes % Monocytes % Eosinophils % Basophils % Nucleated RBC % Absolute Neutrophils Absolute Lymphocytes Absolute Monocytes Absolute Eosinophils Absolute Basophils Sodium Potassium Chloride Carbon Dioxide Anion Gap BUN Creatinine Estimated GFR/1.73 m2 Glucose Calcium Magnesium Total Bilirubin AST ALT Alkaline Phosphatase Troponin I 100 H* 91 H* NT-Pro-B Natriuret Pep Total Protein Albumin COVID-19 Source Nasal/Nares SARS-CoV-2 (PCR) Negative 01/15/22 01/15/22 01/15/22 09:40 09:25 09:25 WBC 11.67 H RBC 2.93 L Hgb 10.0 L Hct 30.5 L MCV 104.1 H MCH 34.1 H MCHC 32.8 RDW 14.6 H Plt Count 203 MPV 9.4 Immature Gran % 0.6 Neutrophils % 77.8 Lymphocytes % 7.0 Monocytes % 11.0 Eosinophils % 3.3 Basophils % 0.3 Nucleated RBC % 0 Absolute Neutrophils 9.08 H Absolute Lymphocytes 0.82 L Absolute Monocytes 1.28 H Absolute Eosinophils 0.39 Absolute Basophils 0.04 Sodium 139 Cancelled Potassium 4.5 Cancelled Chloride 106 Cancelled Carbon Dioxide 25.3 Cancelled Anion Gap 7.7 Cancelled BUN 37 H Cancelled Creatinine 1.5 H Cancelled Estimated GFR/1.73 m2 44.69 Cancelled Glucose 121 H Cancelled Calcium 8.0 L Cancelled Magnesium Total Bilirubin 1.0 Cancelled AST 42 H Cancelled ALT 38 Cancelled Alkaline Phosphatase 191 H Cancelled Troponin I 85 H* NT-Pro-B Natriuret Pep 5521 H Total Protein 6.6 Cancelled Albumin 2.7 L Cancelled COVID-19 Source SARS-CoV-2 (PCR) 01/15/22 09:25 WBC RBC Hgb Hct MCV MCH MCHC RDW Plt Count MPV Immature Gran % Neutrophils % Lymphocytes % Monocytes % Eosinophils % Basophils % Nucleated RBC % Absolute Neutrophils Absolute Lymphocytes Absolute Monocytes Absolute Eosinophils Absolute Basophils Sodium Potassium Chloride Carbon Dioxide Anion Gap BUN Creatinine Estimated GFR/1.73 m2 Glucose Calcium Magnesium Total Bilirubin AST ALT Alkaline Phosphatase Troponin I Cancelled NT-Pro-B Natriuret Pep Cancelled Total Protein Albumin COVID-19 Source SARS-CoV-2 (PCR) PFSH All Active Problems Ventricular tachycardia (Chronic) Acute exacerbation of congestive heart failure (Acute) Pain in right shoulder (Acute) Elevated troponin (Acute) Sacroiliac joint pain (Acute) Heart murmur (Acute) 12/2021-consistent with known mitral regurgitation by echo Chronic kidney disease (Chronic) stage 3 Edema, peripheral (Acute) Bilateral hand swelling (Acute) Cholecystitis (Acute) Constipation (Acute) Hand swelling (Acute) Wrist swelling (Acute) Arthralgia (Acute) Arthritis (Acute) Rotator cuff tear arthropathy of right shoulder (Acute) Gout (Chronic) Low back pain (Acute) Complete tear of right rotator cuff (Acute) Right shoulder pain (Acute) Cardiac amyloidosis (Acute) OAB (overactive bladder) (Acute) Cubital tunnel syndrome, bilateral (Acute) Bilateral carpal tunnel syndrome (Acute) Memory impairment (Acute) Spinal stenosis at L4-L5 level (Chronic 08/24/15) Narcolepsy (Chronic) Benign prostatic hyperplasia (Chronic 06/03/13) Elevated PSA; bx neg. in 1992; bx neg. in 1998; neg. bx 2006; neg bx 2008 Anxiety (Chronic) Hyperlipidemia (Chronic 06/22/13) Essential hypertension (Chronic) Diastolic heart failure (Acute) Atrial bigeminy (Acute) Edema (Acute) Bradycardia (Acute) Will need Holter monitor to assess heart irregularity and bradycardia prior to surgery. Will try to get done this week and he sees Dr. Castillo this Friday who can then hopefully clear him for surgery or put it on hold. Lab also done. History of prostate surgery (Acute) TURP 2012 History of spinal fusion (Acute) Indigestion (Acute) Urgency of urination (Chronic 06/17/12) Retention of urine (Chronic 06/17/12) Restless legs (Chronic) Low back pain (Chronic) DJD; disc and fusion 1964; repeat surgery- 1994; recurrent sxs 07/10 and04/13 Knee pain (Chronic 02/11/13) left; S/P cartilage resection Impotence due to erectile dysfunction (Chronic 03/18/05) History of reactive hypoglycemia (Chronic 06/21/16) Hiatal hernia (Chronic 10/05/08) Diverticulosis of colon without diverticulitis (Chronic) Constipation by delayed colonic transit (Chronic) Bursitis of right shoulder (Chronic 08/24/15) Medical History Chronic pain syndrome (05/21/12) Ingrown toenail Surgical History Cubital tunnel syndrome on right S/P Release: 05/23/2021 HERNIA REPAIR (~05/2009) KNEE REPAIR torn knee cartiledge 03/1971 /fuision Laminectomy? lower spine 10/1995 Open Carpal Tunnel release (~05/2006) B/L PROSTATE SURGERY (~10/2012) TURP 2012 - [place] Replacement of total knee joint B/L 04/01/16 Right carpal tunnel syndrome S/P ECTR: 05/23/2021 Spinal Fusion 02/14 Status post carpal tunnel release Status post hernia repair Status post total knee replacement, bilateral (06/21/16) Family History Mother , AGE 65 Cancer Brother Diabetes Maternal Grandfather , age 78 Heart disease Stroke Hyperlipidemia Paternal Grandfather Essential hypertension Heart disease Stroke Maternal Grandmother No problems noted. Paternal Grandmother No problems noted. Son No problems noted. Son Diabetes Father , age 94 No problems noted. Sister No problems noted. Social History Smoking/Tobacco Use Status: Never Second Hand Exposure: Yes Smoking risk assessment performed?: Yes Alcohol Intake: former Counseling given: No Drug use: Never Substance use type: does not use Caregiver/Support person: No Household members: spouse Housing: house Communication Needs: Hard of Hearing and Corrective Lenses Do you need help understanding health information?: Rarely Pets and animals: Yes Pets and animals: dog(s) Sexually active: No Do you think of yourself as: straight/heterosexual Current gender identity: male What is your relationship status?: How often do you talk on the phone with friends or family?: twice per week How often do you get together with friends or relatives?: once per week How often do you attend nondenominational or restoration services?: decline to answer Do you belong to any clubs or organized social groups?: no Panel score (0-1 are the most socially isolated patients): 2 What type of physical activity do you participate in: additional Details: Home work (fire wood, garden, etc.); doing PT for shoulder Duration: 45-60 minutes/day Frequency: 3-4 times per week Rafaela/Muslim: Church Special rafaela needs: No Seatbelt use: always Helmet use: No Drive intox or ride w/intox 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
--- NOTE | 2022-01-16 09:07 | NUR.NOTE ---
Offered patient AM care. Patient refused at this time as he stated he will shower when he gets home. We are anticipating discharge either this morning or early afternoon. Nursing Note:
[2022-01-16] MEDS: Potassium Chloride 20 MEQ TABCR 40 MEQ PO (09:52)
== END 2022-01-16 10:10 | disposition home or self-care (01) | DRG 291 ==
LOC: ER 12:01 → MS 12:07 → ICU 15:42
PROVIDERS: Admitting Provider Family Medicine; Emergency Provider Physician Assistant; PCP Nurse Practitioner Family; Visit Provider Family Medicine
DX: I13.0 Hypertensive heart and chronic kidney disease with heart failure and stage 1 through stage 4 chronic kidney disease, or unspecified chronic kidney disease (principal); I50.33 Acute on chronic diastolic (congestive) heart failure; I47.2 Ventricular tachycardia; E85.4 Organ-limited amyloidosis; N18.30 Chronic kidney disease, stage 3 unspecified; M75.101 Unspecified rotator cuff tear or rupture of right shoulder, not specified as traumatic; R60.0 Localized edema; M1A.9XX0 Chronic gout, unspecified, without tophus (tophi); M54.50 Low back pain, unspecified; I43 Cardiomyopathy in diseases classified elsewhere; N32.81 Overactive bladder; G47.419 Narcolepsy without cataplexy; F41.9 Anxiety disorder, unspecified; E78.5 Hyperlipidemia, unspecified; Z98.1 Arthrodesis status; R33.9 Retention of urine, unspecified; K44.9 Diaphragmatic hernia without obstruction or gangrene; K57.30 Diverticulosis of large intestine without perforation or abscess without bleeding; K59.01 Slow transit constipation; M75.51 Bursitis of right shoulder; G89.4 Chronic pain syndrome; Z96.653 Presence of artificial knee joint, bilateral; R74.8 Abnormal levels of other serum enzymes; M48.00 Spinal stenosis, site unspecified; G25.81 Restless legs syndrome; R00.8 Other abnormalities of heart beat; I49.1 Atrial premature depolarization
CPT/HCPCS: 36415; 80048; 80053; 87635; 93005; 93306; 96374; 99291; 71046; 73030; 83735; 83880; 84484; 85025; 93010; 99223; 99239; J1644; J1940

== ENCOUNTER → 2022-01-21 11:23 | Outpatient (BNVA) | payer MEDICARE, SELFPAY | PROVIDERS: PCP Nurse Practitioner Family; Referring Provider Nurse Practitioner Family; Visit Provider Internal Medicine Cardiovascular Disease | DX: E85.4 Organ-limited amyloidosis (principal); I43 Cardiomyopathy in diseases classified elsewhere; I10 Essential (primary) hypertension; I50.32 Chronic diastolic (congestive) heart failure | CPT/HCPCS: 99214; 99213 ==

== ENCOUNTER 2022-02-27 04:20 | Outpatient (CLI) | payer MEDICARE, SELFPAY ==
[2022-02-27 22:42] LABS: PSA, Screening 4.9 ng/mL (<=6.5)
== END 2022-02-27 04:21 | disposition home or self-care (01) ==
LOC: LBO 04:20
PROVIDERS: PCP Nurse Practitioner Family; Visit Provider Nurse Practitioner Gerontology
DX: R97.20 Elevated prostate specific antigen [PSA] (principal); Z12.5 Encounter for screening for malignant neoplasm of prostate
CPT/HCPCS: 36415; 84153

== ENCOUNTER → 2022-03-06 09:49 | Outpatient (BNVA) | payer MEDICARE, SELFPAY | PROVIDERS: PCP Nurse Practitioner Family; Referring Provider Nurse Practitioner Family; Visit Provider Nurse Practitioner Gerontology | DX: N32.81 Overactive bladder (principal); N40.0 Benign prostatic hyperplasia without lower urinary tract symptoms | CPT/HCPCS: 51798; 99214 ==

== ENCOUNTER 2022-04-25 01:33 | Outpatient (CLI) | payer MEDICARE, SELFPAY ==
[2022-04-25 09:00] LABS: HCT 33.2 % (40.0-50.0); HGB 10.9 g/dL (13.5-17.5); MCH 32.9 pg (27.0-33.0); MCHC 32.8 % (32.0-36.0); MCV 100 fL (80-95); Platelet Count 168 10^3/uL (130-400); RBC 3.31 10^6/uL (4.36-5.78); RDW 14.8 % (11.8-14.1); RDW-SD 54.4 fL; WBC 6.39 10^3/uL (4.4-10.8)
[2022-04-25 09:34] LABS: TSH 1.16 uIU/mL (0.36-3.74)
== END 2022-04-25 01:34 | disposition home or self-care (01) ==
LOC: LBO 01:33
PROVIDERS: PCP Nurse Practitioner Family; Visit Provider Nurse Practitioner Family
DX: R53.83 Other fatigue (principal)
CPT/HCPCS: 36415; 85027; 84443

== ENCOUNTER 2022-05-10 15:10 | Outpatient (REF) | payer MEDICARE, SELFPAY ==
[2022-05-10 21:32] LABS: Anion Gap 10.9 mmol/L (3-11); BUN 42 mg/dL (7-18); CO2 25.1 mmol/L (21.0-32.0); CREATININE 1.7 mg/dL (0.70-1.30); Calcium 8.7 mg/dL (8.5-10.1); Chloride 106 mmol/L (98-107); Estimated GFR 38.68 (mL/min/1.73m2); Glucose 138 mg/dL (74-106); Potassium 3.6 mmol/L (3.5-5.1); Sodium 142 mmol/L (136-145)
== END 2022-05-10 15:11 | disposition home or self-care (01) ==
LOC: NCHCN 15:10
PROVIDERS: PCP Nurse Practitioner Family; Visit Provider Nurse Practitioner Family
DX: R53.83 Other fatigue (principal)
CPT/HCPCS: 80048

== ENCOUNTER 2022-07-13 06:51 | Emergency (ER) | payer MEDICARE, SELFPAY ==
[2022-07-13 06:56] VITALS: BP 138/85; PULSE 65; RESP 20; TEMP 36.5; O2SAT 95
--- NOTE | 2022-07-13 07:07 | ED.GENADUL_ITS ---
Discharge Plan Disposition Patient Disposition: STILL A PATIENT Condition: Stable Discharge Details Clinical Impression: Abdominal pain, Diarrhea Primary Care Provider: Benny Torrez ED Provider: Bartolome Martinez Home Meds and New Rx's Prescriptions: No Action Vyndaqel 20 mg capsule 80 mg PO DAILY Label Comments: 05/03/21 rx by [facility] [place], [place] flaxseed oil 1,000 mg capsule 1,000 mg PO DAILY Rx Instructions: administer with a meal Metamucil (sugar) Powder 2 tsp PO ONCE PRN Label Comments: 01/21/22 pt states he takes a sugar free metamucil RH metoprolol succinate 25 mg tablet extended release 24 hr 25 mg PO BID furosemide 40 mg tablet 40 mg PO BID Qty: 180 3RF gabapentin 100 mg capsule 100 mg PO BID Qty: 180 3RF Rx Instructions: May take 2 twice daily if needed. multivitamin 1 EACH capsule 1 ea PO DAILY glucosam-chond be-ejclfk-qs ac 1 EACH capsule 1 ea PO DAILY sennosides 8.6 mg tablet 8.6 mg PO DAILY PRN (Reason: constipation) Qty: 90 0RF omeprazole 20 mg capsule,delayed release(DR/EC) 20 mg PO DAILY Qty: 90 3RF simvastatin 10 mg tablet 5 mg PO HS Qty: 45 4RF spironolactone 25 mg tablet 12.5 mg PO DAILY Qty: 45 3RF allopurinol 100 mg tablet 100 mg PO DAILY Qty: 90 3RF diclofenac sodium [Voltaren Arthritis Pain] 1 % gel 4 g topical QID Qty: 100 0RF Rx Instructions: apply to neck, back tamsulosin [Flomax] 0.4 mg capsule 0.8 mg PO DAILY Qty: 180 3RF tramadol 50 mg tablet 50 mg PO BID PRN (Reason: pain) Qty: 60 0RF docusate sodium [Colace] 100 mg capsule 200 mg PO QHS PRN (Reason: constipation) Qty: 20 0RF acetaminophen 500 mg capsule 500 mg PO Q4H PRN (Reason: pain) Qty: 30 0RF lidocaine [Lidoderm] 5 % adhesive patch,medicated 1 patch topical DAILY Qty: 15 0RF Rx Instructions: leave on most painful area for up to 12 hrs Medical Decision Making 0730 -- 81-year-old male with a history of cholecystectomy 1 year ago, hernia repair, spinal fusion who presents for diarrhea last week followed by diffuse abdominal pain since then. Vitals within normal limits. Abdomen is soft but mildly distended. He is diffusely tender with no significant localizing tenderness in the right lower quadrant or left lower quadrant. No CVA tenderness. Bedside ultrasound limited and obscured by bowel gas but no obvious abnormalities. Differential diagnosis includes gastroenteritis, colitis, kidney stone, appendicitis, diverticulitis, AAA. We will place an IV, bolus IV fluids, screening labs, urinalysis, CTA abdomen and pelvis and give a dose of IV Tylenol and fluids and reassess. 0800 -- Case endorsed to oncoming provider to follow-up on labs and imaging and final disposition. Medical Records Medical records reviewed: Yes I reviewed the patient's medical records. ECG Data Attestation: I personally reviewed and interpreted this ECG (s) as follows: Interpretation: rate of 52, sinus, no stemi. HPI General Mode of arrival: ambulatory . Date/Time Provider Initiated Documentation: 07/13/22 07:04 . Limitations to Documentation: no limitations . Information obtained by: patient . HPI Narrative: Patient is an 80-year-old male presents with 1 week of diffuse abdominal pain. Patient states he had an episode of diarrhea 1 week ago which was watery and brown but this resolved and he has had formed stool since then. He states his last bowel movement was yesterday and small and formed. He denies any rectal bleeding. He states since his diarrhea he has had diffuse aching and pressure- like abdominal pain. He states he feels the pain often in the upper abdomen with radiation straight through and around to his back. He states he had his gallbladder removed 1 year ago. He states he was able to eat last night and denies any worsening of pain with food. He took Soumya-[place] for his symptoms several days ago without relief. He denies any fever, chest pain, difficulty breathing, nausea, vomiting or urinary symptoms. He denies any recent sick contacts, antibiotic use or recent travel. Related Data Home Medications Medication Instructions Recorded Confirmed cbireoqipy-kdexxkwabl-olulqlxb-hyalur 1 ea PO DAILY 12/09/12 07/13/22 ac 375 mg-300 mg-175 mg-2 mg cap multivitamin 1 ea PO DAILY 12/09/12 07/13/22 docusate sodium 100 mg capsule 200 mg PO QHS PRN constipation #20 12/18/18 07/13/22 (Colace) caps flaxseed oil 1,000 mg capsule 1,000 mg PO DAILY 02/27/21 07/13/22 sennosides 8.6 mg tablet 8.6 mg PO DAILY PRN constipation 04/04/21 07/13/22 #90 tabs tafamidis meglumine 20 mg capsule 80 mg PO DAILY 05/03/21 07/13/22 (Vyndaqel) acetaminophen 500 mg capsule 500 mg PO Q4H PRN pain #30 caps 05/23/21 07/13/22 omeprazole 20 mg capsule,delayed 20 mg PO DAILY #90 tab-caps 08/27/21 07/13/22 release simvastatin 10 mg tablet 5 mg PO HS #45 tab-caps 10/09/21 07/13/22 lidocaine 5 % topical patch 1 patch topical DAILY #15 ea 01/02/22 07/13/22 (Lidoderm) metoprolol succinate 25 mg 25 mg PO BID 01/21/22 07/13/22 tablet,extended release 24 hr psyllium seed (sugar) oral powder 2 tsp PO ONCE PRN 01/21/22 07/13/22 (Metamucil (sugar) oral powder) spironolactone 25 mg tablet 12.5 mg PO DAILY #45 tabs 01/22/22 07/13/22 allopurinol 100 mg tablet 100 mg PO DAILY #90 tabs 01/28/22 07/13/22 gabapentin 100 mg capsule 100 mg PO BID #180 caps 02/13/22 07/13/22 furosemide 40 mg tablet 40 mg PO BID #180 tabs 03/07/22 07/13/22 diclofenac sodium 1 % topical gel 4 g topical QID #100 grams 05/17/22 07/13/22 (Voltaren Arthritis Pain) tamsulosin 0.4 mg capsule (Flomax) 0.8 mg PO DAILY #180 caps 06/03/22 07/13/22 tramadol 50 mg tablet 50 mg PO BID PRN pain #60 tabs 06/17/22 07/13/22 Previous Rx's Medication Instructions Recorded docusate sodium 100 mg capsule 200 mg PO QHS PRN constipation #20 12/18/18 (Colace) caps sennosides 8.6 mg tablet 8.6 mg PO DAILY PRN constipation 04/04/21 #90 tabs acetaminophen 500 mg capsule 500 mg PO Q4H PRN pain #30 caps 05/23/21 omeprazole 20 mg capsule,delayed 20 mg PO DAILY #90 tab-caps 08/27/21 release simvastatin 10 mg tablet 5 mg PO HS #45 tab-caps 10/09/21 lidocaine 5 % topical patch 1 patch topical DAILY #15 ea 01/02/22 (Lidoderm) spironolactone 25 mg tablet 12.5 mg PO DAILY #45 tabs 01/22/22 allopurinol 100 mg tablet 100 mg PO DAILY #90 tabs 01/28/22 gabapentin 100 mg capsule 100 mg PO BID #180 caps 02/13/22 furosemide 40 mg tablet 40 mg PO BID #180 tabs 03/07/22 diclofenac sodium 1 % topical gel 4 g topical QID #100 grams 05/17/22 (Voltaren Arthritis Pain) tamsulosin 0.4 mg capsule (Flomax) 0.8 mg PO DAILY #180 caps 06/03/22 tramadol 50 mg tablet 50 mg PO BID PRN pain #60 tabs 06/17/22 Allergies Allergy/AdvReac Type Severity Reaction Status Date / Time Penicillins Allergy Skin Rash Verified 05/10/22 11:21 celecoxib AdvReac GI Bleeding Verified 05/10/22 11:21 General Stated Complaint: Abd Prob ASH: 3 Review of Systems All systems reviewed & are unremarkable except as noted in HPI and below Constitutional Constitutional: Reports as per HPI, Denies chills and Denies fever(s) Eyes Eyes: Denies blurry vision ENT Ears, Nose, Mouth, and Throat: Denies dizziness, Denies sore throat and Denies throat swelling Cardiovascular Cardiovascular: Denies chest pain and Denies dyspnea Respiratory Respiratory: Denies cough and Denies dyspnea Gastrointestinal Gastrointestinal: Reports abdominal pain, Reports diarrhea and Denies vomiting Genitourinary Genitourinary: Denies hematuria and Denies dysuria Musculoskeletal Musculoskeletal: Denies back pain and Denies numbness Integumentary/Breasts Skin/Breast: Denies lesions and Denies rash Neurologic Neurologic: Denies dizziness, Denies localized weakness and Denies numbness Allergic/Immunologic Allergic/Immunologic: Denies throat swelling PFSH All Active Problems (Updated 07/13/22 @ 07:51 by Marge Ambrose DO) Abdominal pain (Acute) Diarrhea (Acute) Bilateral hearing loss (Acute) Blepharoptosis, bilateral (Acute) Droopy eyelid (Acute) Ventricular tachycardia (Chronic) Heart murmur (Acute) 12/2021-consistent with known mitral regurgitation by echo Chronic kidney disease (Chronic) stage 3 Edema, peripheral (Acute) Bilateral hand swelling (Acute) Cholecystitis (Acute) Constipation (Acute) Wrist swelling (Acute) Arthralgia (Acute) Arthritis (Acute) Gout (Chronic) Low back pain (Acute) Cardiac amyloidosis (Acute) OAB (overactive bladder) (Acute) Cubital tunnel syndrome, bilateral (Acute) Bilateral carpal tunnel syndrome (Acute) Memory impairment (Acute) Spinal stenosis at L4-L5 level (Chronic 08/24/15) Narcolepsy (Chronic) Benign prostatic hyperplasia (Chronic 06/03/13) Elevated PSA; bx neg. in 1992; bx neg. in 1998; neg. bx 2006; neg bx 2008 Anxiety (Chronic) Hyperlipidemia (Chronic 06/22/13) Essential hypertension (Chronic) Diastolic heart failure (Acute) Atrial bigeminy (Acute) Edema (Acute) Bradycardia (Acute) Will need Holter monitor to assess heart irregularity and bradycardia prior to surgery. Will try to get done this week and he sees Dr. Castillo this Friday who can then hopefully clear him for surgery or put it on hold. Lab also done. Indigestion (Acute) Urgency of urination (Chronic 06/17/12) Retention of urine (Chronic 06/17/12) Restless legs (Chronic) Low back pain (Chronic) DJD; disc and fusion 1964; repeat surgery- 1994; recurrent sxs 07/10 and04/13 Knee pain (Chronic 02/11/13) left; S/P cartilage resection Impotence due to erectile dysfunction (Chronic 03/18/05) History of reactive hypoglycemia (Chronic 06/21/16) Hiatal hernia (Chronic 10/05/08) Diverticulosis of colon without diverticulitis (Chronic) Constipation by delayed colonic transit (Chronic) Bursitis of right shoulder (Chronic 08/24/15) Medical History (Updated 07/13/22 @ 07:51 by Marge Ambrose DO) Chronic pain syndrome (05/21/12) Ingrown toenail Rotator cuff tear arthropathy of right shoulder Surgical History (Updated 01/23/22 @ 10:13 by Benny Torrez NP) Cubital tunnel syndrome on right S/P Release: 05/23/2021 HERNIA REPAIR (~05/2009) History of prostate surgery TURP 2012 History of spinal fusion KNEE REPAIR torn knee cartiledge 03/1971 /fuision Laminectomy? lower spine 10/1995 Open Carpal Tunnel release (~05/2006) B/L PROSTATE SURGERY (~10/2012) TURP 2012 - [place] Replacement of total knee joint B/L 04/01/16 Right carpal tunnel syndrome S/P ECTR: 05/23/2021 Spinal Fusion 02/14 Status post carpal tunnel release Status post hernia repair Status post total knee replacement, bilateral (06/21/16) Family History (Updated 01/21/22 @ 12:00 by Omero Carpenter RN) Mother , AGE 65 Cancer Brother , age 84 Diabetes Maternal Grandfather , age 78 Heart disease Stroke Hyperlipidemia Paternal Grandfather Essential hypertension Heart disease Stroke Maternal Grandmother No problems noted. Paternal Grandmother No problems noted. Son No problems noted. Son Diabetes Father , age 94 No problems noted. Sister No problems noted. Social History (Updated 01/25/22 @ 12:25 by Trupti Hernandez) Smoking/Tobacco Use Status: Never Second Hand Exposure: Yes Smoking risk assessment performed?: Yes Alcohol Intake: former Counseling given: No Drug use: Never Substance use type: does not use Caregiver/Support person: No Household members: spouse Housing: house Communication Needs: Hard of Hearing Pets and animals: Yes Pets and animals: dog(s) Sexually active: No Do you think of yourself as: straight/heterosexual Current gender identity: male What is your relationship status?: How often do you talk on the phone with friends or family?: twice per week How often do you get together with friends or relatives?: once per week How often do you attend mu-ism or druze services?: 1-3 times per year Do you belong to any clubs or organized social groups?: yes Panel score (0-1 are the most socially isolated patients): 3 What type of physical activity do you participate in: walking Duration: 15-30 minutes/day Frequency: 1-2 times per week Rafaela/Uatsdin: [employer] Special rafaela needs: No Seatbelt use: always Helmet use: Yes Helmet use: sometimes 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 Do you feel safe at home: Yes Do you feel safe in your relationship?: Yes Exam Const General: cooperative and no acute distress Orientation: alert, awake and oriented x3 HENMT Head: normal to inspection Face and sinus: normal facial exam Eyes General: appearance normal, both eyes and all related structures Pupils: PERRL EOM: EOM intact bilaterally Neck Neck: normal visual inspection and No submandibular swelling Lymphatic: no lymphadenopathy noted Chest Chest: normal inspection of the chest and no tenderness Resp Effort & Inspection: normal respiratory effort and able to speak in complete sentences Auscultation: clear to auscultation bilaterally Cardio Rate: regular rate Rhythm: regular rhythm GI Inspection: normal to inspection and distended (mild) Palpation: soft, not firm, not rigid and tender (diffuse, mild to moderate) Auscultation: hypoactive bowel sounds Male General Exam: Yes normal external exam Back/Spine/Pelvis Thoracic/Lumbar Spine: thoracic and lumbar spine normal to inspection Pelvis: no pain with anterior-posterior compression Skin General skin exam: no rashes or lesions noted Neuro General: patient alert, patient awake and patient oriented x3 Cognition: normal cognition Speech: speech normal Motor: muscle tone normal throughout Sensory Exam: no sensory deficits noted Extrem General: normal to inspection, full ROM, capillary refill normal, no calf tenderness bilaterally and no edema Psych Appearance: grossly normal Mental Status: mental status grossly normal Speech and Movement: speech and movement normal Affect: normal affect Course Vital Signs Vital signs: Vital Signs Temperature 97.7 F 07/13/22 06:56 Pulse 65 07/13/22 06:56 Respiratory Rate 20 07/13/22 06:56 Blood Pressure 138/85 07/13/22 06:56 Pulse Oximetry 95 07/13/22 06:56 Temperature 97.7 F 07/13/22 06:56 Temperature Source Temporal Artery Scan 07/13/22 06:56 Pulse 65 07/13/22 06:56 Respiratory Rate 20 07/13/22 06:56 Respiratory Effort Non-Labored 07/13/22 07:01 Blood Pressure 138/85 07/13/22 06:56 Blood Pressure Position Supine 07/13/22 06:56 Pulse Oximetry 95 07/13/22 06:56 Oxygen Delivery Method Room Air 07/13/22 06:56 Oxygen Flow Rate 0 07/13/22 06:56 Pain Level 6 07/13/22 06:56 Sign Out Sign Out Data: Sign Out Comment: Diarrhea last week. Abdominal pain since then. Follow-up on labs and imaging and final disposition. Last updated by Marge Ambrose DO at 07/13/22 07:42
--- NOTE | 2022-07-13 07:15 | RT.EKG_ITS ---
APPROVED REPORT Exam: Resting ECG Reason for Exam: epigastric pain Patient Location: E HR:52 bpm ECG Measurements Heart Rate 52 AXIS GA 192 P 81 QRSd 94 QRS 99 QT 460 T -74 QTc 421 Conclusion Sinus bradycardia...rate< 60 Atrial premature complex...SV complex w/ short R-R interval Right axis deviation...QRS axis ( 91,269) Low voltage, extremity leads...all extremity leads <0.5mV. Sinus. Normal axis. No STEMI.
--- NOTE | 2022-07-13 07:15 | DI.CT_ITS ---
Exam(s) CT ABDOMEN PELVIS CTA EXAM: CT ABDOMEN PELVIS CTA CLINICAL HISTORY: diffuse abd pain, diarrhea TECHNIQUE: COMPARISON: CT CT ABDOMEN PELVIS W from 04/01/2021 FINDINGS: CT angiography examination of the abdomen and pelvis was performed with bolus infusion of 100 cc of O mnipaque 350. Images obtained through the lung bases are unremarkable. The liver appears normal with no evidence of a focal mass. Spleen is unremarkable in appearance.. Gallbladder appears to be surgically absent, bile ducts are unremarkable. Pancreas is unremarkable in appearance. Adrenals appear normal bilaterally. Kidneys appear normal with no evidence of renal mass, hydronephrosis, or nephrolithiasis. Unremarkab le bladder. There is no evidence of abdominal or pelvic adenopathy. Abdominal aorta is of normal diameter and no abnormality is seen involving major visceral branches.. Appendix is not visualized with certainty but there is no evidence of acute appendicitis. No evidenc e diverticulitis or bowel obstruction. Small fat containing anterior abdominal wall hernia seen. Impression: Negative CT angiography examination of the abdomen and pelvis. RADIATION DOSE DELIVERED: 683.62mGy.cm Total DLP 683.62mGy.cm Total DLP !Error CTDIvol DATA REPOSITORY: All CT scans at this facility are submitted to the National Radiology Data Registry (NRDR) Dose Index Registry (DIR) with the [employer] (ACR). RADIATION OPTIMIZATION: All CT scans at this facility use at least one of these dose optimization te chniques: automated exposure control; mA and/or kV adjustment per patient size (includes targeted exa ms where dose is matched to clinical indication); or iterative reconstruction.
[2022-07-13 07:36] LABS: Lactate 0.9 mmol/L (0.6-1.4)
[2022-07-13 07:37] LABS: Abs Immature Grans 0.04 10^3/uL (0.0-0.06); Absolute Basophil Count 0.04 10^3/uL (0.0-0.2); Absolute Eosinophil Count 0.15 10^3/uL (0.0-0.7); Absolute Lymphocyte Count 0.56 10^3/uL (1.2-3.4); Absolute Monocyte Count 1.39 10^3/uL (0.1-0.8); Absolute Neutrophil Count 8.14 10^3/uL (1.2-6.7); Basophils % 0.4; Eosinophils % 1.5; HCT 33.6 % (40.0-50.0); HGB 11.2 g/dL (13.5-17.5); Immature Grans % 0.4; Lymphocytes % 5.4; MCH 33.4 pg (27.0-33.0); MCHC 33.3 % (32.0-36.0); MCV 100 fL (80-95); MPV 10.2 fL (8.0-11.0); Monocytes % 13.5; Neutrophils % 78.8; Platelet Count 170 10^3/uL (130-400); RBC 3.35 10^6/uL (4.36-5.78); RDW 15.3 % (11.8-14.1); RDW-SD 56.1 fL; WBC 10.32 10^3/uL (4.4-10.8)
[2022-07-13] MEDS: ACETAMINOPHEN 1,000 MG/100 ML BTL 400 MG IVPB (07:45)
[2022-07-13] MEDS: Normal Saline 250 ML IV (07:45)
[2022-07-13 07:58] LABS: ALT 40 U/L (16-63); AST 44 U/L (15-37); Albumin 3.7 g/dL (3.4-5.0); Alkaline Phosphatase 258 U/L (46-116); Anion Gap 9.3 mmol/L (3-11); BUN 41 mg/dL (7-18); CO2 26.7 mmol/L (21.0-32.0); CREATININE 1.8 mg/dL (0.70-1.30); Calcium 9.1 mg/dL (8.5-10.1); Chloride 102 mmol/L (98-107); Estimated GFR 36.89 (mL/min/1.73m2); Glucose 106 mg/dL (74-106); Lipase 133 U/L (73-393); Magnesium 1.8 mg/dL (1.8-2.4); Sodium 138 mmol/L (136-145); Total Protein 7.5 g/dL (6.4-8.2); Troponin I < 50 ng/L (<or=60)
[2022-07-13] MEDS: Omnipaque 350 MG/ML 500 ML BTL-Imaging package IJ (08:09)
[2022-07-13] MEDS: Normal Saline Flush 10 ML SYR IVP (08:10)
--- NOTE | 2022-07-13 10:09 | DI.VRAD_ITS ---
PROCEDURE INFORMATION: Exam: CTA Abdomen and Pelvis With Contrast Exam date and time: 07/13/2022 8:12 AM Age: 81 years old Clinical indication: Other: Diarrhea; Other: Diffuse abd pain, R/O aaa TECHNIQUE: Imaging protocol: Computed tomographic angiography of the abdomen and pelvis with contrast. 3D rendering (Not supervised by radiologist): MIP and/or 3D reconstructed images were created by the technologist. Radiation optimization: All CT scans at this facility use at least one of these dose optimization techniques: automated exposure control; mA and/or kV adjustment per patient size (includes targeted exams where dose is matched to clinical indication); or iterative reconstruction. Contrast material: OMNIPAQUE 350; Contrast volume: 100 ml; Contrast route: INTRAVENOUS (IV); COMPARISON: CT ABDOMEN PELVIS W 04/01/2021 4:04 AM FINDINGS: Cardiomegaly and mild interstitial edema/minimal effusions Aorta: No aortic aneurysm. No aortic dissection. Celiac trunk and mesenteric arteries: No occlusion or significant stenosis. Renal arteries: No occlusion or significant stenosis. Right iliac arteries: No occlusion or significant stenosis. Left iliac arteries: No occlusion or significant stenosis. Liver: No mass. Cirrhosis redemonstrated Gallbladder and bile ducts: Prior cholecystectomy. No ductal dilation. Pancreas: No mass. No ductal dilation. Spleen: No splenomegaly. Adrenal glands: Subcentimeter right adrenal nodule is grossly stable. Kidneys and ureters: No solid mass. No hydronephrosis. Stomach and bowel: No obstruction. Question mild mucosal thickening. Colonic diverticulosis noted Appendix: No evidence of appendicitis. Intraperitoneal space: Small ascites. No free air. No significant fluid collection. Lymph nodes: Unremarkable. No enlarged lymph nodes. Urinary bladder: Partially decompressed Reproductive: Prostatic hypertrophy/lobulation grossly stable Bones/joints: No acute fracture. Soft tissues: Small fat containing periumbilical hernia IMPRESSION: Unremarkable CTA. No aortic aneurysm or dissection Non-specific bowel gas pattern which may represent mild enteritis Colonic diverticulosis without diverticulitis Cirrhosis and small ascites Mild interstitial edema and minimal pleural effusions Dictated and Authenticated by: Jassi Mckenzie MD. Ordering:YARA Bird MD
--- NOTE | 2022-07-13 11:07 | W.EDPROG ---
Date of service: 07/13/22 Time of Service: 11:18 Medical Decision Making Care was signed out by Dr. Ambrose with plan to follow-up on labs and CT imaging. Please see Dr. Ambrose's documentation regarding initial ED presentation course. CT of the abdomen pelvis was interpreted by radiology:IMPRESSION: Unremarkable CTA.? No aortic aneurysm or dissection Non-specific bowel gas pattern which may represent mild enteritis Colonic diverticulosis without diverticulitis Cirrhosis and small ascites Mild interstitial edema and minimal pleural effusions Labs reviewed and nondiagnostic. Patient reassessed and notes he still has some mild discomfort but feels much better. I suspect he has mild enteritis as noted on CT imaging. Plan for discharge with outpatient follow-up with PCP. Plan for bowel rest which was discussed with the patient. All results were discussed with the patient. Disposition decision was made weighing the risks and benefits of hospitalization versus outpatient treatment, the risk for further decompensation, and the patient's wishes. The patient was stable and requested discharge. Prior to discharge, my usual and customary return precautions were reviewed with the patient - this included follow-up instructions and reason to return to the emergency department if condition worsens, does not improve as expected, or other new concerns arise. Lab Data Lab results reviewed: Yes I reviewed the patient's lab results. Labs: Laboratory Tests Range/Units 07/13/22 07/13/22 07/13/22 07:27 07:27 07:27 WBC (4.4-10.8) 10^3/uL 10.32 RBC (4.36-5.78) 10^6/uL 3.35 L Hgb (13.5-17.5) g/dL 11.2 L Hct (40.0-50.0) % 33.6 L MCV (80-95) fL 100 H MCH (27.0-33.0) pg 33.4 H MCHC (32.0-36.0) % 33.3 RDW (11.8-14.1) % 15.3 H Plt Count (130-400) 10^3/uL 170 MPV (8.0-11.0) fL 10.2 Immature Gran % 0.4 Neutrophils % 78.8 Lymphocytes % 5.4 Monocytes % 13.5 Eosinophils % 1.5 Basophils % 0.4 Nucleated RBC % (0.0-0.3) % 0.0 Absolute Neutrophils (1.2-6.7) 10^3/uL 8.14 H Absolute Lymphocytes (1.2-3.4) 10^3/uL 0.56 L Absolute Monocytes (0.1-0.8) 10^3/uL 1.39 H Absolute Eosinophils (0.0-0.7) 10^3/uL 0.15 Absolute Basophils (0.0-0.2) 10^3/uL 0.04 VBG Lactate (0.6-1.4) mmol/L 0.9 Sodium (136-145) mmol/L 138 Potassium (3.5-5.1) mmol/L 4.0 Chloride (98-107) mmol/L 102 Carbon Dioxide (21.0-32.0) mmol/L 26.7 Anion Gap (3-11) mmol/L 9.3 BUN (7-18) mg/dL 41 H Creatinine (0.70-1.30) mg/dL 1.8 H Est GFR (CKD-EPI 2020) (mL/min/1.73m2) 36.89 Glucose (74-106) mg/dL 106 Calcium (8.5-10.1) mg/dL 9.1 Magnesium (1.8-2.4) mg/dL 1.8 Total Bilirubin (0.2-1.0) mg/dL 1.0 AST (15-37) U/L 44 H ALT (16-63) U/L 40 Alkaline Phosphatase (46-116) U/L 258 H Troponin I (<or=60) ng/L < 50 Total Protein (6.4-8.2) g/dL 7.5 Albumin (3.4-5.0) g/dL 3.7 Lipase (73-393) U/L 133 Sign Out Sign Out Data: Sign Out Comment: Diarrhea last week. Abdominal pain since then. Follow-up on labs and imaging and final disposition. Last updated by Marge Ambrose DO at 07/13/22 07:42 Discharge Plan Disposition Patient Disposition: HOME Condition: Stable Discharge Details Clinical Impression: Enteritis, Abdominal pain, Diarrhea, Cirrhosis Primary Care Provider: Benny Torrez ED Provider: Bartolome Martinez Home Meds and New Rx's Prescriptions: Continued Vyndaqel 20 mg capsule 80 mg PO DAILY Label Comments: 05/03/21 rx by [facility] [place], [place] flaxseed oil 1,000 mg capsule 1,000 mg PO DAILY Rx Instructions: administer with a meal Metamucil (sugar) Powder 2 tsp PO ONCE PRN Label Comments: 01/21/22 pt states he takes a sugar free metamucil RH metoprolol succinate 25 mg tablet extended release 24 hr 25 mg PO BID furosemide 40 mg tablet 40 mg PO BID Qty: 180 3RF gabapentin 100 mg capsule 100 mg PO BID Qty: 180 3RF Rx Instructions: May take 2 twice daily if needed. multivitamin 1 EACH capsule 1 ea PO DAILY glucosam-chond jw-jdvqle-kc ac 1 EACH capsule 1 ea PO DAILY sennosides 8.6 mg tablet 8.6 mg PO DAILY PRN (Reason: constipation) Qty: 90 0RF omeprazole 20 mg capsule,delayed release(DR/EC) 20 mg PO DAILY Qty: 90 3RF simvastatin 10 mg tablet 5 mg PO HS Qty: 45 4RF spironolactone 25 mg tablet 12.5 mg PO DAILY Qty: 45 3RF allopurinol 100 mg tablet 100 mg PO DAILY Qty: 90 3RF diclofenac sodium [Voltaren Arthritis Pain] 1 % gel 4 g topical QID Qty: 100 0RF Rx Instructions: apply to neck, back tamsulosin [Flomax] 0.4 mg capsule 0.8 mg PO DAILY Qty: 180 3RF tramadol 50 mg tablet 50 mg PO BID PRN (Reason: pain) Qty: 60 0RF docusate sodium [Colace] 100 mg capsule 200 mg PO QHS PRN (Reason: constipation) Qty: 20 0RF acetaminophen 500 mg capsule 500 mg PO Q4H PRN (Reason: pain) Qty: 30 0RF lidocaine [Lidoderm] 5 % adhesive patch,medicated 1 patch topical DAILY Qty: 15 0RF Rx Instructions: leave on most painful area for up to 12 hrs Discharge Instructions Instructions: Enteritis (ED) Additional Instructions: Preliminary interpretation of the CT of your abdomen pelvis reveals mild enteritis. Also noted is liver cirrhosis, minimal pleural effusions, and diverticulosis. Please be sure to discuss CT findings and final report with your primary care physician. Maintain a clear liquid diet today. You may advance to a bland diet including rice this evening. Continue bland diet tomorrow. You may advance your diet slowly the following day as tolerated. Please contact your primary care physician to arrange follow-up. Return to the ER immediately for any worsening or new concerning symptoms. Referrals: Benny Torrez NP [Primary Care Provider] -
[2022-07-13 11:21] VITALS: BP 132/78; PULSE 72; RESP 18; TEMP 36.8; O2SAT 98
== END 2022-07-13 11:41 | disposition home or self-care (01) ==
PROVIDERS: Physician Assistant; Emergency Provider Student in an Organized Health Care Education/Training Program; PCP Nurse Practitioner Family
DX: K52.9 Noninfective gastroenteritis and colitis, unspecified (principal); K74.60 Unspecified cirrhosis of liver; Z90.49 Acquired absence of other specified parts of digestive tract; Z77.22 Contact with and (suspected) exposure to environmental tobacco smoke (acute) (chronic)
CPT/HCPCS: 36415; 80053; 83690; 93005; 96361; 96374; 99285; 74174; 83605; 83735; 84484; 85025; 93010; J0131

== ENCOUNTER → 2022-07-23 10:29 | Outpatient (BNVA) | payer MEDICARE, SELFPAY | PROVIDERS: PCP Nurse Practitioner Family; Visit Provider Internal Medicine Cardiovascular Disease | DX: E85.4 Organ-limited amyloidosis (principal); I43 Cardiomyopathy in diseases classified elsewhere; I50.32 Chronic diastolic (congestive) heart failure; I10 Essential (primary) hypertension; M54.9 Dorsalgia, unspecified | CPT/HCPCS: 99214 ==

== ENCOUNTER → 2022-09-11 10:37 | Outpatient (BNVA) | payer MEDICARE, SELFPAY | PROVIDERS: PCP Nurse Practitioner Family; Referring Provider Nurse Practitioner Family; Visit Provider Nurse Practitioner Gerontology | DX: N40.1 Benign prostatic hyperplasia with lower urinary tract symptoms (principal); R39.89 Other symptoms and signs involving the genitourinary system; N32.81 Overactive bladder | CPT/HCPCS: 99214 ==

== ENCOUNTER → 2023-01-21 10:45 | Outpatient (BNVA) | payer MEDICARE, SELFPAY | PROVIDERS: PCP Nurse Practitioner Family; Visit Provider Internal Medicine Cardiovascular Disease | DX: I11.0 Hypertensive heart disease with heart failure (principal); E85.4 Organ-limited amyloidosis; I50.32 Chronic diastolic (congestive) heart failure | CPT/HCPCS: 99214 ==

== ENCOUNTER 2023-02-03 12:51 | Inpatient (IN) | payer MEDICARE, SELFPAY ==
[2023-02-03] VITALS (103 sets, daily range): BP systolic 94–135; BP diastolic 49–86; PULSE 40–62; RESP 10–27; TEMP 36.4–36.6; O2SAT 92–97
--- NOTE | 2023-02-03 12:45 | RT.EKG_ITS ---
APPROVED REPORT Exam: Resting ECG Reason for Exam: fluid build up,heart issues Patient Location: E HR:43 bpm ECG Measurements Heart Rate 43 AXIS SC [id number] P [id number] QRSd 104 QRS 107 QT 492 T -73 QTc 415 Conclusion Atrial fibrillation...V-rate 37- 48, irreg A-activity Right axis deviation...QRS axis ( 91,269) Low voltage, extremity leads...all extremity leads <0.5mV bradycardic
--- NOTE | 2023-02-03 13:00 | DI.RAD_ITS ---
Exam(s) XR CHEST 2V PA LATERAL EXAM: XR CHEST 2V PA LATERAL CLINICAL HISTORY: F excerbation TECHNIQUE: 2D digital imaging was performed of the chest. Two images were obtained. PA and lateral views were obtained. COMPARISON: CR XR CHEST 2V PA LATERAL from 12/18/2018 CR XR CHEST 2V PA LATERAL from 01/15/2022 FINDINGS: MEDIASTINUM: Normal. HEART: Stable and at the upper limits of normal in size. PULMONARY VASCULATURE: Normal. LUNGS: No focal consolidating infiltrates. PLEURAL SPACE: No pleural effusion or pneumothorax. BONE:Within normal limits for the patient's age. OTHER FINDINGS:Normal. IMPRESSION: No acute pulmonary findings. DATA REPOSITORY: RADIATION DOSE DELIVERED:
--- NOTE | 2023-02-03 13:09 | W.ED.GENAD ---
Discharge Plan Disposition Patient Disposition: Admit to [facility] Condition: Serious Condition: Improving Discharge Details Chief Complaint: Abd Prob Clinical Impression: Edema, Bradycardia, Diastolic heart failure, Atrial fibrillation Admit Date/Time: 02/03/23 16:30 Admit Provider: Agustin Gil Attending Provider: Agustin Gil Primary Care Provider: Benny Torrez ED Provider: Maura Herrera Discharge Instructions Activity:: Activity as Tolerated Equipment/Supplies:: No Equipment Needed Diet:: resume usual home diet Discharge Orders Discharge Orders: Discharge Order (Routine); Ordered 02/05/23 Ordered By: Anthony Mendez Discharge Data Discharge Date/Time-TO BE ENTERED AT DEPARTURE: 02/03/23 17:54 Medical Decision Making Patient is a pleasant 82-year-old male with past medical history significant for heart murmur, CKD, peripheral edema, COVID constipation, cardiac amyloidosis, overactive bladder, anxiety, hypertension, diastolic heart failure, bradycardia, COVID by his presenting with chief complaint of fluid overload. He reports he has gained about 10 pounds in the past month and complaints it is primarily in his abdomen. Discussed with his lower extremity swelling and increased shortness of breath with exertion. Not actively having shortness of breath when at rest. Denies any chest pain. Has had fluid overload historically and they did bump his Lasix from 20 mg to 48. No acute change in this. Denies any fevers or chills. On exam, patient appears nontoxic. He is bradycardic does have a history of bradycardia. Patient also reports that he was told recently by his security system engineer to discuss his bradycardia further with his cardiology team at [facility]. He states that he has since discussed this with them, approximate 1 month ago and that no medication dosage was recommended at that time. He states that he has fallen x2 both times once to get out of bed in the middle of the night. He denies any loss of consciousness, denies striking his head or injury at the time of the incident but rather felt like his balance was suddenly off. ECG reviewed by Dr. Martinez, concerning for atrial fibrillation, right axis deviation, low voltage in extremity leads and bradycardia. He is not having any CP and has not throughout this course. Have low suspciion for ACS although on differential. He has hx of HF, likely exacerbation. I am concerned abobut the bradycardia. He is on a beta kylah. He has been taking his meds as prescribed. He has been low historically but not to the degree noted here. He does state that recently he saw his ophthalmologish who advised his HR was signficantly low and that [facility] cardiology team should review. He subsequently saw his PCP who did not recommend medication adjustment. When the patient last saw central office technician, notes obtained from , his HR was 50. He does not have palpitations. Sounds like the weight gain has been his biggest issue. He and his often eat premade meals which may be contributing. Will obrtain baseline labs including troponin, BNP, TSH regarding the HR and weight gain. Will begin diuresis with IV lasix. While on the monitor, his HR went from the 40s into the 30s. Patient remains asymptomatic but will place pacer pads. Bed side US does not show tamponade or effusion. Labs reviewed. Signficantly elevated BNP. There was a delay in the troponin but this is 70. He does not have symptoms of CP, this is a very low rate. Likely type 2, possibly associated with the bradycardia. MEDIASTINUM: Normal.? HEART: Stable and at the upper limits of normal in size.? PULMONARY VASCULATURE: Normal. LUNGS: No focal consolidating infiltrates. ? PLEURAL SPACE: No pleural effusion or pneumothorax. BONE:Within normal limits for the patient's age.? OTHER FINDINGS:Normal.? IMPRESSION: No acute pulmonary findings. consulted with hospitalist who agrees to admission for continued monitoring, diuresis and likely med adjustment. He agrees with admission and will place orders. Patient in agreement with this plan. [facility] General Date/Time Provider Initiated Documentation: 02/03/23 12:57. Limitations to Documentation: no limitations. Information obtained by: patient and family. History of Present Illness 82 year old M presents to the emergency department with the chief complaint of weight gain, increased exertional dyspnea, increased abdominal girth, described as moderate and similar to prior episodes, Quality is described as other (denies any pain), Patient started experiencing this week(s) and it has been constant. No relieving factors improve symptom(s), No exacerbating factors reported . Patient notes malaise (more fatigued than typical) and shortness of breath; denies chest pain, cough, fever/chills, loss of appetite, nausea/vomiting, rash and syncope. Patient did receive the following treatments prior to arrival, none (on chronic meds, no recent change in these) Related Data Home Medications Medication Instructions Recorded Confirmed qjdfjuyaar-pnqcbyajke-ogdntrjp-hyalur 1 ea PO DAILY 12/09/12 02/03/23 ac 375 mg-300 mg-175 mg-2 mg cap multivitamin 1 ea PO DAILY 12/09/12 02/03/23 docusate sodium 100 mg capsule 200 mg PO QHS PRN constipation #20 12/18/18 02/03/23 (Colace) caps flaxseed oil 1,000 mg capsule 1,000 mg PO DAILY 02/27/21 02/03/23 sennosides 8.6 mg tablet 8.6 mg PO DAILY PRN constipation 04/04/21 02/03/23 #90 tabs tafamidis meglumine 20 mg capsule 80 mg PO DAILY 05/03/21 02/03/23 (Vyndaqel) acetaminophen 500 mg capsule 500 mg PO Q4H PRN pain #30 caps 05/23/21 02/03/23 psyllium seed (sugar) oral powder 2 tsp PO ONCE PRN 01/21/22 02/03/23 (Metamucil (sugar) oral powder) gabapentin 100 mg capsule 100 mg PO BID #180 caps 02/13/22 02/03/23 furosemide 40 mg tablet 40 mg PO BID #180 tabs 03/07/22 02/03/23 diclofenac sodium 1 % topical gel 4 g topical QID #100 grams 05/17/22 02/03/23 (Voltaren Arthritis Pain) tamsulosin 0.4 mg capsule (Flomax) 0.8 mg PO DAILY #180 caps 06/03/22 02/03/23 omeprazole 20 mg capsule,delayed 20 mg PO DAILY #90 tab-caps 09/02/22 02/03/23 release simvastatin 10 mg tablet 5 mg PO HS #45 tab-caps 10/14/22 02/03/23 metoprolol succinate 25 mg 25 mg PO BID #180 tabs 10/18/22 02/03/23 tablet,extended release 24 hr spironolactone 25 mg tablet See Rx Instructions .Route 01/13/23 02/03/23 .COMPLEX #45 tabs allopurinol 100 mg tablet 100 mg PO DAILY #90 tabs 01/22/23 02/03/23 apixaban 2.5 mg tablet (Eliquis) 2.5 mg PO BID #30 tabs 02/05/23 tramadol 50 mg tablet 50 mg PO BID PRN pain #60 tabs 02/06/23 Previous Rx's Medication Instructions Recorded docusate sodium 100 mg capsule 200 mg PO QHS PRN constipation #20 12/18/18 (Colace) caps sennosides 8.6 mg tablet 8.6 mg PO DAILY PRN constipation 04/04/21 #90 tabs acetaminophen 500 mg capsule 500 mg PO Q4H PRN pain #30 caps 05/23/21 gabapentin 100 mg capsule 100 mg PO BID #180 caps 02/13/22 furosemide 40 mg tablet 40 mg PO BID #180 tabs 03/07/22 diclofenac sodium 1 % topical gel 4 g topical QID #100 grams 05/17/22 (Voltaren Arthritis Pain) tamsulosin 0.4 mg capsule (Flomax) 0.8 mg PO DAILY #180 caps 06/03/22 omeprazole 20 mg capsule,delayed 20 mg PO DAILY #90 tab-caps 09/02/22 release simvastatin 10 mg tablet 5 mg PO HS #45 tab-caps 10/14/22 metoprolol succinate 25 mg 25 mg PO BID #180 tabs 10/18/22 tablet,extended release 24 hr spironolactone 25 mg tablet See Rx Instructions .Route 01/13/23 .COMPLEX #45 tabs allopurinol 100 mg tablet 100 mg PO DAILY #90 tabs 01/22/23 apixaban 2.5 mg tablet (Eliquis) 2.5 mg PO BID #30 tabs 02/05/23 tramadol 50 mg tablet 50 mg PO BID PRN pain #60 tabs 02/06/23 Allergies Allergy/AdvReac Type Severity Reaction Status Date / Time morphine Allergy Severe Verified 02/03/23 13:05 Penicillins Allergy Skin Rash Verified 02/03/23 13:05 celecoxib AdvReac GI Bleeding Verified 02/03/23 13:05 oxycodone Allergy Severe Uncoded 02/03/23 13:05 General Stated Complaint: Abd Prob ASH: 3 Review of Systems Constitutional Constitutional: Reports as per HPI, Denies chills, Denies fever(s), Denies headache(s), Denies lethargy and Denies poor appetite ENT Ears, Nose, Mouth, and Throat: Denies dizziness and Denies headache(s) Cardiovascular Cardiovascular: Reports as per HPI Respiratory Respiratory: Reports as per HPI, Denies chest congestion, Denies cough and Denies pain on inspiration Gastrointestinal Gastrointestinal: Reports as per HPI, Denies diarrhea, Denies nausea and Denies vomiting Genitourinary Genitourinary: Denies system reviewed and no additional complaints, except as documented (denies change in urinary habits) Musculoskeletal Musculoskeletal: Reports as per HPI and Denies back pain Integumentary/Breasts Skin/Breast: Reports as per HPI and Denies rash Neurologic Neurologic: Reports as per HPI, Denies dizziness and Denies headache(s) PFSH All Active Problems (Updated 02/09/23 @ 21:59 by PATRICIA Hutchinson) Bradycardia (Acute) Atrial fibrillation (Chronic) Bilateral hearing loss (Acute) Blepharoptosis, bilateral (Acute) having bilat blepharoplasties at [facility] on 11/11/22 Droopy eyelid (Acute) Ventricular tachycardia (Chronic) Heart murmur (Acute) 12/2021-consistent with known mitral regurgitation by echo Chronic kidney disease (Chronic) stage 3 Edema, peripheral (Acute) Bilateral hand swelling (Acute) Cholecystitis (Acute) Constipation (Acute) Wrist swelling (Acute) Arthralgia (Acute) Arthritis (Acute) Gout (Chronic) Low back pain (Acute) Cardiac amyloidosis (Acute) OAB (overactive bladder) (Acute) Cubital tunnel syndrome, bilateral (Acute) Bilateral carpal tunnel syndrome (Acute) Memory impairment (Acute) Spinal stenosis at L4-L5 level (Chronic 08/24/15) Narcolepsy (Chronic) Benign prostatic hyperplasia (Chronic 06/03/13) Elevated PSA; bx neg. in 1992; bx neg. in 1998; neg. bx 2006; neg bx 2008 Anxiety (Chronic) Hyperlipidemia (Chronic 06/22/13) Essential hypertension (Chronic) Diastolic heart failure (Acute) Atrial bigeminy (Acute) Edema (Acute) Bradycardia (Acute) Will need Holter monitor to assess heart irregularity and bradycardia prior to surgery. Will try to get done this week and he sees Dr. Castillo this Friday who can then hopefully clear him for surgery or put it on hold. Lab also done. Indigestion (Acute) Urgency of urination (Chronic 09/12/12) Retention of urine (Chronic 06/17/12) Restless legs (Chronic) Low back pain (Chronic) DJD; disc and fusion 1964; repeat surgery- 1994; recurrent sxs 07/10 and04/13 Knee pain (Chronic 02/11/13) left; S/P cartilage resection Impotence due to erectile dysfunction (Chronic 03/18/05) History of reactive hypoglycemia (Chronic 06/21/16) Hiatal hernia (Chronic 10/05/08) Diverticulosis of colon without diverticulitis (Chronic) Constipation by delayed colonic transit (Chronic) Bursitis of right shoulder (Chronic 08/24/15) Medical History Chronic pain syndrome (05/21/12) Ingrown toenail Rotator cuff tear arthropathy of right shoulder Surgical History Cubital tunnel syndrome on right S/P Release: 05/23/2021 HERNIA REPAIR (~05/2009) History of prostate surgery TURP 2012 History of spinal fusion KNEE REPAIR torn knee cartiledge 03/1971 /fuision Laminectomy? lower spine 10/1995 Open Carpal Tunnel release (~05/2006) B/L PROSTATE SURGERY (~10/2012) TURP 2012 - [place] Replacement of total knee joint B/L 04/01/16 Right carpal tunnel syndrome S/P ECTR: 05/23/2021 Spinal Fusion 02/14 Status post carpal tunnel release Status post hernia repair Status post total knee replacement, bilateral (06/21/16) Family History Mother , AGE 65 Cancer Brother , age 84 Diabetes Maternal Grandfather , age 78 Heart disease Stroke Hyperlipidemia Paternal Grandfather Essential hypertension Heart disease Stroke Maternal Grandmother No problems noted. Paternal Grandmother No problems noted. Son No problems noted. Son Diabetes Father , age 94 No problems noted. Sister No problems noted. Social History Smoking/Tobacco Use Status: Never Second Hand Exposure: Yes Smoking risk assessment performed?: Yes Alcohol Intake: former Counseling given: No Drug use: Never Substance use type: does not use Caregiver/Support person: No Household members: spouse Housing: house Communication Needs: Hard of Hearing Pets and animals: Yes Pets and animals: dog(s) Sexually active: No Do you think of yourself as: straight/heterosexual Current gender identity: male What is your relationship status?: How often do you talk on the phone with friends or family?: twice per week How often do you get together with friends or relatives?: once per week How often do you attend rastafarian or nondenominational services?: 1-3 times per year Do you belong to any clubs or organized social groups?: yes Panel score (0-1 are the most socially isolated patients): 3 What type of physical activity do you participate in: walking Duration: 15-30 minutes/day Frequency: 1-2 times per week Rafaela/Alevism: [employer] Special rafaela needs: No Seatbelt use: always Helmet use: Yes Helmet use: sometimes Drive intox or ride w/intox special events driver: No Do you feel safe at home: Yes Do you feel safe in your relationship?: Yes Exam Const General: cooperative, comfortable, no acute distress, well developed and ill appearing chronically Nutritional Appearance: average body habitus and well nourished Orientation: alert, awake and oriented x3 HENMT Head: normal to inspection Ears: hearing grossly normal bilaterally Mouth: moist mucous membranes Chest Chest: normal inspection of the chest, normal palpation of entire chest wall and no crepitus Resp Effort & Inspection: normal respiratory effort, able to speak in complete sentences and no respiratory distress Auscultation: clear to auscultation bilaterally, no rales, no rhonchi and no wheezes Cardio Rate: bradycardic Rhythm: abnormal rhythm irregularly irregular Heart Sounds: S1 normal and S2 normal GI Inspection: no edema and distended Palpation: soft, no hepatosplenomegaly, not firm, no guarding, not rigid and nontender Auscultation: normal bowel sounds Back/Spine/Pelvis Back: no CVA tenderness Thoracic/Lumbar Spine: thoracic and lumbar spine normal to inspection Skin General skin exam: no rashes or lesions noted Trauma: no lacerations or abrasions Neuro General: patient alert, patient awake and patient oriented x3 Cognition: normal cognition Speech: speech normal Gait: normal gait Extrem General: normal to inspection, capillary refill normal, normal gait, calf tenderness and edema (1+ bilateral pitting edema) Psych Appearance: grossly normal and well kempt Mental Status: mental status grossly normal Speech and Movement: speech and movement normal Course Vital Signs Vital signs: Vital Signs Pulse 51 L 02/03/23 12:58 Respiratory Rate 18 02/03/23 12:58 Blood Pressure 115/71 02/03/23 12:58 Pulse Oximetry 96 02/03/23 12:58 Temperature Source Oral 02/03/23 12:58 Pulse 51 L 02/03/23 12:58 Respiratory Rate 18 02/03/23 12:58 Blood Pressure 115/71 02/03/23 12:58 Blood Pressure Position Sitting 02/03/23 12:58 Pulse Oximetry 96 02/03/23 12:58 Oxygen Delivery Method Room Air 02/03/23 12:58 Oxygen Flow Rate 0 02/03/23 12:58 Pain Level 0 02/03/23 12:58
[2023-02-03 13:38] LABS: Abs Immature Grans 0.02 10^3/uL (0.0-0.06); Absolute Basophil Count 0.04 10^3/uL (0.0-0.2); Absolute Eosinophil Count 0.18 10^3/uL (0.0-0.7); Absolute Lymphocyte Count 0.73 10^3/uL (1.2-3.4); Absolute Monocyte Count 0.79 10^3/uL (0.1-0.8); Absolute Neutrophil Count 4.67 10^3/uL (1.2-6.7); Basophils % 0.6; Eosinophils % 2.8; HCT 33.6 % (40.0-50.0); HGB 11.2 g/dL (13.5-17.5); Immature Grans % 0.3; Lymphocytes % 11.4; MCHC 33.3 % (32.0-36.0); MCV 105 fL (80-95); Monocytes % 12.3; Neutrophils % 72.6; Platelet Count 172 10^3/uL (130-400); RDW 14.6 % (11.8-14.1); RDW-SD 56.4 fL; WBC 6.43 10^3/uL (4.4-10.8)
[2023-02-03] MEDS: Furosemide 40 MG/4 ML VIAL IVP ×2 (13:50→20:45)
[2023-02-03 14:05] LABS: ALT 29 U/L (16-63); AST 34 U/L (15-37); Albumin 3.6 g/dL (3.4-5.0); Alkaline Phosphatase 195 U/L (46-116); Anion Gap 10.2 mmol/L (3-11); BUN 67 mg/dL (7-18); Bilirubin, Total 1.1 mg/dL (0.2-1.0); CO2 23.8 mmol/L (21.0-32.0); CREATININE 2.4 mg/dL (0.70-1.30); Calcium 9.2 mg/dL (8.5-10.1); Chloride 107 mmol/L (98-107); Estimated GFR 25.96 (mL/min/1.73m2); Glucose 140 mg/dL (74-106); Magnesium 2.1 mg/dL (1.8-2.4); NT-proBNP 10773 pg/mL (<300); Potassium 3.5 mmol/L (3.5-5.1); Sodium 141 mmol/L (136-145); TSH (W/Ref FT4) 1.86 uIU/mL (0.36-3.74); Total Protein 7.4 g/dL (6.4-8.2)
--- NOTE | 2023-02-03 14:54 | NUR.NOTE ---
pacer pads placed on pt per PA [place] request
[2023-02-03 15:55] LABS: Troponin I 71 ng/L (<or=60)
[2023-02-03 16:02] LABS: Bilirubin Negative (Negative); Blood Negative (Negative); Clarity Clear (Clear); Glucose Negative (Negative); Ketones Negative (Negative); Leukocyte Esterase Negative (Negative); Nitrite Negative (Negative); Specific Gravity 1.015 (1.005-1.025); Urobilinogen 0.2 mg/dL (Up to 0.2); pH 5.5 (5-8)
--- NOTE | 2023-02-03 16:51 | W.PM.HP.N ---
Date of service: 02/03/23 Time of Service: 16:51 Assessment and Plan Assessment and plan (1) Atrial fibrillation: Status: Chronic Assessment and plan: Patient presents with new onset atrial fibrillation with significant bradycardia. He has minimally elevated troponins but no symptoms of chest pain. Excam-[id number] ultrasound showed no regional wall motion abnormalities. We will get a formal echocardiogram in the morning. 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 Bradycardia is exacerbated by the metoprolol XL. We will withhold his metoprolol XL monitor his heart rate and rhythm overnight. We will heparinize him for new onset atrial fibrillation to prevent strokes. We will consult with [facility] cardiology in the morning to discuss whether or not he needs transfer for pacemaker implantation. He is followed by the heart failure clinic at [facility]. Does have evidence of bilateral basilar B-lines on nrxex-zh-meda ultrasound of his lungs no pleural effusions. He has evidence of peripheral edema with increased abdominal girth increased pedal and pretibial edema. We will give him another dose of IV Lasix tonight and reassess electrolytes and renal function and symptoms in the morning. I suspect he probably has some intrinsic conduction problems from his cardiac amyloidosis. Critical care time spent interviewing and examining the patient, reviewing studies, discussing case with patient's nurse and consulting physicians was 60 minutes, outside of POCUS exam (2) Bradycardia: Status: Acute Assessment and plan: Withhold beta-blockers and any AV jannette blocking agents. If he becomes hypotensive then will give atropine and begin transthoracic pacer. If this occurs then he will certainly need to be acutely transferred to [facility] or another tertiary care center. (3) Diastolic heart failure: Status: Acute Assessment and plan: Patient's been symptomatic with 10 pound weight gain over the past couple months along with increasing pedal edema and abdominal girth. Based on his chest x-ray and his BUN/creatinine 1 would not expect him to be fluid overloaded however his proBNP is certainly elevated and his POCUS exam of his lungs suggest increased interstitial edema particularly in the lower lung larry bilaterally. Qualifiers: Heart failure chronicity: chronic Qualified Code(s): I50.32 - Chronic diastolic (congestive) heart failure (4) Cardiac amyloidosis: Status: Acute (5) Chronic kidney disease: Status: Chronic Assessment and plan: We will monitor his urine output response to Lasix and monitor his BMP. (6) Essential hypertension: Status: Chronic Assessment and plan: Holding metoprolol in light of his bradycardia. History of Present Illness Narrative: This 82-year-old male with a past medical history significant for TTR amyloid cardiomyopathy who has been maintained on Lasix and Toprol-XL and treated with tafamidis presents to the emergency department chief complaint of fluid overload according to his . Reportedly gained 10 pounds in the past month primarily noted in his abdomen. Then increased shortness of breath with exertion and bilateral lower EXTR remedy edema. No chest pain or pressure. Evaluation in the emergency department demonstrated his rhythm to be in atrial fibrillation at a slow rate in the 30s. External pacer pads were applied to him but did not require initiation of extra internal pacing. ECG demonstrated atrial fibrillation rate of 43 but beats per minute with nonspecific intraventricular conduction delay. Low voltage is seen throughout the extremity leads. Chest 2 Views showed no acute pulmonary findings he has stable cardiomegaly and no pleural effusions or infiltrates. Laboratory studies include a CBC that shows macrocytic anemia hemoglobin 11.2 g hematocrit 33% MCV 105 with elevated RDW of 14.6. White cell count is normal at 6400. CMP shows an elevated BUN and creatinine of 67 and 2.4 which is above his baseline level of 41 and 1.8. Glucose elevated 140. Alk phos is elevated 195. Initial troponin I was elevated at 71 with a repeat level of 73. proBNP is elevated 10,773 previous levels were 5500 one year ago. TSH is normal at 1.86. Urinalysis was unremarkable. Tick panel was ordered and is pending at this time. Patient is being admitted to ICU for cardiac monitoring, cessation of his Toprol XL and serial troponin levels. [facility] was not consulted by the ED. We will consult them regarding need for temporary pacer. If he becomes hemodynamically unstable then he will be paced. consider addition of low dose dobutamine to improve AV conduction. Review of Systems All systems reviewed & are unremarkable except as noted in HPI and below Constitutional Constitutional: Denies chills, Denies fever(s), Reports lethargy and Reports malaise Eyes Eyes: Reports system reviewed and no additional complaints, except as documented ENT Ears, Nose, Mouth, and Throat: Reports system reviewed and no additional complaints, except as documented Cardiovascular Cardiovascular: Denies chest pain, Denies chest pain with activity, Reports irregular heart rhythm, Reports leg edema, Reports dyspnea on exertion and Reports slow heart rate Respiratory Respiratory: Denies change in phlegm color, Denies chest congestion, Denies excessive phlegm production and Reports dyspnea on exertion Gastrointestinal Gastrointestinal: Denies abdominal pain, Reports bloating and Reports constipation Genitourinary Genitourinary: Reports oliguria and Reports difficulty urinating Musculoskeletal Musculoskeletal: Reports system reviewed and no additional complaints, except as documented Integumentary/Breasts Skin/Breast: Reports system reviewed and no additional complaints, except as documented Neurologic Neurologic: Reports system reviewed and no additional complaints, except as documented Endocrine Endocrine: Reports system reviewed and no additional complaints, except as documented Hematologic/Lymphatic Hematologic/Lymphatic: Reports system reviewed and no additional complaints, except as documented Allergic/Immunologic Allergic/Immunologic: Reports system reviewed and no additional complaints, except as documented PFSH All Active Problems (Updated 02/03/23 @ 20:14 by Agustin Gil MD) Atrial fibrillation (Chronic) Bilateral hearing loss (Acute) Blepharoptosis, bilateral (Acute) having bilat blepharoplasties at [facility] on 11/11/22 Droopy eyelid (Acute) Ventricular tachycardia (Chronic) Heart murmur (Acute) 12/2021-consistent with known mitral regurgitation by echo Chronic kidney disease (Chronic) stage 3 Edema, peripheral (Acute) Bilateral hand swelling (Acute) Cholecystitis (Acute) Constipation (Acute) Wrist swelling (Acute) Arthralgia (Acute) Arthritis (Acute) Gout (Chronic) Low back pain (Acute) Cardiac amyloidosis (Acute) OAB (overactive bladder) (Acute) Cubital tunnel syndrome, bilateral (Acute) Bilateral carpal tunnel syndrome (Acute) Memory impairment (Acute) Spinal stenosis at L4-L5 level (Chronic 08/24/15) Narcolepsy (Chronic) Benign prostatic hyperplasia (Chronic 06/03/13) Elevated PSA; bx neg. in 1992; bx neg. in 1998; neg. bx 2006; neg bx 2008 Anxiety (Chronic) Hyperlipidemia (Chronic 06/22/13) Essential hypertension (Chronic) Diastolic heart failure (Acute) Atrial bigeminy (Acute) Edema (Acute) Bradycardia (Acute) Will need Holter monitor to assess heart irregularity and bradycardia prior to surgery. Will try to get done this week and he sees Dr. Castillo this Friday who can then hopefully clear him for surgery or put it on hold. Lab also done. Indigestion (Acute) Urgency of urination (Chronic 06/17/12) Retention of urine (Chronic 06/17/12) Restless legs (Chronic) Low back pain (Chronic) DJD; disc and fusion 1964; repeat surgery- 1994; recurrent sxs 07/10 and04/13 Knee pain (Chronic 02/11/13) left; S/P cartilage resection Impotence due to erectile dysfunction (Chronic 03/18/05) History of reactive hypoglycemia (Chronic 06/21/16) Hiatal hernia (Chronic 10/05/08) Diverticulosis of colon without diverticulitis (Chronic) Constipation by delayed colonic transit (Chronic) Bursitis of right shoulder (Chronic 08/24/15) Medical History Chronic pain syndrome (05/21/12) Ingrown toenail Rotator cuff tear arthropathy of right shoulder Surgical History Cubital tunnel syndrome on right S/P Release: 05/23/2021 HERNIA REPAIR (~05/2009) History of prostate surgery TURP 2012 History of spinal fusion KNEE REPAIR torn knee cartiledge 03/1971 /fuision Laminectomy? lower spine 10/1995 Open Carpal Tunnel release (~05/2006) B/L PROSTATE SURGERY (~10/2012) TURP 2012 - [place] Replacement of total knee joint B/L 04/01/16 Right carpal tunnel syndrome S/P ECTR: 05/23/2021 Spinal Fusion 02/14 Status post carpal tunnel release Status post hernia repair Status post total knee replacement, bilateral (06/21/16) Family History Mother , AGE 65 Cancer Brother , age 84 Diabetes Maternal Grandfather , age 78 Heart disease Stroke Hyperlipidemia Paternal Grandfather Essential hypertension Heart disease Stroke Maternal Grandmother No problems noted. Paternal Grandmother No problems noted. Son No problems noted. Son Diabetes Father , age 94 No problems noted. Sister No problems noted. Social History Smoking/Tobacco Use Status: Never Second Hand Exposure: Yes Smoking risk assessment performed?: Yes Alcohol Intake: former Counseling given: No Drug use: Never Substance use type: does not use Caregiver/Support person: No Household members: spouse Housing: house Communication Needs: Hard of Hearing Pets and animals: Yes Pets and animals: dog(s) Sexually active: No Do you think of yourself as: straight/heterosexual Current gender identity: male What is your relationship status?: How often do you talk on the phone with friends or family?: twice per week How often do you get together with friends or relatives?: once per week How often do you attend tenriism or jew services?: 1-3 times per year Do you belong to any clubs or organized social groups?: yes Panel score (0-1 are the most socially isolated patients): 3 What type of physical activity do you participate in: walking Duration: 15-30 minutes/day Frequency: 1-2 times per week Rafaela/Pentecostalism: [employer] Special rafaela needs: No Seatbelt use: always Helmet use: Yes Helmet use: sometimes Drive intox or ride w/intox dedicated local truck driver: No Do you feel safe at home: Yes Do you feel safe in your relationship?: Yes Meds Allergies and Home Medications Allergies Allergy/AdvReac Type Severity Reaction Status Date / Time morphine Allergy Severe Verified 02/03/23 13:05 Penicillins Allergy Skin Rash Verified 02/03/23 13:05 celecoxib AdvReac GI Bleeding Verified 02/03/23 13:05 oxycodone Allergy Severe Uncoded 02/03/23 13:05 Home Medications Medication Instructions Recorded Confirmed Type xguhaxzexy-arcwjcjpto-omjrnuil-hyalur 1 ea PO DAILY 12/09/12 02/03/23 History ac 375 mg-300 mg-175 mg-2 mg cap multivitamin 1 ea PO DAILY 12/09/12 02/03/23 History docusate sodium 100 mg capsule 200 mg PO QHS PRN constipation #20 12/18/18 02/03/23 Rx (Colace) caps flaxseed oil 1,000 mg capsule 1,000 mg PO DAILY 02/27/21 02/03/23 History sennosides 8.6 mg tablet 8.6 mg PO DAILY PRN constipation 04/04/21 02/03/23 Rx #90 tabs tafamidis meglumine 20 mg capsule 80 mg PO DAILY 05/03/21 02/03/23 History (Vyndaqel) acetaminophen 500 mg capsule 500 mg PO Q4H PRN pain #30 caps 05/23/21 02/03/23 Rx psyllium seed (sugar) oral powder 2 tsp PO ONCE PRN 01/21/22 02/03/23 History (Metamucil (sugar) oral powder) gabapentin 100 mg capsule 100 mg PO BID #180 caps 02/13/22 02/03/23 Rx furosemide 40 mg tablet 40 mg PO BID #180 tabs 03/07/22 02/03/23 Rx diclofenac sodium 1 % topical gel 4 g topical QID #100 grams 05/17/22 02/03/23 Rx (Voltaren Arthritis Pain) tamsulosin 0.4 mg capsule (Flomax) 0.8 mg PO DAILY #180 caps 06/03/22 02/03/23 Rx omeprazole 20 mg capsule,delayed 20 mg PO DAILY #90 tab-caps 09/02/22 02/03/23 Rx release simvastatin 10 mg tablet 5 mg PO HS #45 tab-caps 10/14/22 02/03/23 Rx metoprolol succinate 25 mg 25 mg PO BID #180 tabs 10/18/22 02/03/23 Rx tablet,extended release 24 hr tramadol 50 mg tablet 50 mg PO BID PRN pain #60 tabs 12/30/22 02/03/23 Rx spironolactone 25 mg tablet See Rx Instructions .Route 01/13/23 02/03/23 Rx .COMPLEX #45 tabs allopurinol 100 mg tablet 100 mg PO DAILY #90 tabs 01/22/23 02/03/23 Rx Exam Narrative Exam Narrative: Elderly white male lying in bed some IR upright position. He is alert and oriented person place time circumstance Mildly hearing impaired. Does wear hearing aids. HEENT is unremarkable Neck is supple nontender no overt JVD or HJR, carotid pulses are irregularly irregular no bruits Lungs clear to auscultation anteriorly posteriorly had some fine rales no rhonchi Heart is irregularly irregular at a slow rate he is in atrial fibrillation Abdomen slightly distended soft normal bowel sounds nontender no guarding no palpable organomegaly Lower extremities 1+ pitting edema Neurologic exam grossly intact no focal motor or sensory deficits Results Labs 02/03/23 13:23 02/03/23 13:23 Labs: Laboratory Results - last 24 hr 02/03/23 02/03/23 02/03/23 13:23 13:23 13:23 WBC 6.43 RBC 3.20 L Hgb 11.2 L Hct 33.6 L MCV 105 H MCH 35.0 H MCHC 33.3 RDW 14.6 H Plt Count 172 MPV 10.0 Immature Gran % 0.3 Neutrophils % 72.6 Lymphocytes % 11.4 Monocytes % 12.3 Eosinophils % 2.8 Basophils % 0.6 Nucleated RBC % 0.0 Absolute Neutrophils 4.67 Absolute Lymphocytes 0.73 L Absolute Monocytes 0.79 Absolute Eosinophils 0.18 Absolute Basophils 0.04 Sodium 141 Potassium 3.5 Chloride 107 Carbon Dioxide 23.8 Anion Gap 10.2 BUN 67 H Creatinine 2.4 H Est GFR (CKD-EPI 2020) 25.96 Glucose 140 H Calcium 9.2 Magnesium 2.1 Total Bilirubin 1.1 H AST 34 ALT 29 Alkaline Phosphatase 195 H Troponin I NT-Pro-B Natriuret Pep 41336 H Total Protein 7.4 Albumin 3.6 TSH 1.86 Cancelled Urine Color Urine Clarity Urine pH Ur Specific [place] Urine Protein Urine Ketones Urine Blood Urine Nitrite Urine Bilirubin Urine Urobilinogen Ur Leukocyte Esterase Urine Glucose 02/03/23 02/03/23 13:23 15:12 WBC RBC Hgb Hct MCV MCH MCHC RDW Plt Count MPV Immature Gran % Neutrophils % Lymphocytes % Monocytes % Eosinophils % Basophils % Nucleated RBC % Absolute Neutrophils Absolute Lymphocytes Absolute Monocytes Absolute Eosinophils Absolute Basophils Sodium Potassium Chloride Carbon Dioxide Anion Gap BUN Creatinine Est GFR (CKD-EPI 2020) Glucose Calcium Magnesium Total Bilirubin AST ALT Alkaline Phosphatase Troponin I 71 H* NT-Pro-B Natriuret Pep Total Protein Albumin TSH Urine Color Yellow Urine Clarity Clear Urine pH 5.5 Ur Specific [place] 1.015 Urine Protein Negative Urine Ketones Negative Urine Blood Negative Urine Nitrite Negative Urine Bilirubin Negative Urine Urobilinogen 0.2 Ur Leukocyte Esterase Negative Urine Glucose Negative Last Vital Signs Pulse 52 L 02/03/23 16:25 Resp 16 02/03/23 16:30 BP 127/63 02/03/23 16:25 Pulse Ox 94 02/03/23 16:30 Time Spent Time spent with Patient: 55-74 minutes Time was spent: preparing to see the patient(eg.review tests), [facility] and[facility], ordering medications,tests, procedures, referring, communicating with other health healthcare network consultant, indepentently interpreting results, counseling the patient and care coordination
[2023-02-03 16:53] LABS: Troponin I 73 ng/L (<or=60)
--- NOTE | 2023-02-03 20:22 | W.POCUS ---
Pocus Exam Limited Thoracic Lung Exam DATE OF EXAM: 02/03/23 TIME OF EXAM: 19:06 PROVIDER THAT PERFORMED THE STUDY: Agustin Gil REASON FOR EXAM: Shortness ofBreath and Other (elevated BNP, peripheral edema) indication: dyspnea, peripheral edema and elevated troponin and elevated BNP VISUALIZED STRUCTURES: right anterior, left anterior, right lateral, left lateral, right posterior, left posterior, right subcostal and left subcostal PERTINENT FINDINGS/IMPRESSION: B-lines/left side thoracis location: lateral and posterior and B-lines/right side thoracis location: lateral and posterior; no pneumonia noted, no pleural effusion on the left and no pleural effusion on the right Exam complete
--- NOTE | 2023-02-03 20:29 | POCUS_ITS ---
Pocus Exam Limited Cardiac Exam DATE OF EXAM: 02/03/23 TIME OF EXAM: 19:21 PROVIDER THAT PERFORMED THE STUDY: Agustin Gil IS THIS A REPEAT EXAM DURING THIS ENCOUNTER: no REASON FOR EXAM: Congestive heart failure, Dyspnea and Evaluation of LV function VISUALIZED STRUCTURES: four chambers, LVOT, aortic valve (trileaflet, no AI, elevated estimated RVSP @ 51 mm (TR max 3.03 m/s), ), mitral valve, Inter ventricular septum and IVC VIEW OBTAINED: Apical 4-Chamber, Parasternal long-axis, Parasternal short-axis and Subxiphoid PERTINENT FINDINGS/IMPRESSION: Plethoric IVC; no IVC inspiratory collapsability (IVC mas 2.88 cm w/ 26 % collapsability), No LV dysfunction, No pericardial effusion, No RV dilation and No RV dysfunction INCIDENTAL FINDINGS: dilated RA, dilated LA, LVH, moderate eccentric MR, interventricular septal hypertrophy, normal MAPSE 20 mm, normal TAPSE 31 mm. normal septal e' 8.9 cm/s and lateral e' 10.5 cm/s, MV E velocity 109 cm/s Exam complete
[2023-02-03] MEDS: Acetaminophen 325 MG TAB PO (20:46)
[2023-02-03] MEDS: traMADol 50 MG TAB PO (20:46)
[2023-02-03] MEDS: Gabapentin 100 MG CAP PO (20:46)
[2023-02-03] MEDS: Senna TAB 1 TAB PO (20:47)
[2023-02-03] MEDS: Docusate Sodium 100 MG CAP 200 MG PO (20:47)
[2023-02-03] MEDS: Doxycycline Hyclate 100 MG CAP PO (20:47)
[2023-02-03 20:56] LABS: Troponin I 72 ng/L (<or=60)
[2023-02-03] MEDS: Normal Saline Flush 10 ML SYR IVP (21:05)
[2023-02-03] MEDS: Pantoprazole 40 MG TABCR PO (21:05)
[2023-02-03] MEDS: Aspirin E.C. 325 MG TABEC PO (21:05)
[2023-02-03] MEDS: Diclofenac 1% Gel 100 GM TUBE TP (21:05)
[2023-02-03] MEDS: Simvastatin 10 MG TAB 5 MG PO (21:08)
[2023-02-03 21:40] LABS: PTT Activated 29.2 sec (21.5-31.9)
[2023-02-03 22:02] LABS: INR 1.1 (0.9-1.1); Prothrombin Time 11.6 sec (9.3-11.0)
[2023-02-04] VITALS (28 sets, daily range): BP systolic 96–120; BP diastolic 49–81; PULSE 35–160; RESP 8–18; TEMP 36–36.5; O2SAT 92–97
--- NOTE | 2023-02-04 | DI.US_ITS ---
APPROVED REPORT EXAM: Comprehensive 2D, Doppler, and color-flow Echocardiogram Patient Location: In-Patient Room/Bed: [id number] Internet Designer: Libby Schroeder RDCS (AE) Indications: Amyloidosis cardiomyopathy. acute chf Other Information Study Quality: Adequate. Technically limited study due to body habitus, inability to position patient exam done supine bedside, AED pad present. Conclusion Mild concentric left ventricular hypertrophy. Normal left ventricular chamber size. Estimated eject ion fraction is 55% with normal wall motion Normal right ventricular size and systolic function Left atrium is moderately dilated. Right atrial size is normal Aortic valve is trileaflet without stenosis or regurgitation Normal mitral valve with moderate to severe regurgitation Normal tricuspid valve, moderate regurgitation. Estimated right ventricular systolic pressure is 38 mmHg Wall motion Left Ventricle The left ventricle is normal size. The left ventricular systolic function is normal. The left ventric ular ejection fraction is within the normal range. Mild concentric left ventricular hypertrophy. Ther e are no segmental wall motion abnormalities There is no ventricular septal defect visualized. LVEF i s 55%. Right Ventricle The right ventricle is normal size. The right ventricular systolic function is normal. The RVSP is 38 .2mmHg. Atria Left atrium is moderately dilated. The right atrium size is normal. The interatrial septum is intact with no evidence for an atrial septal defect. Aortic Valve The aortic valve is normal in structure. Aortic valve is trileaflet. There is no aortic valvular sten osis. No aortic regurgitation is present. Mitral Valve The mitral valve is normal in structure. No evidence of mitral valve stenosis. Moderate to severe m itral regurgitation Tricuspid Valve The tricuspid valve is normal in structure. There is no tricuspid valve stenosis. Moderate tricuspid regurgitation. Pulmonic Valve The pulmonary valve is normal in structure. There is no pulmonic valvular stenosis. Trace pulmonic re gurgitation. Great Vessels The aortic root is normal in size. The ascending aorta is normal in size. Aortic arch is not well vis ualized. The IVC collapses <50% with inspiration. Pericardium There is no pericardial effusion. 2D Dimensions IVSD d PLAX 1.31 cm M: 0.6-1.2 LV Vol A2C d MOD 59.3 mL LVPW d PLAX 1.27 cm M: 0.6 - 1.2 LV Vol A4C d MOD 81.8 mL LVID d PLAX 4.73 cm M: 4.2 - 5.8 LA vol/ BSA A4C s A-L 41.0 mL/m2 LVDs 3.55 cm M: 2.5 - 4.0 LA Area A4C s MOD 24.45 cm2 Ao Root d 3.01 cm M: 3.1 - 3.7 LV EF A4C MOD 45.9 % RA Area A4C 24.93 cm2 RA Vol/ BSA A4C s A-L 43.2 mL/m2 Ao Asc Diam d 3.42 cm M: 2.6 - 3.4 LV EF Teichholz 48.2 % LV Volume 52.70 mL M: 62 - 150 LV Volume Index 25.83 mL/m2 M: 34 - 74 LV Vol Biplane MOD 70.7 mL FS 24.25 % LV Diastology MV E' lateral 0.098 (>0.1 m/s) MV E Vmax 1.17 (0.4-1.3 m/s) LV E/e LAT 11.90 (<14) MV E/E' lateral 11.93 Aortic Valve LVOT Area 2.54 cm2 AoV Area Vmax 2.12 cm2 LVOT Vmax 1.12 m/s AoV Area/ BSA (Vmax) 1.04 cm2/m2 LVOT Mean Robin. 0.77 m/s DEEPIKA Mean Robin. 2.00 cm2 LVOT Peak Grad 5.1 mmHg DEEPIKA Mean Robin. Index 0.98 cm2/m2 LVOT Mean Grad 2.7 mmHg LVOT VTI 0.253 m LVOT Diam s 1.75 cm AoV Vmax 1.35 m/s Velocity Ratio 0.83 AoV Mean Robin. 0.98 m/s AoV Peak Grad 7.3 mmHg LVOT SV 64.23 mL AoV Mean Grad 4.3 mmHg AoV VTI 0.265 m AoV Area VTI 2.43 cm2 AoV Area/ BSA (VTI) 1.19 cm/m2 Mitral Valve MV DT 333 (160-240 msec) MV PHT 97 msec MV Area PHT 2.28 cm2 MV VTI 0.398 m MV Area VTI 1.61 (4.0-6.0 cm2) Pulmonary Valve PV Vmax 0.84 (0.5-1.5 m/s) RVOT Peak Gr. 1.58 mmHg PV Peak Grad 2.8 mmHg RVOT Mean Gr. 0.85 mmHg PV Mean Grad 1.7 mmHg RVOT VTI 0.166 m PV VTI 0.215 m RVOT Vmax 0.63 m/s Tricuspid Valve TR Peak Grad 30.2 mmHg TR Vmax 2.75 m/s RA Pressure 8.00 mmHg RVSP (TR) 38.2 mmHg
[2023-02-04] MEDS: Acetaminophen 325 MG TAB PO ×2 (04:24→21:07)
[2023-02-04 07:00] LABS: Abs Immature Grans 0.02 10^3/uL (0.0-0.06); Absolute Basophil Count 0.05 10^3/uL (0.0-0.2); Absolute Eosinophil Count 0.26 10^3/uL (0.0-0.7); Absolute Monocyte Count 0.99 10^3/uL (0.1-0.8); Absolute Neutrophil Count 4.44 10^3/uL (1.2-6.7); Basophils % 0.7; Eosinophils % 3.8; HCT 31.9 % (40.0-50.0); HGB 10.6 g/dL (13.5-17.5); Immature Grans % 0.3; Lymphocytes % 14.8; MCH 34.1 pg (27.0-33.0); MCHC 33.2 % (32.0-36.0); MCV 103 fL (80-95); MPV 10.1 fL (8.0-11.0); Monocytes % 14.6; Neutrophils % 65.8; Platelet Count 160 10^3/uL (130-400); RBC 3.11 10^6/uL (4.36-5.78); RDW 14.5 % (11.8-14.1); RDW-SD 54.4 fL; WBC 6.76 10^3/uL (4.4-10.8)
[2023-02-04 07:32] LABS: Magnesium 2.1 mg/dL (1.8-2.4); NT-proBNP 11622 pg/mL (<300)
[2023-02-04 07:58] LABS: PTT Activated > 155.0 sec (21.5-31.9)
--- NOTE | 2023-02-04 08:00 | PDOC.CMIN ---
- If Service Date Differs Date of service: 02/04/23 Time of Service: 08:01 Care Management Initial Assess REASON FOR HOSPITALIZATION:: new onset afdib with bradycardia PAST MEDICAL HISTORY/PAST SURGICAL HISTORY:: All Active Problems (Updated 02/03/23 @ 20:14 by Agustin Gil MD). Atrial fibrillation (Chronic). Bilateral hearing loss (Acute). Blepharoptosis, bilateral (Acute). having bilat blepharoplasties at [facility] on 11/11/22. Droopy eyelid (Acute). Ventricular tachycardia (Chronic). Heart murmur (Acute). 12/2021-consistent with known mitral regurgitation by echo. Chronic kidney disease (Chronic). stage 3. Edema, peripheral (Acute). Bilateral hand swelling (Acute). Cholecystitis (Acute). Constipation (Acute). Wrist swelling (Acute). Arthralgia (Acute). Arthritis (Acute). Gout (Chronic). Low back pain (Acute). Cardiac amyloidosis (Acute). OAB (overactive bladder) (Acute). Cubital tunnel syndrome, bilateral (Acute). Bilateral carpal tunnel syndrome (Acute). Memory impairment (Acute). Spinal stenosis at L4-L5 level (Chronic 08/24/15). Narcolepsy (Chronic). Benign prostatic hyperplasia (Chronic 06/03/13). Elevated PSA; bx neg. in 1992; bx neg. in 1998; neg. bx 2006; neg bx 2008. Anxiety (Chronic). Hyperlipidemia (Chronic 06/22/13). Essential hypertension (Chronic). Diastolic heart failure (Acute). Atrial bigeminy (Acute). Edema (Acute). Bradycardia (Acute). Will need Holter monitor to assess heart irregularity and bradycardia prior to surgery. Will try to get done this week and he sees Dr. Castillo this Friday who can then hopefully clear him for surgery or put it on hold. Lab also done. Indigestion (Acute). Urgency of urination (Chronic 06/17/12). Retention of urine (Chronic 06/17/12). Restless legs (Chronic). Low back pain (Chronic). DJD; disc and fusion 1964; repeat surgery- 1994; recurrent sxs 07/10 and04/13. Knee pain (Chronic 02/11/13). left; S/P cartilage resection. Impotence due to erectile dysfunction (Chronic 03/18/05). History of reactive hypoglycemia (Chronic 06/21/16). Hiatal hernia (Chronic 10/05/08). Diverticulosis of colon without diverticulitis (Chronic). Constipation by delayed colonic transit (Chronic). Bursitis of right shoulder (Chronic 08/24/15). Medical History . Chronic pain syndrome (05/21/12). Ingrown toenail. Rotator cuff tear arthropathy of right shoulder. Surgical History . Cubital tunnel syndrome on right. S/P Release: 05/23/2021. HERNIA REPAIR (~05/2009). History of prostate surgery. TURP 2012. History of spinal fusion. KNEE REPAIR. torn knee cartiledge 03/1971 /fuision . Laminectomy? lower spine. 10/1995. Open Carpal Tunnel release (~05/2006). B/L. PROSTATE SURGERY (~10/2012). TURP 2012 - [facility]. Replacement of total knee joint. B/L 04/01/16. Right carpal tunnel syndrome. S/P ECTR: 05/23/2021. Spinal Fusion. . 02/14. Status post carpal tunnel release. Status post hernia repair. Status post total knee replacement, bilateral (06/21/16) PREVIOUS FUNCTIONAL STATUS/SOCIAL/FAMILY SUPPORTS:: Temo lives in a single family home in [place], [place] with his Valorie. They have 2 adult sons; one lives in [place] and the other lives in [place]. They have 4 grandchildren. 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 He is independent at baseline with ADLs and ambulation. CURRENT FUNCTIONAL STATUS:: Temo was sitting up in bed when CM met with him. He was polite but a little guarded in his responses. Temo informed CM that there had been some discussion about the need for a pacemaker but he stated Dr. Mathur told him today that she did not feel it is urgent. ADVANCE DIRECTIVES:: On file. Temo Givens [facility] Has patient been provided with info about the portal/API?: Yes Did the patient sign up for the portal?: No CODE STATUS:: Full Code INSURANCE COVERAGE / FINANCIAL ISSUES:: Medicare. AARP supplement CURRENT HOME/COMMUNITY SERVICES/EQUIPMENT:: none PRIMARY CARE PHYSICIAN:: Benny Torrez POTENTIAL DISCHARGE NEEDS:: follow up with PCP, cardiology and plan of care PATIENT/FAMILY EDUCATION NEEDS:: Review of discharge instructions, limitations, activity, medications, follow up plan, Ask Me Three TRANSPORTATION:: via private vehicle with family PLAN:: Anticipate Don will be discharged home, possibly with new home health services for PT. He will follow up with cardiology, his PCP and his plan of care as prescribed. CM will support Don and assess for ongoing discharge concerns.
[2023-02-04] MEDS: Omeprazole 20 MG CAPCR PO (09:43)
[2023-02-04] MEDS: Tamsulosin 0.4 MG CAPCR 0.8 MG PO (09:43)
[2023-02-04] MEDS: Normal Saline Flush 10 ML SYR IVP (09:43)
[2023-02-04] MEDS: Gabapentin 100 MG CAP PO ×2 (09:44→19:55)
[2023-02-04] MEDS: Multivitamin TAB 1 TAB PO (09:44)
[2023-02-04] MEDS: Doxycycline Hyclate 100 MG CAP PO ×2 (09:44→19:54)
[2023-02-04] MEDS: Allopurinol 100 MG TAB PO (09:44)
[2023-02-04] MEDS: Aspirin E.C. 81 MG TABEC PO (09:44)
[2023-02-04] MEDS: Pantoprazole 40 MG TABCR PO (09:44)
[2023-02-04] MEDS: Diclofenac 1% Gel 100 GM TUBE TP ×2 (10:16→16:22)
[2023-02-04 10:33] LABS: Lyme Ab w Rflx to Lyme Confirm Negative (Negative)
[2023-02-04 12:41] LABS: ALT 24 U/L (16-63); AST 28 U/L (15-37); Albumin 3.3 g/dL (3.4-5.0); Alkaline Phosphatase 184 U/L (46-116); Anion Gap 9.6 mmol/L (3-11); BUN 65 mg/dL (7-18); CO2 26.4 mmol/L (21.0-32.0); CREATININE 2.3 mg/dL (0.70-1.30); Calcium 9.1 mg/dL (8.5-10.1); Chloride 107 mmol/L (98-107); Estimated GFR 27.32 (mL/min/1.73m2); Glucose 99 mg/dL (74-106); Potassium 3.5 mmol/L (3.5-5.1); Sodium 143 mmol/L (136-145); Total Protein 6.9 g/dL (6.4-8.2)
--- NOTE | 2023-02-04 13:41 | W.CARDCONSUL ---
Date of service: 02/04/23 Time of Service: 12:30 Assessment and Plan Assessment and plan (1) Atrial fibrillation: Status: Chronic Assessment and plan: Patient has atrial fibrillation moderately slow rate though better off his beta-kylah. At present I do not see an urgent need for referral for pacemaker. He should be anticoagulated. I would recommend switching to one of the newer oral anticoagulants within the next 24 to 48 hours if he remains stable (2) Cardiac amyloidosis: Status: Acute Assessment and plan: Continue tafamidis (3) Diastolic heart failure: Status: Acute Assessment and plan: Patient is still volume overloaded. Continue diuretics as necessary to achieve better volume status Qualifiers: Heart failure chronicity: chronic Qualified Code(s): I50.32 - Chronic diastolic (congestive) heart failure History of Present Illness History of Present Illness Chief Complaint: Shortness of breath edema increasing abdominal girth Narrative: This is an 82-year-old man who has a diagnosis of amyloidosis. He has been followed primarily at [facility] and treated with tafamidis. He was fairly stable until several days prior to admission when he began to be more short of breath, edematous and increasing abdominal size. He presented to the emergency room today where he was found to be in atrial fibrillation with a slow ventricular response. Atrial fibrillation was a new diagnosis for him. He was admitted to the intensive care unit and heparinized. His low-dose beta-kylah was withheld. His heart rate has overall improved and is now running in the 50s where previously it was 20-40. He has been treated with diuretics with improvement. He says he is less short of breath, more comfortable. His biggest complaint is related to back pain which is chronic Echocardiography and cardiac MRI in the past has shown severely dilated left ventricle, moderate left ventricular hypertrophy, diastolic dysfunction, moderate mitral regurgitation He does not have any documented history of coronary artery disease EKG on presentation showed atrial fibrillation with a slow ventricular response, right axis, low voltage, poor R wave progression. Troponins have been borderline in the vicinity of 70 Review of Systems Cardiovascular Cardiovascular: Reports as per HPI, Denies chest pain, Reports leg edema, Reports dyspnea on exertion, Reports orthopnea, Reports paroxysmal nocturnal dyspnea and Reports slow heart rate Respiratory Respiratory: Reports dyspnea on exertion PFSH All Active Problems (Updated 02/03/23 @ 20:14 by Agustin Gil MD) Atrial fibrillation (Chronic) Bilateral hearing loss (Acute) Blepharoptosis, bilateral (Acute) having bilat blepharoplasties at [facility] on 11/11/22 Droopy eyelid (Acute) Ventricular tachycardia (Chronic) Heart murmur (Acute) 12/2021-consistent with known mitral regurgitation by echo Chronic kidney disease (Chronic) stage 3 Edema, peripheral (Acute) Bilateral hand swelling (Acute) Cholecystitis (Acute) Constipation (Acute) Wrist swelling (Acute) Arthralgia (Acute) Arthritis (Acute) Gout (Chronic) Low back pain (Acute) Cardiac amyloidosis (Acute) OAB (overactive bladder) (Acute) Cubital tunnel syndrome, bilateral (Acute) Bilateral carpal tunnel syndrome (Acute) Memory impairment (Acute) Spinal stenosis at L4-L5 level (Chronic 08/24/15) Narcolepsy (Chronic) Benign prostatic hyperplasia (Chronic 06/03/13) Elevated PSA; bx neg. in 1992; bx neg. in 1998; neg. bx 2006; neg bx 2008 Anxiety (Chronic) Hyperlipidemia (Chronic 06/22/13) Essential hypertension (Chronic) Diastolic heart failure (Acute) Atrial bigeminy (Acute) Edema (Acute) Bradycardia (Acute) Will need Holter monitor to assess heart irregularity and bradycardia prior to surgery. Will try to get done this week and he sees Dr. Castillo this Friday who can then hopefully clear him for surgery or put it on hold. Lab also done. Indigestion (Acute) Urgency of urination (Chronic 06/17/12) Retention of urine (Chronic 06/17/12) Restless legs (Chronic) Low back pain (Chronic) DJD; disc and fusion 1964; repeat surgery- 1994; recurrent sxs 07/10 and04/13 Knee pain (Chronic 02/11/13) left; S/P cartilage resection Impotence due to erectile dysfunction (Chronic 03/18/05) History of reactive hypoglycemia (Chronic 06/21/16) Hiatal hernia (Chronic 10/05/08) Diverticulosis of colon without diverticulitis (Chronic) Constipation by delayed colonic transit (Chronic) Bursitis of right shoulder (Chronic 08/24/15) Medical History Chronic pain syndrome (05/21/12) Ingrown toenail Rotator cuff tear arthropathy of right shoulder Surgical History Cubital tunnel syndrome on right S/P Release: 05/23/2021 HERNIA REPAIR (~05/2009) History of prostate surgery TURP 2012 History of spinal fusion KNEE REPAIR torn knee cartiledge 03/1971 /fuision Laminectomy? lower spine 10/1995 Open Carpal Tunnel release (~05/2006) B/L PROSTATE SURGERY (~10/2012) TURP 2012 - [facility] Replacement of total knee joint B/L 04/01/16 Right carpal tunnel syndrome S/P ECTR: 05/23/2021 Spinal Fusion 02/14 Status post carpal tunnel release Status post hernia repair Status post total knee replacement, bilateral (06/21/16) Family History Mother , AGE 65 Cancer Brother , age 84 Diabetes Maternal Grandfather , age 78 Heart disease Stroke Hyperlipidemia Paternal Grandfather Essential hypertension Heart disease Stroke Maternal Grandmother No problems noted. Paternal Grandmother No problems noted. Son No problems noted. Son Diabetes Father , age 94 No problems noted. Sister No problems noted. Social History Smoking/Tobacco Use Status: Never Second Hand Exposure: Yes Smoking risk assessment performed?: Yes Alcohol Intake: former Counseling given: No Drug use: Never Substance use type: does not use Caregiver/Support person: No Household members: spouse Housing: house Communication Needs: Hard of Hearing Pets and animals: Yes Pets and animals: dog(s) Sexually active: No Do you think of yourself as: straight/heterosexual Current gender identity: male What is your relationship status?: How often do you talk on the phone with friends or family?: twice per week How often do you get together with friends or relatives?: once per week How often do you attend scientologist or congregation services?: 1-3 times per year Do you belong to any clubs or organized social groups?: yes Panel score (0-1 are the most socially isolated patients): 3 What type of physical activity do you participate in: walking Duration: 15-30 minutes/day Frequency: 1-2 times per week Rafaela/Adventist: Presbyterian Special rafaela needs: No Seatbelt use: always Helmet use: Yes Helmet use: sometimes Drive intox or ride w/intox wrecking car driver: No Do you feel safe at home: Yes Do you feel safe in your relationship?: Yes Exam Const Other: Elderly no acute distress mildly hard of hearing Neck Other: Unable to assess JVP carotid pulsations are normal no bruits Resp Auscultation: clear to auscultation bilaterally Cardio Other: Heart is irregularly irregular bradycardic 2/6 systolic murmur Skin Other: Warm and dry Extrem Other: 2+ edema Results Last Vital Signs Temp 36.0 C L 02/04/23 04:05 Pulse 51 L 02/04/23 13:00 Resp 18 02/04/23 13:00 BP 112/81 02/04/23 13:00 Pulse Ox 92 02/04/23 13:00 Labs 02/04/23 06:05 02/04/23 06:05 Labs: Laboratory Results - last 24 hr 02/03/23 02/03/23 02/03/23 13:23 13:23 13:23 WBC RBC Hgb Hct MCV MCH MCHC RDW Plt Count MPV Immature Gran % Neutrophils % Lymphocytes % Monocytes % Eosinophils % Basophils % Nucleated RBC % Absolute Neutrophils Absolute Lymphocytes Absolute Monocytes Absolute Eosinophils Absolute Basophils PT INR APTT Sodium 141 Potassium 3.5 Chloride 107 Carbon Dioxide 23.8 Anion Gap 10.2 BUN 67 H Creatinine 2.4 H Est GFR (CKD-EPI 2020) 25.96 Glucose 140 H Calcium 9.2 Magnesium 2.1 Total Bilirubin 1.1 H AST 34 ALT 29 Alkaline Phosphatase 195 H Troponin I 71 H* NT-Pro-B Natriuret Pep 80560 H Total Protein 7.4 Albumin 3.6 TSH 1.86 Cancelled Urine Color Urine Clarity Urine pH Ur Specific [place] Urine Protein Urine Ketones Urine Blood Urine Nitrite Urine Bilirubin Urine Urobilinogen Ur Leukocyte Esterase Urine Glucose 02/03/23 02/03/23 02/03/23 15:12 16:22 20:10 WBC RBC Hgb Hct MCV MCH MCHC RDW Plt Count MPV Immature Gran % Neutrophils % Lymphocytes % Monocytes % Eosinophils % Basophils % Nucleated RBC % Absolute Neutrophils Absolute Lymphocytes Absolute Monocytes Absolute Eosinophils Absolute Basophils PT INR APTT Sodium Potassium Chloride Carbon Dioxide Anion Gap BUN Creatinine Est GFR (CKD-EPI 2020) Glucose Calcium Magnesium Total Bilirubin AST ALT Alkaline Phosphatase Troponin I 73 H* 72 H* NT-Pro-B Natriuret Pep Total Protein Albumin TSH Urine Color Yellow Urine Clarity Clear Urine pH 5.5 Ur Specific [place] 1.015 Urine Protein Negative Urine Ketones Negative Urine Blood Negative Urine Nitrite Negative Urine Bilirubin Negative Urine Urobilinogen 0.2 Ur Leukocyte Esterase Negative Urine Glucose Negative 02/03/23 02/04/23 02/04/23 20:40 06:05 06:05 WBC RBC Hgb Hct MCV MCH MCHC RDW Plt Count MPV Immature Gran % Neutrophils % Lymphocytes % Monocytes % Eosinophils % Basophils % Nucleated RBC % Absolute Neutrophils Absolute Lymphocytes Absolute Monocytes Absolute Eosinophils Absolute Basophils PT 11.6 H INR 1.1 APTT 29.2 > 155.0 H* Sodium Potassium Chloride Carbon Dioxide Anion Gap BUN Creatinine Est GFR (CKD-EPI 2020) Glucose Calcium Magnesium 2.1 Total Bilirubin AST ALT Alkaline Phosphatase Troponin I NT-Pro-B Natriuret Pep 98249 H Total Protein Albumin TSH Urine Color Urine Clarity Urine pH Ur Specific [place] Urine Protein Urine Ketones Urine Blood Urine Nitrite Urine Bilirubin Urine Urobilinogen Ur Leukocyte Esterase Urine Glucose 02/04/23 02/04/23 06:05 06:05 WBC 6.76 RBC 3.11 L Hgb 10.6 L Hct 31.9 L MCV 103 H MCH 34.1 H MCHC 33.2 RDW 14.5 H Plt Count 160 MPV 10.1 Immature Gran % 0.3 Neutrophils % 65.8 Lymphocytes % 14.8 Monocytes % 14.6 Eosinophils % 3.8 Basophils % 0.7 Nucleated RBC % 0.0 Absolute Neutrophils 4.44 Absolute Lymphocytes 1.00 L Absolute Monocytes 0.99 H Absolute Eosinophils 0.26 Absolute Basophils 0.05 PT INR APTT Sodium 143 Potassium 3.5 Chloride 107 Carbon Dioxide 26.4 Anion Gap 9.6 BUN 65 H Creatinine 2.3 H Est GFR (CKD-EPI 2020) 27.32 Glucose 99 Calcium 9.1 Magnesium Total Bilirubin 1.0 AST 28 ALT 24 Alkaline Phosphatase 184 H Troponin I NT-Pro-B Natriuret Pep Total Protein 6.9 Albumin 3.3 L TSH Urine Color Urine Clarity Urine pH Ur Specific [place] Urine Protein Urine Ketones Urine Blood Urine Nitrite Urine Bilirubin Urine Urobilinogen Ur Leukocyte Esterase Urine Glucose
--- NOTE | 2023-02-04 14:34 | W.PM.PROGNOT ---
Date of Service Date of service: 02/04/23 Time of Service: 14:34 Assessment and Plan Assessment and plan (1) Atrial fibrillation: Status: Chronic Assessment and plan: Patient presents with new onset atrial fibrillation with significant bradycardia. He has minimally elevated troponins but no symptoms of chest pain. [id number] ultrasound showed no regional wall motion abnormalities. Formal echocardiogram penidng. 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 Likely intrinsic conduction problems from his cardiac amyloidosis. Bradycardia is exacerbated by the metoprolol XL which is being held. He has been heparinized for stroke prevention. He is followed by the heart failure clinic at [facility]. Dr Mathur cosulted / appreciated. Changing to Eliquis. No emergent need for pacemaker. Does have evidence of bilateral basilar B-lines on [id number] ultrasound of his lungs no pleural effusions. He has evidence of peripheral edema with increased abdominal girth increased pedal and pretibial edema. 2 doses of IV lasix have been given; continue with 40mg IV daily. (2) Bradycardia: Status: Acute Assessment and plan: Withhold beta-blockers and any AV jannette blocking agents. If he becomes hypotensive then will give atropine and begin transthoracic pacer. If this occurs then he will certainly need to be acutely transferred to [facility] or another tertiary care center. (3) Diastolic heart failure: Status: Acute Assessment and plan: Patient's been symptomatic with 10 pound weight gain over the past couple months along with increasing pedal edema and abdominal girth. Based on his chest x-ray and his BUN/creatinine 1 would not expect him to be fluid overloaded however his proBNP is certainly elevated and his POCUS exam of his lungs suggest increased interstitial edema particularly in the lower lung larry bilaterally. Cont lasix 40mg IV daily. Qualifiers: Heart failure chronicity: chronic Qualified Code(s): I50.32 - Chronic diastolic (congestive) heart failure (4) Cardiac amyloidosis: Status: Acute (5) Chronic kidney disease: Status: Chronic Assessment and plan: We will monitor his urine output response to Lasix and monitor his BMP. (6) Essential hypertension: Status: Chronic Assessment and plan: Holding metoprolol in light of his bradycardia. Subjective Subjective Patient reports: no new complaints and afebrile; denies diarrhea, nausea, vomiting or shortness of breath Interval history since last seen: No CP or palpitations. Exam Narrative Exam Narrative: Elderly white male lying in bed, He is alert and oriented person place time circumstance. NAD. Mildly hearing impaired. Does wear hearing aids. Neck No JVD Lungs clear to auscultation anteriorly Heart is irregularly irregular at a slow rate Abdomen slightly distended soft normal bowel sounds nontender no guarding Lower extremities 1+ pitting edema Neurologic exam grossly intact no focal motor or sensory deficits Objective Last Vital Signs Temp 36.2 C L 02/04/23 12:00 Pulse 51 L 02/04/23 13:00 Resp 8 L 02/04/23 13:50 BP 112/81 02/04/23 13:00 Pulse Ox 96 02/04/23 13:50 Laboratory Results - last 24 hr 02/03/23 02/03/23 02/03/23 13:23 15:12 16:22 WBC RBC Hgb Hct MCV MCH MCHC RDW Plt Count MPV Immature Gran % Neutrophils % Lymphocytes % Monocytes % Eosinophils % Basophils % Nucleated RBC % Absolute Neutrophils Absolute Lymphocytes Absolute Monocytes Absolute Eosinophils Absolute Basophils PT INR APTT Sodium Potassium Chloride Carbon Dioxide Anion Gap BUN Creatinine Est GFR (CKD-EPI 2020) Glucose Calcium Magnesium Total Bilirubin AST ALT Alkaline Phosphatase Troponin I 71 H* 73 H* NT-Pro-B Natriuret Pep Total Protein Albumin Urine Color Yellow Urine Clarity Clear Urine pH 5.5 Ur Specific [place] 1.015 Urine Protein Negative Urine Ketones Negative Urine Blood Negative Urine Nitrite Negative Urine Bilirubin Negative Urine Urobilinogen 0.2 Ur Leukocyte Esterase Negative Urine Glucose Negative 02/03/23 02/03/23 02/04/23 20:10 20:40 06:05 WBC RBC Hgb Hct MCV MCH MCHC RDW Plt Count MPV Immature Gran % Neutrophils % Lymphocytes % Monocytes % Eosinophils % Basophils % Nucleated RBC % Absolute Neutrophils Absolute Lymphocytes Absolute Monocytes Absolute Eosinophils Absolute Basophils PT 11.6 H INR 1.1 APTT 29.2 > 155.0 H* Sodium Potassium Chloride Carbon Dioxide Anion Gap BUN Creatinine Est GFR (CKD-EPI 2020) Glucose Calcium Magnesium Total Bilirubin AST ALT Alkaline Phosphatase Troponin I 72 H* NT-Pro-B Natriuret Pep Total Protein Albumin Urine Color Urine Clarity Urine pH Ur Specific [place] Urine Protein Urine Ketones Urine Blood Urine Nitrite Urine Bilirubin Urine Urobilinogen Ur Leukocyte Esterase Urine Glucose 02/04/23 02/04/23 02/04/23 06:05 06:05 06:05 WBC 6.76 RBC 3.11 L Hgb 10.6 L Hct 31.9 L MCV 103 H MCH 34.1 H MCHC 33.2 RDW 14.5 H Plt Count 160 MPV 10.1 Immature Gran % 0.3 Neutrophils % 65.8 Lymphocytes % 14.8 Monocytes % 14.6 Eosinophils % 3.8 Basophils % 0.7 Nucleated RBC % 0.0 Absolute Neutrophils 4.44 Absolute Lymphocytes 1.00 L Absolute Monocytes 0.99 H Absolute Eosinophils 0.26 Absolute Basophils 0.05 PT INR APTT Sodium 143 Potassium 3.5 Chloride 107 Carbon Dioxide 26.4 Anion Gap 9.6 BUN 65 H Creatinine 2.3 H Est GFR (CKD-EPI 2020) 27.32 Glucose 99 Calcium 9.1 Magnesium 2.1 Total Bilirubin 1.0 AST 28 ALT 24 Alkaline Phosphatase 184 H Troponin I NT-Pro-B Natriuret Pep 74694 H Total Protein 6.9 Albumin 3.3 L Urine Color Urine Clarity Urine pH Ur Specific [place] Urine Protein Urine Ketones Urine Blood Urine Nitrite Urine Bilirubin Urine Urobilinogen Ur Leukocyte Esterase Urine Glucose 02/04/23 12:51 WBC RBC Hgb Hct MCV MCH MCHC RDW Plt Count MPV Immature Gran % Neutrophils % Lymphocytes % Monocytes % Eosinophils % Basophils % Nucleated RBC % Absolute Neutrophils Absolute Lymphocytes Absolute Monocytes Absolute Eosinophils Absolute Basophils PT INR APTT 122.0 H* Sodium Potassium Chloride Carbon Dioxide Anion Gap BUN Creatinine Est GFR (CKD-EPI 2020) Glucose Calcium Magnesium Total Bilirubin AST ALT Alkaline Phosphatase Troponin I NT-Pro-B Natriuret Pep Total Protein Albumin Urine Color Urine Clarity Urine pH Ur Specific [place] Urine Protein Urine Ketones Urine Blood Urine Nitrite Urine Bilirubin Urine Urobilinogen Ur Leukocyte Esterase Urine Glucose Time Spent with Patient Time Spent with Patient: 35-49 minutes Time was spent: preparing to see the patient(eg.review tests), obtaining and/or reviewing separately otained hiistory, ordering medications,tests, procedures, referring, communicating with other health physician primary care sports medicine and indepentently interpreting results
--- NOTE | 2023-02-04 14:49 | PHA.REVIEW2 ---
Pharmacy Admission Review - Admission Clinical Review (Last Reviewed 02/03/23 @ 20:09 by Agustin Gil MD) Cardiac amyloidosis (Acute) Diastolic heart failure (Acute) Bradycardia (Acute) morphine Allergy (Severe, Verified 02/03/23 13:05) Penicillins Allergy (Verified 02/03/23 13:05) Skin Rash celecoxib Adverse Reaction (Verified 02/03/23 13:05) GI Bleeding oxycodone Allergy (Severe, Uncoded 02/03/23 13:05) Resuscitation Status Full Code Height 5 ft 10 in Weight 82.6 kg - Renal Dosing Renal Dosing: BUN 65 mg/dL (7-18) H 02/04/23 06:05 Creatinine 2.3 mg/dL (0.70-1.30) H 02/04/23 06:05 Medications needing adjustments: Intervened List of meds needing interventions: eCrCl 27 ml/min; apixaban renally adjusted to 2.5 BID - Anticoagulation Anticoagulation: Hgb 10.6 g/dL (13.5-17.5) L 02/04/23 06:05 Hct 31.9 % (40.0-50.0) L 02/04/23 06:05 Plt Count 160 10^3/uL (130-400) 02/04/23 06:05 INR 1.1 (0.9-1.1) 02/03/23 20:40 Creatinine 2.3 mg/dL (0.70-1.30) H 02/04/23 06:05 Therapeutic Anticoagulation: Reviewed Medications: Apixaban - Opiate Usage Evaluate Pain Scale/Pains Meds: N/A - Relevant Labs Sodium 143 mmol/L (136-145) 02/04/23 06:05 Potassium 3.5 mmol/L (3.5-5.1) 02/04/23 06:05 Chloride 107 mmol/L (98-107) 02/04/23 06:05 Magnesium 2.1 mg/dL (1.8-2.4) 02/04/23 06:05 - DM Control DM Control: Glucose 99 mg/dL (74-106) 02/04/23 06:05 - Cardiac Review Cardiac Review: Troponin I 72 ng/L (<or=60) H* 02/03/23 20:10 NT-Pro-B Natriuret Pep 98180 pg/mL (<300) H 02/04/23 06:05 BP, HR, EF%: Reviewed (Lasix 40MG IVP daily scheduled, tafamidis (pt's own med for cardiac amyloidosis), low dose beta kylah held due to bradycardia) - Qtc Review If Elevated, List meds needing intervention: 415 on admission - IV to PO Switch IV Medications: Reviewed - Home Meds Home Med List reviewed: Reviewed Relevent Home Meds Not ordered & why?: not ordered: metoprolol (held d/t HR in 20-40s), spironolactone - Current meds Current Medication Order Review: Reviewed (heparin gtt due to stop and apixiban will begin tonight @ 1999)
[2023-02-04] MEDS: Furosemide 40 MG/4 ML VIAL IVP (15:36)
--- NOTE | 2023-02-04 16:49 | CHAPLAIN ---
Nurse Yulia was getting Temo comfortable in the recliner when I visited this afternoon. He said he is more comfortable being in the recliner and sleeping in the recliner because of back pain. 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 He has lived in [place] his whole life. He talked about the support he has received from his sons as he has become less able to do some things. He is very appreciative of their support. Temo is part of the [facility] and said his has likely let the manager book know that Temo is here.
[2023-02-04] MEDS: Lidocaine 5% Patch 1 PATCH TP (18:37)
[2023-02-04] MEDS: Apixaban 2.5 MG TAB PO (19:55)
[2023-02-04 20:18] LABS: PTT Activated 58.1 sec (21.5-31.9)
[2023-02-04] MEDS: Simvastatin 10 MG TAB 5 MG PO (21:07)
[2023-02-05] VITALS (31 sets, daily range): BP systolic 72–136; BP diastolic 36–79; PULSE 37–77; RESP 11–24; TEMP 35.9–36.2; O2SAT 94–98
[2023-02-05 07:29] LABS: Anion Gap 9.1 mmol/L (3-11); BUN 65 mg/dL (7-18); CO2 25.9 mmol/L (21.0-32.0); CREATININE 2.3 mg/dL (0.70-1.30); Chloride 106 mmol/L (98-107); Estimated GFR 27.32 (mL/min/1.73m2); Glucose 101 mg/dL (74-106); Potassium 3.6 mmol/L (3.5-5.1); Sodium 141 mmol/L (136-145)
[2023-02-05] MEDS: Lidocaine Patch Removal 1 EACH TP (07:55)
[2023-02-05] MEDS: Omeprazole 20 MG CAPCR PO (07:56)
--- NOTE | 2023-02-05 08:35 | PDOC.CMPRO ---
- If Service Date Differs Date of service: 02/05/23 Time of Service: 08:35 Care Management Progress Note S/O: A: Temo is an 82 year old man admitted on 02/03/23 with bradycardia snd CHF P:Anticipate Juliano will be discharged home, possibly with new home health services for PT. He will follow up with cardiology, his PCP and his plan of care as prescribed. CM will support Juliano and assess for ongoing discharge concerns.
[2023-02-05] MEDS: Aspirin E.C. 81 MG TABEC PO (08:36)
[2023-02-05] MEDS: Doxycycline Hyclate 100 MG CAP PO (08:37)
[2023-02-05] MEDS: Apixaban 2.5 MG TAB PO (08:37)
[2023-02-05] MEDS: Allopurinol 100 MG TAB PO (08:37)
[2023-02-05] MEDS: Tamsulosin 0.4 MG CAPCR 0.8 MG PO (08:37)
[2023-02-05] MEDS: Multivitamin TAB 1 TAB PO (08:37)
[2023-02-05] MEDS: Gabapentin 100 MG CAP PO (08:37)
[2023-02-05] MEDS: Diclofenac 1% Gel 100 GM TUBE TP ×2 (08:39→11:49)
[2023-02-05] MEDS: Normal Saline Flush 10 ML SYR IVP (08:39)
[2023-02-05] MEDS: Furosemide 40 MG/4 ML VIAL IVP (08:39)
--- NOTE | 2023-02-05 11:29 | IN_ITS ---
Date of service: 02/05/23 Time of Service: 10:39 PT Notes Visit Reasons: Bradycardia, Acute CHF Physical Therapy Inpatient Initial Evaluation Date: 02/05/2023 Referring Doctor: Anthony Mendez MD PT Orders: PT CONSULT: Eval/Treat Precautions: Fall. Standard. Activity as tolerated. Patient Profile/Admitting Diagnosis: Temo is an 82-year-old male who presented to the ED on 02/03/2023 due to fluid overload. Patient is admitted to [facility] for management of atrial fibrillation, bradycardia, diastolic heart failure, cardiac amyloidosis, chronic kidney disease, and essential hypertension. PMHX: All Active Problems?(Updated 02/03/23 @ 20:14 by Agustin Gil MD) Atrial fibrillation (Chronic) Bilateral hearing loss (Acute) Blepharoptosis, bilateral (Acute) having bilat blepharoplasties at [facility] on 11/11/22 Droopy eyelid (Acute) Ventricular tachycardia (Chronic) Heart murmur (Acute) 12/2021-consistent with known mitral regurgitation by echo Chronic kidney disease (Chronic) stage 3 Edema, peripheral (Acute) Bilateral hand swelling (Acute) Cholecystitis (Acute) Constipation (Acute) Wrist swelling (Acute) Arthralgia (Acute) Arthritis (Acute) Gout (Chronic) Low back pain (Acute) Cardiac amyloidosis (Acute) OAB (overactive bladder) (Acute) Cubital tunnel syndrome, bilateral (Acute) Bilateral carpal tunnel syndrome (Acute) Memory impairment (Acute) Spinal stenosis at L4-L5 level (Chronic 08/24/15) Narcolepsy (Chronic) Benign prostatic hyperplasia (Chronic 06/03/13) Elevated PSA; bx neg. in 1992; bx neg. in 1998; neg. bx 2006; neg bx 2008 Anxiety (Chronic) Hyperlipidemia (Chronic 06/22/13) Essential hypertension (Chronic) Diastolic heart failure (Acute) Atrial bigeminy (Acute) Edema (Acute) Bradycardia (Acute) Will need Holter monitor to assess heart irregularity and bradycardia prior to surgery. Will try to get done this week and he sees Dr. Castillo this Friday who can then hopefully clear him for surgery or put it on hold.? Lab also done.Indigestion (Acute) Urgency of urination (Chronic 06/17/12) Retention of urine (Chronic 06/17/12) Restless legs (Chronic) Low back pain (Chronic) DJD; disc and fusion 1964; repeat surgery- 1994; recurrent sxs 07/10 and04/13 Knee pain (Chronic 02/11/13) left; S/P cartilage resection Impotence due to erectile dysfunction (Chronic 03/18/05) History of reactive hypoglycemia (Chronic 06/21/16) Hiatal hernia (Chronic 10/05/08) Diverticulosis of colon without diverticulitis (Chronic) Constipation by delayed colonic transit (Chronic) Bursitis of right shoulder (Chronic 08/24/15) Medical History? Chronic pain syndrome (05/21/12) Ingrown toenail Rotator cuff tear arthropathy of right shoulder Surgical History? Cubital tunnel syndrome on right S/P Release: 05/23/2021 HERNIA REPAIR (~05/2009) History of prostate surgery TURP 2012 History of spinal fusion KNEE REPAIR torn knee cartiledge 03/1971 /fuision Laminectomy? lower spine 10/1995 Open Carpal Tunnel release (~05/2006) B/LPROSTATE SURGERY (~10/2012) TURP 2012 - [facility] Replacement of total knee joint B/L 04/01/16 Right carpal tunnel syndrome S/P ECTR: 05/23/2021 Spinal Fusion 02/14 Status post carpal tunnel release Status post hernia repair Status post total knee replacement, bilateral (06/21/16) Social History/Home Situation: Lives with in a private home with a ramp to enter. Requires no ambulatory device indoors but has a 4 wheeled walker for all outdoor ambulation. Equipment Owned/DME: SPC, [employer] Subjective: Agreeable to PT consult. Agrees that using the walker for long distance ambulation really helps his low back, denies his SOB, and enables him to walk farther. Reports some weakness that he is willing to work with home health PT for. Objective: General Observation: Telemetry monitoring in place. Seated on bedside chair. Minimal swelling to distal B legs Mental Status: Alert and oriented as to person, place, time, and purpose. Able to pay attention, focus, and respond appropriately. Pain: Denies Vital Signs: BP for walk 136/79 mmHg, HR 68 bpm, and RA 98% on room air. BP after walking 119 over 61 mmHg. ROM: Right Upper Extremity: Shoulder Flexion allows up to 90 degrees. Shoulder abduction allows up to about 80 degrees. Elbow flexion WFL. Wrist flexion WFL. Functional opening and closing of hand WFL. Left Upper Extremity: Shoulder Flexion WFL. Shoulder abduction WFL. Elbow flexion WFL. Wrist flexion WFL. Functional opening and closing of hand WFL. Right Lower Extremity: Hip flexion WFL. Hip abduction WFL. Knee flexion WFL. Ankle dorsiflexion to neutral only. Ankle plantarflexion WFL. Left Lower Extremity: Hip flexion WFL. Hip abduction WFL. Knee flexion WFL. Ankle dorsiflexion to neutral only. Ankle plantarflexion WFL. Strength: Right Upper Extremity: Shoulder flexors 3-/5. Shoulder abductors 3-/5. Elbow flexors 4-/5. Elbow extensors 4-/5. Franchise Business Consultant strong. Left Upper Extremity: Shoulder flexors 4-/5. Shoulder abductors 4-/5. Elbow flexors 4-/5. Elbow extensors 4-/5. Franchise Business Consultant strong. Right Lower Extremity: Hip flexors 4-/5. Hip abductors 4-/5. Knee flexors 4-/5. Knee extensors 4-/5. Ankle dorsiflexors 3-/5. Ankle plantarflexors 4-/5. Left Lower Extremity: Hip flexors 4-/5. Hip abductors 4-/5. Knee flexors 4-/5. Knee extensors 4-/5. Ankle dorsiflexors 3-/5. Ankle plantarflexors 4-/5. Bed Mobility/Transfers: Sit to stand with standby assist Stand to sit with standby assist Bed to reclining chair standby assist Gait: Instructed patient with level surface ambulation of 400 feet requiring stand by assist. Cherelle decreased. Step height decreased. Step length decreased. Minimal shortness of breath needing 1-2 standing rests with quick recovery. BP for walk 136/79 mmHg, HR 68 bpm, and RA 98% on room air. BP after walking 119 over 61 mmHg. Balance: Static Sitting: Normal Dynamic Sitting: Normal Static Standing: Good Dynamic Standing: Fair Special Tests: Mobility Limitations Standardized Measure [facility] 6 clicks Basic Mobility Inpatient Short Form: Raw Score: 23 CMS Score: 11% deficit 4-stage balance test: Able to do either for 10 seconds but is unable to do so with semi-tandem, tandem, and 1 legged stance indicating a risk for falls and need for use of a front wheeled walker. Informed Consent/Education: Patient was instructed in purpose of PT consult and plan of care. Agreeable to proceed with established PT POC to achieve personal goals. Assessment: Patient requires the use of a front wheeled walker for all long distance outdoor ambulation. Will benefit from home health PT in order to facilitate return to function with no AD for indoors. Patient presents with clinical signs and symptoms consistent with current/admitting diagnoses that have resulted to mobility limitations, gait instability, generalized weakness, and overall ADL decline as demonstrated by the following impairment level findings: 1. Decreased strength to B UE/LE major muscle groups 2. Impaired standing balance 3. Impaired activity tolerance 4. Limitation of joint range of motion in R shoulder (chroninc) 5. Shortness of breath 6. Swelling in B legs (minimal) Impairments are contributing to the following functional limitations: 1. Decline in bed mobility skills 2. Decline in transfer skills 3. Difficulty with ambulation without assistive device and physical assistance 4. Increased completion time for mobility ADL performance 5. Increased risk for falls Patient is assessed as a 46272 complexity based on the following: History: 82-year-old male with past medical history as indicated above Examination: Demonstrable impairment in strength, balance, and mobility level with underlying impairments and functional limitations as exhibited above as well as deficit score of 11% utilizing the [facility] Mobility Inpatient Short Form Presentation: Stable Decision Makin moderate complexity Goals: N/A. PT evaluation 1 treatment session only for functional mobility retraining and HEP instruction. Plan of Care/Treatment Plan: N/A. PT evaluation 1 treatment session only for functional mobility retraining and HEP instruction. DISCHARGE RECOMMENDATIONS: [] Home with no services [] [X] Home with services. Patient will benefit from home health PT services in order to progress mobility level using least restrictive assistive ambulatory device, assess home safety, identify additional equipment needs, and establish a functional maintenance program that will increase ability of patient to remain at home. [][ Home with outpatient PT [] SNF for continued rehabilitation [] [] [facility] [] [] SNF versus LTC based on ability to participate and progress [] TREATMENT CODE/TIME: 56497 x 25 minutes, 10540 x 16 minutes beginning at 10:39 AM. Thank you for the opportunity to participate in the care of this patient. Nini Gordon PT, DPT, CLT [facility] [place], [place]
--- NOTE | 2023-02-05 12:41 | W.PM.DS.N ---
Date of service: 02/05/23 Time of Service: 12:42 DS: Diagnosis Discharge Diagnosis (1) Atrial fibrillation: Status: Chronic Asessment and Plan: Likely secondary to cardiac cardiomyopathy. Bradycardia related to beta kylah. Now off metoprolol and heart rate significantly improved. He may need to restart metoprolol but at a lower dose if he develops tachycardia. He is going to monitor heart rate with a pulsoximeter and present the results to his PCP in follow up. Eliquis 2.5mg BID for AC. Echocardiogram: Mild concentric left ventricular hypertrophy.? Normal left ventricular chamber size.? Estimated ejection fraction is 55% with normal wall motion. Dr Mathur, cardiology, was consulted. (2) Bradycardia: Status: Acute Asessment and Plan: As above. (3) Diastolic heart failure: Status: Acute Asessment and Plan: Cont lasix, low Na diet. Consider Jardiance; discuss with PCP. (4) Cardiac amyloidosis: Status: Acute Asessment and Plan: Cont current treatment per cardiology. (5) Chronic kidney disease: Status: Chronic Asessment and Plan: Creatinine 2.3; elevated above previous levels per results in chart from various times last year. Follow as outpt. (6) Essential hypertension: Status: Chronic Asessment and Plan: Metoprolol was stopped. BP normal but will warrant monitoring. Discharge Plan Disposition Patient Disposition: Home W/Home Health Services Condition: Improving Discharge Details Reason For Visit: Bradycardia, Acute CHF Admit Date/Time: 02/03/23 16:30 Admit Provider: Agustin Gil Attending Provider: Agustin Gil Primary Care Provider: Benny Torrez Hospital Course Hospital Course: This 82-year-old male with a past medical history significant for TTR amyloid cardiomyopathy who has been maintained on Lasix and Toprol-XL and treated with tafamidis presents to the emergency department chief complaint of fluid overload according to his .? Reportedly gained 10 pounds in the past month primarily noted in his abdomen.? Then increased shortness of breath with exertion and bilateral lower extremity edema.? No chest pain or pressure.? Evaluation in the emergency department demonstrated his rhythm to be in atrial fibrillation at a slow rate in the 30s.? External pacer pads were applied to him but did not require initiation of pacing.? ECG demonstrated atrial fibrillation rate of 43 but beats per minute with nonspecific intraventricular conduction delay.? Low voltage is seen throughout the extremity leads. Chest 2 Views showed no acute pulmonary findings he has stable cardiomegaly and no pleural effusions or infiltrates.? Laboratory studies include a CBC that shows macrocytic anemia hemoglobin 11.2g hematocrit 33% MCV 105 with elevated RDW of 14.6.? White cell count is normal at 6400.? CMP shows an elevated BUN and creatinine of 67 and 2.4 which is above his baseline level of 41 and 1.8.? Glucose elevated 140.? Alk phos is elevated 195.? Initial troponin I was elevated at 71 with a repeat level of 73.? proBNP is elevated 10,773 previous levels were 5500 one year ago.? TSH is normal at 1.86.? Urinalysis was unremarkable.? Tick panel was ordered. Patient was admitted to ICU for cardiac monitoring, cessation of his Toprol XL and serial troponin levels. See Diagnosis PCP f/u in 1-2 weeks. Home Meds and New Rx's Prescriptions: New Eliquis 2.5 mg tablet 2.5 mg PO BID Qty: 30 0RF Continued Vyndaqel 20 mg capsule 80 mg PO DAILY Patient Comments: 05/03/21 rx by [facility], [place] flaxseed oil 1,000 mg capsule 1,000 mg PO DAILY Rx Instructions: administer with a meal Metamucil (sugar) Powder 2 tsp PO ONCE PRN Patient Comments: 01/21/22 pt states he takes a sugar free metamucil RH furosemide 40 mg tablet 40 mg PO BID Qty: 180 3RF gabapentin 100 mg capsule 100 mg PO BID Qty: 180 3RF Rx Instructions: May take 2 twice daily if needed. multivitamin 1 EACH capsule 1 ea PO DAILY glucosam-chond ic-vzzdsh-ec ac 1 EACH capsule 1 ea PO DAILY sennosides 8.6 mg tablet 8.6 mg PO DAILY PRN (Reason: constipation) Qty: 90 0RF diclofenac sodium [Voltaren Arthritis Pain] 1 % gel 4 g topical QID Qty: 100 0RF Rx Instructions: apply to neck, back tamsulosin [Flomax] 0.4 mg capsule 0.8 mg PO DAILY Qty: 180 3RF omeprazole 20 mg capsule,delayed release(DR/EC) 20 mg PO DAILY Qty: 90 3RF simvastatin 10 mg tablet 5 mg PO HS Qty: 45 4RF tramadol 50 mg tablet 50 mg PO BID PRN (Reason: pain) Qty: 60 0RF spironolactone 25 mg tablet See Rx Instructions .ROUTE .COMPLEX Qty: 45 3RF Dose Instruction: TAKE 1/2 TABLET BY MOUTH DAILY Rx Instructions: TAKE 1/2 TABLET BY MOUTH DAILY allopurinol 100 mg tablet 100 mg PO DAILY Qty: 90 3RF docusate sodium [Colace] 100 mg capsule 200 mg PO QHS PRN (Reason: constipation) Qty: 20 0RF acetaminophen 500 mg capsule 500 mg PO Q4H PRN (Reason: pain) Qty: 30 0RF Held metoprolol succinate 25 mg tablet extended release 24 hr 25 mg PO BID Qty: 180 3RF Hold Instructions: Hold until PCP followup. Monitor heart rate three times daily and report that to PCP. Discharge Instructions Additional Instructions: Hold metoprolol until PCP follow up. Monitor heart rate at least 3 times daily and make a log of results to present to PCP. Pulsoximeter; purchase [id number] at pharmacy. Activity:: Activity as Tolerated Equipment/Supplies:: No Equipment Needed Diet:: resume usual home diet Discharge Orders Discharge Orders: Discharge Order (Routine); Ordered 02/05/23 Ordered By: Anthony Mendez Discharge Data Discharge Date/Time-TO BE ENTERED AT DEPARTURE: 02/05/23 13:36 DS: Summary Time Spent with Patient providing and/or coordinating discharge services: Greater than 30 minutes Status at Discharge Functional status at discharge: independent ambulation Overall status at discharge: patient is progressing back to baseline Mental Status: mental status grossly normal Speech and Movement: speech clear Mood: congruent mood Affect: normal affect Exam Narrative Exam Narrative: Elderly white male lying in bed, He is alert and oriented person place time circumstance. NAD. Mildly hearing impaired. Does wear hearing aids. Neck No JVD Lungs clear to auscultation anteriorly Heart is irregularly irregular at a slow rate Abdomen soft, NT. Lower extremities tr edema Neurologic exam grossly intact no focal motor or sensory deficits Psych Mental Status: mental status grossly normal Speech and Movement: speech clear Mood: congruent mood Affect: normal affect DS: Data Vitals/I&O Vitals and I&O: Vital Signs Temperature 36.2 C L 02/05/23 04:15 Temperature Source Temporal Artery Scan 02/05/23 04:15 Pulse 51 L 02/05/23 11:57 Pulse Rhythm Regular 02/05/23 08:30 Pulse 49 L 02/05/23 11:57 Respiratory Rate 16 02/05/23 11:57 Respiratory Effort Normal, Non-Labored 02/05/23 08:30 Respiratory Depth Normal 02/05/23 08:30 Respiratory Pattern Normal 02/05/23 08:30 Blood Pressure 118/59 L 02/05/23 11:57 Blood Pressure Mean 71 02/05/23 11:57 Blood Pressure Position Sitting 02/05/23 04:00 Pulse Oximetry 98 02/05/23 11:07 Oxygen Delivery Method Room Air 02/05/23 04:00 Oxygen Flow Rate 0 02/05/23 04:00 Pain Level 0 02/05/23 04:00 Comment RN notified 02/05/23 04:15 Intake & Output 02/04/23 02/05/23 02/05/23 23:59 11:59 23:59 Intake Total 339.125 / 679.375 300 / 300 Output Total 1575 / 2600 750 / 750 Balance -1235.875 / -1920.625 -450 / -450 Weight 82.2 kg Intake: IV 99.125 / 239.375 0 / 0 Oral 240 / 440 300 / 300 Output: Urine 1575 / 2600 750 / 750 Other: Urine Color Yellow Yellow Urine Appearance Clear Clear Urine Odor Normal None Comment Patient stands to void in urinal. Patient stands to void in urinal. Stool Size Small Moderate Stool Characteristics Soft Soft Formed Voiding Methods Urinal Urinal Data Completed and Pending Labs on day of discharge: Labs from last 24 hours 02/05/23 02/05/23 02/04/23 06:05 02:00 19:58 APTT Cancelled 58.1 H Sodium 141 Potassium 3.6 Chloride 106 Carbon Dioxide 25.9 Anion Gap 9.1 BUN 65 H Creatinine 2.3 H Est GFR (CKD-EPI 2020) 27.32 Glucose 101 Calcium 9.0 Total Bilirubin AST ALT Alkaline Phosphatase Total Protein Albumin Lyme Disease Antibody 02/04/23 02/04/23 02/03/23 12:51 06:05 13:23 APTT 122.0 H* Sodium 143 Potassium 3.5 Chloride 107 Carbon Dioxide 26.4 Anion Gap 9.6 BUN 65 H Creatinine 2.3 H Est GFR (CKD-EPI 2020) 27.32 Glucose 99 Calcium 9.1 Total Bilirubin 1.0 AST 28 ALT 24 Alkaline Phosphatase 184 H Total Protein 6.9 Albumin 3.3 L Lyme Disease Antibody Negative PFSH All Active Problems Atrial fibrillation (Chronic) Bilateral hearing loss (Acute) Blepharoptosis, bilateral (Acute) having bilat blepharoplasties at [facility] on 11/11/22 Droopy eyelid (Acute) Ventricular tachycardia (Chronic) Heart murmur (Acute) 12/2021-consistent with known mitral regurgitation by echo Chronic kidney disease (Chronic) stage 3 Edema, peripheral (Acute) Bilateral hand swelling (Acute) Cholecystitis (Acute) Constipation (Acute) Wrist swelling (Acute) Arthralgia (Acute) Arthritis (Acute) Gout (Chronic) Low back pain (Acute) Cardiac amyloidosis (Acute) OAB (overactive bladder) (Acute) Cubital tunnel syndrome, bilateral (Acute) Bilateral carpal tunnel syndrome (Acute) Memory impairment (Acute) Spinal stenosis at L4-L5 level (Chronic 08/24/15) Narcolepsy (Chronic) Benign prostatic hyperplasia (Chronic 06/03/13) Elevated PSA; bx neg. in 1992; bx neg. in 1998; neg. bx 2006; neg bx 2008 Anxiety (Chronic) Hyperlipidemia (Chronic 06/22/13) Essential hypertension (Chronic) Diastolic heart failure (Acute) Atrial bigeminy (Acute) Edema (Acute) Bradycardia (Acute) Will need Holter monitor to assess heart irregularity and bradycardia prior to surgery. Will try to get done this week and he sees Dr. Castillo this Friday who can then hopefully clear him for surgery or put it on hold. Lab also done. Indigestion (Acute) Urgency of urination (Chronic 06/17/12) Retention of urine (Chronic 06/17/12) Restless legs (Chronic) Low back pain (Chronic) DJD; disc and fusion 1964; repeat surgery- 1994; recurrent sxs 07/10 and04/13 Knee pain (Chronic 02/11/13) left; S/P cartilage resection Impotence due to erectile dysfunction (Chronic 03/18/05) History of reactive hypoglycemia (Chronic 06/21/16) Hiatal hernia (Chronic 10/05/08) Diverticulosis of colon without diverticulitis (Chronic) Constipation by delayed colonic transit (Chronic) Bursitis of right shoulder (Chronic 08/24/15) Medical History Chronic pain syndrome (05/21/12) Ingrown toenail Rotator cuff tear arthropathy of right shoulder Surgical History Cubital tunnel syndrome on right S/P Release: 05/23/2021 HERNIA REPAIR (~05/2009) History of prostate surgery TURP 2012 History of spinal fusion KNEE REPAIR torn knee cartiledge 03/1971 /fuision Laminectomy? lower spine 10/1995 Open Carpal Tunnel release (~05/2006) B/L PROSTATE SURGERY (~10/2012) TURP 2012 - [facility] Replacement of total knee joint B/L 04/01/16 Right carpal tunnel syndrome S/P ECTR: 05/23/2021 Spinal Fusion 02/14 Status post carpal tunnel release Status post hernia repair Status post total knee replacement, bilateral (06/21/16) Family History Mother , AGE 65 Cancer Brother , age 84 Diabetes Maternal Grandfather , age 78 Heart disease Stroke Hyperlipidemia Paternal Grandfather Essential hypertension Heart disease Stroke Maternal Grandmother No problems noted. Paternal Grandmother No problems noted. Son No problems noted. Son Diabetes Father , age 94 No problems noted. Sister No problems noted. Social History Smoking/Tobacco Use Status: Never Second Hand Exposure: Yes Smoking risk assessment performed?: Yes Alcohol Intake: former Counseling given: No Drug use: Never Substance use type: does not use Caregiver/Support person: No Household members: spouse Housing: house Communication Needs: Hard of Hearing Pets and animals: Yes Pets and animals: dog(s) Sexually active: No Do you think of yourself as: straight/heterosexual Current gender identity: male What is your relationship status?: How often do you talk on the phone with friends or family?: twice per week How often do you get together with friends or relatives?: once per week How often do you attend muslim or uatsdin services?: 1-3 times per year Do you belong to any clubs or organized social groups?: yes Panel score (0-1 are the most socially isolated patients): 3 What type of physical activity do you participate in: walking Duration: 15-30 minutes/day Frequency: 1-2 times per week Rafaela/Zoroastrian: [employer] Special rafaela needs: No Seatbelt use: always Helmet use: Yes Helmet use: sometimes Drive intox or ride w/intox truck driver salesperson: No Do you feel safe at home: Yes Do you feel safe in your relationship?: Yes Time Spent with Patient Time Spent with Patient: 45-69 minutes Time was spent: preparing to see the patient(eg.review tests), obtaining and/or reviewing separately otained hiistory, ordering medications,tests, procedures, referring, communicating with other health insurance healthcare consultant and indepentently interpreting results
--- NOTE | 2023-02-05 17:09 | PDOC.CMDIS ---
- If Service Date Differs Date of service: 02/05/23 Time of Service: 17:09 LACE Index Scoring Tool - Questions: Length of Stay (in days): 2 Acuity (Admit via E.D.?): Yes Comorbidities: Congestive Heart Failure, Liver or Renal Disease E.D. Visits: 2 - Answers: Total Score: 12 Risk of Readmission: High Risk Care Management Discharge Reason for Hospitalization: new onset afdib with bradycardia Discharge Plan: Don will be discharged home with new home health services for PT. He will follow up with cardiology, his PCP and his plan of care as prescribed. and transport with family. Patient/Family Education Needs: Review of discharge instructions, limitations, activity, medications, follow up plan, Ask Me Three
--- NOTE | 2023-02-06 15:01 | PDOC.HHF2F_ITS ---
Home Health Referral Home Health Orders Clinical synopsis of why skilled professionals are needed: Pt admitted for bradycardia, new onset afib; s/p several falls at home and presyncopal symptoms. Metoprolol held and his heart improved into predominantly a normal range. Physical Therapist: Check all that apply Increase strength & endurance for safe mobility at home: Ordered To design/establish home maintenance program: Ordered Fall reduction therapy program for patient with history of frequent falls: Ordered Home safety evaluation and teaching/gait training including stair management (if applicable): Ordered Home Bound Status Requires the aid of supportive device (check all that apply): Walker Assistance of another person (Describe assistance and medical necessity): Standby assistant business manager on familiar terrain. 1 person assist if on unfamiliar terrain. Describe why leaving home would require a considerable and taxing effort: Requires frequent rest periods Encounter Date and Reason: I certify that a FTF encounter for this patient was performed on February 06, 2023 and that such encounter was related to the primary reason the patient requires home health services. The encounter was conducted in the following manner: * By me as the certifying physician, AIRCRAFT MAINTENANCE DIRECTOR, PA or * By an inpatient physician, AIRCRAFT MAINTENANCE DIRECTOR or PA during an inpatient stay who communicated findings to me, Certification And Authentication I certify that I composed the above information based on my clinical judgment relating to this patient's medical condition and, if applicable, clinical findings communicated to me by the NPP or inpatient physician who performed the FTF encounter. Name of Provider that will be monitoring home health services: Anthony Mendez
[2023-02-06 17:00] LABS: Anaplasma phagocytophilum Negative (Negative); B. miyamotoi PCR Negative (Negative); Babesia divergens/MO-1 Negative (Negative); Babesia duncani Negative (Negative); Babesia microti Negative (Negative); Ehrlichia chaffeensis Negative (Negative); Ehrlichia ewingii/canis Negative (Negative); Ehrlichia muris eauclairensis Negative (Negative)
== END 2023-02-05 13:36 | disposition home health service (06) | DRG 308 ==
LOC: ER 16:51 → ICU 17:56
PROVIDERS: Family Medicine; Admitting Provider Internal Medicine; Emergency Provider Physician Assistant; PCP Nurse Practitioner Family; Visit Provider Internal Medicine
DX: I48.91 Unspecified atrial fibrillation (principal); I50.33 Acute on chronic diastolic (congestive) heart failure; E85.4 Organ-limited amyloidosis; I13.0 Hypertensive heart and chronic kidney disease with heart failure and stage 1 through stage 4 chronic kidney disease, or unspecified chronic kidney disease; N18.9 Chronic kidney disease, unspecified; K59.00 Constipation, unspecified; N32.81 Overactive bladder; R29.6 Repeated falls; I34.0 Nonrheumatic mitral (valve) insufficiency; M1A.9XX0 Chronic gout, unspecified, without tophus (tophi); M54.50 Low back pain, unspecified; M48.061 Spinal stenosis, lumbar region without neurogenic claudication; G47.419 Narcolepsy without cataplexy; R41.3 Other amnesia; F41.9 Anxiety disorder, unspecified; E78.5 Hyperlipidemia, unspecified; R00.1 Bradycardia, unspecified; G25.81 Restless legs syndrome; R33.9 Retention of urine, unspecified; G89.29 Other chronic pain; Z96.653 Presence of artificial knee joint, bilateral; I43 Cardiomyopathy in diseases classified elsewhere; D53.9 Nutritional anemia, unspecified
CPT/HCPCS: 36415; 76604; 80048; 80053; 87798; 93005; 93306; 93308; 96374; 97162; 97530; 99285; 71046; 81003; 83735; 83880; 84443; 84484; 85025; 85610; 85730; 86618; 93010; 99233; 99239; 99291; J1940; J3490

== ENCOUNTER → 2023-02-04 10:16 | Outpatient (BNVA) | payer MEDICARE, SELFPAY | PROVIDERS: PCP Nurse Practitioner Family; Referring Provider Nurse Practitioner Family; Visit Provider Internal Medicine Cardiovascular Disease ==

== ENCOUNTER → 2023-07-21 10:37 | Outpatient (BNVA) | payer MEDICARE, SELFPAY | PROVIDERS: PCP Nurse Practitioner Family; Visit Provider Internal Medicine Cardiovascular Disease | DX: I48.91 Unspecified atrial fibrillation (principal); I43 Cardiomyopathy in diseases classified elsewhere; I10 Essential (primary) hypertension; E85.4 Organ-limited amyloidosis | CPT/HCPCS: 99213 ==

== ENCOUNTER → 2023-09-10 09:43 | Outpatient (BNVA) | payer MEDICARE, SELFPAY | PROVIDERS: PCP Nurse Practitioner Family; Visit Provider Nurse Practitioner Gerontology | DX: N40.0 Benign prostatic hyperplasia without lower urinary tract symptoms (principal); N32.81 Overactive bladder; R35.0 Frequency of micturition | CPT/HCPCS: 51798; 99213 ==

== ENCOUNTER 2023-09-22 09:45 | Emergency (ER) | payer MEDICARE, SELFPAY ==
[2023-09-22 09:48] VITALS: BP 141/56; PULSE 61; RESP 18; TEMP 36.2; O2SAT 96
--- NOTE | 2023-09-22 10:03 | ED.GENADUL_ITS ---
Discharge Plan Disposition Patient Disposition: Home Condition: Stable Discharge Details Clinical Impression: Hematoma of left lower extremity Primary Care Provider: Benny Torrez ED Provider: Carloz Soares Home Meds and New Rx's Prescriptions: Continued tamsulosin [Flomax] 0.4 mg capsule 0.8 mg PO DAILY Qty: 180 3RF flaxseed oil 1,000 mg capsule 1,000 mg PO DAILY Rx Instructions: administer with a meal Metamucil (sugar) Powder 2 tsp PO ONCE PRN Patient Comments: 01/21/22 pt states he takes a sugar free metamucil RH furosemide 40 mg tablet 40 mg PO BID Qty: 180 3RF Eliquis 2.5 mg tablet 2.5 mg PO BID Qty: 180 3RF multivitamin 1 EACH capsule 1 ea PO DAILY glucosam-chond uo-zdjxzj-co ac 1 EACH capsule 1 ea PO DAILY diclofenac sodium [Voltaren Arthritis Pain] 1 % gel 4 g topical QID Qty: 100 0RF Rx Instructions: apply to neck, back simvastatin 10 mg tablet 5 mg PO HS Qty: 45 4RF spironolactone 25 mg tablet See Rx Instructions .ROUTE .COMPLEX Qty: 45 3RF Dose Instruction: TAKE 1/2 TABLET BY MOUTH DAILY Rx Instructions: TAKE 1/2 TABLET BY MOUTH DAILY allopurinol 100 mg tablet 100 mg PO DAILY Qty: 90 3RF gabapentin 100 mg capsule 100 mg PO BID Qty: 180 3RF Rx Instructions: May take 2 twice daily if needed. sennosides 8.6 mg tablet 8.6 mg PO DAILY PRN (Reason: constipation) Qty: 90 2RF Vyndaqel 20 mg capsule 80 mg PO DAILY Qty: 360 3RF omeprazole 20 mg capsule,delayed release(DR/EC) 20 mg PO DAILY Qty: 90 3RF tramadol 50 mg tablet 50 mg PO BID PRN (Reason: pain) Qty: 60 2RF docusate sodium [Colace] 100 mg capsule 200 mg PO QHS PRN (Reason: constipation) Qty: 20 0RF acetaminophen 500 mg capsule 500 mg PO Q4H PRN (Reason: pain) Qty: 30 0RF Discharge Instructions Instructions: Hematoma (ED) Additional Instructions: You were seen in the emergency department for the minor hematoma of your left posterior knee, this is not consistent with blood clot pathology, you have no un ilateral leg swelling and no pain. He states that this is improved since Friday when your noticed it. I think you should carefully observe the area and try to put some gentle heat and compression to the area to help the hematoma resorb, if not better by Friday please have your primary care provider order an ultrasound, you are on Eliquis and it is reasonable to pursue this as an outpatient as there is low likelihood of complication. If you develop pain and unilateral leg swelling please return to the emergency department. Referrals: Benny Torrez NP [Primary Care Provider] - Discharge Data Discharge Date/Time-TO BE ENTERED AT DEPARTURE: 09/22/23 11:15 Medical Decision Making This dictation utilizes [id number] dictation software and may contain unedited grammatical errors. 83 y/o M presents to ED today with a chief complaint of atraumatic bruise noted to the back of his left knee, longstanding anticoagulant use, states it is improving over days in appearance, denies pain. Onset and characteristics include no pain, no venous stasis ulcers, doesn't remember bumping it on an ything. Patients' medical history: atrial fibrillation, peripheral edema, CHF. Family and social history: noncontributory. Pertinent exam findings / vital signs include L LE: Mild ecchymosis to the left popliteal fossa, Homans' sign negative, no unilateral leg swelling or venous stasis ulcers, no medial thigh tenderness, no joint line tenderness, no groin tenderness, not consistent with DVT. Differential / pathologies of concern include DVT, Robbins's Cyst, Minor Trauma, Contusion. Diagnostic studies of: -none. Interventions of: -none - pathology not consistent with DVT, patient is anticoagulated, no evidence of expanding hematoma. ED Course/Assessment/Plan: 83-year-old male who presents on the urging of his who noticed a bruise 2 days ago on the back of his knee, he states it is greatly improved since then and smaller in size, he is exhibited no pain, no unilateral leg swelling, no venous stasis lesions, he was only concerned because he is on blood thinners there is no evidence of expanding hematoma or DVT or vascular pathology, he likely had a minor trauma that he did not notice and caused a. Due to his longstanding anticoagulant use, I did stress strict return criteria for any increasing unilateral leg pain.. Findings not consistent with DVT, expanding hematoma, internal knee injury. Disposition of Hematoma of Left Lower Extremity. Patient verbalized understanding of the plan and return to ED criteria and engaged in shared decision making. Medical Records Medical records reviewed: Yes I reviewed the patient's medical records. HPI General Date/Time Provider Initiated Documentation: 09/22/23 09:53 . HPI Narrative: 83 year-old male presents to ED today by POV/ambulating with a chief complaint of noticed a bruise on the back of his knee, does not recall trauma with onset noticed about a week ago, noticed it two days ago, states it is better now than it has been, his urged him to be evaluated due to known blood thinner use. Quality described as not painful, no radiation to unilateral leg swelling, numbness/tingling distally, venous stasis ulcers, medial thigh tenderness, groin pain. Severity is described as 0/10. Palliating factors include nothing specific attempted. Provoking factors include nothing specific. Patient is anticoagulated on Eliquis. Related Data Home Medications Medication Instructions Recorded Confirmed vgyvepozoh-kyxiwinqoy-vnuqnpzy-hyalur 1 ea PO DAILY 12/09/12 09/22/23 ac 375 mg-300 mg-175 mg-2 mg cap multivitamin 1 ea PO DAILY 12/09/12 09/22/23 docusate sodium 100 mg capsule 200 mg (2 x 100 mg) PO QHS PRN 12/18/18 09/22/23 (Colace) constipation #20 caps flaxseed oil 1,000 mg capsule 1,000 mg PO DAILY 02/27/21 09/22/23 acetaminophen 500 mg capsule 500 mg PO Q4H PRN pain #30 caps 05/23/21 09/22/23 psyllium seed (sugar) oral powder 2 tsp PO ONCE PRN 01/21/22 09/22/23 (Metamucil (sugar) oral powder) diclofenac sodium 1 % topical gel 4 g topical QID #100 grams 05/17/22 09/22/23 (Voltaren Arthritis Pain) simvastatin 10 mg tablet 5 mg (1/2 x 10 mg) PO HS #45 10/14/22 09/22/23 tab-caps spironolactone 25 mg tablet See Rx Instructions .Route 01/13/23 09/22/23 .COMPLEX #45 tabs allopurinol 100 mg tablet 100 mg PO DAILY #90 tabs 01/22/23 09/22/23 apixaban 2.5 mg tablet (Eliquis) 2.5 mg PO BID #180 tabs 02/17/23 09/22/23 furosemide 40 mg tablet 40 mg PO BID #180 tabs 03/14/23 09/22/23 gabapentin 100 mg capsule 100 mg PO BID #180 caps 05/05/23 09/22/23 sennosides 8.6 mg tablet 8.6 mg PO DAILY PRN constipation 07/09/23 09/22/23 #90 tabs tafamidis meglumine 20 mg capsule 80 mg (4 x 20 mg) PO DAILY #360 08/18/23 09/22/23 (Vyndaqel) caps omeprazole 20 mg capsule,delayed 20 mg PO DAILY #90 tab-caps 08/25/23 09/22/23 release tamsulosin 0.4 mg capsule (Flomax) 0.8 mg (2 x 0.4 mg) PO DAILY #180 09/10/23 09/22/23 caps tramadol 50 mg tablet 50 mg PO BID PRN pain #60 tabs 09/10/23 09/22/23 Previous Rx's Medication Instructions Recorded docusate sodium 100 mg capsule 200 mg (2 x 100 mg) PO QHS PRN 12/18/18 (Colace) constipation #20 caps acetaminophen 500 mg capsule 500 mg PO Q4H PRN pain #30 caps 05/23/21 diclofenac sodium 1 % topical gel 4 g topical QID #100 grams 05/17/22 (Voltaren Arthritis Pain) simvastatin 10 mg tablet 5 mg (1/2 x 10 mg) PO HS #45 10/14/22 tab-caps spironolactone 25 mg tablet See Rx Instructions .Route 01/13/23 .COMPLEX #45 tabs allopurinol 100 mg tablet 100 mg PO DAILY #90 tabs 01/22/23 apixaban 2.5 mg tablet (Eliquis) 2.5 mg PO BID #180 tabs 02/17/23 furosemide 40 mg tablet 40 mg PO BID #180 tabs 03/14/23 gabapentin 100 mg capsule 100 mg PO BID #180 caps 05/05/23 sennosides 8.6 mg tablet 8.6 mg PO DAILY PRN constipation 07/09/23 #90 tabs tafamidis meglumine 20 mg capsule 80 mg (4 x 20 mg) PO DAILY #360 08/18/23 (Vyndaqel) caps omeprazole 20 mg capsule,delayed 20 mg PO DAILY #90 tab-caps 08/25/23 release tamsulosin 0.4 mg capsule (Flomax) 0.8 mg (2 x 0.4 mg) PO DAILY #180 09/10/23 caps tramadol 50 mg tablet 50 mg PO BID PRN pain #60 tabs 09/10/23 Allergies Allergy/AdvReac Type Severity Reaction Status Date / Time morphine Allergy Severe Verified 09/22/23 09:51 Penicillins Allergy Skin Rash Verified 09/22/23 09:51 celecoxib AdvReac GI Bleeding Verified 09/22/23 09:51 oxycodone Allergy Severe Uncoded 09/22/23 09:51 General Stated Complaint: GenMedical ASH: 3 Review of Systems All systems reviewed & are unremarkable except as noted in HPI and below PFSH All Active Problems (Updated 09/22/23 @ 11:07 by PATRICIA Bill) Hematoma of left lower extremity (Acute) Wild-type transthyretin-related (ATTR) amyloidosis (Acute) Bradycardia (Acute) Atrial fibrillation (Chronic) Bilateral hearing loss (Acute) Ventricular tachycardia (Chronic) Heart murmur (Acute) 12/2021-consistent with known mitral regurgitation by echo Chronic kidney disease (Chronic) stage 3 Edema, peripheral (Acute) Bilateral hand swelling (Acute) Cholecystitis (Acute) Constipation (Acute) Wrist swelling (Acute) Arthralgia (Acute) Arthritis (Acute) Gout (Chronic) Low back pain (Acute) Cardiac amyloidosis (Acute) OAB (overactive bladder) (Acute) Cubital tunnel syndrome, bilateral (Acute) Bilateral carpal tunnel syndrome (Acute) Memory impairment (Acute) Spinal stenosis at L4-L5 level (Chronic 08/24/15) Narcolepsy (Chronic) Benign prostatic hyperplasia (Chronic 06/03/13) Elevated PSA; bx neg. in 1992; bx neg. in 1998; neg. bx 2006; neg bx 2008 Anxiety (Chronic) Hyperlipidemia (Chronic 06/22/13) Essential hypertension (Chronic) Diastolic heart failure (Acute) Atrial bigeminy (Acute) Edema (Acute) Bradycardia (Acute) Will need Holter monitor to assess heart irregularity and bradycardia prior to surgery. Will try to get done this week and he sees Dr. Castillo this Friday who can then hopefully clear him for surgery or put it on hold. Lab also done. 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 lower spine 10/1995 KNEE REPAIR torn knee cartiledge 03/1971 /fuision HERNIA REPAIR (~05/2009) Family History Mother , AGE 65 Cancer Brother , age 84 Diabetes Maternal Grandfather , age 78 Heart disease Stroke Hyperlipidemia Paternal Grandfather Essential hypertension Heart disease Stroke Maternal Grandmother No problems noted. Paternal Grandmother No problems noted. Son No problems noted. Son Diabetes Father , age 94 No problems noted. Sister No problems noted. Social History Smoking/Tobacco Use Status: Never Second Hand Exposure: Yes Smoking risk assessment performed?: Yes Alcohol Intake: former Counseling given: No Drug use: Never Substance use type: does not use Caregiver/Support person: No Household members: spouse Housing: house Communication Needs: Hard of Hearing Do you need help understanding health information?: Rarely Pets and animals: Yes Pets and animals: dog(s) Sexually active: No Do you think of yourself as: straight/heterosexual Current gender identity: male What is your relationship status?: How often do you talk on the phone with friends or family?: once per week How often do you get together with friends or relatives?: twice per week How often do you attend adventist or worship services?: decline to answer Do you belong to any clubs or organized social groups?: no Panel score (0-1 are the most socially isolated patients): 2 What type of physical activity do you participate in: walking and bicycling Duration: 15-30 minutes/day Frequency: 3-4 times per week Rafaela/Temple: [employer] Special rafaela needs: No Seatbelt use: always Helmet use: Yes Helmet use: sometimes Drive intox or ride w/intox shuttle truck driver: No Do you feel safe at home: Yes Do you feel safe in your relationship?: Yes Exam Narrative Exam Narrative: GENERAL APPEARANCE: Well-nourished, non-toxic, awake and alert, atraumatic, no acute distress. SKIN: Warm, pink, dry, intact, without rashes/lesions/ulcerations. HEAD: Normocephalic, atraumatic, normal hair distribution for gender/age. EYES: Pupils PERRLA, EOMs intact without nystagmus, normal conjunctiva, no exudates on lids/lashes. ENT: Nares patent, no circumoral cyanosis, no facial swelling NECK: Supple, trachea midline, painless cervical ROM. LUNGS/CHEST: Non-labored respirations, normal A/P diameter, symmetrical expansion, no chest wall deformity HEART (CV/PV): No peripheral edema, no JVD, L dorsalis pedis 2+. ABDOMEN: Soft, non-distended, no guarding. MSK: Normal ROM, no swelling/deformity to bilateral UEs or LEs, moving all extremities without weakness, no cyanosis, spine midline without tenderness, normal curvature. L LE: Mild ecchymosis to the left popliteal fossa, Homans' sign negative, no unilateral leg swelling or venous stasis ulcers, no medial thigh tenderness, no joint line tenderness, no groin tenderness, not consistent with DVT NEURO: Mental Status AAOx4 - alert to person, place, time, events No facial droop, no forehead involvement. Motor: No focal weakness - strength 5/5 in bilateral UEs and LEs, proximal and distal, symmetric. Sensory: sensation intact to light touch globally. Gait normal: patient ambulated without ataxia into ED room. PSYCH: euthymic, cooperative, pleasant, appropriate speech Course Vital Signs Vital signs: Vital Signs Temperature 36.2 C L 09/22/23 09:48 Pulse 61 09/22/23 09:48 Respiratory Rate 18 09/22/23 09:48 Blood Pressure 141/56 H 09/22/23 09:48 Pulse Oximetry 96 09/22/23 09:48 Temperature 36.2 C L 09/22/23 09:48 Temperature Source Temporal Artery Scan 09/22/23 09:48 Pulse 61 09/22/23 09:48 Respiratory Rate 18 09/22/23 09:48 Respiratory Effort Normal, Non-Labored 09/22/23 09:52 Blood Pressure 141/56 H 09/22/23 09:48 Blood Pressure Position Sitting 09/22/23 09:48 Pulse Oximetry 96 09/22/23 09:48 Oxygen Delivery Method Room Air 09/22/23 09:48 Oxygen Flow Rate 0 09/22/23 09:48
== END 2023-09-22 11:15 | disposition home or self-care (01) ==
PROVIDERS: Emergency Provider Physician Assistant; PCP Nurse Practitioner Family
DX: S80.02XA Contusion of left knee, initial encounter (principal); X58.XXXA Exposure to other specified factors, initial encounter
CPT/HCPCS: 99282

== ENCOUNTER 2023-12-20 19:53 | Emergency (ER) | payer MEDICARE, SELFPAY ==
[2023-12-20 20:01] VITALS: BP 133/67; PULSE 60; RESP 16; TEMP 36.6; O2SAT 97
--- NOTE | 2023-12-20 20:29 | W.ED.GENAD ---
Discharge Plan Disposition Patient Disposition: Home Condition: Improving Discharge Details Chief Complaint: Orthopedic Clinical Impression: Groin strain Primary Care Provider: Benny Torrez ED Provider: Anthony Noland Home Meds and New Rx's Prescriptions: No Action tamsulosin [Flomax] 0.4 mg capsule 0.8 mg PO DAILY Qty: 180 3RF flaxseed oil 1,000 mg capsule 1,000 mg PO DAILY Rx Instructions: administer with a meal Metamucil (sugar) Powder 2 tsp PO ONCE PRN Patient Comments: 01/21/22 pt states he takes a sugar free metamucil RH furosemide 40 mg tablet 40 mg PO BID Qty: 180 3RF Eliquis 2.5 mg tablet 2.5 mg PO BID Qty: 180 3RF ropinirole 0.25 mg tablet 0.25 mg PO TID Qty: 90 0RF omeprazole 40 mg capsule,delayed release(DR/EC) 40 mg PO DAILY Qty: 90 3RF tramadol 100 mg tablet 100 mg PO BID PRN (Reason: pain) Qty: 60 2RF multivitamin 1 EACH capsule 1 ea PO DAILY glucosam-chond ox-urcivm-co ac 1 EACH capsule 1 ea PO DAILY diclofenac sodium [Voltaren Arthritis Pain] 1 % gel 4 g topical QID Qty: 100 0RF Rx Instructions: apply to neck, back spironolactone 25 mg tablet See Rx Instructions .ROUTE .COMPLEX Qty: 45 3RF Dose Instruction: TAKE 1/2 TABLET BY MOUTH DAILY Rx Instructions: TAKE 1/2 TABLET BY MOUTH DAILY allopurinol 100 mg tablet 100 mg PO DAILY Qty: 90 3RF sennosides 8.6 mg tablet 8.6 mg PO DAILY PRN (Reason: constipation) Qty: 90 2RF Vyndaqel 20 mg capsule 80 mg PO DAILY Qty: 360 3RF simvastatin 10 mg tablet 5 mg PO HS Qty: 45 4RF docusate sodium [Colace] 100 mg capsule 200 mg PO QHS PRN (Reason: constipation) Qty: 20 0RF gabapentin 100 mg capsule 100 mg PO BID Patient Comments: TAKE ONE CAPSULE BY MOUTH TWICE A DAY, MAY TAKE 2 CAPSULES BY MOUTH TWO TIMES A DAY IF NEEDED acetaminophen 500 mg capsule 500 mg PO Q4H PRN (Reason: pain) Qty: 30 0RF Discharge Instructions Instructions: Groin Strain (ED) HPI General Date/Time Provider Initiated Documentation: 12/20/23 20:06. HPI Narrative: 83-year-old male presents with sharp right groin and upper leg pain over the last week intermittent in nature, worse with movement and palpation. Denies bowel or bladder issues, denies falls denies back pain denies history of thromboembolic disease. Related Data Home Medications Medication Instructions Recorded Confirmed [id number] 1 ea PO DAILY 12/09/12 12/20/23 ac 375 mg-300 mg-175 mg-2 mg cap multivitamin 1 ea PO DAILY 12/09/12 12/20/23 docusate sodium 100 mg capsule 200 mg (2 x 100 mg) PO QHS PRN 12/18/18 12/10/23 (Colace) constipation #20 caps flaxseed oil 1,000 mg capsule 1,000 mg PO DAILY 02/27/21 12/20/23 acetaminophen 500 mg capsule 500 mg PO Q4H PRN pain #30 caps 05/23/21 12/20/23 psyllium seed (sugar) oral powder 2 tsp PO ONCE PRN 01/21/22 12/20/23 (Metamucil (sugar) oral powder) diclofenac sodium 1 % topical gel 4 g topical QID #100 grams 05/17/22 12/20/23 (Voltaren Arthritis Pain) spironolactone 25 mg tablet See Rx Instructions .Route 01/13/23 12/20/23 .COMPLEX #45 tabs allopurinol 100 mg tablet 100 mg PO DAILY #90 tabs 01/22/23 12/20/23 apixaban 2.5 mg tablet (Eliquis) 2.5 mg PO BID #180 tabs 02/17/23 12/20/23 furosemide 40 mg tablet 40 mg PO BID #180 tabs 03/14/23 12/20/23 sennosides 8.6 mg tablet 8.6 mg PO DAILY PRN constipation 07/09/23 12/10/23 #90 tabs tafamidis meglumine 20 mg capsule 80 mg (4 x 20 mg) PO DAILY #360 08/18/23 12/10/23 (Vyndaqel) caps tamsulosin 0.4 mg capsule (Flomax) 0.8 mg (2 x 0.4 mg) PO DAILY #180 09/10/23 12/20/23 caps simvastatin 10 mg tablet 5 mg (1/2 x 10 mg) PO HS #45 10/17/23 12/20/23 tab-caps omeprazole 40 mg capsule,delayed 40 mg PO DAILY #90 tab-caps 12/10/23 12/20/23 release ropinirole 0.25 mg tablet 0.25 mg PO TID #90 tabs 12/10/23 12/10/23 tramadol 100 mg tablet 100 mg PO BID PRN pain #60 tabs 12/10/23 12/20/23 gabapentin 100 mg capsule 100 mg PO BID 12/20/23 12/20/23 Previous Rx's Medication Instructions Recorded docusate sodium 100 mg capsule 200 mg (2 x 100 mg) PO QHS PRN 12/18/18 (Colace) constipation #20 caps acetaminophen 500 mg capsule 500 mg PO Q4H PRN pain #30 caps 05/23/21 diclofenac sodium 1 % topical gel 4 g topical QID #100 grams 05/17/22 (Voltaren Arthritis Pain) spironolactone 25 mg tablet See Rx Instructions .Route 01/13/23 .COMPLEX #45 tabs allopurinol 100 mg tablet 100 mg PO DAILY #90 tabs 01/22/23 apixaban 2.5 mg tablet (Eliquis) 2.5 mg PO BID #180 tabs 02/17/23 furosemide 40 mg tablet 40 mg PO BID #180 tabs 03/14/23 sennosides 8.6 mg tablet 8.6 mg PO DAILY PRN constipation 07/09/23 #90 tabs tafamidis meglumine 20 mg capsule 80 mg (4 x 20 mg) PO DAILY #360 08/18/23 (Vyndaqel) caps tamsulosin 0.4 mg capsule (Flomax) 0.8 mg (2 x 0.4 mg) PO DAILY #180 09/10/23 caps simvastatin 10 mg tablet 5 mg (1/2 x 10 mg) PO HS #45 10/17/23 tab-caps omeprazole 40 mg capsule,delayed 40 mg PO DAILY #90 tab-caps 12/10/23 release ropinirole 0.25 mg tablet 0.25 mg PO TID #90 tabs 12/10/23 tramadol 100 mg tablet 100 mg PO BID PRN pain #60 tabs 12/10/23 Allergies Allergy/AdvReac Type Severity Reaction Status Date / Time morphine Allergy Severe unknown Verified 12/10/23 10:42 Penicillins Allergy Skin Rash Verified 12/20/23 20:06 celecoxib AdvReac GI Bleeding Verified 12/20/23 20:06 oxycodone Allergy Severe unknown Uncoded 12/10/23 10:42 General Stated Complaint: Orthopedic ASH: 4 Review of Systems Narrative: Review of Systems Constitutional: negative Eyes: negative ENT: negative Cardiovascular: negative Respiratory: negative Gastrointestinal: negative : negative Musculoskeletal: Leg pain Skin: negative Neurologic: negative Psych: negative Exam Narrative Exam Narrative: Physical Examination General: alert, awake, cooperative, resting comfortably, no acute distress Skin: no lesions, rashes or trauma appreciated /GI: No appreciable inguinal hernia Neuro: AAOx3, normal speech, moving all extremities Extremities: Point tenderness proximal right thigh, just inferior to the inguinal ligament and at base of proximal quad, warm well-perfused soft compartments sensate mobile full range of motion lower extremity exacerbation of discomfort with proximal flexion at hip Psych: Appropriate mood and affect Course Vital Signs Vital signs: Vital Signs Temperature 36.6 C 12/20/23 20:01 Pulse 60 12/20/23 20:01 Respiratory Rate 16 12/20/23 20:01 Blood Pressure 133/67 12/20/23 20:01 Pulse Oximetry 97 12/20/23 20:01 Temperature 36.6 C 12/20/23 20:01 Temperature Source Temporal Artery Scan 12/20/23 20:01 Pulse 60 12/20/23 20:01 Respiratory Rate 16 12/20/23 20:01 Respiratory Effort Normal 12/20/23 20:04 Blood Pressure 133/67 12/20/23 20:01 Blood Pressure Position Supine 12/20/23 20:01 Pulse Oximetry 97 12/20/23 20:01 Oxygen Delivery Method Room Air 12/20/23 20:01 Oxygen Flow Rate 0 12/20/23 20:01 Pain Level 8 12/20/23 20:01 Medical Decision Making 83-year-old male presents with atraumatic right proximal thigh and groin discomfort over the last week intermittent sharp pain, warm well-perfused neurovascularly intact, no edema, no ecchymosis no induration no erythema no fluctuance, point tenderness proximal quad/inferior to inguinal ligament, worse with flexion at hip, bedside [id number] DVT study negative, likely groin strain versus iliopsoas strain versus proximal quad strain no appreciable inguinal hernia no genitourinary or GI symptomatology. Will trial Toradol, home with close follow-up and strict return precautions 20: 47 patient feeling better ambulatory without assistance. 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) Bradycardia (Acute) Atrial fibrillation (Chronic) Bilateral hearing loss (Acute) Ventricular tachycardia (Chronic) Heart murmur (Acute) 12/2021-consistent with known mitral regurgitation by echo Chronic kidney disease (Chronic) stage 3 Edema, peripheral (Acute) Bilateral hand swelling (Acute) Cholecystitis (Acute) Constipation (Acute) Wrist swelling (Acute) Arthralgia (Acute) Arthritis (Acute) Gout (Chronic) Low back pain (Acute) Cardiac amyloidosis (Acute) OAB (overactive bladder) (Acute) Cubital tunnel syndrome, bilateral (Acute) Bilateral carpal tunnel syndrome (Acute) Memory impairment (Acute) Spinal stenosis at L4-L5 level (Chronic 08/24/15) Narcolepsy (Chronic) Benign prostatic hyperplasia (Chronic 06/03/13) Elevated PSA; bx neg. in 1992; bx neg. in 1998; neg. bx 2006; neg bx 2008 Anxiety (Chronic) Hyperlipidemia (Chronic 06/22/13) Essential hypertension (Chronic) Diastolic heart failure (Acute) Atrial bigeminy (Acute) Edema (Acute) Bradycardia (Acute) Will need Holter monitor to assess heart irregularity and bradycardia prior to surgery. Will try to get done this week and he sees Dr. Castillo this Friday who can then hopefully clear him for surgery or put it on hold. Lab also done. Indigestion (Acute) Urgency of urination (Chronic 06/17/12) Retention of urine (Chronic 06/17/12) Restless legs (Chronic) Low back pain (Chronic) DJD; disc and fusion 1964; repeat surgery- 1994; recurrent sxs 07/10 and04/13 Knee pain (Chronic 05/09/13) left; S/P cartilage resection Impotence due to erectile dysfunction (Chronic 03/18/05) History of reactive hypoglycemia (Chronic 06/21/16) Hiatal hernia (Chronic 10/05/08) Diverticulosis of colon without diverticulitis (Chronic) Constipation by delayed colonic transit (Chronic) Bursitis of right shoulder (Chronic 08/24/15) Medical History Blepharoptosis, bilateral having bilat blepharoplasties at [facility] on 11/11/22 Droopy eyelid Bilateral blepheroplastys in 2022. 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 lower spine 10/1995 KNEE REPAIR torn knee cartiledge 03/1971 /fuision HERNIA REPAIR (~05/2009) Family History Mother , AGE 65 Cancer Brother , age 84 Diabetes Maternal Grandfather , age 78 Heart disease Stroke Hyperlipidemia Paternal Grandfather Essential hypertension Heart disease Stroke Maternal Grandmother No problems noted. Paternal Grandmother No problems noted. Son No problems noted. Son Diabetes Father , age 94 No problems noted. Sister No problems noted. Social History Smoking/Tobacco Use Status: Never Second Hand Exposure: Yes Smoking risk assessment performed?: Yes Alcohol Intake: former Counseling given: No Drug use: Never Substance use type: does not use Caregiver/Support person: No Household members: spouse Housing: house Communication Needs: Hard of Hearing Do you need help understanding health information?: Rarely Pets and animals: Yes Pets and animals: dog(s) Sexually active: No Do you think of yourself as: straight/heterosexual Current gender identity: male What is your relationship status?: How often do you talk on the phone with friends or family?: once per week How often do you get together with friends or relatives?: twice per week How often do you attend congregation or jew services?: decline to answer Do you belong to any clubs or organized social groups?: no Panel score (0-1 are the most socially isolated patients): 2 What type of physical activity do you participate in: walking and bicycling Duration: 15-30 minutes/day Frequency: 3-4 times per week Rafaela/Uatsdin: [employer] Special rafaela needs: No Seatbelt use: always Helmet use: Yes Helmet use: sometimes Drive intox or ride w/intox limousine driver: No Do you feel safe at home: Yes Do you feel safe in your relationship?: Yes
[2023-12-20] MEDS: Ketorolac 15 MG/ML VIAL IM (20:30)
== END 2023-12-20 20:57 | disposition home or self-care (01) ==
PROVIDERS: Emergency Provider Emergency Medicine; PCP Nurse Practitioner Family
DX: S39.011A Strain of muscle, fascia and tendon of abdomen, initial encounter (principal); I13.0 Hypertensive heart and chronic kidney disease with heart failure and stage 1 through stage 4 chronic kidney disease, or unspecified chronic kidney disease; N18.30 Chronic kidney disease, stage 3 unspecified; I50.32 Chronic diastolic (congestive) heart failure; I48.91 Unspecified atrial fibrillation; Z79.01 Long term (current) use of anticoagulants; Z98.1 Arthrodesis status; X58.XXXA Exposure to other specified factors, initial encounter
CPT/HCPCS: 96372; 99284; 99283; J1885

== ENCOUNTER → 2024-01-19 10:26 | Outpatient (BNVA) | payer MEDICARE, SELFPAY | PROVIDERS: PCP Nurse Practitioner Family; Referring Provider Nurse Practitioner Family; Visit Provider Surgery | DX: R10.13 Epigastric pain (principal); K21.9 Gastro-esophageal reflux disease without esophagitis; D64.9 Anemia, unspecified; K44.9 Diaphragmatic hernia without obstruction or gangrene; K57.30 Diverticulosis of large intestine without perforation or abscess without bleeding | CPT/HCPCS: 36415; 80053; 99214; 82607; 82728; 82746; 85025 ==

== ENCOUNTER 2024-01-19 13:04 | Outpatient (CLI) | payer MEDICARE, SELFPAY ==
[2024-01-19 12:19] LABS: Abs Immature Grans 0.03 10^3/uL (0.0-0.06); Absolute Basophil Count 0.05 10^3/uL (0.0-0.2); Absolute Eosinophil Count 0.22 10^3/uL (0.0-0.7); Absolute Lymphocyte Count 0.77 10^3/uL (1.2-3.4); Absolute Monocyte Count 0.83 10^3/uL (0.1-0.8); Absolute Neutrophil Count 4.54 10^3/uL (1.2-6.7); Basophils % 0.8; Eosinophils % 3.4; HCT 32.8 % (40.0-50.0); HGB 10.9 g/dL (13.5-17.5); Immature Grans % 0.5; MCH 33.9 pg (27.0-33.0); MCHC 33.2 % (32.0-36.0); MCV 102 fL (80-95); MPV 9.1 fL (8.0-11.0); Monocytes % 12.9; Neutrophils % 70.4; Platelet Count 170 10^3/uL (130-400); RBC 3.22 10^6/uL (4.36-5.78); RDW 14.9 % (11.8-14.1); RDW-SD 55.5 fL; WBC 6.44 10^3/uL (4.4-10.8)
[2024-01-19 13:11] LABS: ALT 26 U/L (16-63); AST 36 U/L (15-37); Albumin 3.6 g/dL (3.4-5.0); Alkaline Phosphatase 208 U/L (46-116); Anion Gap 10.9 mmol/L (3-11); BUN 40 mg/dL (7-18); Bilirubin, Total 1.3 mg/dL (0.2-1.0); CO2 23.1 mmol/L (21.0-32.0); CREATININE 1.8 mg/dL (0.70-1.30); Calcium 9.1 mg/dL (8.5-10.1); Chloride 106 mmol/L (98-107); Estimated GFR 36.43 (mL/min/1.73m2); Ferritin 143 ng/mL (26-388); Glucose 85 mg/dL (74-106); Sodium 140 mmol/L (136-145); Total Protein 7.3 g/dL (6.4-8.2); Vitamin B12 366 pg/mL (193-986)
[2024-01-19 13:12] LABS: Folate > 20.0 ng/mL (8.6-20.0)
== END 2024-01-19 13:05 | disposition home or self-care (01) ==
LOC: LBO 13:04
PROVIDERS: PCP Nurse Practitioner Family; Visit Provider Surgery
DX: E85.4 Organ-limited amyloidosis; I43 Cardiomyopathy in diseases classified elsewhere; R00.1 Bradycardia, unspecified; K30 Functional dyspepsia; K21.9 Gastro-esophageal reflux disease without esophagitis; K44.9 Diaphragmatic hernia without obstruction or gangrene; N18.9 Chronic kidney disease, unspecified; N40.0 Benign prostatic hyperplasia without lower urinary tract symptoms; E85.82 Wild-type transthyretin-related (ATTR) amyloidosis; M1A.0720 Idiopathic chronic gout, left ankle and foot, without tophus (tophi)
CPT/HCPCS: 36415; 80053; 82607; 82728; 82746; 85025

== ENCOUNTER → 2024-01-26 10:07 | Outpatient (BNVA) | payer MEDICARE, SELFPAY | PROVIDERS: PCP Nurse Practitioner Family; Visit Provider Internal Medicine Cardiovascular Disease | DX: E85.82 Wild-type transthyretin-related (ATTR) amyloidosis (principal); I48.21 Permanent atrial fibrillation; I10 Essential (primary) hypertension | CPT/HCPCS: 99213 ==

== ENCOUNTER → 2024-02-16 03:20 | Outpatient (CLI) | payer MEDICARE, SELFPAY ==
--- NOTE | 2024-02-16 13:34 | DI.US_ITS ---
APPROVED REPORT EXAM: Comprehensive 2D, Doppler, and color-flow Echocardiogram Patient Location: Out-Patient Surface Supply Breathing Apparatus: Libby Schroeder RDCS (AE) Other Information Study Quality: Adequate Conclusion Mild concentric left ventricular hypertrophy. Ejection fraction is 55%. Wall motion is normal Normal right ventricular size and function Left atrium is moderately dilated. Right atrium is mildly dilated Trileaflet aortic valve with trace regurgitation Normal mitral valve with moderate regurgitation Normal tricuspid valve with mild regurgitation Estimated right ventricular systolic pressure is 31 mmHg Wall motion Left Ventricle The left ventricle is normal size. The left ventricular systolic function is normal. The left ventric ular ejection fraction is within the normal range. Mild concentric left ventricular hypertrophy There is normal LV segmental wall motion. There is no ventricular septal defect visualized. LVEF is 55%. Right Ventricle The right ventricle is normal size. The right ventricular systolic function is normal. Atria Left atrium is moderately dilated. Right atrium is mildly dilated. The interatrial septum is intact w ith no evidence for an atrial septal defect. Aortic Valve The aortic valve is normal in structure. Aortic valve is trileaflet. There is no aortic valvular sten osis. Trace aortic regurgitation. Mitral Valve The mitral valve is normal in structure. No evidence of mitral valve stenosis. Moderate mitral regur gitation. Tricuspid Valve The tricuspid valve is normal in structure. There is no tricuspid valve stenosis. Mild tricuspid regu rgitation. The RVSP is 31.0 mmHg. Pulmonic Valve The pulmonary valve is normal in structure. There is no pulmonic valvular stenosis. Trace to mild pul cameron regurgitation. Great Vessels The aortic root is normal in size. The ascending aorta is normal in size. Aortic arch is not well vis ualized. IVC is normal in size and collapses >50% with inspiration. Pericardium There is no pericardial effusion. 2D Dimensions IVSD d PLAX 1.30 cm M: 0.6-1.2 Ao Root d 3.04 cm M: 3.1 - 3.7 LVPW d PLAX 1.33 cm M: 0.6 - 1.2 Ao Asc Diam d 3.37 cm M: 2.6 - 3.4 LVID d PLAX 4.66 cm M: 4.2 - 5.8 LVDs 3.34 cm M: 2.5 - 4.0 LV EF Teichholz 54.5 % FS 28.21 % LV EDV (Teich) 100.3 mL LV ESV (Teich) 45.6 mL M-Mode TAPSE 2.66 cm (M/F) >1.7 Auto EF LV EDV A4C 98.0 mL LV EDV A2C 125.3 mL LV EDV BP 109.3 mL LV ESV A4C 43.9 mL LV ESV A2C 56.5 mL LV ESV BP 49.2 mL LVEF(%) A4C 55.2 % LVEF(%) A2C 54.9 % LVEF(%) BP 55.0 % LV SV A4C 54.1 ml LV SV A2C 68.7 ml LV SV BP 60.1 ml LV CO A4C 3.0 L/min LV CO A2C 3.0 L/min LV CO BP 3.0 L/min HR A4C 55.64 BPM HR A2C 43.00 BPM LV EDV Index (BP) LA Volume LA Length A4C 6.7 cm LA Length A2C 7.0 cm LA Area A4C s 29.29 cm2 LA Area A2C s 28.71 cm2 LA Vol A4C A-L 108.00 mL LA Vol A2C A-L 99.73 mL LA Vol Biplane A-L 105.9 mL LA Vol/BSA A4C A-L LA Vol/BSA A2C A-L LA Vol/BSA BP A-L 54.8 mL/m2 LA Vol A4C MOD 101.1 mL LA Vol A2C MOD 94.8 mL LA Vol BP MOD 99.5 mL RA Volume RA Area A4C 20.9 cm2 RA ESV A4C (A-L) 64.4mL RA Vol/BSA A4C A-L RA Length A4C 5.7 cm RA ESV A4C (MOD) 61.4mL LV Diastology MV E' medial 0.062 (>0.07 m/s) MV E Vmax 1.10 (0.4-1.3 m/s) MV E/E' MED 17.94 (<14) MV E' lateral 0.077 (>0.1 m/s) MV E/E' LAT 14.39 (<14) MV E' Average 0.069 m/s MV E/E'(average) 15.97 Aortic Valve AoV Vmax 1.40 m/s LVOT Vmax 1.04 m/s AoV Peak Grad 7.9 mmHg LVOT Peak Grad 4.4 mmHg AoV Area (Vmax) 2.38 cm2 LVOT VTI 0.207 m AoV VTI 0.295 m LVOT Mean Grad 2.5 mmHg AoV Mean Robin. 0.97 m/s LVOT SV 66.35 mL AoV Mean Grad 4.4 mmHg LVOT Diam s 2.00 cm AoV Area (VTI) 2.25 cm2 Velocity Ratio 0.74 Mitral Valve MV DT 210 (160-240 msec) MR Vmax 4.94 m/s MV Vmax TIPS 1.31 m/s MR VTI 1.572 m MV Mean Grad 2.2 (<2mmHg) MR Peak Grad 97.7 mmHg MV VTI 0.409 m MR Mean Grad 68.1 mmHg Pulmonary Valve PV Vmax 1.06 (0.5-1.5 m/s) RVOT Vmax 0.89 m/s PV Peak Grad 4.5 mmHg RVOT Peak Gr. 3.2 mmHg PV Mean Robin 0.71 m/s RVOT VTI 0.197 m PV Mean Grad 2.4 mmHg RVOT Mean Gr. 1.8 mmHg Tricuspid Valve RA Pressure 3.00 mmHg TR Vmax 2.65 m/s TV S' 0.11 m/s TR Peak Grad 28.0 mmHg RVSP (TR) 31.0 mmHg
== END ==
PROVIDERS: PCP Nurse Practitioner Family; Visit Provider Surgery
DX: I50.32 Chronic diastolic (congestive) heart failure; I34.0 Nonrheumatic mitral (valve) insufficiency; I37.1 Nonrheumatic pulmonary valve insufficiency; I49.8 Other specified cardiac arrhythmias; I47.20 Ventricular tachycardia, unspecified; I48.91 Unspecified atrial fibrillation; E85.82 Wild-type transthyretin-related (ATTR) amyloidosis; E85.89 Other amyloidosis
CPT/HCPCS: 93306

== ENCOUNTER 2024-03-01 15:35 | Emergency (ER) | payer MEDICARE, SELFPAY ==
--- NOTE | 2024-03-01 15:30 | RT.EKG_ITS ---
APPROVED REPORT Exam: Resting ECG Reason for Exam: SOB Patient Location: E HR:50 bpm ECG Measurements Heart Rate 50 AXIS [place] [id number] P [id number] QRSd 103 QRS 107 QT 444 T 266 QTc 405 Conclusion Atrial fibrillation...V-rate 41- 59, irreg A-activity Probable right ventricular hypertrophy...prominent R or R' w/ RAD or NOLAN Nonspecific T abnormalities, lateral leads...T <-0.10mV, I aVL V5 V6
[2024-03-01 15:37] VITALS: BP 136/65; PULSE 59; RESP 18; TEMP 36.7; O2SAT 96
--- NOTE | 2024-03-01 16:26 | W.ED.GENAD ---
Discharge Plan Discharge Details Chief Complaint: Chest/Rib Primary Care Provider: Benny Torrez ED Provider: Bartolome Martinez Home Meds and New Rx's Prescriptions: No Action tamsulosin [Flomax] 0.4 mg capsule 0.8 mg PO DAILY Qty: 180 3RF sucralfate [Carafate] 1 gram tablet 1 g PO QHS Qty: 90 3RF famotidine [Pepcid] 20 mg tablet 20 mg PO BID Qty: 60 12RF flaxseed oil 1,000 mg capsule 1,000 mg PO DAILY Rx Instructions: administer with a meal Metamucil (sugar) Powder 2 tsp PO ONCE PRN Patient Comments: 01/21/22 pt states he takes a sugar free metamucil RH furosemide 40 mg tablet 40 mg PO BID Qty: 180 3RF ropinirole 0.25 mg tablet 0.25 mg PO TID Qty: 90 0RF tramadol 100 mg tablet 100 mg PO BID PRN (Reason: pain) Qty: 60 2RF multivitamin 1 EACH capsule 1 ea PO DAILY glucosam-chond fl-kohant-zw ac 1 EACH capsule 1 ea PO DAILY diclofenac sodium [Voltaren Arthritis Pain] 1 % gel 4 g topical QID Qty: 100 0RF Rx Instructions: apply to neck, back sennosides 8.6 mg tablet 8.6 mg PO DAILY PRN (Reason: constipation) Qty: 90 2RF Vyndaqel 20 mg capsule 80 mg PO DAILY Qty: 360 3RF simvastatin 10 mg tablet 5 mg PO HS Qty: 45 4RF doxycycline hyclate 100 mg tablet 100 mg PO ONCE Qty: 1 0RF Rx Instructions: Take one hour prior to procedure. spironolactone 25 mg tablet See Rx Instructions .ROUTE .COMPLEX Qty: 45 3RF Dose Instruction: TAKE 1/2 TABLET BY MOUTH DAILY Rx Instructions: TAKE 1/2 TABLET BY MOUTH DAILY allopurinol 100 mg tablet 100 mg PO DAILY Qty: 90 3RF Eliquis 2.5 mg tablet 2.5 mg PO BID Qty: 180 3RF docusate sodium [Colace] 100 mg capsule 200 mg PO QHS PRN (Reason: constipation) Qty: 20 0RF acetaminophen 500 mg capsule 500 mg PO Q4H PRN (Reason: pain) Qty: 30 0RF HPI General Mode of arrival: ambulatory. Date/Time Provider Initiated Documentation: 03/01/24 16:16. Limitations to Documentation: no limitations. Information obtained by: patient. HPI Narrative: 83-year-old male with multiple medical problems including history of A-fib, on apixaban, here with chief complaint of rib pain. Patient notes he was kneeling working in his garden and he slipped and fell onto his right side. He did not hit his head or lose consciousness. He landed on his right chest and has had pain in his right lower ribs since the fall. Pain is worse when he takes a deep breath. No neck pain or back pain. Related Data Home Medications Medication Instructions Recorded Confirmed olmajsriqf-brhslrupsv-lxgnqvom-hyalur 1 ea PO DAILY 12/09/12 01/26/24 ac 375 mg-300 mg-175 mg-2 mg cap multivitamin 1 ea PO DAILY 12/09/12 01/26/24 docusate sodium 100 mg capsule 200 mg (2 x 100 mg) PO QHS PRN 12/18/18 01/26/24 (Colace) constipation #20 caps flaxseed oil 1,000 mg capsule 1,000 mg PO DAILY 02/27/21 01/26/24 acetaminophen 500 mg capsule 500 mg PO Q4H PRN pain #30 caps 05/23/21 01/26/24 psyllium seed (sugar) oral powder 2 tsp PO ONCE PRN 01/21/22 01/26/24 (Metamucil (sugar) oral powder) diclofenac sodium 1 % topical gel 4 g topical QID #100 grams 05/17/22 01/26/24 (Voltaren Arthritis Pain) furosemide 40 mg tablet 40 mg PO BID #180 tabs 03/14/23 01/26/24 sennosides 8.6 mg tablet 8.6 mg PO DAILY PRN constipation 07/09/23 01/26/24 #90 tabs tafamidis meglumine 20 mg capsule 80 mg (4 x 20 mg) PO DAILY #360 08/18/23 01/26/24 (Vyndaqel) caps tamsulosin 0.4 mg capsule (Flomax) 0.8 mg (2 x 0.4 mg) PO DAILY #180 09/10/23 01/26/24 caps simvastatin 10 mg tablet 5 mg (1/2 x 10 mg) PO HS #45 10/17/23 01/26/24 tab-caps ropinirole 0.25 mg tablet 0.25 mg PO TID #90 tabs 12/10/23 01/26/24 tramadol 100 mg tablet 100 mg PO BID PRN pain #60 tabs 12/10/23 01/26/24 doxycycline hyclate 100 mg tablet 100 mg PO ONCE #1 tab 12/22/23 01/26/24 spironolactone 25 mg tablet See Rx Instructions .Route 01/09/24 01/26/24 .COMPLEX #45 tabs sucralfate 1 gram tablet (Carafate) 1 g PO QHS #90 tabs 01/19/24 01/26/24 famotidine 20 mg tablet (Pepcid) 20 mg PO BID #60 tabs 01/26/24 01/26/24 allopurinol 100 mg tablet 100 mg PO DAILY #90 tabs 02/04/24 apixaban 2.5 mg tablet (Eliquis) 2.5 mg PO BID #180 tabs 02/27/24 Previous Rx's Medication Instructions Recorded docusate sodium 100 mg capsule 200 mg (2 x 100 mg) PO QHS PRN 12/18/18 (Colace) constipation #20 caps acetaminophen 500 mg capsule 500 mg PO Q4H PRN pain #30 caps 05/23/21 diclofenac sodium 1 % topical gel 4 g topical QID #100 grams 05/17/22 (Voltaren Arthritis Pain) furosemide 40 mg tablet 40 mg PO BID #180 tabs 03/14/23 sennosides 8.6 mg tablet 8.6 mg PO DAILY PRN constipation 07/09/23 #90 tabs tafamidis meglumine 20 mg capsule 80 mg (4 x 20 mg) PO DAILY #360 08/18/23 (Vyndaqel) caps tamsulosin 0.4 mg capsule (Flomax) 0.8 mg (2 x 0.4 mg) PO DAILY #180 09/10/23 caps simvastatin 10 mg tablet 5 mg (1/2 x 10 mg) PO HS #45 10/17/23 tab-caps ropinirole 0.25 mg tablet 0.25 mg PO TID #90 tabs 12/10/23 tramadol 100 mg tablet 100 mg PO BID PRN pain #60 tabs 12/10/23 doxycycline hyclate 100 mg tablet 100 mg PO ONCE #1 tab 12/22/23 spironolactone 25 mg tablet See Rx Instructions .Route 01/09/24 .COMPLEX #45 tabs sucralfate 1 gram tablet (Carafate) 1 g PO QHS #90 tabs 01/19/24 famotidine 20 mg tablet (Pepcid) 20 mg PO BID #60 tabs 01/26/24 allopurinol 100 mg tablet 100 mg PO DAILY #90 tabs 02/04/24 apixaban 2.5 mg tablet (Eliquis) 2.5 mg PO BID #180 tabs 02/27/24 Allergies Allergy/AdvReac Type Severity Reaction Status Date / Time morphine Allergy Severe unknown Verified 03/01/24 15:42 Penicillins Allergy Skin Rash Verified 03/01/24 15:42 celecoxib AdvReac GI Bleeding Verified 03/01/24 15:42 oxycodone Allergy Severe unknown Uncoded 03/01/24 15:42 General Stated Complaint: Chest/Rib ASH: 3 Review of Systems Musculoskeletal Musculoskeletal: Reports as per HPI Exam Const General: cooperative and no acute distress Neck Neck: trachea midline Chest Chest: no crepitus and tenderness (Right anterior lateral lower ribs) Resp Auscultation: clear to auscultation bilaterally, no rales, no rhonchi and no wheezes Cardio Rate: regular rate and not tachycardic Rhythm: regular rhythm GI Palpation: soft, not firm, no guarding, no masses, not rigid and tender in the epigastrum Neuro General: patient alert, patient awake and tone normal Course Vital Signs Vital signs: Vital Signs Temperature 36.7 C 03/01/24 15:37 Pulse 59 L 03/01/24 15:37 Respiratory Rate 18 03/01/24 15:37 Blood Pressure 136/65 03/01/24 15:37 Pulse Oximetry 96 03/01/24 15:37 Temperature 36.7 C 03/01/24 15:37 Temperature Source Temporal Artery Scan 03/01/24 15:37 Pulse 59 L 03/01/24 15:37 Respiratory Rate 18 03/01/24 15:37 Respiratory Effort Normal, Non-Labored 03/01/24 15:41 Blood Pressure 136/65 03/01/24 15:37 Blood Pressure Position Sitting 03/01/24 15:37 Pulse Oximetry 96 03/01/24 15:37 Oxygen Delivery Method Room Air 03/01/24 15:37 Oxygen Flow Rate 0 03/01/24 15:37 Pain Level 3 03/01/24 15:37 Medical Decision Making 83-year-old male on apixaban, here after fall from kneeling to the ground landing on his right side with pain in his right anterior lateral lower ribs. Patient has tenderness over his right anterior lateral lower ribs as well as epigastric tenderness. Concern for rib fracture. Consider liver laceration. Consider hemothorax. Plan to obtain CT of the chest abdomen pelvis. Patient has history of chronic kidney disease. I will check current kidney function prior to contrast administration. I will treat pain with acetaminophen IV and lidocaine patch. 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) Bradycardia (Acute) Atrial fibrillation (Chronic) Bilateral hearing loss (Acute) Ventricular tachycardia (Chronic) Heart murmur (Acute) 12/2021-consistent with known mitral regurgitation by echo Chronic kidney disease (Chronic) stage 3 Edema, peripheral (Acute) Bilateral hand swelling (Acute) Cholecystitis (Acute) Constipation (Acute) Wrist swelling (Acute) Arthralgia (Acute) Arthritis (Acute) Gout (Chronic) Low back pain (Acute) Cardiac amyloidosis (Acute) OAB (overactive bladder) (Acute) Cubital tunnel syndrome, bilateral (Acute) Bilateral carpal tunnel syndrome (Acute) Memory impairment (Acute) Spinal stenosis at L4-L5 level (Chronic 08/24/15) Narcolepsy (Chronic) Benign prostatic hyperplasia (Chronic 06/03/13) Elevated PSA; bx neg. in 1992; bx neg. in 1998; neg. bx 2006; neg bx 2008 Anxiety (Chronic) Hyperlipidemia (Chronic 06/22/13) Essential hypertension (Chronic) Diastolic heart failure (Acute) Atrial bigeminy (Acute) Edema (Acute) Bradycardia (Acute) Will need Holter monitor to assess heart irregularity and bradycardia prior to surgery. Will try to get done this week and he sees Dr. Castillo this Friday who can then hopefully clear him for surgery or put it on hold. Lab also done. 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 lower spine 10/1995 KNEE REPAIR torn knee cartiledge 03/1971 /fuision HERNIA REPAIR (~05/2009) Family History Mother , AGE 65 Cancer Brother , age 84 Diabetes Maternal Grandfather , age 78 Heart disease Stroke Hyperlipidemia Paternal Grandfather Essential hypertension Heart disease Stroke Maternal Grandmother No problems noted. Paternal Grandmother No problems noted. Son No problems noted. Son Diabetes Father , age 94 No problems noted. Sister No problems noted. Social History Smoking/Tobacco Use Status: Never Second Hand Exposure: Yes Smoking risk assessment performed?: Yes Alcohol Intake: former Counseling given: No Drug use: Never Substance use type: does not use Caregiver/Support person: No Household members: spouse Housing: house Communication Needs: Hard of Hearing Do you need help understanding health information?: Rarely Pets and animals: Yes Pets and animals: dog(s) Sexually active: No Do you think of yourself as: straight/heterosexual Current gender identity: male What is your relationship status?: How often do you talk on the phone with friends or family?: once per week How often do you get together with friends or relatives?: twice per week How often do you attend sikh or jewish services?: decline to answer Do you belong to any clubs or organized social groups?: no Panel score (0-1 are the most socially isolated patients): 2 What type of physical activity do you participate in: walking and bicycling Duration: 15-30 minutes/day Frequency: 3-4 times per week Rafaela/Mormon: Presbyterian Special rafaela needs: No Seatbelt use: always Helmet use: Yes Helmet use: sometimes Drive intox or ride w/intox sales route driver helper: No Do you feel safe at home: Yes Do you feel safe in your relationship?: Yes
[2024-03-01 16:57] LABS: Abs Immature Grans 0.05 10^3/uL (0.0-0.06); Absolute Basophil Count 0.06 10^3/uL (0.0-0.2); Absolute Eosinophil Count 0.52 10^3/uL (0.0-0.7); Absolute Lymphocyte Count 1.04 10^3/uL (1.2-3.4); Absolute Monocyte Count 0.93 10^3/uL (0.1-0.8); Basophils % 0.8 %; Eosinophils % 7.1 %; HCT 38.8 % (40.0-50.0); HGB 13.1 g/dL (13.5-17.5); Immature Grans % 0.7 %; Lymphocytes % 14.2 %; MCH 33.9 pg (27.0-33.0); MCHC 33.8 % (32.0-36.0); MCV 101 fL (80-95); MPV 8.8 fL (8.0-11.0); Monocytes % 12.7 %; Neutrophils % 64.5 %; Platelet Count 210 10^3/uL (130-400); RBC 3.86 10^6/uL (4.36-5.78); RDW 13.7 % (11.8-14.1); RDW-SD 50.9 fL
[2024-03-01] MEDS: Lidocaine 5% Patch 1 PATCH TP (17:05)
[2024-03-01 17:11] LABS: ALT 27 U/L (16-63); AST 35 U/L (15-37); Albumin 3.5 g/dL (3.4-5.0); Alkaline Phosphatase 153 U/L (46-116); Anion Gap 8.2 mmol/L (3-11); BUN 43 mg/dL (7-18); Bilirubin, Total 0.7 mg/dL (0.2-1.0); CO2 28.8 mmol/L (21.0-32.0); CREATININE 2.3 mg/dL (0.70-1.30); Calcium 8.9 mg/dL (8.5-10.1); Chloride 104 mmol/L (98-107); Estimated GFR 27.15 (mL/min/1.73m2); Glucose 122 mg/dL (74-106); Potassium 3.7 mmol/L (3.5-5.1); Sodium 141 mmol/L (136-145); Total Protein 7.5 g/dL (6.4-8.2)
--- NOTE | 2024-03-01 18:14 | DI.CT_ITS ---
Exam(s) CT CHEST/ABD/PEL WO EXAM: CT CHEST/ABD/PEL WO CLINICAL HISTORY: fall R sided chest and abd pain, on AC TECHNIQUE: Imaging Protocol: Axial computed tomography images with coronal and sagittal reformatted images were created and reviewed COMPARISON: CT CT ABDOMEN PELVIS CTA from 07/13/2022 FINDINGS: Examination is limited due to lack of IV contrast. CHEST: Tracheobronchial tree: Patent where visualized. Pulmonary parenchyma: No consolidation or dominant measurable mass. Calcified granuloma present. The re is atelectasis in the lung bases. No focal consolidating infiltrates are seen. Mediastinum and Liliam: No dominant adenopathy or fluid collection. The esophagus is unremarkable. Thyroid gland: Unremarkable. Pleura: No effusion or pneumothorax. Heart: Cardiomegaly. Coronary artery calcifications are present. No pericardial effusion. Aorta: Thoracic aorta non-dilated. Atherosclerotic calcification is present. Lymph nodes: Within normal limits. Bones:Within normal limits for the patient's age. Post laminectomy changes in the lumbar spine. Gra de 1 anterolisthesis of L2 on L3 and L3 on L4. Soft tissues: Bilateral gynecomastia. ABDOMEN: Liver: Mild nodularity of the liver which can be seen with hepatic cirrhosis. No measurable mass. Gallbladder and Biliary Tract: Status post cholecystectomy. No significant biliary ductal dilatation . Pancreas: Normal density, no abnormal calcifications or inflammatory process. Spleen: Normal. Adrenals: No masses seen. Kidneys: Normal size, contour and axis. No radiodense stones or obstructive uropathy. Simple left siddhartha al cysts. No follow-up is recommended. Abdominal Aorta: Abdominal portion non-dilated. Atherosclerotic calcification is present. Bowel: Diverticulosis of the colon without evidence of acute diverticulitis. There is a duodenal div erticulum. No evidence of bowel obstruction or bowel wall thickening. Appendix is unremarkable. Peritoneal Cavity: No ascites, collection or mesenteric inflammatory response. No free air. Lymph Nodes: Within normal limits. Bones: Within normal limits for the patient's age. Soft Tissues: There is a small fat containing umbilical hernia. PELVIS: Bladder: Symmetric distention, no gross wall thickening. Reproductive Organs: The prostate gland is markedly enlarged and impinges upon the base of the urinar y bladder. Lymph Nodes: Within normal limits. Bones: Within normal limits for the patient's age. IMPRESSION: 1. No acute pulmonary process. 2. No definite abdominal or pelvic organ injury on this noncontrast examination. If there is continu ed clinical concern repeat examination with contrast may be obtained. 3. Mild nodularity of the liver suggestive of hepatic cirrhosis. Please correlate clinically. 4. Marked enlargement of the prostate gland which impinges into the base of the urinary bladder. Thi s may simply represent benign hypertrophy. PSA level correlation may be obtained if there is concern for neoplastic process. RADIATION DOSE DELIVERED: 916.24mGy.cm Total DLP 916.24mGy.cm Total DLP DATA REPOSITORY: All CT scans at this facility are submitted to the National Radiology Data Registry (NRDR) Dose Index Registry (DIR) with the [employer] ([employer]). RADIATION OPTIMIZATION: All CT scans at this facility use at least one of these dose optimization te chniques: automated exposure control; mA and/or kV adjustment per patient size (includes targeted exa ms where dose is matched to clinical indication); or iterative reconstruction.
[2024-03-01 18:29] VITALS: BP 117/66; PULSE 56; RESP 14; O2SAT 94
--- NOTE | 2024-03-01 19:31 | DI.VRAD_ITS ---
PROCEDURE INFORMATION: Exam: CT Chest Without Contrast; Diagnostic Exam date and time: 03/01/2024 6:11 PM Age: 83 years old Clinical indication: Injury or trauma; Generalized; Blunt trauma (contusions or hematomas); Injury date: 03/01/24; Patient HX: Fall R sided chest and abd pain on ac TECHNIQUE: Imaging protocol: Diagnostic computed tomography of the chest without contrast. Radiation optimization: All CT scans at this facility use at least one of these dose optimization techniques: automated exposure control; mA and/or kV adjustment per patient size (includes targeted exams where dose is matched to clinical indication); or iterative reconstruction. COMPARISON: CR XR CHEST 2V PA LATERAL 02/03/2023 2:14 PM FINDINGS: Lungs: No pulmonary laceration or consolidation. Mild dependent atelectasis. Pleural spaces: No pleural effusion or pneumothorax. Heart: Enlarged heart with multichamber dilatation. Trace pericardial fluid. Lymph nodes: Scattered small mediastinal lymph nodes, nonspecific. Vasculature: No thoracic aortic aneurysm. Bones/joints: Faint suggestion of a subtle subacute fracture through the anterolateral aspect of the left 5th rib with subtle bony callus formation and near complete healing. No acute fracture seen among the bones of the chest. Spinal degenerative change with discogenic degeneration at several levels. Tiny vestigial ribs at T12. Soft tissues: Mild symmetric gynecomastia. No gross soft tissue mass or fluid collection seen in the chest wall. IMPRESSION: 1. No acute visceral or bony injury seen in the chest. 2. Enlarged heart. PROCEDURE INFORMATION: Exam: CT Abdomen And Pelvis Without Contrast Exam date and time: 03/01/2024 6:11 PM Age: 83 years old Clinical indication: Injury or trauma; Generalized; Blunt trauma (contusions or hematomas); Injury date: 03/01/24; Patient HX: Fall R sided chest and abd pain on ac TECHNIQUE: Imaging protocol: Computed tomography of the abdomen and pelvis without contrast. Radiation optimization: All CT scans at this facility use at least one of these dose optimization techniques: automated exposure control; mA and/or kV adjustment per patient size (includes targeted exams where dose is matched to clinical indication); or iterative reconstruction. COMPARISON: CT ABDOMEN PELVIS CTA 07/13/2022 8:12 AM FINDINGS: Liver: Mild nodularity of hepatic contour with relative hypertrophy of the caudate lobe, nonspecific but commonly seen in the setting of cirrhotic change. Clinical correlation recommended. Gallbladder and bile ducts: Prior cholecystectomy. No biliary dilatation. Pancreas: Grossly unremarkable unenhanced pancreas. Spleen: Grossly unremarkable unenhanced spleen. Adrenal glands: Normal appearing adrenal glands. Kidneys and ureters: 2 cm left renal cyst. 1 cm right renal cyst. No radiopaque renal calculi or hydronephrosis. No obstructing ureteral stones. Stomach and bowel: No oral contrast. Stomach partially decompressed. 1.4 cm x 2.2 cm proximal duodenal diverticulum. No small bowel dilatation to suggest obstruction. Cecum located in the right mid abdomen. No evidence of diverticulitis or colitis. Scattered colonic diverticula through the sigmoid region. Appendix: Appendix not identified, obscured if present. Correlation with surgical history recommended. If there is clinical concern for acute appendicitis and the patient still has an appendix, additional evaluation would be recommended. Intraperitoneal space: No gross ascites or free air. Vasculature: Normal caliber abdominal aorta. Lymph nodes: No pathologically enlarged mesenteric, retroperitoneal, or pelvic sidewall lymph nodes. Urinary bladder: Urinary bladder partially distended. Masslike extension of the prostate gland superiorly into the bladder measuring 4.3 cm x 4.5 cm axial dimension on image 991 of series 5. Reproductive: Grossly enlarged prostate gland measuring 5.3 cm x 6.2 cm x 7.0 cm. Normal-sized seminal vesicles. Bones/joints: No acute fracture seen among the bones of the abdomen or pelvis. Transitional L5 vertebral body, hemisacralized on the right. Spinal degenerative change with discogenic degeneration at multiple levels. Grade 1 anterolisthesis of L2 on L3 and of L3 on L4. Prior lumbar surgery with posterior decompression defects and fusion. Soft tissues: 2.6 cm x 2.3 cm fat containing ventral hernia at the umbilicus. IMPRESSION: 1. The evaluation of the solid organs in the upper abdomen is limited in the setting of trauma in the absence of intravenous contrast. Within the limits of the exam, no acute visceral or bony injury seen in the abdomen or pelvis. 2. Prominent enlargement of the prostate gland measuring 5.3 cm x 6.2 cm x 7.0 cm with superior extension of the prostate gland into the lower bladder, also seen on the comparison exam from July 13, 2022. Although the appearance is nonspecific, clinical correlation is recommended to assess the patient for symptoms of benign prostatic hypertrophy. Additionally, correlation with PSA levels also recommended to exclude more ominous pathology. Dictated and Authenticated by: Juaquin Herrera MD. Ordering:DARI Cruz MD
--- NOTE | 2024-03-01 19:58 | W.EDPROG ---
Date of service: 03/01/24 Time of Service: 19:58 Medical Decision Making Patient resting comfortably no acute distress. Not hypoxic nontachypneic. CT chest abdomen pelvis negative for acute intrathoracic or intra-abdominal process, possible subacute left fifth rib fracture. Although patient has no symptoms in left thorax. Home care instructions return precautions given. Will be given incentive spirometer and Lidoderm patch for home. Quality:SDAL Health Related Social Needs: No Data to Display Sign Out Sign Out Data: Sign Out Comment: 83-year-old fall from kneeling position to the ground with injury to his right anterior lateral chest. Patient tender over his anterior lateral ribs as well as epigastric area. Plan for CT of the abdomen pelvis to assess for acute traumatic injury including rib fracture versus hemothorax versus liver laceration. Plan at signout to follow-up on labs and CT imaging. CT contrast determination pending renal function. Last updated by Bartolome Martinez MD at 03/01/24 17:06 Discharge Plan Disposition Patient Disposition: Home Condition: Improving Discharge Details Clinical Impression: Chest wall contusion Primary Care Provider: Benny Torrez ED Provider: Anthony Noland Home Meds and New Rx's Prescriptions: New lidocaine [Lidoderm] 5 % adhesive patch,medicated 1 patch topical DAILY PRNQty: 15 0RF Rx Instructions: leave on most painful area for up to 12 hrs No Action tamsulosin [Flomax] 0.4 mg capsule 0.8 mg PO DAILY Qty: 180 3RF sucralfate [Carafate] 1 gram tablet 1 g PO QHS Qty: 90 3RF famotidine [Pepcid] 20 mg tablet 20 mg PO BID Qty: 60 12RF flaxseed oil 1,000 mg capsule 1,000 mg PO DAILY Rx Instructions: administer with a meal Metamucil (sugar) Powder 2 tsp PO ONCE PRN Patient Comments: 01/21/22 pt states he takes a sugar free metamucil RH furosemide 40 mg tablet 40 mg PO BID Qty: 180 3RF ropinirole 0.25 mg tablet 0.25 mg PO TID Qty: 90 0RF tramadol 100 mg tablet 100 mg PO BID PRN (Reason: pain) Qty: 60 2RF multivitamin 1 EACH capsule 1 ea PO DAILY glucosam-chond bd-mxdrxm-px ac 1 EACH capsule 1 ea PO DAILY diclofenac sodium [Voltaren Arthritis Pain] 1 % gel 4 g topical QID Qty: 100 0RF Rx Instructions: apply to neck, back sennosides 8.6 mg tablet 8.6 mg PO DAILY PRN (Reason: constipation) Qty: 90 2RF Vyndaqel 20 mg capsule 80 mg PO DAILY Qty: 360 3RF simvastatin 10 mg tablet 5 mg PO HS Qty: 45 4RF doxycycline hyclate 100 mg tablet 100 mg PO ONCE Qty: 1 0RF Rx Instructions: Take one hour prior to procedure. spironolactone 25 mg tablet See Rx Instructions .ROUTE .COMPLEX Qty: 45 3RF Dose Instruction: TAKE 1/2 TABLET BY MOUTH DAILY Rx Instructions: TAKE 1/2 TABLET BY MOUTH DAILY allopurinol 100 mg tablet 100 mg PO DAILY Qty: 90 3RF Eliquis 2.5 mg tablet 2.5 mg PO BID Qty: 180 3RF docusate sodium [Colace] 100 mg capsule 200 mg PO QHS PRN (Reason: constipation) Qty: 20 0RF acetaminophen 500 mg capsule 500 mg PO Q4H PRN (Reason: pain) Qty: 30 0RF Discharge Instructions Instructions: Rib Contusion (ED) Additional Instructions: Please use incentive spirometer as instructed. Please return to the emergency department for any worsening symptoms
[2024-03-01] MEDS: Lidocaine 5% Patch 4 PATCH TP (20:16)
== END 2024-03-01 20:16 | disposition home or self-care (01) ==
PROVIDERS: Student in an Organized Health Care Education/Training Program; Emergency Provider Emergency Medicine; PCP Nurse Practitioner Family
DX: R07.81 Pleurodynia (principal); R07.9 Chest pain, unspecified; I12.9 Hypertensive chronic kidney disease with stage 1 through stage 4 chronic kidney disease, or unspecified chronic kidney disease; N18.30 Chronic kidney disease, stage 3 unspecified; I48.91 Unspecified atrial fibrillation; Z98.1 Arthrodesis status; Z79.01 Long term (current) use of anticoagulants
CPT/HCPCS: 00123; 36415; 71250; 80053; 86850; 86900; 86901; 93005; 96374; 99284; 74176; 85025; 93010; J0131

== ENCOUNTER → 2024-03-04 09:40 | Outpatient (BNVA) | payer MEDICARE, SELFPAY | PROVIDERS: PCP Nurse Practitioner Family; Referring Provider Nurse Practitioner Family; Visit Provider Surgery | DX: K42.9 Umbilical hernia without obstruction or gangrene (principal); S29.8XXA Other specified injuries of thorax, initial encounter; X58.XXXA Exposure to other specified factors, initial encounter; K30 Functional dyspepsia; K21.9 Gastro-esophageal reflux disease without esophagitis | CPT/HCPCS: 99214 ==

== ENCOUNTER 2024-03-04 12:01 | Outpatient (CLI) | payer MEDICARE, SELFPAY ==
[2024-03-04 12:01] LABS: Bilirubin Negative (Negative); Blood Negative (Negative); Clarity Sl Cloudy (Clear); Glucose Negative (Negative); Ketones Negative (Negative); Leukocyte Esterase Trace (Negative); Nitrite Negative (Negative); Urobilinogen 0.2 mg/dL (Up to 0.2); pH 5.5 (5-8)
[2024-03-04 12:29] LABS: Bacteria Rare HPF (Negative); C & S Indicated? No; Casts 0-2 Hyaline LPF (Negative); Crystals Negative HPF (Negative); Epithelial Cells Negative HPF (Negative); Mucus Negative (Negative); Other Cells Negative (Negative); RBC 0-2 HPF (0-2)
[2024-03-08 12:54] LABS: Free PSA/PSA Ratio 0.41 ratio
== END 2024-03-04 12:02 | disposition home or self-care (01) ==
LOC: LBO 12:02
PROVIDERS: PCP Nurse Practitioner Family; Visit Provider Surgery
DX: R97.20 Elevated prostate specific antigen [PSA] (principal); N18.9 Chronic kidney disease, unspecified; N52.9 Male erectile dysfunction, unspecified; N40.1 Benign prostatic hyperplasia with lower urinary tract symptoms
CPT/HCPCS: 36415; 99214; 81003; 81015; 84154

== ENCOUNTER 2024-03-17 20:28 | Outpatient (CLI) | payer MEDICARE, SELFPAY ==
[2024-03-17 14:27] VITALS: BP 116/63; PULSE 51; RESP 20; TEMP 36.5; O2SAT 96
--- NOTE | 2024-03-17 14:59 | DI.RAD_ITS ---
Exam(s) XR PAIN CLINIC SACRIOILIAC 2V EXAM: XR PAIN CLINIC SACRIOILIAC 2V CLINICAL HISTORY: Dx: Sacroiliac Joint Dysfunction TECHNIQUE: 2D and realtime digital imaging was performed. CONTRAST MATERIAL: Refer to procedure report. COMPARISON: No exams were available for comparison FINDINGS: Fluoroscopy was provided for Dr. Hollingsworth during the performance of a left sacroiliac joint injection. Please refer to the procedure report for complete details. Ka,r=7.3 mGy IMPRESSION: RADIATION DOSE DELIVERED: 0.0 0.0 0
[2024-03-17 15:02] VITALS: BP 124/82; PULSE 54; RESP 10; O2SAT 96
--- NOTE | 2024-03-17 15:03 | PDOC.PAIN_ITS ---
Date of service: 03/17/24 Time of Service: 15:03 Pain Managment Procedure Note Procedure Note Procedure Note: PROCEDURE NOTE BILATERAL INTRA-ARTICULAR SACROILIAC JOINT INJECTION Date of Service: March 17, 2024 Patient: Temo Givens Provider: Altaf Hollingsworth DO, MPH COMMENTS: I previously evaluated the patient in the office and their symptoms in relation to the sacroiliac joint pain have remained the same. Pre-operative diagnosis: Sacroiliac joint dysfunction Post-operative diagnosis: Same Pre-procedure pain: VAS= 7/10 Temo Givens has been referred to our [facility] for a Bilateral intra-articular Sacroiliac joint injection. Temo was interviewed and the medical record reviewed. There were no medical, pharmacologic, radiographic or other structural contraindications to attempting a fluoroscopically-guided, contrast-enhanced, intra-articular Sacroiliac joint injection. The risks, benefits, and potential side effects of this procedure were reviewed with the patient. Questions and concerns were addressed. After it was clear that Temo was fully informed about the procedure, the printed consent form was signed by the patient and myself. Temo was placed in the prone position on the fluoroscopy table and an automated blood pressure cuff, 3 lead EKG, and pulse oximeter were applied. The skin entry point for approaching the Left sacroiliac joint was identified under the most advantageous fluoroscopic view and marked. Following thorough Chlorhexadine preparation of the skin and draping with sterile surgical drapes, 2 mls of 1% lidocaine was infiltrated into the skin at the entry point and the surrounding subcutaneous tissues. Next, a 3.5 22G spinal needle was placed under fluoroscopic guidance into the Left sacroiliac joint. Intra-articular placement was confirmed by a clear arthrogram resulting from the injection of 0.25ml of Omnipaque-240. Next, 1/2 ml of Depo- Medrol 80 mg/ml was injected intra-articularly with an initial reproduction of a significant component of the usual pain. This was followed with 1 ml of 1% Lidocaine. The needle was then removed without difficulty. (49 ml of Omnipaque-240 was wasted). The exact procedure was completed on the opposite sacroiliac joint. Temo's vital signs were stable throughout the procedure and were as recorded in nursing records. Follow up plans and appointments were discussed with Temo. Post procedure instructions were given as documented in nursing records. Having met discharge criteria, Tem[facility] was [facility] from the [facility] COMMENTS: Post-procedure pain: VAS= 1/10. If the patient receives at least 50% improvement in pain and/or function for at least 3 months, this procedure can be repeated if needed. I personally performed this entire procedure. ALTAF HOLLINGSWORTH DO, MPH ABPMR-subspecialty board certification in Pain Medicine [facility]
[2024-03-17] MEDS: Omnipaque 240 MG/ML 50 ML BTL IJ (15:04)
[2024-03-17] MEDS: Nerve Block Tray 1 EACH MC (15:04)
[2024-03-17] MEDS: methylPREDNISolone ACETATE 80 MG/ML VIAL IJ (15:05)
== END 2024-03-17 20:29 | disposition home or self-care (01) ==
LOC: PC 03-24 20:28
PROVIDERS: PCP Nurse Practitioner Family; Visit Provider Preventive Medicine Occupational Medicine
DX: M54.50 Low back pain, unspecified (principal); M46.1 Sacroiliitis, not elsewhere classified
CPT/HCPCS: 27096; 72200; J1010; Q9967

== ENCOUNTER 2024-04-23 09:05 | Day surgery (SDC) | payer MEDICARE, SELFPAY ==
--- NOTE | 2024-04-22 22:26 | HPE_ITS ---
Date of service: 04/23/24 Time of Service: 10:08 Assessment and Plan Assessment and plan (1) Essential hypertension: Status: Chronic (2) Diastolic heart failure: Status: Acute Qualifiers: Heart failure chronicity: chronic Qualified Code(s): I50.32 - Chronic diastolic (congestive) heart failure (3) Cardiac amyloidosis: Status: Acute (4) Heart murmur: Status: Acute (5) Bradycardia: Status: Acute (6) Atrial bigeminy: Status: Acute (7) Ventricular tachycardia: Status: Chronic (8) Atrial fibrillation: Status: Chronic Qualifiers: Atrial fibrillation type: permanent Qualified Code(s): I48.21 - Permanent atrial fibrillation (9) Bradycardia: Status: Acute (10) Hyperlipidemia: Status: Chronic Qualifiers: Hyperlipidemia type: mixed hyperlipidemia Qualified Code(s): E78.2 - Mixed hyperlipidemia (11) Indigestion: Status: Acute (12) GERD (gastroesophageal reflux disease): Status: Chronic Qualifiers: Esophagitis presence: without esophagitis Qualified Code(s): K21.9 - Gastro-esophageal reflux disease without esophagitis (13) Congenital diverticulum of duodenum: Status: Acute (14) Constipation by delayed colonic transit: Status: Chronic (15) Diverticulosis of colon without diverticulitis: Status: Chronic (16) Constipation: Status: Acute Qualifiers: Constipation type: slow transit constipation Qualified Code(s): K59.01 - Slow transit constipation (17) Hiatal hernia: Status: Chronic (18) Chronic kidney disease: Status: Chronic (19) Retention of urine: Status: Chronic (20) OAB (overactive bladder): Status: Acute (21) Benign prostatic hyperplasia: Status: Chronic (22) Enlarged prostate with lower urinary tract symptoms (LUTS): Status: Acute (23) Impotence due to erectile dysfunction: Status: Chronic (24) Iron refractory iron deficiency anemia: Status: Acute (25) Anemia: Status: Chronic (26) Wild-type transthyretin-related (ATTR) amyloidosis: Status: Acute (27) Amyloidogenic transthyretin amyloidosis: Status: Acute (28) Gout: Status: Chronic Qualifiers: Chronicity: chronic Gout etiology: idiopathic Gout site: toe Laterality: left Presence of tophus: without tophus Qualified Code(s): M1A.0720 - Idiopathic chronic gout, left ankle and foot, without tophus (tophi) (29) Memory impairment: Status: Acute (30) Spinal stenosis at L4-L5 level: Status: Chronic (31) Restless legs: Status: Chronic (32) Narcolepsy: Status: Chronic Qualifiers: 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 and/or family could understand) explaining risks vs benefits and alternatives to the procedure and consequences if we do not do the procedure and need/rational for the procedure. Risks include but are not limited to: bleeding, infection, perforation of esophagus, stomach, colon, small intestines, bronchus or trachea, or PTX. This would necessitate emergency surgery to repair the damage w/ possible ostomy; and other associated complications w/ the required surgery. Also complications of anesthesia including aspiration, AL/CVA/. I did review the case w/ anesthesia. History of Present Illness Narrative: Pt continues to have abdominal pain which is worse if he doesn't eat. The pain is better if he eats. no blood in stools or black tarry stools. +wt loss. No pain or difficulty swallowing. He stopped blood thinners on Friday. He stopped the pepcid. He has no chest wall pain w/ deep inspiration. He is in A fib today but rate is controlled. Patient is here today for EGD for abdominal pain and chronic anemia.??? They completed a bowel prep with just a clear yellow residual effluent.? They not having any chest pain or shortness of breath, currently.? They are not exper iencing any fever or chills.? They deny any productive cough or upper respiratory tract infection signs or symptoms.? They are not having abdominal pain, or nausea and vomiting.? They have not had any changes in medications, past medical history or past surgical history since previously being seen in the office. They have not had any accidents or have been in the ER since the clinic pre-operative evaluation. ??I reviewed the procedure with the patient today, including risks and benefits of the procedure, and what they could expect at home for recovery.? All questions are answered to the patient?s satisfaction today, and they are stable to proceed with the proposed procedure Conclusion Mild concentric left ventricular hypertrophy. Ejection fraction is 55%. Wall motion is normal Normal right ventricular size and function Left atrium is moderately dilated. Right atrium is mildly dilated Trileaflet aortic valve with trace regurgitation Normal mitral valve with moderate regurgitation Normal tricuspid valve with mild regurgitation Estimated right ventricular systolic pressure is 31 mmHg scope was delayed b/c pt fell and broke ribs in March Clinic Visit 01/19/24 RN: Pt reports stomach problems, I think it might be an ulcer. Pt reports i've had it for years, but it's getting worse. i have to eat something about every 4 hours, sometimes it comes on so quick and I just feel awful. It isn't acid reflux, i'd call it pain. Pt reports using mylanta for the last month. pt is having pain in epigastric region. He has had pain for many yrs. pain feels better if he eats. In the pain last month it felt worse. meprazol- he has been on this for many yrs. he is takin Mylanta for stomach- it helps at times. He has never had a scope before. no blood in stools or tark/tarry, the pain is in the left upper quadrant epigastric area. It does not radiate into the back. He has a small umbilical hernia. It is soft and reducible. Pushing on the hernia and does not induce any pain. no pain or diff swallowing. eating ok/no wt loss. ASA-no tylenol. no nsaid's. coffee- none soda none etoh- no smoker-no pain is not worse w/ activity. Has had a ce in past- ?thelma. His heart has in doing ok. PSHx x3 back surgery b/l knee replacements carpel tunnel b/l L inguinal hernia anetheisa- none pt doesn't sleep get at night due to back pain. Has to get up and eat at night b/c of pain. He doesn't really have acid reflux or regurg. no n/v. He has lots of gas form food. He doesn't eat spicy foods. no diarrhea. He had a groin pull on right. It is maybe slight better. He got from the very black/pull. This occurred when he was just walking/standing. 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 He dind't lift or pull on anything. He is up and down w/ bench. but does lots of standing. He has a small umbilical hernia. no pain in this area. Lab/echo/radiological studies were reviewed. Review of Systems All systems reviewed & are unremarkable except as noted in HPI and below PFSH All Active Problems Enlarged prostate with lower urinary tract symptoms (LUTS) (Acute) Bladder mass (Acute) Blunt chest trauma (Acute) Secondary to fall Umbilical hernia (Acute) Congenital diverticulum of duodenum (Acute) Sacroiliac joint dysfunction of both sides (Acute) Anemia (Chronic) Iron refractory iron deficiency anemia (Acute) Epigastric discomfort (Acute) GERD (gastroesophageal reflux disease) (Chronic) 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) Bradycardia (Acute) Atrial fibrillation (Chronic) Bilateral hearing loss (Acute) Ventricular tachycardia (Chronic) Heart murmur (Acute) 12/2021-consistent with known mitral regurgitation by echo Chronic kidney disease (Chronic) stage 3 Edema, peripheral (Acute) Bilateral hand swelling (Acute) Cholecystitis (Acute) Constipation (Acute) Wrist swelling (Acute) Arthralgia (Acute) Arthritis (Acute) Gout (Chronic) Low back pain (Acute) Cardiac amyloidosis (Acute) OAB (overactive bladder) (Acute) Cubital tunnel syndrome, bilateral (Acute) Bilateral carpal tunnel syndrome (Acute) Memory impairment (Acute) Spinal stenosis at L4-L5 level (Chronic 08/24/15) Narcolepsy (Chronic) Benign prostatic hyperplasia (Chronic 06/03/13) Elevated PSA; bx neg. in 1992; bx neg. in 1998; neg. bx 2006; neg bx 2008 Anxiety (Chronic) Hyperlipidemia (Chronic 06/22/13) Essential hypertension (Chronic) Diastolic heart failure (Acute) Atrial bigeminy (Acute) Edema (Acute) Bradycardia (Acute) Will need Holter monitor to assess heart irregularity and bradycardia prior to surgery. Will try to get done this week and he sees Dr. Castillo this Friday who can then hopefully clear him for surgery or put it on hold. Lab also done. 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 lower spine 10/1995 KNEE REPAIR torn knee cartiledge 03/1971 /fuision HERNIA REPAIR (~05/2009) Family History Mother , AGE 65 Cancer Brother , age 84 Diabetes Maternal Grandfather , age 78 Heart disease Stroke Hyperlipidemia Paternal Grandfather Essential hypertension Heart disease Stroke Maternal Grandmother No problems noted. Paternal Grandmother No problems noted. Son No problems noted. Son Diabetes Father , age 94 No problems noted. Sister No problems noted. Social History Smoking/Tobacco Use Status: Never Second Hand Exposure: Yes Smoking risk assessment performed?: Yes Alcohol Intake: former Counseling given: No Drug use: Never Substance use type: does not use Caregiver/Support person: No Household members: spouse Housing: house Communication Needs: Hard of Hearing Do you need help understanding health information?: Rarely Pets and animals: Yes Pets and animals: dog(s) Sexually active: No Do you think of yourself as: straight/heterosexual Current gender identity: male What is your relationship status?: How often do you talk on the phone with friends or family?: once per week How often do you get together with friends or relatives?: twice per week How often do you attend oriental orthodox or latter-day services?: decline to answer Do you belong to any clubs or organized social groups?: no Panel score (0-1 are the most socially isolated patients): 2 What type of physical activity do you participate in: walking and bicycling Duration: 15-30 minutes/day Frequency: 3-4 times per week Rafaela/Holiness: [employer] Special rafaela needs: No Seatbelt use: always Helmet use: Yes Helmet use: sometimes 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 Do you feel safe at home: Yes Do you feel safe in your relationship?: Yes Meds Allergies and Home Medications Allergies Allergy/AdvReac Type Severity Reaction Status Date / Time morphine Allergy Severe unknown Verified 04/23/24 09:37 Penicillins Allergy Skin Rash Verified 04/23/24 09:37 celecoxib AdvReac GI Bleeding Verified 04/23/24 09:37 oxycodone Allergy Severe unknown Uncoded 04/23/24 09:37 Home Medications ?Medication ?Instructions ?Recorded ?Confirmed ?Type [id number]-aajihyhmhk-izwegdhr-hyalur 1 ea PO DAILY 12/09/12 04/23/24 History ac 375 mg-300 mg-175 mg-2 mg cap multivitamin 1 ea PO DAILY 12/09/12 04/23/24 History flaxseed oil 1,000 mg capsule 1,000 mg PO DAILY 02/27/21 04/23/24 History acetaminophen 500 mg capsule 500 mg PO Q4H PRN pain #30 caps 05/23/21 04/23/24 Rx psyllium seed (sugar) oral powder 2 tsp PO ONCE PRN 01/21/22 04/23/24 History (Metamucil (sugar) oral powder) sennosides 8.6 mg tablet 8.6 mg PO DAILY PRN constipation 07/09/23 04/23/24 Rx #90 tabs tafamidis meglumine 20 mg capsule 80 mg (4 x 20 mg) PO DAILY #360 08/18/23 04/23/24 Rx (Vyndaqel) caps tamsulosin 0.4 mg capsule (Flomax) 0.8 mg (2 x 0.4 mg) PO DAILY #180 09/10/23 04/23/24 Rx caps simvastatin 10 mg tablet 5 mg (1/2 x 10 mg) PO HS #45 10/17/23 04/23/24 Rx tab-caps spironolactone 25 mg tablet See Rx Instructions .Route 01/09/24 04/23/24 Rx .COMPLEX #45 tabs sucralfate 1 gram tablet (Carafate) 1 g PO QHS #90 tabs 01/19/24 04/23/24 Rx allopurinol 100 mg tablet 100 mg PO DAILY #90 tabs 02/04/24 04/23/24 Rx apixaban 2.5 mg tablet (Eliquis) 2.5 mg PO BID #180 tabs 02/27/24 04/22/24 Rx furosemide 40 mg tablet 40 mg PO BID #180 tabs 03/15/24 04/23/24 Rx tramadol 100 mg tablet 100 mg PO BID PRN pain #60 tabs 03/15/24 04/23/24 Rx pantoprazole 40 mg tablet,delayed 40 mg PO DAILY #90 tabs 04/19/24 04/23/24 Rx release (Protonix) Exam Narrative Exam Narrative: PHYSICAL EXAM GENERAL APPEARANCE: Alert, healthy appearance, oriented, x 3,? in no acute distress HYDRATION: Well hydrated HEAD, EYES, EARS, NECK, THROAT: Head is normocephalic, pupils equal, round, reactive to light and accommodation, ocular movement intact, sclera clear and no jaundice. ?Dentition intact. LUNGS: normal respiration/normal chest excursion. ?Clear to auscultation bilaterally. ?No wheeze. ?HEART: A fib ABDOMEN: soft .? Normal bowel sounds.? no pain today Time Spent Time spent with Patient: 40-54 minutes Time was spent: preparing to see the patient(eg.review tests), obtaining and/or reviewing separately otained hiistory, ordering medications,tests, procedures, referring, communicating with other health day care aide, indepentently interpreting results, counseling the patient, care coordination and other
--- NOTE | 2024-04-22 22:35 | PDOC.DSDIS_ITS ---
Date of service: 04/23/24 Time of Service: 11:04 Discharge Plan Disposition Patient Disposition: Home Condition: Good Discharge Details Reason For Visit: stomach scope Attending Provider: Suze Trejo Primary Care Provider: Benny Torrez Home Meds and New Rx's Prescriptions: New dexlansoprazole [Dexilant] 60 mg capsule,biphase delayed releas 60 mg PO DAILY Qty: 30 12RF Discontinued sucralfate [Carafate] 1 gram tablet 1 g PO QHS Qty: 90 3RF pantoprazole [Protonix] 40 mg tablet,delayed release (DR/EC) 40 mg PO DAILY Qty: 90 4RF No Action tamsulosin [Flomax] 0.4 mg capsule 0.8 mg PO DAILY Qty: 180 3RF flaxseed oil 1,000 mg capsule 1,000 mg PO DAILY Rx Instructions: administer with a meal Metamucil (sugar) Powder 2 tsp PO ONCE PRN Patient Comments: 01/21/22 pt states he takes a sugar free metamucil RH multivitamin 1 EACH capsule 1 ea PO DAILY glucosam-chond dj-dodtew-oo ac 1 EACH capsule 1 ea PO DAILY sennosides 8.6 mg tablet 8.6 mg PO DAILY PRN (Reason: constipation) Qty: 90 2RF Vyndaqel 20 mg capsule 80 mg PO DAILY Qty: 360 3RF simvastatin 10 mg tablet 5 mg PO HS Qty: 45 4RF spironolactone 25 mg tablet See Rx Instructions .ROUTE .COMPLEX Qty: 45 3RF Dose Instruction: TAKE 1/2 TABLET BY MOUTH DAILY Rx Instructions: TAKE 1/2 TABLET BY MOUTH DAILY allopurinol 100 mg tablet 100 mg PO DAILY Qty: 90 3RF Eliquis 2.5 mg tablet 2.5 mg PO BID Qty: 180 3RF furosemide 40 mg tablet 40 mg PO BID Qty: 180 3RF tramadol 100 mg tablet 100 mg PO BID PRN (Reason: pain) Qty: 60 2RF acetaminophen 500 mg capsule 500 mg PO Q4H PRN (Reason: pain) Qty: 30 0RF Discharge Instructions Additional Instructions: Post EGD Instruction ?You had anesthesia for your EGD/stomach scope today.? For your safety, please do the following for the next twenty-four (24) hours: Do Not operate a motor vehicle (car, truck, motorcycle, etc.) Do Not drink alcoholic beverages or use any recreational drugs for the first 24 hours or while taking pain medications. The medications in your body may have a reaction that can be dangerous. Do Not make any important decisions or sign any important papers You have just had a gastroscopy (EGD) or upper GI tract examination. It is important for your smooth recovery that you carefully follow the recommendations below. Do not hesitate to call if any questions should arise about your anesthesia, condition, or care. -Symptoms you may experience during the next 24 hours: ?1. Mild abdominal pain or excessive gas or a bloated feeling which improves with rest, liquids, eating? slightly, and walking as tolerated. 2. Drowsiness and/or forgetfulness because of the medications you were given. ?3. Throat numbness for about 1 hour. 4. A sore throat which you can treat with throat lozenges or by gargling with salt water 4-5 times a day. 5. Redness at the site of your IV which you can treat with warm compresses. SPECIAL INSTRUCTIONS: 1. You may resume your previous diet in one hour. We recommend a light meal to start, then progress as tolerated. 2. Restart regular medications in one hour. 3. No aspirin or non-steroidal containing medication for three days. 4. No lifting over 20 pounds or strenuous activity for the first 24 hours after your procedure. After 24 hours there are no restrictions on your activity, but you may feel fatigued for a few days. Findings: -hemorrhagic doudentitis/gastritis -Medications: -Resume elliquis on Friday -stop: protonix/pepcid/carafate -Starta: Dexilant today -Continue to follow lifestyle modifications: No alcohol, tobacco products, Aspirin or NSAID's (ibuprofen, Motrin, Naprosyn, aleve, etc).? Try to limit/avoid:? soda pop/any carbonated beverages, caffeine (including tea & chocolate), and acidic foods, (tomatoes, citrus, onions, peppermints) spicy or fried/fatty foods. Do not lie down for 30 minutes after eating, and do not eat 2 hours prior to bedtime. Avoid wearing tight fitting clothing/ belts. Follow up: -My office will send a letter with the results of your biopsy?s in 2-3wks time. Call the office at [phone] (Office) or [phone] (Hospital), or go to the ER right away if you notice any of the followin. Vomiting blood and /or ?coffee ground? material. ?2. Worsening of abdominal pain or cramping. ?3. Trouble with breathing, cough, and/or fever (temperature above 101.5 F). 4. Increasing pain with swallowing. ?5. Chest pain. 6. Any new symptoms. 7. Worsening of the redness at the IV site Stand Alone Forms: Anesthesia Discharge Rodney Collins (DSU) Activity:: see above Diet:: see above DS: Diagnosis Discharge Diagnosis (1) Essential hypertension: Status: Chronic (2) Diastolic heart failure: Status: Acute (3) Cardiac amyloidosis: Status: Acute (4) Heart murmur: Status: Acute (5) Bradycardia: Status: Acute (6) Atrial bigeminy: Status: Acute (7) Ventricular tachycardia: Status: Chronic (8) Atrial fibrillation: Status: Chronic (9) Hyperlipidemia: Status: Chronic (10) Indigestion: Status: Acute (11) GERD (gastroesophageal reflux disease): Status: Chronic (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 (13) Constipation by delayed colonic transit: Status: Chronic (14) Diverticulosis of colon without diverticulitis: Status: Chronic (15) Constipation: Status: Acute (16) Hiatal hernia: Status: Chronic (17) Chronic kidney disease: Status: Chronic (18) Retention of urine: Status: Chronic (19) OAB (overactive bladder): Status: Acute (20) Benign prostatic hyperplasia: Status: Chronic (21) Enlarged prostate with lower urinary tract symptoms (LUTS): Status: Acute (22) Impotence due to erectile dysfunction: Status: Chronic (23) Iron refractory iron deficiency anemia: Status: Acute (24) Anemia: Status: Chronic (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 Patient has minimal sore throat.? They have been able to tolerate liquids.? They do not have any nausea vomiting.? They are not having any chest pain or shortness of breath.? They have been able to pass gas and are not having any abdominal pain or distention.? They have not vomited any blood.? The vital signs have been stable-see nursing notes. We discussed findings on their endoscopy. We reviewed the importance of lifestyle modification-see discharge instructions We reviewed any new medications that the patient may be prescribed-see discharge instructions Patient will either be sent a letter with the biopsy results or follow-up in the office-see discharge instructions. Patient was given explicit instructions to follow-up regarding post endoscopy- refer to discharge Patient verbalized understanding and discharged in stable and satisfactory condition.? See nursing notes. (34) Cirrhosis of liver: Status: Acute (35) Gastritis/duodenitis: Status: Acute
--- NOTE | 2024-04-22 22:55 | W.PM.ENDDOP ---
Date of service: 04/23/24 Time of Service: 10:59 Endoscopy Report DATE OF PROCEDURE: 04/23/24 PRE-OP DIAGNOSIS: chronic abdominal pain/anemia POST-OP DIAGNOSIS: other (chronic gastriutids an ddoudentisi w/ punctate erosion/hemorrhage) SURGEON: Suze Trejo ANESTHESIA TYPE: General:No Airway ESTIMATED BLOOD LOSS: 1 PATHOLOGY: other COMPLICATIONS: None DISPOSITION: same day PROCEDURE DESCRIPTION: After informed consent was obtained the patient was take to the procedure room and placed in a supine position. Monitors were applied and a time out was done. The patients name, date of , procedure type, allergies to medications and metal in their body was reviewed. A bite block was placed and the patient was sedated. Once sedated and comfortable the gastroscope was advanced through the oropharynx which was grossly normal into the esophagus. The proximal and mid-esophagus were normal. In the distal esophagus there was no: varices/esohagitis/stricture The scope was advanced into the stomach and through the pylorus into the 3rd portion of the duodenum. The duodenum was noted to be moderate doudenitis w/ punctate hemorrhage. Biopsies were done; all speicimens are retrieved and no bleeding is noted. There are a few funcid gland polyps. The scope was retracted back into the stomach and biopsies were done to rule out H. pylori. There is punctate hemorrhagic gastritis in the antrum. There are no ulcers or active bleeding The scope was retroflexed. The cardia and fundus were noted to be normal. There is non significant hiatal hernia. The scope was retracted back into the esophagus and biopsies were done of the GE junction to rule out Maldonado's. The scope was removed and the patient was woken up and taken back to [facility] in stable condition.
[2024-04-23 09:42] VITALS: BP 124/74; PULSE 60; RESP 16; TEMP 36.5; O2SAT 95
[2024-04-23] MEDS: Lactated Ringers 1,000 ML 80 ML IV (09:45)
--- NOTE | 2024-04-23 09:57 | ANES.PREOP_ITS ---
General Info Date of Service Date Performed: 04/23/24 Height: 5 ft 7 in Weight: 71.1 kg Body Mass Index (BMI): 24.5 Surgical Procedure: Operation Date: 04/23/24 09:50 Proposed Procedure Side Surgeon p Gastroscopy Suze Trejo, Meds Allergies and Home Medications Allergies Allergy/AdvReac Type Severity Reaction Status Date / Time morphine Allergy Severe unknown Verified 04/23/24 09:37 Penicillins Allergy Skin Rash Verified 04/23/24 09:37 celecoxib AdvReac GI Bleeding Verified 04/23/24 09:37 oxycodone Allergy Severe unknown Uncoded 04/23/24 09:37 Home Medication ?Medication ?Instructions ?Recorded uzqktptpqa-zbsxujhygk-nllencxn-hyalur 1 ea PO DAILY 12/09/12 ac 375 mg-300 mg-175 mg-2 mg cap multivitamin 1 ea PO DAILY 12/09/12 flaxseed oil 1,000 mg capsule 1,000 mg PO DAILY 02/27/21 acetaminophen 500 mg capsule 500 mg PO Q4H PRN pain #30 caps 05/23/21 psyllium seed (sugar) oral powder 2 tsp PO ONCE PRN 01/21/22 (Metamucil (sugar) oral powder) sennosides 8.6 mg tablet 8.6 mg PO DAILY PRN constipation 07/09/23 #90 tabs tafamidis meglumine 20 mg capsule 80 mg (4 x 20 mg) PO DAILY #360 08/18/23 (Vyndaqel) caps tamsulosin 0.4 mg capsule (Flomax) 0.8 mg (2 x 0.4 mg) PO DAILY #180 09/10/23 caps simvastatin 10 mg tablet 5 mg (1/2 x 10 mg) PO HS #45 10/17/23 tab-caps spironolactone 25 mg tablet See Rx Instructions .Route 01/09/24 .COMPLEX #45 tabs sucralfate 1 gram tablet (Carafate) 1 g PO QHS #90 tabs 01/19/24 allopurinol 100 mg tablet 100 mg PO DAILY #90 tabs 02/04/24 apixaban 2.5 mg tablet (Eliquis) 2.5 mg PO BID #180 tabs 02/27/24 furosemide 40 mg tablet 40 mg PO BID #180 tabs 03/15/24 tramadol 100 mg tablet 100 mg PO BID PRN pain #60 tabs 03/15/24 pantoprazole 40 mg tablet,delayed 40 mg PO DAILY #90 tabs 04/19/24 release (Protonix) Current Visit Medications: Current Medications Generic Name Dose Route Start Last Admin Trade Name Romaine PRN Reason Stop Dose Admin Ringer's Solution 1,000 mls @ 80 mls/hr 04/23/24 06:00 04/23/24 09:45 IV 04/23/24 23:59 80 mls/hr INFUSION THEO Administration IV Miscellaneous Supplies 1 each 04/23/24 06:00 Iv Access IV 04/23/24 23:59 DIRECTED THEO Sodium Chloride 0 ml 04/23/24 06:00 Normal Saline Flush 10 Ml Syr IV 04/23/24 23:59 PRN PRN Sodium Chloride 0 ml 04/23/24 06:00 Normal Saline 10 Ml Vial IJ 04/23/24 23:59 DIRECTED PRN Sterile Water 0 ml 04/23/24 06:00 Water,Injection,Sterile 10 Ml Vial IJ 04/23/24 23:59 DIRECTED PRN PFSH Active Problems Active Problems: Problem Status Onset Code Enlarged prostate with lower urinary tract symptoms (LUTS) Acute N40.1 Bladder mass Acute N32.89 Blunt chest trauma Acute S29.8XXA Umbilical hernia Acute K42.9 Congenital diverticulum of duodenum Acute Q43.8 Sacroiliac joint dysfunction of both sides Acute M53.3 Anemia Chronic D64.9 Iron refractory iron deficiency anemia Acute D50.8 Epigastric discomfort Acute R10.13 GERD (gastroesophageal reflux disease) Chronic K21.9 Amyloidogenic transthyretin amyloidosis Acute E85.89 Wild-type transthyretin-related (ATTR) amyloidosis Acute E85.82 Bradycardia Acute R00.1 Atrial fibrillation Chronic I48.91 Bilateral hearing loss Acute H91.93 Ventricular tachycardia Chronic I47.2 Heart murmur Acute R01.1 Chronic kidney disease Chronic N18.9 Edema, peripheral Acute R60.9 Bilateral hand swelling Acute M79.89 Cholecystitis Acute K81.9 Constipation Acute K59.00 Wrist swelling Acute M25.439 Arthralgia Acute M25.50 Arthritis Acute M19.90 Gout Chronic M10.9 Low back pain Acute M54.5 Cardiac amyloidosis Acute E85.4, I43 OAB (overactive bladder) Acute N32.81 Cubital tunnel syndrome, bilateral Acute G56.23 Bilateral carpal tunnel syndrome Acute G56.03 Memory impairment Acute R41.3 Spinal stenosis at L4-L5 level Chronic 08/24/15 M48.061 Narcolepsy Chronic G47.419 Benign prostatic hyperplasia Chronic 06/03/13 N40.0 Anxiety Chronic F41.9 Hyperlipidemia Chronic 06/22/13 E78.5 Essential hypertension Chronic I10 Diastolic heart failure Acute I50.30 Atrial bigeminy Acute I49.8 Edema Acute R60.9 Bradycardia Acute R00.1 Indigestion Acute K30 Urgency of urination Chronic 06/17/12 R39.15 Retention of urine Chronic 06/17/12 R33.9 Restless legs Chronic G25.81 Low back pain Chronic M54.5 Knee pain Chronic 02/11/13 M25.569 Impotence due to erectile dysfunction Chronic 03/18/05 N52.9 History of reactive hypoglycemia Chronic 06/21/16 Z86.39 Hiatal hernia Chronic 10/05/08 K44.9 Diverticulosis of colon without diverticulitis Chronic K57.30 Constipation by delayed colonic transit Chronic K59.01 Bursitis of right shoulder Chronic 08/24/15 M75.51 Medical History Medical History Blepharoptosis, bilateral having bilat blepharoplasties at [facility] on 11/11/22 Droopy eyelid Bilateral blepheroplastys in 2022. 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 lower spine 10/1995 KNEE REPAIR torn knee cartiledge 03/1971 /fuision HERNIA REPAIR (~05/2009) Tobacco Smoking/Tobacco Use Status: Never Passive smoking exposure: Yes Second hand exposure: Yes Alcohol Alcohol Intake: former Substance Use Substance use: Never Substance use type: does not use Vital Signs and Lab Results Vital Signs Most Recent Vital Signs in EMR: Most Recent Vital Signs Temp Pulse Resp BP Pulse Ox 36.5 C 60 16 124/74 95 04/23/24 09:42 04/23/24 09:42 04/23/24 09:42 04/23/24 09:42 04/23/24 09:42 Lab Results Blood Type / Crossmatch: No Data to Display Complete Blood Count: No Data to Display Complete Metabolic Panel: No Data to Display Liver Function Panel: No Data to Display Coagulation Panel: No Data to Display Cardiac Panel: No Data to Display Arterial Blood Gas: No Data to Display Venous Blood Gas: No Data to Display Pancreas Panel: No Data to Display Thyroid Panel: No Data to Display Infectious Disease: No Data to Display Blood Cultures: No Data to Display Toxicology Panel: No Data to Display Imaging and Studies Imaging and Studies Study information below may be from another EMR and interpreted by another provider. Please see original notes in EMR for more complete details. EKG Summary: 03/01/24: Exam: Resting ECG Reason for Exam: SOB Patient Location: E HR:50 bpm ECG Measurements Heart Rate 50 AXIS [place] [id number] P [id number] QRSd 103 QRS 107 QT 444 T266 QTc 405 Conclusion Atrial fibrillation...V-rate 41- 59, irreg A-activity Probable right ventricular hypertrophy...prominent R or R' w/ RAD or NOLAN Nonspecific T abnormalities, lateral leads...T <-0.10mV, I aVL V5 V6 I have reviewed and I agree with the emergency room physician's ECG interpretation. Echocardiogram Summary: Conclusion Mild concentric left ventricular hypertrophy. Ejection fraction is 55%. Wall motion is normal Normal right ventricular size and function Left atrium is moderately dilated. Right atrium is mildly dilated Trileaflet aortic valve with trace regurgitation Normal mitral valve with moderate regurgitation Normal tricuspid valve with mild regurgitation Estimated right ventricular systolic pressure is 31 mmHg Anesthesia Assessment and Plan Anesthesia History Personal History: No History of Anesthesia Complications Family History: No Family History of Anesthesia Complications Exercise Tolerance Exercise Tolerance: Metabolic Equivalents>4 Cardiac & Pulmonary Exam Cardiac Exam: Heart Murmur Present Pulmonary Exam: Clear Bilateral Breath Sounds Implantable Cardiac Device Does patient have a Pacemaker or an ICD?: No Airway Exam Known Difficult Airway: No Mallampati Class: 2 Mouth Opening: Normal (> 3cm) Thyromental Distance: Greater than 3 cm Neck Range of Motion: Limited ROM Neck Circumference: Normal Teeth Condition: Normal Dentition ASA Classification ASA Score: ASA 3 Emergency Case?: No NPO Status NPO Status: NPO Clears >2 hours, Solids >8 hours Anesthesia Plan Resuscitation Status: Full Code Anesthesia Technique: General Anesthesia Airway Planned: Natural Airway Monitors Used: Standard Monitors
[2024-04-23 09:58] VITALS: BMI 24.5
--- NOTE | 2024-04-23 10:33 | STOM_PTH ---
PATIENT: Temo Givens LOC: [facility] U#:[id number] AGE/SX: 83/M ROOM: RE04/23/[address]: Suze Trejo : 1940 BED: DIS: 04/23/2024 SPEC #: [id number] RECD: 04/23/24 12:59 STATUS: HEYDI RE #: [id number] AYAN: 04/23/24 10:[address]: Suze Trejo DEPT: Surgical Specimen RECD BY: Marianela Canas ENTERED: 04/23/24 13:02 SP TYPE: STOMACH OTHR DR: Benny Torrez, SALES DEVELOPMENT SPECIALIST Tissues: 1 - BIOPSY BOWEL 2 - STOMACH BIOPSY G - STOMACH BIOPSY 3 - ESOPHAGUS BIOPSY Procedures: GROSS AND MICRO LEVEL 4 Comments: [id number]
[2024-04-23 10:50] VITALS: BP 107/70; PULSE 61; RESP 19; TEMP 36.3; O2SAT 95
--- NOTE | 2024-04-23 10:57 | W.ANESPOSTOP ---
Postoperative Evaluation Date, Time and Location Date Performed: 04/23/24 Time Performed: 10:56 Patient Location: Day Surgery Unit Vital Signs Most Recent Imported Vital Signs: Most Recent Vital Signs Temp Pulse Resp BP Pulse Ox 36.3 C L 61 19 107/70 95 04/23/24 10:50 04/23/24 10:50 04/23/24 10:50 04/23/24 10:50 04/23/24 10:50 Pain Score Most Recent Pain Score: Most Recent Pain Score Pain Level 0 04/23/24 10:50 Assessment Mental Status: Awake (Alert & Oriented to Patient Baseline) Airway and Respiratory Function: Patent airway with normal (patient baseline) respiratory exam Cardiovascular Function: Hemodynamically Stable Hydration Status: Adequately Hydrated Nausea & Vomiting: No Nausea or Vomiting Pain: Pt. Denies Any Pain Peripheral Nerve Block: Patient did not receive a nerve block
[2024-04-23 11:20] VITALS: BP 118/65; PULSE 58; RESP 19; TEMP 36.4; O2SAT 94
== END 2024-04-23 12:00 | disposition home or self-care (01) ==
LOC: SUR 09:05
PROVIDERS: PCP Nurse Practitioner Family; Visit Provider Surgery
PROC: 0DJ68ZZ Inspection of Stomach, Via Natural or Artificial Opening Endoscopic (ICD-10-PCS; CPT 43235; principal; 2024-04-23 09:45)
DX: K21.9 Gastro-esophageal reflux disease without esophagitis (principal); K30 Functional dyspepsia; K59.01 Slow transit constipation; K31.7 Polyp of stomach and duodenum; K29.80 Duodenitis without bleeding; K29.70 Gastritis, unspecified, without bleeding
CPT/HCPCS: 43239; 88305; J2001; J2704

== ENCOUNTER → 2024-05-24 09:38 | Outpatient (BNVA) | payer MEDICARE, SELFPAY | PROVIDERS: PCP Nurse Practitioner Family; Referring Provider Nurse Practitioner Family; Visit Provider Surgery | DX: K29.80 Duodenitis without bleeding (principal) | CPT/HCPCS: 99213 ==

== ENCOUNTER → 2024-07-27 10:32 | Outpatient (BNVA) | payer MEDICARE, SELFPAY | PROVIDERS: PCP Nurse Practitioner Family; Visit Provider Internal Medicine Cardiovascular Disease | DX: I48.21 Permanent atrial fibrillation (principal); E85.89 Other amyloidosis | CPT/HCPCS: 99213 ==

== ENCOUNTER → 2024-09-08 09:37 | Outpatient (BNVA) | payer MEDICARE, SELFPAY | PROVIDERS: PCP Nurse Practitioner Family; Visit Provider Nurse Practitioner Gerontology | DX: N40.1 Benign prostatic hyperplasia with lower urinary tract symptoms (principal); R33.8 Other retention of urine; N32.81 Overactive bladder | CPT/HCPCS: 51798; 81003; 99214 ==

== ENCOUNTER 2024-09-17 09:12 | Emergency (ER) | payer MEDICARE, SELFPAY ==
[2024-09-17 09:15] VITALS: BP 153/57; PULSE 61; RESP 18; TEMP 36.4; O2SAT 94
--- NOTE | 2024-09-17 09:43 | ED.GENADUL_ITS ---
Discharge Plan Disposition Patient Disposition: Home Condition: Good Discharge Details Clinical Impression: Constipation Primary Care Provider: Benny Torrez ED Provider: Carloz Cronin Home Meds and New Rx's Prescriptions: No Action Vyndaqel 20 mg capsule 80 mg PO DAILY Qty: 360 3RF Metamucil (sugar) Powder 2 tsp PO ONCE Patient Comments: 01/21/22 pt states he takes a sugar free metamucil RH flaxseed oil 1,000 mg capsule 1,000 mg PO DAILY Rx Instructions: administer with a meal tamsulosin [Flomax] 0.4 mg capsule 0.8 mg PO DAILY Qty: 180 3RF multivitamin 1 EACH capsule 1 ea PO DAILY glucosam-chond ca-pdhvqy-bh ac 1 EACH capsule 1 ea PO DAILY simvastatin 10 mg tablet 5 mg PO HS Qty: 45 4RF spironolactone 25 mg tablet See Rx Instructions .ROUTE .COMPLEX Qty: 45 3RF Dose Instruction: TAKE 1/2 TABLET BY MOUTH DAILY Rx Instructions: TAKE 1/2 TABLET BY MOUTH DAILY allopurinol 100 mg tablet 100 mg PO DAILY Qty: 90 3RF Eliquis 2.5 mg tablet 2.5 mg PO BID Qty: 180 3RF furosemide 40 mg tablet 40 mg PO BID Qty: 180 3RF esomeprazole magnesium 40 mg capsule,delayed release(DR/EC) 40 mg PO DAILY Qty: 90 4RF tramadol 100 mg tablet 100 mg PO BID PRN (Reason: pain) Qty: 60 2RF docusate sodium [Colace] 100 mg capsule 200 mg PO DAILY acetaminophen 500 mg capsule 500 mg PO Q4H PRN (Reason: pain) Qty: 30 0RF Discharge Instructions Instructions: Polyethylene Glycol-Electrolyte Solution, Constipation, Adult ED Additional Instructions: Please take the GoLytely solution as directed. Drink the entire solution today. He will likely have significant cramping and multiple bowel movements after this. If you have vomiting, or severe unremitting pain please return immediately for reassessment. After you do have bowel movements and a resolution of the constipation, please resume your normal stool regiment. Please drink plenty of water after the GoLytely today to stay well-hydrated. If you notice any worsening of your symptoms, or any new symptoms such as vomiting, diarrhea, fever, chills, shortness of breath, chest pain, numbness, weakness, or fainting , please return immediately to the emergency department for reevaluation. Please follow up with your primary care provider as soon as possible for reassessment and reevaluation. As always, it was a pleasure participating in your medical care today. Referrals: Benny Torrez NP [Primary Care Provider] - [facility] General Date/Time Provider Initiated Documentation: 09/17/24 09:14 . HPI Narrative: 84-year-old male with a past medical history of recurrent constipation for which she has an aggressive constipation regimen, chronic pain syndrome, bladder mass, anticoagulation with apixaban secondary to cardiac amyloidosis, who is not on opiates, who presents today for evaluation of constipation. Patient states that for the last week he has had worsening constipation. He has not had a bowel movement since Friday which was 5 days ago. He is passing gas, he has some mild abdominal achiness but denies any abdominal pain. He has been taking Metamucil, Colace, and MiraLAX without effect. He feels full. He denies nausea or vomiting. He denies any significant weight loss recently. He denies any pencil thin stools. He does admit to a small amount of liquid stool that leaked out this morning, but no hard stool. No other complaints at this time. No fever chills or night sweats. Related Data Home Medications ?Medication ?Instructions ?Recorded ?Confirmed [id number] 1 ea PO DAILY 12/09/12 09/17/24 ac 375 mg-300 mg-175 mg-2 mg cap multivitamin 1 ea PO DAILY 12/09/12 09/17/24 flaxseed oil 1,000 mg capsule 1,000 mg PO DAILY 02/27/21 09/17/24 acetaminophen 500 mg capsule 500 mg PO Q4H PRN pain #30 caps 05/23/21 09/17/24 simvastatin 10 mg tablet 5 mg (1/2 x 10 mg) PO HS #45 10/17/23 09/17/24 tab-caps spironolactone 25 mg tablet See Rx Instructions .Route 01/09/24 09/17/24 .COMPLEX #45 tabs allopurinol 100 mg tablet 100 mg PO DAILY #90 tabs 02/04/24 09/17/24 apixaban 2.5 mg tablet (Eliquis) 2.5 mg PO BID #180 tabs 02/27/24 09/17/24 furosemide 40 mg tablet 40 mg PO BID #180 tabs 03/15/24 09/17/24 psyllium seed (sugar) oral powder 2 tsp PO ONCE 05/24/24 09/17/24 (Metamucil (sugar) oral powder) tafamidis meglumine 20 mg capsule 80 mg (4 x 20 mg) PO DAILY #360 07/27/24 09/17/24 (Vyndaqel) caps esomeprazole magnesium 40 mg 40 mg PO DAILY PPI #90 caps 08/02/24 09/17/24 capsule,delayed release tamsulosin 0.4 mg capsule (Flomax) 0.8 mg (2 x 0.4 mg) PO DAILY #180 09/08/24 09/17/24 caps tramadol 100 mg tablet 100 mg PO BID PRN pain #60 tabs 09/15/24 09/17/24 docusate sodium 100 mg capsule 200 mg PO DAILY 09/17/24 09/17/24 (Colace) Previous Rx's ?Medication ?Instructions ?Recorded acetaminophen 500 mg capsule 500 mg PO Q4H PRN pain #30 caps 05/23/21 simvastatin 10 mg tablet 5 mg (1/2 x 10 mg) PO HS #45 10/17/23 tab-caps spironolactone 25 mg tablet See Rx Instructions .Route 01/09/24 .COMPLEX #45 tabs allopurinol 100 mg tablet 100 mg PO DAILY #90 tabs 02/04/24 apixaban 2.5 mg tablet (Eliquis) 2.5 mg PO BID #180 tabs 02/27/24 furosemide 40 mg tablet 40 mg PO BID #180 tabs 03/15/24 tafamidis meglumine 20 mg capsule 80 mg (4 x 20 mg) PO DAILY #360 07/27/24 (Vyndaqel) caps esomeprazole magnesium 40 mg 40 mg PO DAILY PPI #90 caps 08/02/24 capsule,delayed release tamsulosin 0.4 mg capsule (Flomax) 0.8 mg (2 x 0.4 mg) PO DAILY #180 09/08/24 caps tramadol 100 mg tablet 100 mg PO BID PRN pain #60 tabs 09/15/24 Allergies Allergy/AdvReac Type Severity Reaction Status Date / Time morphine Allergy Severe unknown Verified 09/17/24 09:18 oxycodone Allergy Intermediate Unknown Verified 09/17/24 09:18 Penicillins Allergy Skin Rash Verified 09/17/24 09:18 dexlansoprazole (From AdvReac Severe bottom of Verified 09/17/24 09:18 Dexilant) feet itching celecoxib AdvReac GI Bleeding Verified 09/17/24 09:18 General Stated Complaint: Abd Prob ASH: 3 Review of Systems All systems reviewed & are unremarkable except as noted in HPI and below Exam Narrative Exam Narrative: 1.Const: Well-nourished, Well-developed, appearing stated age 2.Eyes: PERRL, no conjunctival injection, and symmetrical lids. 3.ENT: Atraumatic external nose and ears. Moist MM. Neck: Symmetric, trachea midline, No thyromegaly. 4.CVS: +S1/S2, Peripheral pulses 2+ and equal in all extremities. Brisk capillary refill in all extremities. 5.RESP: Unlabored respiratory effort. Clear to auscultation bilaterally. No wheezes rales or rhonchi 6.GI: Soft, Nontender/Nondistended, No hepatosplenomegaly. No guarding or rebound. No bloating. No focal tenderness. No guarding or rebound. No large mass. Rectal exam was performed with female nurse at bedside. No large hard stool ball in the rectal vault that I can palpate. No mass or tenderness. 7.MSK: Normocephalic/Atraumatic, Extremities w/o deformity or ttp No cyanosis or clubbing, Normal movement of all extremities 8.Skin: Warm, Dry. No rashes or lesions. 9.Neuro: all source intelligence analyst II-XII grossly intact. Sensation grossly intact, no focal neurologic deficits. 10.Psych: (AAO) x3. Appropriate mood and affect Course Vital Signs Vital signs: Vital Signs Temperature 36.4 C 09/17/24 09:15 Pulse 61 09/17/24 09:15 Respiratory Rate 18 09/17/24 09:15 Blood Pressure 153/57 H 09/17/24 09:15 Pulse Oximetry 94 09/17/24 09:15 Temperature 36.4 C 09/17/24 09:15 Temperature Source Oral 09/17/24 09:15 Pulse 61 09/17/24 09:15 Respiratory Rate 18 09/17/24 09:15 Respiratory Effort Normal, Non-Labored 09/17/24 09:20 Blood Pressure 153/57 H 09/17/24 09:15 Blood Pressure Position Sitting 09/17/24 09:15 Pulse Oximetry 94 09/17/24 09:15 Oxygen Delivery Method Room Air 09/17/24 09:15 Oxygen Flow Rate 0 09/17/24 09:15 Pain Level 3 09/17/24 09:15 Medical Decision Making 84-year-old male with a past medical history of recurrent constipation for which she has an aggressive constipation regimen, chronic pain syndrome, bladder mass, anticoagulation with apixaban secondary to cardiac amyloidosis, who is not on opiates, who presents today for evaluation of constipation. Patient states that for the last week he has had worsening constipation. He has not had a bowel movement since Friday which was 5 days ago. He is passing gas, he has some mild abdominal achiness but denies any abdominal pain. He has been taking Metamucil, Colace, and MiraLAX without effect. He feels full. He denies nausea or vomiting. He denies any significant weight loss recently. He denies any pencil thin stools. He does admit to a small amount of liquid stool that leaked out this morning, but no hard stool. No other complaints at this time. No fever chills or night sweats. Physical exam demonstrates a nontender nonsurgical abdomen, no bloating. Rectal exam demonstrates no large hard stool ball in the rectal vault. Suspect slightly more proximal constipation. No fever or weight loss or pencil thin stool to suggest significant history of cancer or colitis. No blood to suggest bleeding polyps. He did have a CT scan just a few months ago of the abdomen which showed no evidence of thickening of the colon. Patient otherwise looks clinically well. Through shared decision-making process we discussed risks and benefits of imaging versus treatment for suspected constipation. At this stage patient would like to progress with constipation treatment. We will give a 4 L jug of GoLytely for home use. Recommend taking all of this, and staying well- hydrated afterwards. Recommend returning to normal stool softener regiment after this. Patient and understand. Patient stable for discharge otherwise. Discussed red flags for which to return. I did discuss with the fam chelsea that if they do not have resolution, or he develops vomiting or severe pain that he would need to return immediately for further assessment and imaging. I have extensively reviewed the treatment plan and discharge instructions with the patient and their family. I have addressed all patient concerns at this time. The patient and family was made aware of what symptoms to monitor for that would warrant a return to the emergency department. Discussed the plan with the patient and family, they demonstrate verbal understanding and agreement with our assessment and plan at this time. The documentation in this chart was dictated using [employer] dictation software. Please excuse any dictation errors. Quality:SDOH Health Related Social Needs: No Data to Display PFSH All Active Problems (Updated 09/17/24 @ 09:45 by Carloz Cronin DO) Constipation (Acute) Peptic duodenitis (Acute) Gastritis/duodenitis (Acute) Cirrhosis of liver (Acute) Enlarged prostate with lower urinary tract symptoms (LUTS) (Acute) Blunt chest trauma (Acute) Secondary to fall Umbilical hernia (Acute) Congenital diverticulum of duodenum (Acute) Sacroiliac joint dysfunction of both sides (Acute) Anemia (Chronic) Iron refractory iron deficiency anemia (Acute) Epigastric discomfort (Acute) GERD (gastroesophageal reflux disease) (Chronic) 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) Bradycardia (Acute) Atrial fibrillation (Chronic) Bilateral hearing loss (Acute) Ventricular tachycardia (Chronic) Heart murmur (Acute) 12/2021-consistent with known mitral regurgitation by echo Chronic kidney disease (Chronic) stage 3 Edema, peripheral (Acute) Bilateral hand swelling (Acute) Cholecystitis (Acute) Constipation (Acute) Wrist swelling (Acute) Arthralgia (Acute) Arthritis (Acute) Gout (Chronic) Low back pain (Acute) Cardiac amyloidosis (Acute) OAB (overactive bladder) (Acute) Cubital tunnel syndrome, bilateral (Acute) Bilateral carpal tunnel syndrome (Acute) Memory impairment (Acute) Spinal stenosis at L4-L5 level (Chronic 08/24/15) Narcolepsy (Chronic) Benign prostatic hyperplasia (Chronic 06/03/13) Elevated PSA; bx neg. in 1992; bx neg. in 1998; neg. bx 2006; neg bx 2008 Anxiety (Chronic) Hyperlipidemia (Chronic 06/22/13) Essential hypertension (Chronic) Diastolic heart failure (Acute) Atrial bigeminy (Acute) Edema (Acute) Bradycardia (Acute) Will need Holter monitor to assess heart irregularity and bradycardia prior to surgery. Will try to get done this week and he sees Dr. Castillo this Friday who can then hopefully clear him for surgery or put it on hold. Lab also done. Indigestion (Acute) Urgency of urination (Chronic 06/17/12) Retention of urine (Chronic 06/17/12) Restless legs (Chronic) Low back pain (Chronic) DJD; disc and fusion 1964; repeat surgery- 1994; recurrent sxs 07/10 and04/13 Knee pain (Chronic 02/11/13) left; S/P cartilage resection Impotence due to erectile dysfunction (Chronic 03/18/05) History of reactive hypoglycemia (Chronic 06/21/16) Hiatal hernia (Chronic 10/05/08) Diverticulosis of colon without diverticulitis (Chronic) Constipation by delayed colonic transit (Chronic) Bursitis of right shoulder (Chronic 08/24/15) Medical History (Updated 09/17/24 @ 09:45 by Carloz Cronin DO) Bladder mass Blepharoptosis, bilateral having bilat blepharoplasties at [facility] on 11/11/22 Droopy eyelid Bilateral blepheroplastys in 2022. Rotator cuff tear arthropathy of right shoulder Ingrown toenail Chronic pain syndrome (05/21/12) Surgical History (Updated 04/27/24 @ 07:44 by Emely Lanier) History of esophagogastroduodenoscopy (~04/2024) Right carpal tunnel syndrome S/P ECTR: 05/23/2021 Cubital tunnel syndrome on right S/P Release: 05/23/2021 History of prostate surgery TURP 2012 History of spinal fusion Status post carpal tunnel release Status post hernia repair Status post total knee replacement, bilateral (06/21/16) Replacement of total knee joint B/L 04/01/16 Spinal Fusion 02/14 PROSTATE SURG[facility] (~10/2012) [facility] T[facility] (~05/2006) B/L Laminectomy? lower spine 10/1995 KNEE REPAIR torn knee cartiledge 03/1971 /fuision HERNIA REPAIR (~05/2009) Family History Mother , AGE 65 Cancer Brother , age 84 Diabetes Maternal Grandfather , age 78 Heart disease Stroke Hyperlipidemia Paternal Grandfather Essential hypertension Heart disease Stroke Maternal Grandmother No problems noted. Paternal Grandmother No problems noted. Son No problems noted. Son Diabetes Father , age 94 No problems noted. Sister No problems noted. Social History Smoking/Tobacco Use Status: Never Second Hand Exposure: Yes Smoking risk assessment performed?: Yes Alcohol Intake: former Counseling given: No Drug use: Never Substance use type: does not use Caregiver/Support person: No Household members: spouse Housing: house Communication Needs: Hard of Hearing Do you need help understanding health information?: Rarely Pets and animals: Yes Pets and animals: dog(s) Sexually active: No Do you think of yourself as: straight/heterosexual Current gender identity: male What is your relationship status?: How often do you talk on the phone with friends or family?: once per week How often do you get together with friends or relatives?: twice per week How often do you attend restorationism or taoist services?: decline to answer Do you belong to any clubs or organized social groups?: no Panel score (0-1 are the most socially isolated patients): 2 What type of physical activity do you participate in: walking and bicycling Duration: 15-30 minutes/day Frequency: 3-4 times per week Rafaela/Holiness: [employer] Special rafaela needs: No Seatbelt use: always Helmet use: Yes Helmet use: sometimes Drive intox or ride w/intox bulk delivery driver: No Do you feel safe at home: Yes Do you feel safe in your relationship?: Yes
[2024-09-17 10:03] VITALS: BP 153/57; PULSE 61; RESP 18; TEMP 36.4; O2SAT 94
== END 2024-09-17 10:05 | disposition home or self-care (01) ==
PROVIDERS: Emergency Provider Student in an Organized Health Care Education/Training Program; PCP Nurse Practitioner Family
DX: K59.00 Constipation, unspecified (principal)
CPT/HCPCS: 99283

== ENCOUNTER → 2025-01-25 10:00 | Outpatient (BNVA) | payer MEDICARE, SELFPAY | PROVIDERS: PCP Nurse Practitioner Family; Referring Provider Nurse Practitioner Family; Visit Provider Internal Medicine Cardiovascular Disease | DX: E85.89 Other amyloidosis (principal); I48.21 Permanent atrial fibrillation | CPT/HCPCS: 99213 ==

== ENCOUNTER 2025-03-23 12:52 | Outpatient (CLI) | payer MEDICARE, SELFPAY ==
[2025-03-23 13:43] LABS: Anion Gap 9.8 mmol/L (3-11); BUN 45 mg/dL (7-18); CO2 26.2 mmol/L (21.0-32.0); CREATININE 1.9 mg/dL (0.70-1.30); Calcium 9.3 mg/dL (8.5-10.1); Calculated LDL 39 mg/dL (<100); Chloride 105 mmol/L (98-107); Cholesterol 122 mg/dL (<200); Estimated GFR 33.93 (mL/min/1.73m2); Glucose 118 mg/dL (74-106); HDL Cholesterol 66 mg/dL (>or=40); Potassium 3.7 mmol/L (3.5-5.1); Sodium 141 mmol/L (136-145); Triglyceride 85 mg/dL (<150)
[2025-03-24 12:15] LABS: PSA, Screening 3.8 ng/mL (<=6.5)
== END 2025-03-23 12:53 | disposition home or self-care (01) ==
LOC: LBO 12:54
PROVIDERS: PCP Nurse Practitioner Family; Visit Provider Nurse Practitioner Family
DX: Z13.6 Encounter for screening for cardiovascular disorders (principal); Z13.1 Encounter for screening for diabetes mellitus; Z12.5 Encounter for screening for malignant neoplasm of prostate
CPT/HCPCS: 36415; 80048; 80061; 84153

== ENCOUNTER 2025-07-26 10:31 | Outpatient (CLI) | payer MEDICARE, SELFPAY ==
--- NOTE | 2025-07-26 10:30 | RT.EKG_ITS ---
APPROVED REPORT Exam: Resting ECG Reason for Exam: bradycardia Patient Location: O HR:52 bpm ECG Measurements Heart Rate 52 AXIS DE [id number] P [id number] QRSd 95 QRS 108 QT 483 T 226 QTc 450 Conclusion Atrial fibrillation...V-rate 37- 61, irreg A-activity Right axis deviation...QRS axis ( 91,269) Low voltage, extremity leads...all extremity leads <0.5mV Anteroseptal infarct, old...Q >40mS, V1-V2 Nonspecific T abnormalities, lateral leads...T <-0.10mV, I aVL V5 V6
== END 2025-07-26 10:32 | disposition home or self-care (01) ==
LOC: DI.CARD 10:33
PROVIDERS: PCP Nurse Practitioner Family; Referring Provider Nurse Practitioner Family; Visit Provider Internal Medicine Cardiovascular Disease
DX: I48.21 Permanent atrial fibrillation (principal); R00.1 Bradycardia, unspecified; E85.4 Organ-limited amyloidosis; I43 Cardiomyopathy in diseases classified elsewhere
CPT/HCPCS: 93010

== ENCOUNTER → 2025-07-26 10:31 | Outpatient (BNVA) | payer MEDICARE, SELFPAY | PROVIDERS: PCP Nurse Practitioner Family; Referring Provider Nurse Practitioner Family; Visit Provider Internal Medicine Cardiovascular Disease | DX: E85.82 Wild-type transthyretin-related (ATTR) amyloidosis (principal); I48.21 Permanent atrial fibrillation; E85.4 Organ-limited amyloidosis; I43 Cardiomyopathy in diseases classified elsewhere; I10 Essential (primary) hypertension; Z79.01 Long term (current) use of anticoagulants | CPT/HCPCS: 99214; 93005 ==

== ENCOUNTER → 2025-09-07 09:47 | Outpatient (BNVA) | payer MEDICARE, SELFPAY | PROVIDERS: PCP Nurse Practitioner Family; Referring Provider Nurse Practitioner Family; Visit Provider Nurse Practitioner Gerontology | DX: N32.81 Overactive bladder (principal); N40.0 Benign prostatic hyperplasia without lower urinary tract symptoms | CPT/HCPCS: 99214; 51798 ==

== ENCOUNTER 2025-09-29 00:24 | Emergency (ER) | payer MEDICARE, SELFPAY ==
[2025-09-29 00:19] VITALS: BP 155/80; PULSE 46; RESP 20; TEMP 36.1; O2SAT 96
--- NOTE | 2025-09-29 00:55 | W.ED.GENAD ---
Discharge Plan Disposition Patient Disposition: Home Condition: Good Discharge Details Clinical Impression: Acute anterior epistaxis Primary Care Provider: Benny Torrez ED Provider: Carloz Cronin Home Meds and New Rx's Prescriptions: No Action Metamucil (sugar) Powder 2 tsp PO PRN PRN Patient Comments: 01/21/22 pt states he takes a sugar free metamucil RH flaxseed oil 1,000 mg capsule 1,000 mg PO DAILY Rx Instructions: administer with a meal tamsulosin [Flomax] 0.4 mg capsule 0.8 mg PO DAILY Qty: 180 3RF multivitamin 1 EACH capsule 1 ea PO DAILY glucosam-chond xf-grthcp-zc ac 1 EACH capsule 1 ea PO DAILY sennosides 8.6 mg tablet 8.6 mg PO DAILY PRN (Reason: constipation) Qty: 90 2RF simvastatin 10 mg tablet 5 mg PO HS Qty: 45 4RF spironolactone 25 mg tablet See Rx Instructions .ROUTE .COMPLEX Qty: 45 3RF Dose Instruction: TAKE 1/2 TABLET BY MOUTH DAILY Rx Instructions: TAKE 1/2 TABLET BY MOUTH DAILY allopurinol 100 mg tablet 100 mg PO DAILY Qty: 90 3RF Eliquis 2.5 mg tablet 2.5 mg PO BID Qty: 180 3RF furosemide 40 mg tablet 40 mg PO BID Qty: 180 3RF tramadol 100 mg tablet 100 mg PO BID PRN (Reason: pain) Qty: 60 2RF Vyndamax 61 mg capsule 61 mg PO DAILY Qty: 90 3RF docusate sodium [Colace] 100 mg capsule 200 mg PO DAILY Vyndaqel 20 mg capsule 80 mg PO DAILY esomeprazole magnesium 40 mg capsule,delayed release(DR/EC) 40 mg PO DAILY acetaminophen 500 mg capsule 500 mg PO Q4H PRN (Reason: pain) Qty: 30 0RF Discharge Instructions Instructions: Nosebleeds ED Additional Instructions: At this time the bleeding has resolved. Please use the nasal clamping devices as needed for any return of the bleeding. Please make sure that you have a humidifier at bedside, and continue to put the Vaseline on the inside of your nose. If you notice any worsening of your symptoms, or any new symptoms such as vomiting, diarrhea, fever, chills, shortness of breath, chest pain, numbness, weakness, or fainting , please return immediately to the emergency department for reevaluation. Please follow up with your primary care provider as soon as possible for reassessment and reevaluation. As always, it was a pleasure participating in your medical care today. Stand Alone Forms: Portal Information Referrals: Benny Torrez NP [Primary Care Provider, Medicine] HPI General Date/Time Provider Initiated Documentation: 09/29/25 00:50. HPI Narrative: This is a pleasant 85-year-old male with a past medical history of chronic constipation, chronic pain syndrome, bladder mass, cardiac amyloidosis, with chronic anticoagulant with Eliquis, who presents today for evaluation of nosebleed. Patient states that last night around 8:30 PM he developed bleeding from the right side of his nose, eventually improved after about an hour or so, however it returned again significantly in the last hour with persistent right nare bleeding. Patient contacted EMS, and was then brought to the ER for further assessment. He denies any trauma to his nose, he denies any change in medications, he denies any lightheadedness, shortness of breath, or chest pain. No other complaints at this time. Upon arrival to the ED the patient's bleeding had resolved. Related Data Home Medications ?Medication ?Instructions ?Recorded ?Confirmed [id number]-[id number] 1 ea PO DAILY 12/09/12 09/29/25 ac 375 mg-300 mg-175 mg-2 mg cap multivitamin 1 ea PO DAILY 12/09/12 09/29/25 flaxseed oil 1,000 mg capsule 1,000 mg PO DAILY 02/27/21 09/29/25 acetaminophen 500 mg capsule 500 mg PO Q4H PRN pain #30 caps 05/23/21 09/29/25 psyllium seed (sugar) oral powder 2 tsp PO PRN PRN 05/24/24 09/29/25 (Metamucil (sugar) oral powder) docusate sodium 100 mg capsule 200 mg PO DAILY 09/17/24 09/07/25 (Colace) sennosides 8.6 mg tablet 8.6 mg PO DAILY PRN constipation 11/18/24 09/07/25 #90 tabs simvastatin 10 mg tablet 5 mg (1/2 x 10 mg) PO HS #45 12/31/24 09/29/25 tab-caps spironolactone 25 mg tablet See Rx Instructions .Route 12/31/24 09/29/25 .COMPLEX #45 tabs allopurinol 100 mg tablet 100 mg PO DAILY #90 tabs 02/03/25 09/29/25 apixaban 2.5 mg tablet (Eliquis) 2.5 mg PO BID #180 tabs 02/08/25 09/29/25 furosemide 40 mg tablet 40 mg PO BID #180 tabs 02/08/25 09/29/25 tramadol 100 mg tablet 100 mg PO BID PRN pain #60 tabs 07/13/25 09/29/25 tamsulosin 0.4 mg capsule (Flomax) 0.8 mg (2 x 0.4 mg) PO DAILY #180 09/07/25 09/29/25 caps tafamidis 61 mg capsule (Vyndamax) 61 mg PO DAILY #90 caps 09/15/25 esomeprazole magnesium 40 mg 40 mg PO DAILY 09/29/25 09/29/25 capsule,delayed release tafamidis meglumine 20 mg capsule 80 mg PO DAILY 09/29/25 09/29/25 (Vyndaqel) Previous Rx's ?Medication ?Instructions ?Recorded acetaminophen 500 mg capsule 500 mg PO Q4H PRN pain #30 caps 05/23/21 sennosides 8.6 mg tablet 8.6 mg PO DAILY PRN constipation 11/18/24 #90 tabs simvastatin 10 mg tablet 5 mg (1/2 x 10 mg) PO HS #45 12/31/24 tab-caps spironolactone 25 mg tablet See Rx Instructions .Route 12/31/24 .COMPLEX #45 tabs allopurinol 100 mg tablet 100 mg PO DAILY #90 tabs 02/03/25 apixaban 2.5 mg tablet (Eliquis) 2.5 mg PO BID #180 tabs 02/08/25 furosemide 40 mg tablet 40 mg PO BID #180 tabs 02/08/25 tramadol 100 mg tablet 100 mg PO BID PRN pain #60 tabs 07/13/25 tamsulosin 0.4 mg capsule (Flomax) 0.8 mg (2 x 0.4 mg) PO DAILY #180 09/07/25 caps tafamidis 61 mg capsule (Vyndamax) 61 mg PO DAILY #90 caps 09/15/25 Allergies Allergy/AdvReac Type Severity Reaction Status Date / Time morphine Allergy Severe unknown Verified 07/26/25 10:37 oxycodone Allergy Intermediate Unknown Verified 07/26/25 10:37 Penicillins Allergy Skin Rash Verified 07/26/25 10:37 dexlansoprazole (From AdvReac Severe bottom of Verified 07/26/25 10:37 Dexilant) feet itching celecoxib AdvReac GI Bleeding Verified 07/26/25 10:37 General Stated Complaint: Epistaxis ASH: 4 Exam Narrative Exam Narrative: 1.Const: Well-nourished, Well-developed, appearing stated age 2.Eyes: PERRL, no conjunctival injection, and symmetrical lids. 3.ENT: Atraumatic external nose and ears. Moist MM. Neck: Symmetric, trachea midline, No thyromegaly. Notable large clot noted in the nose on the right nare 4.CVS: +S1/S2, Peripheral pulses 2+ and equal in all extremities. Brisk capillary refill in all extremities. 5.RESP: Unlabored respiratory effort. Clear to auscultation bilaterally. No wheezes rales or rhonchi 6.GI: Soft, Nontender/Nondistended, No hepatosplenomegaly. No guarding or rebound. 7.MSK: Normocephalic/Atraumatic, Extremities w/o deformity or ttp No cyanosis or clubbing, Normal movement of all extremities 8.Skin: Warm, Dry. No rashes or lesions. 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 Sensation grossly intact, no focal neurologic deficits. 10.Psych: (AAO) x3. Appropriate mood and affect Course Vital Signs Vital signs: Vital Signs Temperature 36.1 C L 09/29/25 00:19 Pulse 46 L 09/29/25 00:19 Respiratory Rate 20 09/29/25 00:19 Blood Pressure 155/80 H 09/29/25 00:19 Pulse Oximetry 96 09/29/25 00:19 Temperature 36.1 C L 09/29/25 00:19 Temperature Source Temporal Artery Scan 09/29/25 00:19 Pulse 46 L 09/29/25 00:19 Respiratory Rate 20 09/29/25 00:19 Blood Pressure 155/80 H 09/29/25 00:19 Blood Pressure Position Sitting 09/29/25 00:19 Pulse Oximetry 96 09/29/25 00:19 Oxygen Delivery Method Room Air 09/29/25 00:19 Oxygen Flow Rate 0 09/29/25 00:19 Medical Decision Making This is a pleasant 85-year-old male with a past medical history of chronic constipation, chronic pain syndrome, bladder mass, cardiac amyloidosis, with chronic anticoagulant with Eliquis, who presents today for evaluation of nosebleed. Patient states that last night around 8:30 PM he developed bleeding from the right side of his nose, eventually improved after about an hour or so, however it returned again significantly in the last hour with persistent right nare bleeding. Patient contacted EMS, and was then brought to the ER for further assessment. He denies any trauma to his nose, he denies any change in medications, he denies any lightheadedness, shortness of breath, or chest pain. No other complaints at this time. Upon arrival to the ED the patient's bleeding had resolved. Physical exam demonstrates a well-appearing male, vital signs are stable, no acute distress. Patient has no bleeding in the left nare. He does have a notable clot present in the right nare. Clot was expectorated, after which the nose was inspected and there does not appear to be any evidence of active bleeding or hemorrhage at this time. No blood in the posterior oropharynx. Will place in a nose clamp device on the nose and observe for the next 30 to 40 minutes to see if bleeding recurs. Will monitor closely and reassess. 1:26 AM Patient was observed for an hour, no bleeding recurred. Patient stable for discharge. Will give nasal clamp devices for home. Family is at bedside. No signs of hypotension or tachycardia. Patient stable for discharge. I have extensively reviewed the treatment plan and discharge instructions with the patient and their family. I have addressed all patient concerns at this time. The patient and family was made aware of what symptoms to monitor for that would warrant a return to the emergency department. Discussed the plan with the patient and family, they demonstrate verbal understanding and agreement with our assessment and plan at this time. The documentation in this chart was dictated using Cloud[employer] dictation software. Please excuse any dictation errors. 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) Bradycardia (Acute) Atrial fibrillation (Chronic) Bilateral hearing loss (Acute) Ventricular tachycardia (Chronic) Heart murmur (Acute) 12/2021-consistent with known mitral regurgitation by echo Chronic kidney disease (Chronic) stage 3 Edema, peripheral (Acute) Bilateral hand swelling (Acute) Cholecystitis (Acute) Constipation (Acute) Wrist swelling (Acute) Arthralgia (Acute) Arthritis (Acute) Gout (Chronic) Low back pain (Acute) Cardiac amyloidosis (Acute) OAB (overactive bladder) (Acute) Cubital tunnel syndrome, bilateral (Acute) Bilateral carpal tunnel syndrome (Acute) Memory impairment (Acute) Spinal stenosis at L4-L5 level (Chronic 08/24/15) Narcolepsy (Chronic) Benign prostatic hyperplasia (Chronic 06/03/13) Elevated PSA; bx neg. in 1992; bx neg. in 1998; neg. bx 2006; neg bx 2008 Anxiety (Chronic) Hyperlipidemia (Chronic 06/22/13) Essential hypertension (Chronic) Diastolic heart failure (Acute) Atrial bigeminy (Acute) Edema (Acute) Bradycardia (Acute) Will need Holter monitor to assess heart irregularity and bradycardia prior to surgery. Will try to get done this week and he sees Dr. Castillo this Friday who can then hopefully clear him for surgery or put it on hold. Lab also done. Indigestion (Acute) Urgency of urination (Chronic 06/17/12) Retention of urine (Chronic 06/17/12) Restless legs (Chronic) Low back pain (Chronic) DJD; disc and fusion 1964; repeat surgery- 1994; recurrent sxs 07/10 and04/13 Knee pain (Chronic 02/11/13) left; S/P cartilage resection Impotence due to erectile dysfunction (Chronic 03/18/05) History of reactive hypoglycemia (Chronic 06/21/16) Hiatal hernia (Chronic 10/05/08) Diverticulosis of colon without diverticulitis (Chronic) Constipation by delayed colonic transit (Chronic) Bursitis of right shoulder (Chronic 08/24/15) Medical History Bladder mass Blepharoptosis, bilateral having bilat blepharoplasties at [facility] on 11/11/22 Droopy eyelid Bilateral blepheroplastys in 2022. Rotator cuff tear arthropathy of right shoulder Ingrown toenail Chronic pain syndrome (05/21/12) Surgical History History of esophagogastroduodenoscopy (~04/2024) Right carpal tunnel syndrome S/P ECTR: 05/23/2021 Cubital tunnel syndrome on right S/P Release: 05/23/2021 History of prostate surgery TURP 2012 History of spinal fusion Status post carpal tunnel release Status post hernia repair Status post total knee replacement, bilateral (06/21/16) Replacement of total knee joint B/L 04/01/16 Spinal Fusion 02/14 PROSTATE SURGERY (~10/2012) TURP 2012 - [place] Open Carpal Tunnel release (~05/2006) B/L Laminectomy? lower spine 10/1995 KNEE REPAIR torn knee cartiledge 03/1971 /fuision HERNIA REPAIR (~05/2009) Family History Mother , AGE 65 Cancer Brother , age 84 Diabetes Maternal Grandfather , age 78 Heart disease Stroke Hyperlipidemia Paternal Grandfather Essential hypertension Heart disease Stroke Maternal Grandmother No problems noted. Paternal Grandmother No problems noted. Son No problems noted. Son Diabetes Father , age 94 No problems noted. Sister No problems noted. 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 Pets and animals: Yes Pets and animals: dog(s) Sexually active: No Do you think of yourself as: straight/heterosexual Current gender identity: male What is your relationship status?: How often do you talk on the phone with friends or family?: twice per week How often do you get together with friends or relatives?: once per week How often do you attend christian or mormonism services?: 1-3 times per year Do you belong to any clubs or organized social groups?: yes Panel score (0-1 are the most socially isolated patients): 3 What type of physical activity do you participate in: walking Duration: 15-30 minutes/day Frequency: 1-2 times per week Rafaela/Church: [employer] Special rafaela needs: No Seatbelt use: always Helmet use: Yes Helmet use: sometimes Drive intox or ride w/intox local city driver: No Working smoke detector in home: Yes Carbon monox detector in home: Yes Firearms in home: Yes Firearms unloaded and locked: No Do you feel safe at home: Yes Do you feel safe in your relationship?: Yes Would you like helpful sources: No Additional Social history: lives at home with
[2025-09-29 01:37] VITALS: BP 155/65; PULSE 65; RESP 16; O2SAT 98
== END 2025-09-29 01:39 | disposition home or self-care (01) ==
PROVIDERS: Emergency Provider Student in an Organized Health Care Education/Training Program; PCP Nurse Practitioner Family
DX: R04.0 Epistaxis (principal); Z79.01 Long term (current) use of anticoagulants
CPT/HCPCS: 99282; 99281